=== PATIENT | male | born 1930 | race Caucasian/White ===

== ENCOUNTER 2018-08-29 16:37 | Inpatient (IN) | payer MEDICARE, OTHER ==
[2018-08-29] MEDS ORDERED: Bacitracin 500 Units/gm Oint Foilpak UD ONE (17:34)
[2018-08-29] MEDS ORDERED: Sodium Chloride 0.9% 1,000 ML IV ONE (17:36)
--- NOTE | 2018-08-29 17:41 | C.PDOC ---
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 Patient is bedbound and usually seen by visiting nurse who saw sore worsen and advised patient be brought to ED. Patient has no change in appetite. As per , denies fever, cough, CP, wheezing or any other active complaints. HPI obtained by secondary to patient's clinical condition. 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), Dementia, HTN, Hypercholesterolemia Surgical History: Coronary Stent Denies: Pacemaker - [facility] Procedures ANGIOPLASTY OF OTHER NON-CORONARY VESSEL(S) (08/31/12) ATHERECTOMY OF OTHER NON-CORONARY VESSEL(S) (08/31/12) CONTRAST AORTOGRAM (08/31/12) CONTRAST ARTERIOGRAM-LEG (08/31/12) INFLUENZA VACCINATION (10/18/14) INSEJ [id number] PERIPHERAL NON-CORONARY VES STENT(S) (08/31/12) INSERTION OF ONE VASCULAR STENT (08/31/12) PROCEDURE ON SINGLE VESSEL (08/31/12) SPINAL TAP (10/30/14) VACCINATION NEC (10/18/14) VENTRICL SHUNT-ABDOMEN (10/30/14) - Social History Hx Tobacco Use: No Hx Alcohol Use: No Hx Substance Use: No - Immunization History Hx Tetanus Toxoid Vaccination: No Hx Influenza Vaccination: Yes (10/2014) Hx Pneumococcal Vaccination: Yes (09/2014) <Holly Benavides - Last Filed: 08/29/18 18:56> Vital Signs: Last Vital Signs Temp 99.8 F H 08/29/18 18:14 Pulse 96 H 08/29/18 19:07 Resp 22 08/29/18 19:07 BP 138/72 08/29/18 19:07 Pulse Ox 100 08/29/18 18:59 - [facility] Procedures ANGIOPLASTY OF OTHER NON-CORONARY VESSEL(S) (08/31/12) ATHERECTOMY OF OTHER NON-CORONARY VESSEL(S) (08/31/12) CONTRAST AORTOGRAM (08/31/12) CONTRAST ARTERIOGRAM-LEG (08/31/12) INFLUENZA VACCINATION (10/18/14) INSEJ [id number] PERIPHERAL NON-CORONARY VES STENT(S) (08/31/12) INSERTION OF ONE VASCULAR STENT (08/31/12) PROCEDURE ON SINGLE VESSEL (08/31/12) SPINAL TAP (10/30/14) VACCINATION NEC (10/18/14) VENTRICL SHUNT-ABDOMEN (10/30/14) Family History: States: No Known Family Hx <Malini Molina - Last Filed: 09/02/18 05:21> Review Of Systems Review Of Systems: ROS cannot be obtained secondary to pt's inabilty to answer questions. (dementia) Constitutional: Negative for: Fever, Chills Skin: Positive for: Other (sores to sacral area) <Holly Benavides - Last Filed: 08/29/18 18:56> Physical Exam - Physical Exam Appears: Non-toxic, No Acute Distress Skin: Warm, Dry, No Rash, Other (grade 2-3 sacral decub, grade 1 to B/L hips.) Head: Normacephalic Eye(s): bilateral: PERRL Nose: No Flaring Oral Mucosa: Moist, No Drooling Throat: No Drooling Neck: Trachea Midline, Supple Cardiovascular: Rhythm Regular, Murmur (diastolic) Respiratory: No Decreased Breath Sounds, No Accessory Muscle Use, No Rales, No Rhonchi, No Wheezing Gastrointestinal/Abdominal: Soft, No Tenderness, No Guarding, No Rebound Extremity: No Pedal Edema, No Deformity, No Swelling Neurological/Psych: Other (exam limited, B/L LEs contacted sec to previous CVA) <Holly Benavides - Last Filed: 08/29/18 18:56> ED Course And Treatment - Laboratory Results Result Diagrams: 08/29/18 18:00 08/29/18 18:00 Lab Interpretation: Abnormal ECG: Interpreted By Me, Viewed By Me ECG Interpretation: Abnormal Interpretation Of ECG: SR@96/min, frequent PVCs, prolong QT, t wave inversionIII, AVF, V6 O2 Sat by Pulse Oximetry: 100 (RA) Pulse Ox Interpretation: Normal Progress Note: Code sepsis called at 18:06, notified. tx according to sepsis protocol. vanco/Zosyn empirically given. case discussed with and admission to ICU arranged. case discussed with substance abuse counselor. <Holly Benavides - Last Filed: 08/29/18 18:56> - Laboratory Results Result Diagrams: 09/01/18 11:29 09/01/18 11:29 <Malini Molina - Last Filed: 09/02/18 05:21> Disposition - Disposition Disposition Time: 18:18 <Holly Benavides - Last Filed: 08/29/18 18:56> <Malini Molina - Last Filed: 09/02/18 05:21> - Disposition Disposition: HOSPITALIZED Condition: STABLE - Clinical Impression Clinical Impression: Sacral decubitus ulcer, stage III, Sepsis - PA / LARDER COOK / Resident Statement DEMARCUS has reviewed & agrees with the documentation as recorded. - Scribe Statement The provider has reviewed the documentation as recorded by the Scribe Anna Culp All medical record entries made by the Scribe were at my direction and personally dictated by me. I have reviewed the chart and agree that the record accurately reflects my personal performance of the history, physical exam, medical decision making, and the department course for this patient. I have also personally directed, reviewed, and agree with the discharge instructions and disposition. <Holly Benavides - Last Filed: 08/29/18 18:56> - PA / LARDER COOK / Resident Statement DEMARCUS has examined the patient and agrees with the treatment plan. <Malini Molina - Last Filed: 09/02/18 05:21> Physician Patient Turnover Patient Signed Over To: Toy Mendoza DO Handoff Comments: icu eval <Malini Molina - Last Filed: 09/02/18 05:21> Critical Care Time - Critical Care Note Total Time (in mins): 45 Documented critical care: time excludes all time spent performing seperately billable procedures. <Holly Benavides - Last Filed: 08/29/18 18:56>
[2018-08-29 18:01] LABS: VENOUS BLOOD GAS BASE EXCESS 0.8 mmol/L (0.0-2.0); VENOUS BLOOD GAS PCO2 49 mmHg (40-60); VENOUS BLOOD GAS PO2 21 mm/Hg (30-55); VENOUS BLOOD PH 7.35 (7.32-7.43)
[2018-08-29] MEDS ORDERED: Piperacill/Tazo 3.375gm in Dex 3.375 GM/50 ML BAG IVPB STA (18:06)
[2018-08-29] MEDS ORDERED: Vancomycin 1 gm/NS 200 ml 1 GM/200 ML BAG IVPB STA (18:06)
[2018-08-29 18:07] LABS: BASO % 0.3 % (0.0-2.0); EOS % 0.1 % (0.0-4.0); HEMOGLOBIN 10.9 g/dL (12.0-18.0); LYMPH # 1.4 K/uL (1.0-4.3); MEAN CELL VOLUME 90.9 fL (80.0-94.0); MEAN CORPUSCULAR HEMOGLOBIN 30.8 pg (27.0-31.0); MEAN CORPUSCULAR HGB CONC 33.9 g/dL (33.0-37.0); MEAN PLATELET VOLUME 8.5 fL (7.2-11.7); MONO # 0.6 K/uL (0.0-0.8); MONO % 5.7 % (0.0-10.0); NEUT # 8.2 K/uL (1.8-7.0); NEUT % 79.9 % (50.0-75.0); NRBC % 0.1 % (0.0-2.0); RBC 3.52 Mil/uL (4.40-5.90); RED CELL DISTRIBUTION WIDTH 12.6 % (11.5-14.5); WHITE BLOOD COUNT 10.3 K/uL (4.8-10.8)
[2018-08-29] MEDS ORDERED: Sodium Chloride 0.9% 1,000 ML ONE (18:07)
[2018-08-29 18:15] LABS: INR 1.2; PROTHROMBIN TIME 12.7 SECONDS (9.7-12.2)
[2018-08-29 18:21] LABS: ALB/GLOB RATIO 0.9 (1.0-2.1); ALBUMIN 3.4 g/dL (3.5-5.0); ALT/SGPT 11 U/L (21-72); AST/SGOT 24 U/L (17-59); BLOOD UREA NITROGEN 18 mg/dL (9-20); CALCIUM 8.9 mg/dl (8.6-10.4); GFR NON-AFRICAN AMERICAN > 60
[2018-08-29] MEDS ORDERED: Lactated Ringer's 2,000 ML ONE (18:21)
[2018-08-29] MEDS ORDERED: Piperacillin/Tazobact 3.375 gm 100 ML IVPB ONE (18:21)
[2018-08-29] MEDS ORDERED: Vancomycin 1 GM 1 GM/250 ML BAG IVPB ONE (18:44)
--- NOTE | 2018-08-29 19:02 | RAD ---
HISTORY: Sepsis Patient COMPARISON: Chest x-ray performed 10/30/14 TECHNIQUE: Chest, one view. FINDINGS: Patient's chin obscures evaluation of the lung apices. LUNGS: Right paratracheal opacity may reflect ectatic vasculature however alternatives including adenopathy is not excluded. No focal consolidation. Please note that chest x-ray has limited sensitivity for the detection of pulmonary masses. PLEURA: No significant pleural effusion identified. No definite pneumothorax . CARDIOVASCULAR: Heart size appears top normal. Aortic ectasia. Atherosclerotic calcifications. OSSEOUS STRUCTURES: Osseous demineralization. Degenerative changes. VISUALIZED UPPER ABDOMEN: Unremarkable. OTHER FINDINGS: None. IMPRESSION: Stable appearance of the chest. Right paratracheal opacity may reflect ectatic vasculature however alternatives including adenopathy is not excluded. Aortic ectasia. Atherosclerotic calcifications.
--- NOTE | 2018-08-29 19:59 | CP.PCM.CON ---
History of Present Illness - History of Present Illness History of Present Illness: 87 y/o male with history of CVA x2 ,hydrocephalus,[employer] Shunt (2014 or 2015), residual B/L lower extremities and left upper extremity contracture,HTN, CO,dementia brought to ED by for evaluation of sores to sacral area and back worse on right hip for 1 month. Patient is bedbound and usually seen by visiting nurse who saw sore worsen and advised patient be brought to ED. Patient has no change in appetite. As per , denies fever, cough, CP, wheezing or any other active complaints. History obtained from and son(via visiting nurse) secondary to patient's clinical condition and ER notes. patient responds to and son Review of Systems - Review of Systems Review of Systems: unable to get due to patients baseline condition Past Patient History - Tetanus Immunizations Tetanus Immunization: Unknown - Past Medical History & Family History Past Medical History?: Yes - Past Social History Smoking Status: Former Smoker - CARDIAC Hx Hypercholesterolemia: Yes Hx Hypertension: Yes Hx Pacemaker: No - NEUROLOGICAL Hx Dementia: Yes - HEMATOLOGICAL/ONCOLOGICAL Hx Blood Transfusions: No Hx Blood Transfusion Reaction: No - INTEGUMENTARY Other/Comment: MULTIPLE DECUBITUS ULCERS TO BACK - MUSCULOSKELETAL/RHEUMATOLOGICAL Hx Arthritis: Yes - GENITOURINARY/GYNECOLOGICAL Other/Comment: Hx of BPH - PSYCHIATRIC Hx Substance Use: No - SURGICAL HISTORY Hx Coronary Stent: Yes - ANESTHESIA Hx Anesthesia Reactions: No Hx Malignant Hyperthermia: No Meds Allergies/Adverse Reactions: Allergies Allergy/AdvReac Type Severity Reaction Status Date / Time No Known Allergies Allergy Unverified 08/29/18 17:06 - Medications Medications: Current Medications Sodium Chloride (Sodium Chloride 0.9%) 1,000 mls @ 200 mls/hr IV .Q5H ONE Stop: 08/29/18 22:35 Last Admin: 08/29/18 18:07 Dose: 200 mls/hr Physical Exam - Constitutional Appears: Non-toxic, No Acute Distress, Chronically Ill - Head Exam Head Exam: ATRAUMATIC, NORMAL INSPECTION, NORMOCEPHALIC - Eye Exam Eye Exam: Normal appearance. absent: Conjunctival injection Additional comments: bilateral cataract surgery - ENT Exam ENT Exam: Mucous Membranes Dry - Neck Exam Neck exam: Positive for: Normal Inspection - Respiratory Exam Respiratory Exam: Clear to Auscultation Bilateral, NORMAL BREATHING PATTERN. absent: Rales, Rhonchi, Respiratory Distress - Cardiovascular Exam Cardiovascular Exam: REGULAR RHYTHM. absent: JVD - GI/Abdominal Exam GI & Abdominal Exam: Normal Bowel Sounds, Soft. absent: Tenderness - Extremities Exam Extremities exam: Negative for: pedal edema, tenderness Additional comments: bilateral contracted lower extremities and left upper extremity - Neurological Exam Neurological exam: Alert - Skin Skin Exam: Warm Additional comments: large right buttock ulcer with discharge and smaller decubiti+ right neck,anterior chest with palpable [employer] F[employer] shunt Results - Vital Signs Recent Vital Signs: Last Vital Signs Temp 99.8 F H 08/29/18 18:14 Pulse 96 H 08/29/18 19:07 Resp 22 08/29/18 19:07 BP 138/72 08/29/18 19:07 Pulse Ox 100 08/29/18 18:59 - Labs Result Diagrams: 08/29/18 18:00 08/29/18 18:00 Labs: Laboratory Results - last 24 hr 08/29/18 08/29/18 08/29/18 17:50 18:00 18:00 WBC 10.3 D RBC 3.52 L Hgb 10.9 L Hct 32.0 L MCV 90.9 D MCH 30.8 MCHC 33.9 RDW 12.6 Plt Count 329 D MPV 8.5 Neut % (Auto) 79.9 H Lymph % (Auto) 14.0 L [place] % (Auto) 5.7 Eos % (Auto) 0.1 Baso % (Auto) 0.3 Neut # (Auto) 8.2 H Lymph # (Auto) 1.4 [place] # (Auto) 0.6 Eos # (Auto) 0.0 Baso # (Auto) 0.0 PT INR APTT pO2 21 L VBG pH 7.35 VBG pCO2 49 VBG HCO3 23.8 VBG Total CO2 28.6 H VBG O2 Sat (Calc) 30.7 L VBG Base Excess 0.8 VBG Potassium 3.7 Sodium 144.0 144 Chloride 111.0 H 105 Glucose 132 H Lactate 4.0 H* FiO2 21.0 Potassium 3.9 Carbon Dioxide 25 Anion Gap 17 BUN 18 Creatinine 0.9 Est GFR ( Amer) > 60 Est GFR (Non-Af Amer) > 60 Random Glucose 136 H Calcium 8.9 Phosphorus 3.4 Magnesium 2.4 H Total Bilirubin 0.6 AST 24 ALT 11 L D Alkaline Phosphatase 105 Total Creatine Kinase 500 H Total Protein 7.1 Albumin 3.4 L Globulin 3.7 Albumin/Globulin Ratio 0.9 L Venous Blood Potassium 3.7 08/29/18 18:00 WBC RBC Hgb Hct MCV MCH MCHC RDW Plt Count MPV Neut % (Auto) Lymph % (Auto) [place] % (Auto) Eos % (Auto) Baso % (Auto) Neut # (Auto) Lymph # (Auto) [place] # (Auto) Eos # (Auto) Baso # (Auto) PT 12.7 H INR 1.2 APTT 31 pO2 VBG pH VBG pCO2 VBG HCO3 VBG Total CO2 VBG O2 Sat (Calc) VBG Base Excess VBG Potassium Sodium Chloride Glucose Lactate FiO2 Potassium Carbon Dioxide Anion Gap BUN Creatinine Est GFR ( Amer) Est GFR (Non-Af Amer) Random Glucose Calcium Phosphorus Magnesium Total Bilirubin AST ALT Alkaline Phosphatase Total Creatine Kinase Total Protein Albumin Globulin Albumin/Globulin Ratio Venous Blood Potassium - EKG Data EKG Interpreted by: Myself - Imaging and Cardiology Chest x-ray Status: Image reviewed by me, Report reviewed by me Assessment & Plan - Assessment and Plan (Free Text) Assessment: 87 y/o male with history of CVA x2 ,hydrocephalus,[employer] Shunt (2013 or 2015), residual B/L lower extremities and left upper extremity contracture,HTN, CO, dementia brought to ER with decubiti ulcers,anemia initially hypotensive in ER,responded to fluids Hemodynamically stable at present time. .Recommend cultures,IV fluids,antibiotics,local wound care
[2018-08-29] MEDS ORDERED: Piperacillin/Tazobact 3.375 GM in Sodium Chloride 100 ML IVPB SCH (20:15)
[2018-08-29] MEDS ORDERED: Piperacillin/Tazobact 3.375 gm 100 ML IVPB SCH (22:00)
[2018-08-29] MEDS: Sodium Chloride 0.9% 1,000 ML IV SCH (22:12)
--- NOTE | 2018-08-29 22:50 | CP.PCM.HP ---
Past Patient History - Tetanus Immunizations Tetanus Immunization: Unknown - Past Medical History & Family History Past Medical History?: Yes - Past Social History Smoking Status: Former Smoker - CARDIAC Hx Hypercholesterolemia: Yes Hx Hypertension: Yes Hx Pacemaker: No - NEUROLOGICAL Hx Dementia: Yes - HEMATOLOGICAL/ONCOLOGICAL Hx Blood Transfusions: No Hx Blood Transfusion Reaction: No - INTEGUMENTARY Other/Comment: MULTIPLE DECUBITUS ULCERS TO BACK - MUSCULOSKELETAL/RHEUMATOLOGICAL Hx Arthritis: Yes - GENITOURINARY/GYNECOLOGICAL Other/Comment: Hx of BPH - PSYCHIATRIC Hx Substance Use: No - SURGICAL HISTORY Hx Coronary Stent: Yes - ANESTHESIA Hx Anesthesia Reactions: No Hx Malignant Hyperthermia: No Meds Allergies/Adverse Reactions: Allergies Allergy/AdvReac Type Severity Reaction Status Date / Time No Known Allergies Allergy Unverified 08/29/18 17:06 Results - Vital Signs Recent Vital Signs: Last Vital Signs Temp 99.8 F H 08/29/18 18:14 Pulse 85 08/29/18 22:42 Resp 18 08/29/18 22:42 BP 151/53 H 08/29/18 22:42 Pulse Ox 100 08/29/18 22:42 - Labs Result Diagrams: 08/29/18 18:00 08/29/18 18:00 Labs: Laboratory Results - last 24 hr 08/29/18 08/29/18 08/29/18 17:50 18:00 18:00 WBC 10.3 D RBC 3.52 L Hgb 10.9 L Hct 32.0 L MCV 90.9 D MCH 30.8 MCHC 33.9 RDW 12.6 Plt Count 329 D MPV 8.5 Neut % (Auto) 79.9 H Lymph % (Auto) 14.0 L Payne % (Auto) 5.7 Eos % (Auto) 0.1 Baso % (Auto) 0.3 Neut # (Auto) 8.2 H Lymph # (Auto) 1.4 Payne # (Auto) 0.6 Eos # (Auto) 0.0 Baso # (Auto) 0.0 PT INR APTT pO2 21 L VBG pH 7.35 VBG pCO2 49 VBG HCO3 23.8 VBG Total CO2 28.6 H VBG O2 Sat (Calc) 30.7 L VBG Base Excess 0.8 VBG Potassium 3.7 Sodium 144.0 144 Chloride 111.0 H 105 Glucose 132 H Lactate 4.0 H* FiO2 21.0 Potassium 3.9 Carbon Dioxide 25 Anion Gap 17 BUN 18 Creatinine 0.9 Est GFR ( Amer) > 60 Est GFR (Non-Af Amer) > 60 Random Glucose 136 H Lactic Acid Calcium 8.9 Phosphorus 3.4 Magnesium 2.4 H Total Bilirubin 0.6 AST 24 ALT 11 L D Alkaline Phosphatase 105 Total Creatine Kinase 500 H Total Protein 7.1 Albumin 3.4 L Globulin 3.7 Albumin/Globulin Ratio 0.9 L Venous Blood Potassium 3.7 08/29/18 08/29/18 18:00 21:11 WBC RBC Hgb Hct MCV MCH MCHC RDW Plt Count MPV Neut % (Auto) Lymph % (Auto) [place] % (Auto) Eos % (Auto) Baso % (Auto) Neut # (Auto) Lymph # (Auto) Payne # (Auto) Eos # (Auto) Baso # (Auto) PT 12.7 H INR 1.2 APTT 31 pO2 VBG pH VBG pCO2 VBG HCO3 VBG Total CO2 VBG O2 Sat (Calc) VBG Base Excess VBG Potassium Sodium Chloride Glucose Lactate FiO2 Potassium Carbon Dioxide Anion Gap BUN Creatinine Est GFR ( Amer) Est GFR (Non-Af Amer) Random Glucose Lactic Acid 3.5 H Calcium Phosphorus Magnesium Total Bilirubin AST ALT Alkaline Phosphatase Total Creatine Kinase Total Protein Albumin Globulin Albumin/Globulin Ratio Venous Blood Potassium
[2018-08-30] MEDS: Piperacill/Tazo 3.375gm in Dex 3.375 GM/50 ML BAG IVPB SCH ×3 (02:30→18:20)
[2018-08-30] MEDS: Multiple Vitamins Tab PO SCH (11:33)
[2018-08-30] MEDS: Enoxaparin 40 mg Syringe SC SCH (11:34)
[2018-08-30] MEDS: Sodium Chloride 0.9% 1,000 ML IV SCH ×2 (12:00→17:30)
--- NOTE | 2018-08-30 13:14 | CARD ---
APPROVED REPORT Date of service: 08/29/2018 EKG Measurement Heart [id number] <Conclusion> Sinus rhythm with frequent premature ventricular complexes ST & T wave abnormality, consider lateral ischemia Prolonged QT Abnormal ECG
[2018-08-30 13:58] LABS: BASO % 0.2 % (0.0-2.0); LYMPH # 0.5 K/uL (1.0-4.3); LYMPH % 3.4 % (20.0-40.0); MEAN CELL VOLUME 91.2 fL (80.0-94.0); MEAN CORPUSCULAR HEMOGLOBIN 29.5 pg (27.0-31.0); MEAN CORPUSCULAR HGB CONC 32.3 g/dL (33.0-37.0); MEAN PLATELET VOLUME 8.7 fL (7.2-11.7); MONO # 0.3 K/uL (0.0-0.8); MONO % 2.2 % (0.0-10.0); NEUT # 15.1 K/uL (1.8-7.0); NEUT % 94.2 % (50.0-75.0); RBC 2.67 Mil/uL (4.40-5.90); RED CELL DISTRIBUTION WIDTH 12.9 % (11.5-14.5)
[2018-08-30 14:01] LABS: HEMOGLOBIN 7.9 g/dL (12.0-18.0)
[2018-08-30 14:02] LABS: PLATELET COUNT 218 K/uL (130-400)
[2018-08-30 14:08] LABS: ALB/GLOB RATIO 0.9 (1.0-2.1); ALBUMIN 2.5 g/dL (3.5-5.0); ALT/SGPT 17 U/L (21-72); AST/SGOT 34 U/L (17-59); BLOOD UREA NITROGEN 21 mg/dL (9-20); CALCIUM 7.9 mg/dl (8.6-10.4); GFR NON-AFRICAN AMERICAN > 60
[2018-08-30 14:37] LABS: BANDS 8 % (0-2); LYMPHOCYTE 4 % (20-40); NEUTROPHIL 88 % (50-75); PLATELET ESTIMATE NORMAL (NORMAL); TOTAL CELLS COUNTED 100
[2018-08-30 14:39] LABS: HYPOCHROMIC SLIGHT; POLYCHROMIC SLIGHT
--- NOTE | 2018-08-30 16:03 | CP.PCM.CON ---
<Fanta Boyle - Last Filed: 08/30/18 18:18> History of Present Illness - History of Present Illness History of Present Illness: General Surgery consult note for Dr. Paulson Consulted for sacral decubitus ulcer Patient is unable to provide HPI d/t AMS. HPI provided by family at bedside and chart Pt is a 87M who is bed bound with PMH of multiple CVA's. hydrocephalus, and dementia who has had a sacral wound at home that was getting worse so the family brought the patient to the hospital. Patient has extreme contractions and though comfortable at rest, has pain when being rolled for examination, with agitation and combativeness. PMH: CVA, hydrocephalus S/P [employer] shunt, dementia, HTN, HLD, [place], dementia PSH: vp software support shunt, coronary stent ALL: NKDA Review of Systems - Review of Systems Systems not reviewed;Unavailable: Dementia All systems: reviewed and no additional remarkable complaints except (as per HPI) Past Patient History - Tetanus Immunizations Tetanus Immunization: Unknown - Past Medical History & Family History Past Medical History?: Yes - Past Social History Smoking Status: Former Smoker - CARDIAC Hx Hypercholesterolemia: Yes Hx Hypertension: Yes Hx Pacemaker: No - NEUROLOGICAL Hx Dementia: Yes - HEMATOLOGICAL/ONCOLOGICAL Hx Blood Transfusions: No Hx Blood Transfusion Reaction: No - INTEGUMENTARY Other/Comment: MULTIPLE DECUBITUS ULCERS TO BACK - MUSCULOSKELETAL/RHEUMATOLOGICAL Hx Falls: No - GENITOURINARY/GYNECOLOGICAL Other/Comment: Hx of BPH - PSYCHIATRIC Hx Substance Use: No - SURGICAL HISTORY Hx Coronary Stent: Yes - ANESTHESIA Hx Anesthesia Reactions: No Hx Malignant Hyperthermia: No Meds Allergies/Adverse Reactions: Allergies Allergy/AdvReac Type Severity Reaction Status Date / Time No Known Allergies Allergy Unverified 08/29/18 17:06 - Medications Medications: Current Medications Clopidogrel Bisulfate (Plavix) 75 mg PO DAILY [facility] Enoxaparin Sodium (Lovenox) 40 mg SC DAILY [facility] Last Admin: 08/30/18 11:34 Dose: 40 mg Ferrous Sulfate (Feosol) 325 mg PO BID [facility] Last Admin: 08/30/18 11:33 Dose: 325 mg Vancomycin HCl 1 gm/ Sodium (Chloride) 250 mls @ 167 mls/hr IVPB Q24H [facility]; Protocol Last Admin: 08/29/18 21:44 Dose: Not Given Sodium Chloride (Sodium Chloride 0.9%) 1,000 mls @ 70 mls/hr IV .[id number] [facility] Last Admin: 08/29/18 22:12 Dose: 70 mls/hr Piperacillin Sod/Tazobactam Sod (Zosyn 3.375 Gm Iv Premix) 3.375 gm in 50 mls @ 100 mls/hr IVPB Q8H [facility] Last Admin: 08/30/18 11:34 Dose: 100 mls/hr Influenza Virus Vaccine (Fluzone Quad [id number]) 60 mcg IM .ONCE ONE Stop: 08/31/18 10:01 Lorazepam (Ativan) 0.5 mg PO Q12 PRN PRN Reason: Agitation Last Admin: 08/29/18 19:55 Dose: 0.5 mg Memantine (Namenda) 10 mg PO BID [facility] Last Admin: 08/30/18 11:33 Dose: 10 mg Metoprolol Tartrate (Lopressor) 25 mg PO BID [facility] Last Admin: 08/30/18 11:35 Dose: Not Given Multivitamins (Hexavitamin) 1 tab PO DAILY [facility] Last Admin: 08/30/18 11:33 Dose: 1 tab Pantoprazole Sodium (Protonix Susp) 40 mg PO 0600 [facility] Rosuvastatin Calcium (Crestor) 20 mg PO HS [facility] Last Admin: 08/29/18 23:18 Dose: 20 mg Physical Exam - Constitutional Appears: No Acute Distress, Cachectic - Head Exam Head Exam: ATRAUMATIC, NORMOCEPHALIC - Eye Exam Eye Exam: Normal appearance. absent: Conjunctival injection, Scleral icterus - ENT Exam ENT Exam: Mucous Membranes Moist - Respiratory Exam Respiratory Exam: NORMAL BREATHING PATTERN. absent: Accessory Muscle Use, Respiratory Distress - Cardiovascular Exam Cardiovascular Exam: Tachycardia - GI/Abdominal Exam GI & Abdominal Exam: Soft. absent: Distended - Extremities Exam Extremities exam: Negative for: calf tenderness, pedal edema - Back Exam Additional comments: stage 2 sacral decubitus ulcer with no erythema, no fluctuance, drainage, no foul odor or crepitus stage 1 ulcers of the right hip - Neurological Exam Neurological exam: Alert, Altered - Psychiatric Exam Psychiatric exam: Normal Affect, Normal Mood - Skin Skin Exam: Dry, Intact, Normal Color, Warm Additional comments: except as noted above Results - Vital Signs Recent Vital Signs: Last Vital Signs Temp 98.5 F 08/30/18 07:00 Pulse 106 H 08/30/18 07:00 Resp 20 08/30/18 07:00 BP 99/60 L 08/30/18 11:35 Pulse Ox 98 08/30/18 07:00 - Labs Result Diagrams: 08/30/18 16:40 08/30/18 13:48 Labs: Laboratory Results - last 24 hr 08/29/18 08/29/18 08/29/18 17:50 18:00 18:00 WBC 10.3 D RBC 3.52 L Hgb 10.9 L Hct 32.0 L MCV 90.9 D MCH 30.8 MCHC 33.9 RDW 12.6 Plt Count 329 D MPV 8.5 Neut % (Auto) 79.9 H Lymph % (Auto) 14.0 L [place] % (Auto) 5.7 Eos % (Auto) 0.1 Baso % (Auto) 0.3 Neut # (Auto) 8.2 H Lymph # (Auto) 1.4 [place] # (Auto) 0.6 Eos # (Auto) 0.0 Baso # (Auto) 0.0 Neutrophils % (Manual) Band Neutrophils % Lymphocytes % (Manual) Monocytes % (Manual) Platelet Estimate Polychromasia Hypochromasia (manual) PT INR APTT pO2 21 L VBG pH 7.35 VBG pCO2 49 VBG HCO3 23.8 VBG Total CO2 28.6 H VBG O2 Sat (Calc) 30.7 L VBG Base Excess 0.8 VBG Potassium 3.7 Sodium 144.0 144 Chloride 111.0 H 105 Glucose 132 H Lactate 4.0 H* FiO2 21.0 Potassium 3.9 Carbon Dioxide 25 Anion Gap 17 BUN 18 Creatinine 0.9 Est GFR ( Amer) > 60 Est GFR (Non-Af Amer) > 60 Random Glucose 136 H Lactic Acid Calcium 8.9 Phosphorus 3.4 Magnesium 2.4 H Total Bilirubin 0.6 AST 24 ALT 11 L D Alkaline Phosphatase 105 Total Creatine Kinase 500 H Total Protein 7.1 Albumin 3.4 L Globulin 3.7 Albumin/Globulin Ratio 0.9 L Venous Blood Potassium 3.7 08/29/18 08/29/18 08/30/18 18:00 21:11 13:48 WBC 16.0 H D RBC 2.67 L Hgb 7.9 L D Hct 24.3 L MCV 91.2 MCH 29.5 MCHC 32.3 L RDW 12.9 Plt Count 218 D MPV 8.7 Neut % (Auto) 94.2 H Lymph % (Auto) 3.4 L [place] % (Auto) 2.2 Eos % (Auto) 0.0 Baso % (Auto) 0.2 Neut # (Auto) 15.1 H Lymph # (Auto) 0.5 L [place] # (Auto) 0.3 Eos # (Auto) 0.0 Baso # (Auto) 0.0 Neutrophils % (Manual) 88 H Band Neutrophils % 8 H Lymphocytes % (Manual) 4 L Monocytes % (Manual) TEST NOT PERFORMED Platelet Estimate Normal Polychromasia Slight Hypochromasia (manual) Slight PT 12.7 H INR 1.2 APTT 31 pO2 VBG pH VBG pCO2 VBG HCO3 VBG Total CO2 VBG O2 Sat (Calc) VBG Base Excess VBG Potassium Sodium Chloride Glucose Lactate FiO2 Potassium Carbon Dioxide Anion Gap BUN Creatinine Est GFR ( Amer) Est GFR (Non-Af Amer) Random Glucose Lactic Acid 3.5 H Calcium Phosphorus Magnesium Total Bilirubin AST ALT Alkaline Phosphatase Total Creatine Kinase Total Protein Albumin Globulin Albumin/Globulin Ratio Venous Blood Potassium 08/30/18 13:48 WBC RBC Hgb Hct MCV MCH MCHC RDW Plt Count MPV Neut % (Auto) Lymph % (Auto) [place] % (Auto) Eos % (Auto) Baso % (Auto) Neut # (Auto) Lymph # (Auto) [place] # (Auto) Eos # (Auto) Baso # (Auto) Neutrophils % (Manual) Band Neutrophils % Lymphocytes % (Manual) Monocytes % (Manual) Platelet Estimate Polychromasia Hypochromasia (manual) PT INR APTT pO2 VBG pH VBG pCO2 VBG HCO3 VBG Total CO2 VBG O2 Sat (Calc) VBG Base Excess VBG Potassium Sodium 145 Chloride 110 H Glucose Lactate FiO2 Potassium 3.8 Carbon Dioxide 24 Anion Gap 15 BUN 21 H Creatinine 1.1 Est GFR ( Amer) > 60 Est GFR (Non-Af Amer) > 60 Random Glucose 153 H Lactic Acid Calcium 7.9 L Phosphorus Magnesium Total Bilirubin 0.7 AST 34 ALT 17 L D Alkaline Phosphatase 72 Total Creatine Kinase Total Protein 5.4 L Albumin 2.5 L D Globulin 2.9 Albumin/Globulin Ratio 0.9 L Venous Blood Potassium Assessment & Plan - Assessment and Plan (Free Text) Assessment: 87M with stage 3 sacral decubitus ulcer and stage 1 right hip ulcers Plan: trend CBC--leukocytosis unlikely to be due to sacral decubitus ulcer. Recommend work up for other possible sources of infection Recommend antibiotics per primary or ID Recommend air mattress, turn and reposition [id number], BID optifoam and medihoney by nursing Recommend wound care nursing consult Recommend good nutrition No surgical intervention warranted at this time Discussed and examined with Dr. Paulson, who agrees with above Fanta Boyle PGY2 <Brent Paulson - Last Filed: 09/02/18 18:57> Meds - Medications Medications: Current Medications Albuterol/Ipratropium (Duoneb 3 Mg/0.5 Mg (3 Ml) Ud) 3 ml INH RQ6 [facility] Last Admin: 09/02/18 14:03 Dose: 3 ml Clopidogrel Bisulfate (Plavix) 75 mg PO DAILY [facility] Last Admin: 09/01/18 10:43 Dose: 75 mg Collagenase (Santyl) 1 gm TOP BID [facility] Last Admin: 09/02/18 18:43 Dose: 1 appl Cyanocobalamin (Vitamin B12 1000 Mcg/Ml Inj) 1,000 mcg IM DAILY [facility] Last Admin: 09/02/18 10:41 Dose: 1,000 mcg Enoxaparin Sodium (Lovenox) 40 mg SC DAILY [facility] Last Admin: 09/02/18 10:34 Dose: 40 mg Ferrous Sulfate (Feosol Liq) 300 mg PO BID [facility] Last Admin: 09/02/18 18:36 Dose: 300 mg Vancomycin HCl 1 gm/ Sodium (Chloride) 250 mls @ 167 mls/hr IVPB Q24H [facility]; Protocol Last Admin: 09/01/18 20:28 Dose: 167 mls/hr Meropenem 500 mg/ Sodium (Chloride) 100 mls @ 100 mls/hr IVPB Q8H [facility]; Protocol Last Admin: 09/02/18 16:33 Dose: 100 mls/hr Ketorolac Tromethamine (Toradol) 10 mg PO Q8H PRN PRN Reason: Pain, moderate (4-7) Lorazepam (Ativan) 0.5 mg PO Q12 PRN PRN Reason: Agitation Last Admin: 08/30/18 17:04 Dose: 0.5 mg Memantine (Namenda) 10 mg PO BID [facility] Last Admin: 09/02/18 18:41 Dose: 10 mg Metoprolol Tartrate (Lopressor) 25 mg PO BID [facility] Last Admin: 09/02/18 18:36 Dose: 25 mg Multivitamins (Hexavitamin) 1 tab PO DAILY [facility] Last Admin: 09/02/18 10:32 Dose: 1 tab Pantoprazole Sodium (Protonix Susp) 40 mg PO 0600 [facility] Last Admin: 09/02/18 06:06 Dose: Not Given Rosuvastatin Calcium (Crestor) 20 mg PO HS [facility] Last Admin: 09/01/18 21:03 Dose: 20 mg Results - Vital Signs Recent Vital Signs: Last Vital Signs Temp 98.3 F 09/02/18 15:33 Pulse 111 H 09/02/18 15:33 Resp 20 09/02/18 15:33 BP 154/52 H 09/02/18 18:36 Pulse Ox 97 09/02/18 15:33 - Labs Result Diagrams: 09/01/18 11:29 09/01/18 11:29 Attending/Attestation - Attestation I have personally seen and examined this patient.: Yes I have fully participated in the care of the patient.: Yes I have reviewed all pertinent clinical information: Yes Notes (Text): Pt was seen and examined at bedside Agree with above note and assessment Pt with idementia and Stage 3 sacral decubitus ulcer Labs and radiology reviewed Ass: Stage 3 sacral decubitus ulcer Plan : conservative mx at present Pt would need further debridement if no improvement Wound care consult c.w current mx Plan d.w primary team in detail Risk and benefit explained in detail.
[2018-08-30 16:50] LABS: HEMOGLOBIN 8.2 g/dL (12.0-18.0); MEAN CORPUSCULAR HEMOGLOBIN 29.6 pg (27.0-31.0); MEAN CORPUSCULAR HGB CONC 32.5 g/dL (33.0-37.0); MEAN PLATELET VOLUME 8.6 fL (7.2-11.7); RBC 2.78 Mil/uL (4.40-5.90); WHITE BLOOD COUNT 18.4 K/uL (4.8-10.8)
--- NOTE | 2018-08-30 17:14 | CP.PCM.CON ---
History of Present Illness - History of Present Illness History of Present Illness: Reason for consultation: COPD History provided by and daughter who were present at bedside and patient's inability to provide history or answer questions. Patient is a 87 year old Male with a PMHx of HTN, CAD, Hydrocephalus with [employer] shunt, Dementia, DE x 1 with stent, Stroke x 2, emphysema, urinary incontinence, and BPH who presented with worsening sacral sores. Pt was found to have sepsis. Chest Xray showed right paratracheal opacity may reflect ectatic vasculature where adenopathy or masses could not be excluded. Family states they have not noted any recent SOB or cough. ROS: Unable to obtain as patient is unable to answer questions (Dementia) PMHx: HTN, CAD, Hydrocephalus with [employer] shunt, DE x 1, Stroke x 2, emphysema, urinary incontinence, BPH Surgical Hx: HA[employer] STY[employer] shunt, Cataract surgery with implants, Coronary stent Meds: Metoprolol, Memantine, Plavix, Lovenox, Feosol, Crestor, Multivitamins Allergies: NKDA Family Hx: unknown Social Hx: Denies alcohol use. states patient smoked since age 22, unsure quantity and quit approximately 10 years ago. Review of Systems - Review of Systems Systems not reviewed;Unavailable: Dementia Past Patient History - Tetanus Immunizations Tetanus Immunization: Unknown - Past Medical History & Family History Past Medical History?: Yes - Past Social History Smoking Status: Former Smoker - CARDIAC Hx Hypercholesterolemia: Yes Hx Hypertension: Yes Hx Pacemaker: No - NEUROLOGICAL Hx Dementia: Yes - HEMATOLOGICAL/ONCOLOGICAL Hx Blood Transfusions: No Hx Blood Transfusion Reaction: No - INTEGUMENTARY Other/Comment: MULTIPLE DECUBITUS ULCERS TO BACK - MUSCULOSKELETAL/RHEUMATOLOGICAL Hx Falls: No - GENITOURINARY/GYNECOLOGICAL Other/Comment: Hx of BPH - PSYCHIATRIC Hx Substance Use: No - SURGICAL HISTORY Hx Coronary Stent: Yes - ANESTHESIA Hx Anesthesia Reactions: No Hx Malignant Hyperthermia: No Meds Allergies/Adverse Reactions: Allergies Allergy/AdvReac Type Severity Reaction Status Date / Time No Known Allergies Allergy Unverified 08/29/18 17:06 - Medications Medications: Current Medications Clopidogrel Bisulfate (Plavix) 75 mg PO DAILY [facility] Enoxaparin Sodium (Lovenox) 40 mg SC DAILY [facility] Last Admin: 08/30/18 11:34 Dose: 40 mg Ferrous Sulfate (Feosol) 325 mg PO BID [facility] Last Admin: 08/30/18 17:05 Dose: 325 mg Vancomycin HCl 1 gm/ Sodium (Chloride) 250 mls @ 167 mls/hr IVPB Q24H [facility]; Protocol Last Admin: 08/29/18 21:44 Dose: Not Given Sodium Chloride (Sodium Chloride 0.9%) 1,000 mls @ 70 mls/hr IV .[id number] [facility] Last Admin: 08/30/18 12:00 Dose: Not Given Piperacillin Sod/Tazobactam Sod (Zosyn 3.375 Gm Iv Premix) 3.375 gm in 50 mls @ 100 mls/hr IVPB Q8H [facility] Last Admin: 08/30/18 11:34 Dose: 100 mls/hr Influenza Virus Vaccine (Fluzone Quad [id number]) 60 mcg IM .ONCE ONE Stop: 08/31/18 10:01 Lorazepam (Ativan) 0.5 mg PO Q12 PRN PRN Reason: Agitation Last Admin: 08/30/18 17:04 Dose: 0.5 mg Memantine (Namenda) 10 mg PO BID [facility] Last Admin: 08/30/18 17:05 Dose: 10 mg Metoprolol Tartrate (Lopressor) 25 mg PO BID [facility] Last Admin: 08/30/18 11:35 Dose: Not Given Multivitamins (Hexavitamin) 1 tab PO DAILY [facility] Last Admin: 08/30/18 11:33 Dose: 1 tab Pantoprazole Sodium (Protonix Susp) 40 mg PO 0600 [facility] Rosuvastatin Calcium (Crestor) 20 mg PO HS [facility] Last Admin: 08/29/18 23:18 Dose: 20 mg Physical Exam - Head Exam Head Exam: ATRAUMATIC, NORMOCEPHALIC - ENT Exam ENT Exam: Mucous Membranes Moist - Respiratory Exam Respiratory Exam: Decreased Breath Sounds - Cardiovascular Exam Cardiovascular Exam: REGULAR RHYTHM - GI/Abdominal Exam GI & Abdominal Exam: Normal Bowel Sounds Results - Vital Signs Recent Vital Signs: Last Vital Signs Temp 98.5 F 08/30/18 07:00 Pulse 108 H 08/30/18 07:05 Resp 20 08/30/18 07:00 BP 99/60 L 08/30/18 11:35 Pulse Ox 98 08/30/18 07:00 - Labs Result Diagrams: 08/30/18 16:40 08/30/18 13:48 Labs: Laboratory Results - last 24 hr 08/29/18 08/29/18 08/29/18 17:50 18:00 18:00 WBC 10.3 D RBC 3.52 L Hgb 10.9 L Hct 32.0 L MCV 90.9 D MCH 30.8 MCHC 33.9 RDW 12.6 Plt Count 329 D MPV 8.5 Neut % (Auto) 79.9 H Lymph % (Auto) 14.0 L [place] % (Auto) 5.7 Eos % (Auto) 0.1 Baso % (Auto) 0.3 Neut # (Auto) 8.2 H Lymph # (Auto) 1.4 [place] # (Auto) 0.6 Eos # (Auto) 0.0 Baso # (Auto) 0.0 Neutrophils % (Manual) Band Neutrophils % Lymphocytes % (Manual) Monocytes % (Manual) Platelet Estimate Polychromasia Hypochromasia (manual) PT INR APTT pO2 21 L VBG pH 7.35 VBG pCO2 49 VBG HCO3 23.8 VBG Total CO2 28.6 H VBG O2 Sat (Calc) 30.7 L VBG Base Excess 0.8 VBG Potassium 3.7 Sodium 144.0 144 Chloride 111.0 H 105 Glucose 132 H Lactate 4.0 H* FiO2 21.0 Potassium 3.9 Carbon Dioxide 25 Anion Gap 17 BUN 18 Creatinine 0.9 Est GFR ( Amer) > 60 Est GFR (Non-Af Amer) > 60 Random Glucose 136 H Lactic Acid Calcium 8.9 Phosphorus 3.4 Magnesium 2.4 H Total Bilirubin 0.6 AST 24 ALT 11 L D Alkaline Phosphatase 105 Total Creatine Kinase 500 H Total Protein 7.1 Albumin 3.4 L Globulin 3.7 Albumin/Globulin Ratio 0.9 L Venous Blood Potassium 3.7 08/29/18 08/29/18 08/30/18 18:00 21:11 13:48 WBC 16.0 H D RBC 2.67 L Hgb 7.9 L D Hct 24.3 L MCV 91.2 MCH 29.5 MCHC 32.3 L RDW 12.9 Plt Count 218 D MPV 8.7 Neut % (Auto) 94.2 H Lymph % (Auto) 3.4 L [place] % (Auto) 2.2 Eos % (Auto) 0.0 Baso % (Auto) 0.2 Neut # (Auto) 15.1 H Lymph # (Auto) 0.5 L [place] # (Auto) 0.3 Eos # (Auto) 0.0 Baso # (Auto) 0.0 Neutrophils % (Manual) 88 H Band Neutrophils % 8 H Lymphocytes % (Manual) 4 L Monocytes % (Manual) TEST NOT PERFORMED Platelet Estimate Normal Polychromasia Slight Hypochromasia (manual) Slight PT 12.7 H INR 1.2 APTT 31 pO2 VBG pH VBG pCO2 VBG HCO3 VBG Total CO2 VBG O2 Sat (Calc) VBG Base Excess VBG Potassium Sodium Chloride Glucose Lactate FiO2 Potassium Carbon Dioxide Anion Gap BUN Creatinine Est GFR ( Amer) Est GFR (Non-Af Amer) Random Glucose Lactic Acid 3.5 H Calcium Phosphorus Magnesium Total Bilirubin AST ALT Alkaline Phosphatase Total Creatine Kinase Total Protein Albumin Globulin Albumin/Globulin Ratio Venous Blood Potassium 08/30/18 08/30/18 13:48 16:40 WBC 18.4 H RBC 2.78 L Hgb 8.2 L Hct 25.3 L MCV 91.0 MCH 29.6 MCHC 32.5 L RDW 13.0 Plt Count 225 MPV 8.6 Neut % (Auto) Lymph % (Auto) [place] % (Auto) Eos % (Auto) Baso % (Auto) Neut # (Auto) Lymph # (Auto) [place] # (Auto) Eos # (Auto) Baso # (Auto) Neutrophils % (Manual) Band Neutrophils % Lymphocytes % (Manual) Monocytes % (Manual) Platelet Estimate Polychromasia Hypochromasia (manual) PT INR APTT pO2 VBG pH VBG pCO2 VBG HCO3 VBG Total CO2 VBG O2 Sat (Calc) VBG Base Excess VBG Potassium Sodium 145 Chloride 110 H Glucose Lactate FiO2 Potassium 3.8 Carbon Dioxide 24 Anion Gap 15 BUN 21 H Creatinine 1.1 Est GFR ( Amer) > 60 Est GFR (Non-Af Amer) > 60 Random Glucose 153 H Lactic Acid Calcium 7.9 L Phosphorus Magnesium Total Bilirubin 0.7 AST 34 ALT 17 L D Alkaline Phosphatase 72 Total Creatine Kinase Total Protein 5.4 L Albumin 2.5 L D Globulin 2.9 Albumin/Globulin Ratio 0.9 L Venous Blood Potassium Assessment & Plan (1) COPD (chronic obstructive pulmonary disease) Status: Acute Comment: Nebulizer treatment. IV antibiotics for decubiti. Surgical evaluation (2) Sacral decubitus ulcer, stage III Status: Acute (3) Sepsis Status: Acute
[2018-08-30] MEDS ORDERED: Collagenase 250 Units/gm Ointment(30 gm) TOP SCH (18:00)
[2018-08-30 18:25] LABS: URINE BACTERIA MANY (<OCC); URINE BILIRUBIN NEGATIVE (NEGATIVE); URINE BLOOD 3+ (NEGATIVE); URINE CLARITY Turbid (Clear); URINE COLOR Yellow (YELLOW); URINE GLUCOSE (UA) NORMAL (Normal); URINE LEUKOCYTE ESTERASE 2+ Leu/uL (Negative); URINE PROTEIN 2+ mg/dL (NEGATIVE)
--- NOTE | 2018-08-30 21:15 | CP.PCM.PN ---
Subjective - Date & Time of Evaluation Date of Evaluation: 08/30/18 Time of Evaluation: 11:00 - Subjective Subjective: clinically same Objective - Vital Signs/Intake and Output Vital Signs (last 24 hours): Temp Pulse Resp BP Pulse Ox 98.5 F 92 H 18 102/59 L 97 08/30/18 15:15 08/30/18 15:15 08/30/18 15:15 08/30/18 15:15 08/30/18 15:15 - Medications Medications: Current Medications Albuterol/Ipratropium (Duoneb 3 Mg/0.5 Mg (3 Ml) Ud) 3 ml INH RQ6 [facility] Clopidogrel Bisulfate (Plavix) 75 mg PO DAILY [facility] Enoxaparin Sodium (Lovenox) 40 mg SC DAILY [facility] Last Admin: 08/30/18 11:34 Dose: 40 mg Ferrous Sulfate (Feosol) 325 mg PO BID [facility] Last Admin: 08/30/18 17:05 Dose: 325 mg Vancomycin HCl 1 gm/ Sodium (Chloride) 250 mls @ 167 mls/hr IVPB Q24H [facility]; Protocol Last Admin: 08/29/18 21:44 Dose: Not Given Sodium Chloride (Sodium Chloride 0.9%) 1,000 mls @ 70 mls/hr IV .[id number] [facility] Last Admin: 08/30/18 17:30 Dose: 70 mls/hr Piperacillin Sod/Tazobactam Sod (Zosyn 3.375 Gm Iv Premix) 3.375 gm in 50 mls @ 100 mls/hr IVPB Q8H [facility] Last Admin: 08/30/18 18:20 Dose: 100 mls/hr Influenza Virus Vaccine (Fluzone Quad [id number]) 60 mcg IM .ONCE ONE Stop: 08/31/18 10:01 Lorazepam (Ativan) 0.5 mg PO Q12 PRN PRN Reason: Agitation Last Admin: 08/30/18 17:04 Dose: 0.5 mg Memantine (Namenda) 10 mg PO BID [facility] Last Admin: 08/30/18 17:05 Dose: 10 mg Metoprolol Tartrate (Lopressor) 25 mg PO BID [facility] Last Admin: 08/30/18 18:17 Dose: Not Given Multivitamins (Hexavitamin) 1 tab PO DAILY [facility] Last Admin: 08/30/18 11:33 Dose: 1 tab Pantoprazole Sodium (Protonix Susp) 40 mg PO 0600 [facility] Rosuvastatin Calcium (Crestor) 20 mg PO HS [facility] Last Admin: 08/29/18 23:18 Dose: 20 mg - Labs Labs: 08/30/18 16:40 08/30/18 13:48 PT 12.7 SECONDS (9.7-12.2) H 08/29/18 18:00 INR 1.2 08/29/18 18:00 APTT 31 SECONDS (21-34) 08/29/18 18:00
--- NOTE | 2018-08-30 22:40 | CP.PCM.CON ---
History of Present Illness - History of Present Illness History of Present Illness: dictated Past Patient History - Tetanus Immunizations Tetanus Immunization: Unknown - Past Medical History & Family History Past Medical History?: Yes - Past Social History Smoking Status: Former Smoker - CARDIAC Hx Hypercholesterolemia: Yes Hx Hypertension: Yes Hx Pacemaker: No - NEUROLOGICAL Hx Dementia: Yes - HEMATOLOGICAL/ONCOLOGICAL Hx Blood Transfusions: No Hx Blood Transfusion Reaction: No - INTEGUMENTARY Other/Comment: MULTIPLE DECUBITUS ULCERS TO BACK - MUSCULOSKELETAL/RHEUMATOLOGICAL Hx Falls: No - GENITOURINARY/GYNECOLOGICAL Other/Comment: Hx of BPH - PSYCHIATRIC Hx Substance Use: No - SURGICAL HISTORY Hx Coronary Stent: Yes - ANESTHESIA Hx Anesthesia Reactions: No Hx Malignant Hyperthermia: No Meds Allergies/Adverse Reactions: Allergies Allergy/AdvReac Type Severity Reaction Status Date / Time No Known Allergies Allergy Unverified 08/29/18 17:06 - Medications Medications: Current Medications Albuterol/Ipratropium (Duoneb 3 Mg/0.5 Mg (3 Ml) Ud) 3 ml INH RQ6 [facility] Clopidogrel Bisulfate (Plavix) 75 mg PO DAILY [facility] Enoxaparin Sodium (Lovenox) 40 mg SC DAILY [facility] Last Admin: 08/30/18 11:34 Dose: 40 mg Ferrous Sulfate (Feosol) 325 mg PO BID [facility] Last Admin: 08/30/18 17:05 Dose: 325 mg Vancomycin HCl 1 gm/ Sodium (Chloride) 250 mls @ 167 mls/hr IVPB Q24H [facility]; Protocol Last Admin: 08/30/18 21:28 Dose: 167 mls/hr Sodium Chloride (Sodium Chloride 0.9%) 1,000 mls @ 70 mls/hr IV .[id number] [facility] Last Admin: 08/30/18 17:30 Dose: 70 mls/hr Piperacillin Sod/Tazobactam Sod (Zosyn 3.375 Gm Iv Premix) 3.375 gm in 50 mls @ 100 mls/hr IVPB Q8H [facility] Last Admin: 08/30/18 18:20 Dose: 100 mls/hr Influenza Virus Vaccine (Fluzone Quad [id number]) 60 mcg IM .ONCE ONE Stop: 08/31/18 10:01 Lorazepam (Ativan) 0.5 mg PO Q12 PRN PRN Reason: Agitation Last Admin: 08/30/18 17:04 Dose: 0.5 mg Memantine (Namenda) 10 mg PO BID [facility] Last Admin: 08/30/18 17:05 Dose: 10 mg Metoprolol Tartrate (Lopressor) 25 mg PO BID [facility] Last Admin: 08/30/18 18:17 Dose: Not Given Multivitamins (Hexavitamin) 1 tab PO DAILY [facility] Last Admin: 08/30/18 11:33 Dose: 1 tab Pantoprazole Sodium (Protonix Susp) 40 mg PO 0600 [facility] Rosuvastatin Calcium (Crestor) 20 mg PO HS [facility] Last Admin: 08/29/18 23:18 Dose: 20 mg Results - Vital Signs Recent Vital Signs: Last Vital Signs Temp 98.5 F 08/30/18 15:15 Pulse 92 H 08/30/18 15:15 Resp 18 08/30/18 15:15 BP 102/59 L 08/30/18 15:15 Pulse Ox 97 08/30/18 15:15 - Labs Result Diagrams: 08/30/18 16:40 08/30/18 13:48 Labs: Laboratory Results - last 24 hr 08/30/18 08/30/18 08/30/18 13:48 13:48 16:40 WBC 16.0 H D 18.4 H RBC 2.67 L 2.78 L Hgb 7.9 L D 8.2 L Hct 24.3 L 25.3 L MCV 91.2 91.0 MCH 29.5 29.6 MCHC 32.3 L 32.5 L RDW 12.9 13.0 Plt Count 218 D 225 MPV 8.7 8.6 Neut % (Auto) 94.2 H Lymph % (Auto) 3.4 L [place] % (Auto) 2.2 Eos % (Auto) 0.0 Baso % (Auto) 0.2 Neut # (Auto) 15.1 H Lymph # (Auto) 0.5 L [place] # (Auto) 0.3 Eos # (Auto) 0.0 Baso # (Auto) 0.0 Neutrophils % (Manual) 88 H Band Neutrophils % 8 H Lymphocytes % (Manual) 4 L Monocytes % (Manual) TEST NOT PERFORMED Platelet Estimate Normal Polychromasia Slight Hypochromasia (manual) Slight Sodium 145 Potassium 3.8 Chloride 110 H Carbon Dioxide 24 Anion Gap 15 BUN 21 H Creatinine 1.1 Est GFR ( Amer) > 60 Est GFR (Non-Af Amer) > 60 Random Glucose 153 H Calcium 7.9 L Total Bilirubin 0.7 AST 34 ALT 17 L D Alkaline Phosphatase 72 Total Protein 5.4 L Albumin 2.5 L D Globulin 2.9 Albumin/Globulin Ratio 0.9 L Urine Color Urine Clarity Urine pH Ur Specific [place] Urine Protein Urine Glucose (UA) Urine Ketones Urine Blood Urine Nitrate Urine Bilirubin Urine Urobilinogen Ur Leukocyte Esterase Urine WBC (Auto) Urine RBC (Auto) Urine Bacteria 08/30/18 17:53 WBC RBC Hgb Hct MCV MCH MCHC RDW Plt Count MPV Neut % (Auto) Lymph % (Auto) [place] % (Auto) Eos % (Auto) Baso % (Auto) Neut # (Auto) Lymph # (Auto) [place] # (Auto) Eos # (Auto) Baso # (Auto) Neutrophils % (Manual) Band Neutrophils % Lymphocytes % (Manual) Monocytes % (Manual) Platelet Estimate Polychromasia Hypochromasia (manual) Sodium Potassium Chloride Carbon Dioxide Anion Gap BUN Creatinine Est GFR ( Amer) Est GFR (Non-Af Amer) Random Glucose Calcium Total Bilirubin AST ALT Alkaline Phosphatase Total Protein Albumin Globulin Albumin/Globulin Ratio Urine Color Yellow Urine Clarity Turbid Urine pH 5.0 Ur Specific [place] 1.023 Urine Protein 2+ H Urine Glucose (UA) Normal Urine Ketones Negative Urine Blood 3+ H Urine Nitrate Negative Urine Bilirubin Negative Urine Urobilinogen 2.0 Ur Leukocyte Esterase 2+ H Urine WBC (Auto) 1249 H Urine RBC (Auto) 205 H Urine Bacteria Many H
[2018-08-30] MEDS: Meropenem 500 MG in Sodium Chloride 0.9% 100 ML IVPB SCH (23:40)
--- NOTE | 2018-08-31 00:39 | CP.PCM.CON ---
History of Present Illness - History of Present Illness History of Present Illness: 87 year old male with a history of CVA x 2, hydrocephalus, BAKERY TEAM LEADER shunt, B/L UE + LE contractures, dementia, admitted with sacral decubitus ulcers, with anemia. The patient is confused and I am unable to obtain a history from the patient. Hgb has dropped from 10 to 8. There are no overt signs of blood loss. Past medical, surgical, family, social history cannot be obtained from the patient. Allergies: per documentation [facility] Review of systems cannot be obtained. Past Patient History - Tetanus Immunizations Tetanus Immunization: Unknown - Past Medical History & Family History Past Medical History?: Yes - Past Social History Smoking Status: Former Smoker - CARDIAC Hx Hypercholesterolemia: Yes Hx Hypertension: Yes Hx Pacemaker: No - NEUROLOGICAL Hx Dementia: Yes - HEMATOLOGICAL/ONCOLOGICAL Hx Blood Transfusions: No Hx Blood Transfusion Reaction: No - INTEGUMENTARY Other/Comment: MULTIPLE DECUBITUS ULCERS TO BACK - MUSCULOSKELETAL/RHEUMATOLOGICAL Hx Falls: No - GENITOURINARY/GYNECOLOGICAL Other/Comment: Hx of BPH - PSYCHIATRIC Hx Substance Use: No - SURGICAL HISTORY Hx Coronary Stent: Yes - ANESTHESIA Hx Anesthesia Reactions: No Hx Malignant Hyperthermia: No Meds Allergies/Adverse Reactions: Allergies Allergy/AdvReac Type Severity Reaction Status Date / Time No Known Allergies Allergy Unverified 08/29/18 17:06 - Medications Medications: Current Medications Albuterol/Ipratropium (Duoneb 3 Mg/0.5 Mg (3 Ml) Ud) 3 ml INH RQ6 [facility] Clopidogrel Bisulfate (Plavix) 75 mg PO DAILY [facility] Enoxaparin Sodium (Lovenox) 40 mg SC DAILY [facility] Last Admin: 08/30/18 11:34 Dose: 40 mg Ferrous Sulfate (Feosol) 325 mg PO BID [facility] Last Admin: 08/30/18 17:05 Dose: 325 mg Vancomycin HCl 1 gm/ Sodium (Chloride) 250 mls @ 167 mls/hr IVPB Q24H [facility]; Protocol Last Admin: 08/30/18 21:28 Dose: 167 mls/hr Sodium Chloride (Sodium Chloride 0.9%) 1,000 mls @ 70 mls/hr IV .[id number] [facility] Last Admin: 08/30/18 17:30 Dose: 70 mls/hr Meropenem 500 mg/ Sodium (Chloride) 100 mls @ 100 mls/hr IVPB Q8H [facility]; Protocol Last Admin: 08/30/18 23:40 Dose: 100 mls/hr Influenza Virus Vaccine (Fluzone Quad [id number]) 60 mcg IM .ONCE ONE Stop: 08/31/18 10:01 Lorazepam (Ativan) 0.5 mg PO Q12 PRN PRN Reason: Agitation Last Admin: 08/30/18 17:04 Dose: 0.5 mg Memantine (Namenda) 10 mg PO BID [facility] Last Admin: 08/30/18 17:05 Dose: 10 mg Metoprolol Tartrate (Lopressor) 25 mg PO BID [facility] Last Admin: 08/30/18 18:17 Dose: Not Given Multivitamins (Hexavitamin) 1 tab PO DAILY [facility] Last Admin: 08/30/18 11:33 Dose: 1 tab Pantoprazole Sodium (Protonix Susp) 40 mg PO 0600 [facility] Rosuvastatin Calcium (Crestor) 20 mg PO HS [facility] Last Admin: 08/30/18 23:08 Dose: Not Given Physical Exam - Constitutional Appears: Cachectic - Head Exam Head Exam: ATRAUMATIC - ENT Exam ENT Exam: Mucous Membranes Dry - Respiratory Exam Respiratory Exam: Decreased Breath Sounds - Cardiovascular Exam Cardiovascular Exam: +S1, +S2 - GI/Abdominal Exam GI & Abdominal Exam: Normal Bowel Sounds - Neurological Exam Neurological exam: Altered - Psychiatric Exam Psychiatric exam: Flat Affect - Skin Skin Exam: Warm Results - Vital Signs Recent Vital Signs: Last Vital Signs Temp 98.5 F 08/30/18 15:15 Pulse 92 H 08/30/18 15:15 Resp 18 08/30/18 15:15 BP 102/59 L 08/30/18 15:15 Pulse Ox 97 08/30/18 15:15 - Labs Result Diagrams: 08/30/18 16:40 08/30/18 13:48 Labs: Laboratory Results - last 24 hr 08/30/18 08/30/18 08/30/18 13:48 13:48 16:40 WBC 16.0 H D 18.4 H RBC 2.67 L 2.78 L Hgb 7.9 L D 8.2 L Hct 24.3 L 25.3 L MCV 91.2 91.0 MCH 29.5 29.6 MCHC 32.3 L 32.5 L RDW 12.9 13.0 Plt Count 218 D 225 MPV 8.7 8.6 Neut % (Auto) 94.2 H Lymph % (Auto) 3.4 L [place] % (Auto) 2.2 Eos % (Auto) 0.0 Baso % (Auto) 0.2 Neut # (Auto) 15.1 H Lymph # (Auto) 0.5 L [place] # (Auto) 0.3 Eos # (Auto) 0.0 Baso # (Auto) 0.0 Neutrophils % (Manual) 88 H Band Neutrophils % 8 H Lymphocytes % (Manual) 4 L Monocytes % (Manual) TEST NOT PERFORMED Platelet Estimate Normal Polychromasia Slight Hypochromasia (manual) Slight Sodium 145 Potassium 3.8 Chloride 110 H Carbon Dioxide 24 Anion Gap 15 BUN 21 H Creatinine 1.1 Est GFR ( Amer) > 60 Est GFR (Non-Af Amer) > 60 Random Glucose 153 H Calcium 7.9 L Total Bilirubin 0.7 AST 34 ALT 17 L D Alkaline Phosphatase 72 Total Protein 5.4 L Albumin 2.5 L D Globulin 2.9 Albumin/Globulin Ratio 0.9 L Urine Color Urine Clarity Urine pH Ur Specific [place] Urine Protein Urine Glucose (UA) Urine Ketones Urine Blood Urine Nitrate Urine Bilirubin Urine Urobilinogen Ur Leukocyte Esterase Urine WBC (Auto) Urine RBC (Auto) Urine Bacteria 08/30/18 17:53 WBC RBC Hgb Hct MCV MCH MCHC RDW Plt Count MPV Neut % (Auto) Lymph % (Auto) [place] % (Auto) Eos % (Auto) Baso % (Auto) Neut # (Auto) Lymph # (Auto) [place] # (Auto) Eos # (Auto) Baso # (Auto) Neutrophils % (Manual) Band Neutrophils % Lymphocytes % (Manual) Monocytes % (Manual) Platelet Estimate Polychromasia Hypochromasia (manual) Sodium Potassium Chloride Carbon Dioxide Anion Gap BUN Creatinine Est GFR ( Amer) Est GFR (Non-Af Amer) Random Glucose Calcium Total Bilirubin AST ALT Alkaline Phosphatase Total Protein Albumin Globulin Albumin/Globulin Ratio Urine Color Yellow Urine Clarity Turbid Urine pH 5.0 Ur Specific [place] 1.023 Urine Protein 2+ H Urine Glucose (UA) Normal Urine Ketones Negative Urine Blood 3+ H Urine Nitrate Negative Urine Bilirubin Negative Urine Urobilinogen 2.0 Ur Leukocyte Esterase 2+ H Urine WBC (Auto) 1249 H Urine RBC (Auto) 205 H Urine Bacteria Many H Assessment & Plan (1) Anemia Assessment and Plan: retic count, b12, folate, ferritin, FOBT transfusion support PRN Status: Acute (2) Leukocytosis Assessment and Plan: on antibiotics Thank you for this interesting consult. Status: Acute
[2018-08-31] MEDS: Albuterol-Ipratrop 3 mg / 0.5 (3 ml) UD INH SCH (02:10)
--- NOTE | 2018-08-31 05:09 | CON ---
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 He is fairly contracted, unable to give any history. Has history of hypertension, PR, and dementia. He was brought to the hospital because of infected bedsores and he is found to have a high lactic acid, and I am asked to evaluate for sepsis as he is with high lactic acid, he has infection in the sacral area and he is bed-bound. He has not been eating. The said she did give little milk and at the time when I examined the daughter was trying to give him some water and he was coughing, so I have put in a request for swallowing eval as I am not sure how well he can swallow. He was awake and bedbound. The patient was awake and responded to the family members, otherwise not able to communicate with me much, probably also language barrier but he is in a poor state with CVA, hydrocephalus, contractures, and bed-bound with sacral decubiti. 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 ALLERGIES: HE IS NOT ALLERGIC TO ANY MEDICINE. SOCIAL HISTORY: Significant for a former smoker. Most of the history is taken from the chart. Cardiac tian, he has history of hypercholesterolemia, history of hypertension, no pacemaker. History of dementia, neurologically. No blood transfusions. He has multiple decubiti on the back and has history of arthritis, history of BPH. No history of substance abuse. He has a coronary stent present. MEDICATIONS: We started giving him vancomycin and Zosyn, as he was with high lactate level and he was also receiving IV fluids. He is on albuterol, on Plavix, Lovenox, Feosol, lorazepam, Ativan 0.5 p.o. every 12 hours, on memantine, metoprolol , pantoprazole, Zosyn, Crestor, IV fluids, and he is on vancomycin 1 g daily. REVIEW OF SYSTEMS: He did come in with a high lactate level and is in sepsis. PHYSICAL EXAMINATION: VITAL SIGNS: I find his temperature is 98.5, heart rate of 106, 108. He came in with a temperature of 99.8 which was rectal and blood pressure was reported as 79/49 and he was hypotensive in the ER yesterday. Heart rate is 112 right now, blood pressure 141/63, it is coming up with the fluids, respirations are 20. HEENT: His head is atraumatic, normocephalic. Pupils are reacting to light. Tongue is dry. NECK: Supple. JVP is flat. Trachea is central. LUNGS: Decreased breath sounds bilaterally. No crackles or rales present. HEART: S1, S2. Regular. No murmurs appreciated. ABDOMEN: Soft, nontender. No guarding, no rigidity present. EXTREMITIES: Contracted, bilateral contracture of lower extremities as well as left upper extremity is contracted too on the left side. Sacral area, he has a large right buttock ulcer, sacral decubitus, and multiple small decubiti on the right buttock. He also has on the right neck, anterior chest, we can palpate the APARTMENT MAINTENANCE TECHNICIAN shunt as he is thin-built in chest wall. LABORATORY DATA: Labs are noted. Labs show white count is 10.3 yesterday and right now his white count is 16, hemoglobin 7.9, hematocrit 24.3, platelet count is 218. His lactate level was 4. His urine shows wbc 12 to 49. Since his white count is going up, we have to switch him to meropenem at this time. At the time of my writing this note, chest x-ray is noted. IMPRESSION: He has sepsis with urinary tract infection with sacral decubitus and will need Child[place] catheter for these to heal and has a surgical eval and wound care nurse on board. He needs intravenous fluids. Stacey Burns MD
[2018-08-31] MEDS: Pantoprazole 40 mg Susp UD PO SCH (06:03)
[2018-08-31] MEDS: Meropenem 500 MG in Sodium Chloride 0.9% 100 ML IVPB SCH ×2 (06:05→16:49)
[2018-08-31 07:33] LABS: BASO % 0.3 % (0.0-2.0); EOS % 0.2 % (0.0-4.0); HEMOGLOBIN 7.4 g/dL (12.0-18.0); LYMPH # 1.8 K/uL (1.0-4.3); LYMPH % 16.1 % (20.0-40.0); MEAN CORPUSCULAR HEMOGLOBIN 29.8 pg (27.0-31.0); MEAN CORPUSCULAR HGB CONC 32.4 g/dL (33.0-37.0); MONO # 0.5 K/uL (0.0-0.8); MONO % 4.8 % (0.0-10.0); NEUT % 78.6 % (50.0-75.0); RBC 2.48 Mil/uL (4.40-5.90); RED CELL DISTRIBUTION WIDTH 12.9 % (11.5-14.5); WHITE BLOOD COUNT 11.4 K/uL (4.8-10.8)
[2018-08-31 08:19] LABS: ALB/GLOB RATIO 0.8 (1.0-2.1); ALBUMIN 2.4 g/dL (3.5-5.0); ALT/SGPT 19 U/L (21-72); AST/SGOT 64 U/L (17-59); BLOOD UREA NITROGEN 24 mg/dL (9-20); CALCIUM 7.7 mg/dl (8.6-10.4); GFR NON-AFRICAN AMERICAN 58
[2018-08-31 08:50] LABS: FOLATE 9.1 ng/mL
[2018-08-31] MEDS ORDERED: Influenza Vaccine 60 MCG/0.5 ML SYR (3 yr & up) IM ONE (10:00)
[2018-08-31] MEDS: Multiple Vitamins Tab PO SCH (10:34)
[2018-08-31] MEDS: Enoxaparin 40 mg Syringe SC SCH (10:35)
--- NOTE | 2018-08-31 14:17 | CP.PCM.PN ---
Subjective - Date & Time of Evaluation Date of Evaluation: 08/31/18 Time of Evaluation: 12:55 - Subjective Subjective: patient seen and examined Condition same Mildly tachypneic Afebrile Objective - Vital Signs/Intake and Output Vital Signs (last 24 hours): Temp Pulse Resp BP Pulse Ox 98.6 F 110 H 20 116/59 L 96 08/31/18 07:00 08/31/18 07:20 08/31/18 07:00 08/31/18 10:34 08/31/18 07:00 Intake and Output: 08/31/18 08/31/18 06:59 18:59 Intake Total 490 Output Total 275 Balance 215 - Medications Medications: Current Medications Albuterol/Ipratropium (Duoneb 3 Mg/0.5 Mg (3 Ml) Ud) 3 ml INH RQ6 [facility] Last Admin: 08/31/18 02:10 Dose: 3 ml Clopidogrel Bisulfate (Plavix) 75 mg PO DAILY [facility] Enoxaparin Sodium (Lovenox) 40 mg SC DAILY [facility] Last Admin: 08/31/18 10:35 Dose: 40 mg Ferrous Sulfate (Feosol) 325 mg PO BID [facility] Last Admin: 08/31/18 10:47 Dose: 325 mg Vancomycin HCl 1 gm/ Sodium (Chloride) 250 mls @ 167 mls/hr IVPB Q24H [facility]; Protocol Last Admin: 08/30/18 21:28 Dose: 167 mls/hr Sodium Chloride (Sodium Chloride 0.9%) 1,000 mls @ 70 mls/hr IV .[id number] [facility] Last Admin: 08/30/18 17:30 Dose: 70 mls/hr Meropenem 500 mg/ Sodium (Chloride) 100 mls @ 100 mls/hr IVPB Q8H [facility]; Protocol Last Admin: 08/31/18 06:05 Dose: 100 mls/hr Potassium Chloride (Potassium Chloride 20 Meq/100 Ml) 20 meq in 100 mls @ 50 mls/hr IVPB Q2 [facility] Stop: 08/31/18 17:59 Last Admin: 08/31/18 12:07 Dose: 50 mls/hr Lorazepam (Ativan) 0.5 mg PO Q12 PRN PRN Reason: Agitation Last Admin: 08/30/18 17:04 Dose: 0.5 mg Memantine (Namenda) 10 mg PO BID [facility] Last Admin: 08/31/18 10:35 Dose: 10 mg Metoprolol Tartrate (Lopressor) 25 mg PO BID [facility] Last Admin: 08/31/18 10:34 Dose: 25 mg Multivitamins (Hexavitamin) 1 tab PO DAILY [facility] Last Admin: 08/31/18 10:34 Dose: 1 tab Pantoprazole Sodium (Protonix Susp) 40 mg PO 0600 [facility] Last Admin: 08/31/18 06:03 Dose: 40 mg Rosuvastatin Calcium (Crestor) 20 mg PO HS [facility] Last Admin: 08/30/18 23:08 Dose: Not Given - Labs Labs: 08/31/18 07:18 08/31/18 07:18 PT 12.7 SECONDS (9.7-12.2) H 08/29/18 18:00 INR 1.2 08/29/18 18:00 APTT 31 SECONDS (21-34) 08/29/18 18:00 - Head Exam Head Exam: ATRAUMATIC, NORMOCEPHALIC - ENT Exam ENT Exam: Mucous Membranes Moist - Respiratory Exam Respiratory Exam: Decreased Breath Sounds - Cardiovascular Exam Cardiovascular Exam: REGULAR RHYTHM - GI/Abdominal Exam GI & Abdominal Exam: Soft, Normal Bowel Sounds - Neurological Exam Neurological Exam: Altered Assessment and Plan (1) COPD (chronic obstructive pulmonary disease) Assessment & Plan: Continue with the nebulizer treatment Potassium supplement Transfuse as necessary Status: Acute (2) Sacral decubitus ulcer, stage III Assessment & Plan: on IV antibiotics Status: Acute (3) Sepsis Status: Acute
--- NOTE | 2018-08-31 14:52 | CP.PCM.PN ---
Subjective - Date & Time of Evaluation Date of Evaluation: 08/31/18 Time of Evaluation: 14:00 - Subjective Subjective: dictated Objective - Vital Signs/Intake and Output Vital Signs (last 24 hours): Temp Pulse Resp BP Pulse Ox 98.6 F 110 H 20 116/59 L 96 08/31/18 07:00 08/31/18 07:20 08/31/18 07:00 08/31/18 10:34 08/31/18 07:00 Intake and Output: 08/31/18 08/31/18 06:59 18:59 Intake Total 490 Output Total 275 Balance 215 - Medications Medications: Current Medications Albuterol/Ipratropium (Duoneb 3 Mg/0.5 Mg (3 Ml) Ud) 3 ml INH RQ6 [facility] Last Admin: 08/31/18 02:10 Dose: 3 ml Clopidogrel Bisulfate (Plavix) 75 mg PO DAILY [facility] Enoxaparin Sodium (Lovenox) 40 mg SC DAILY [facility] Last Admin: 08/31/18 10:35 Dose: 40 mg Ferrous Sulfate (Feosol) 325 mg PO BID [facility] Last Admin: 08/31/18 10:47 Dose: 325 mg Vancomycin HCl 1 gm/ Sodium (Chloride) 250 mls @ 167 mls/hr IVPB Q24H [facility]; Protocol Last Admin: 08/30/18 21:28 Dose: 167 mls/hr Sodium Chloride (Sodium Chloride 0.9%) 1,000 mls @ 70 mls/hr IV .[id number] [facility] Last Admin: 08/30/18 17:30 Dose: 70 mls/hr Meropenem 500 mg/ Sodium (Chloride) 100 mls @ 100 mls/hr IVPB Q8H [facility]; Protocol Last Admin: 08/31/18 06:05 Dose: 100 mls/hr Potassium Chloride (Potassium Chloride 20 Meq/100 Ml) 20 meq in 100 mls @ 50 mls/hr IVPB Q2 [facility] Stop: 08/31/18 17:59 Last Admin: 08/31/18 12:07 Dose: 50 mls/hr Lorazepam (Ativan) 0.5 mg PO Q12 PRN PRN Reason: Agitation Last Admin: 08/30/18 17:04 Dose: 0.5 mg Memantine (Namenda) 10 mg PO BID [facility] Last Admin: 08/31/18 10:35 Dose: 10 mg Metoprolol Tartrate (Lopressor) 25 mg PO BID [facility] Last Admin: 08/31/18 10:34 Dose: 25 mg Multivitamins (Hexavitamin) 1 tab PO DAILY [facility] Last Admin: 08/31/18 10:34 Dose: 1 tab Pantoprazole Sodium (Protonix Susp) 40 mg PO 0600 [facility] Last Admin: 08/31/18 06:03 Dose: 40 mg Rosuvastatin Calcium (Crestor) 20 mg PO HS [facility] Last Admin: 08/30/18 23:08 Dose: Not Given - Labs Labs: 08/31/18 07:18 08/31/18 07:18 PT 12.7 SECONDS (9.7-12.2) H 08/29/18 18:00 INR 1.2 08/29/18 18:00 APTT 31 SECONDS (21-34) 08/29/18 18:00
[2018-08-31] MEDS: Sodium Chloride 0.9% 1,000 ML IV SCH (16:46)
--- NOTE | 2018-08-31 18:09 | CP.PCM.PN ---
Subjective - Date & Time of Evaluation Date of Evaluation: 08/31/18 Time of Evaluation: 14:00 - Subjective Subjective: Appears comfortable, at bedside. Objective - Vital Signs/Intake and Output Vital Signs (last 24 hours): Temp Pulse Resp BP Pulse Ox 98.6 F 110 H 20 116/59 L 96 08/31/18 07:00 08/31/18 07:20 08/31/18 07:00 08/31/18 10:34 08/31/18 07:00 Intake and Output: 08/31/18 08/31/18 06:59 18:59 Intake Total 490 Output Total 275 Balance 215 - Medications Medications: Current Medications Albuterol/Ipratropium (Duoneb 3 Mg/0.5 Mg (3 Ml) Ud) 3 ml INH RQ6 [facility] Last Admin: 08/31/18 02:10 Dose: 3 ml Clopidogrel Bisulfate (Plavix) 75 mg PO DAILY [facility] Cyanocobalamin (Vitamin B12 1000 Mcg/Ml Inj) 1,000 mcg IM DAILY [facility] Enoxaparin Sodium (Lovenox) 40 mg SC DAILY [facility] Last Admin: 08/31/18 10:35 Dose: 40 mg Ferrous Sulfate (Feosol) 325 mg PO BID [facility] Last Admin: 08/31/18 10:47 Dose: 325 mg Vancomycin HCl 1 gm/ Sodium (Chloride) 250 mls @ 167 mls/hr IVPB Q24H [facility]; Protocol Last Admin: 08/30/18 21:28 Dose: 167 mls/hr Sodium Chloride (Sodium Chloride 0.9%) 1,000 mls @ 70 mls/hr IV .[id number] [facility] Last Admin: 08/31/18 16:46 Dose: Not Given Meropenem 500 mg/ Sodium (Chloride) 100 mls @ 100 mls/hr IVPB Q8H [facility]; Protocol Last Admin: 08/31/18 16:49 Dose: 100 mls/hr Lorazepam (Ativan) 0.5 mg PO Q12 PRN PRN Reason: Agitation Last Admin: 08/30/18 17:04 Dose: 0.5 mg Memantine (Namenda) 10 mg PO BID [facility] Last Admin: 08/31/18 10:35 Dose: 10 mg Metoprolol Tartrate (Lopressor) 25 mg PO BID [facility] Last Admin: 08/31/18 10:34 Dose: 25 mg Multivitamins (Hexavitamin) 1 tab PO DAILY [facility] Last Admin: 08/31/18 10:34 Dose: 1 tab Pantoprazole Sodium (Protonix Susp) 40 mg PO 0600 [facility] Last Admin: 08/31/18 06:03 Dose: 40 mg Rosuvastatin Calcium (Crestor) 20 mg PO HS [facility] Last Admin: 08/30/18 23:08 Dose: Not Given - Labs Labs: 08/31/18 07:18 08/31/18 07:18 PT 12.7 SECONDS (9.7-12.2) H 08/29/18 18:00 INR 1.2 08/29/18 18:00 APTT 31 SECONDS (21-34) 08/29/18 18:00 - Head Exam Head Exam: ATRAUMATIC - Eye Exam Eye Exam: Normal appearance - ENT Exam ENT Exam: Mucous Membranes Dry - Respiratory Exam Respiratory Exam: NORMAL BREATHING PATTERN - Cardiovascular Exam Cardiovascular Exam: +S1, +S2 - GI/Abdominal Exam GI & Abdominal Exam: Normal Bowel Sounds Assessment and Plan (1) Anemia Assessment & Plan: chronic disease from decubitus ulcer b12 deficiency; will start IM b12 transfusion support PRN Status: Acute (2) Leukocytosis Assessment & Plan: on antibiotics Status: Acute
--- NOTE | 2018-08-31 19:54 | CP.PCM.PN ---
Subjective - Date & Time of Evaluation Date of Evaluation: 08/31/18 Time of Evaluation: 10:00 - Subjective Subjective: clinically same Objective - Vital Signs/Intake and Output Vital Signs (last 24 hours): Temp Pulse Resp BP Pulse Ox 98.6 F 110 H 20 115/58 L 96 08/31/18 07:00 08/31/18 07:20 08/31/18 07:00 08/31/18 19:12 08/31/18 07:00 - Medications Medications: Current Medications Albuterol/Ipratropium (Duoneb 3 Mg/0.5 Mg (3 Ml) Ud) 3 ml INH RQ6 [facility] Last Admin: 08/31/18 02:10 Dose: 3 ml Clopidogrel Bisulfate (Plavix) 75 mg PO DAILY [facility] Cyanocobalamin (Vitamin B12 1000 Mcg/Ml Inj) 1,000 mcg IM DAILY [facility] Enoxaparin Sodium (Lovenox) 40 mg SC DAILY [facility] Last Admin: 08/31/18 10:35 Dose: 40 mg Ferrous Sulfate (Feosol) 325 mg PO BID [facility] Last Admin: 08/31/18 19:12 Dose: 325 mg Vancomycin HCl 1 gm/ Sodium (Chloride) 250 mls @ 167 mls/hr IVPB Q24H [facility]; Protocol Last Admin: 08/30/18 21:28 Dose: 167 mls/hr Sodium Chloride (Sodium Chloride 0.9%) 1,000 mls @ 70 mls/hr IV .[id number] [facility] Last Admin: 08/31/18 16:46 Dose: Not Given Meropenem 500 mg/ Sodium (Chloride) 100 mls @ 100 mls/hr IVPB Q8H [facility]; Protocol Last Admin: 08/31/18 16:49 Dose: 100 mls/hr Lorazepam (Ativan) 0.5 mg PO Q12 PRN PRN Reason: Agitation Last Admin: 08/30/18 17:04 Dose: 0.5 mg Memantine (Namenda) 10 mg PO BID [facility] Last Admin: 08/31/18 19:12 Dose: 10 mg Metoprolol Tartrate (Lopressor) 25 mg PO BID [facility] Last Admin: 08/31/18 19:12 Dose: 25 mg Multivitamins (Hexavitamin) 1 tab PO DAILY [facility] Last Admin: 08/31/18 10:34 Dose: 1 tab Pantoprazole Sodium (Protonix Susp) 40 mg PO 0600 [facility] Last Admin: 08/31/18 06:03 Dose: 40 mg Rosuvastatin Calcium (Crestor) 20 mg PO HS [facility] Last Admin: 08/30/18 23:08 Dose: Not Given - Labs Labs: 08/31/18 07:18 08/31/18 07:18 PT 12.7 SECONDS (9.7-12.2) H 08/29/18 18:00 INR 1.2 08/29/18 18:00 APTT 31 SECONDS (21-34) 08/29/18 18:00 - Constitutional Appears: Well - Head Exam Head Exam: ATRAUMATIC, NORMAL INSPECTION, NORMOCEPHALIC - Eye Exam Eye Exam: EOMI, Normal appearance, PERRL Pupil Exam: NORMAL ACCOMODATION, PERRL - ENT Exam ENT Exam: Mucous Membranes Moist, Normal Exam - Neck Exam Neck Exam: Full ROM, Normal Inspection. absent: Lymphadenopathy - Respiratory Exam Respiratory Exam: Decreased Breath Sounds - Cardiovascular Exam Cardiovascular Exam: REGULAR RHYTHM, +S1, +S2 - GI/Abdominal Exam GI & Abdominal Exam: Soft, Diminished Bowel Sounds - Rectal Exam Rectal Exam: Deferred
[2018-09-01] MEDS: Meropenem 500 MG in Sodium Chloride 0.9% 100 ML IVPB SCH ×5 (00:37→22:32)
[2018-09-01] MEDS: Albuterol-Ipratrop 3 mg / 0.5 (3 ml) UD INH SCH ×2 (01:16→19:46)
--- NOTE | 2018-09-01 02:36 | PN ---
DATE: 08/31/2018 SUBJECTIVE: Mr. Will Mckeon is an 87-year-old male who was awake and alert, but he was pretty badly contracted, was lying on his contracted feet. They wanted his position to be changed. The patient was, however, awake and alert. The was at the bedside. PHYSICAL EXAMINATION: VITAL SIGNS: T-max is 98.6 today, heart rate of 110, blood pressure 116/59, respirations are 20. HEENT: Head is atraumatic, normocephalic. NECK: Supple. LUNGS: Clear. HEART: S1, S2. Regular. He is a thin-built male. You could feel the [employer] shunt on the chest wall. ABDOMEN: Soft, nontender. No guarding, no rigidity present. EXTREMITIES: Severely contracted. The patient has sacral decubitus which is extensive. Surgical consult was called in. The patient is also being followed by Pulmonary. He has a history of CVA, hydrocephalus, and dementia. The wound is stage III-IV on the back and has multiple small ulcerations also present. Extremities remain contracted. LABORATORY DATA: Labs show white count is 11.4, hemoglobin 7.4, hematocrit 22.8, platelet count is 185. He is severely anemic. Potassium was also 2.9 today. Sodium 146, BUN is 24, creatinine is 1.24. His albumin is 2.4. His B12 was also low, 228. MEDICATIONS: He is also on Plavix. They have started cyanocobalamin. He is on Lovenox, ferrous sulfate, lorazepam. I have him on meropenem as well as vancomycin. He is on IV fluids, which they are not giving; Crestor, they are not giving. He did come with sepsis syndrome and lactic acid was elevated. Today, the lactic acid level was 1, yesterday was 3.5. IMPRESSION: This patient came in with sepsis syndrome, has sacral decubitus, altered mental status, hydrocephalus with a [employer] shunt, dementia, contractures of the lower extremities. PLAN: To continue the antibiotics. 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 Stacey Burns MD
--- NOTE | 2018-09-01 08:10 | CP.PCM.PN ---
Subjective - Date & Time of Evaluation Date of Evaluation: 09/01/18 - Subjective Subjective: Progress note for Dr. Paulson Patient seen and examined at bedside. Patient unable to communicate any symptoms d/t AMS. Objective - Vital Signs/Intake and Output Vital Signs (last 24 hours): Temp Pulse Resp BP Pulse Ox 98.0 F 80 20 172/69 H 98 09/01/18 05:56 09/01/18 05:56 09/01/18 05:56 09/01/18 05:56 09/01/18 02:15 Intake and Output: 09/01/18 09/01/18 06:59 18:59 Intake Total 1950 Output Total 500 Balance 1450 - Medications Medications: Current Medications Albuterol/Ipratropium (Duoneb 3 Mg/0.5 Mg (3 Ml) Ud) 3 ml INH RQ6 [facility] Last Admin: 09/01/18 01:16 Dose: 3 ml Clopidogrel Bisulfate (Plavix) 75 mg PO DAILY [facility] Collagenase (Santyl) 1 gm TOP BID [facility] Cyanocobalamin (Vitamin B12 1000 Mcg/Ml Inj) 1,000 mcg IM DAILY [facility] Last Admin: 08/31/18 22:13 Dose: 1,000 mcg Enoxaparin Sodium (Lovenox) 40 mg SC DAILY [facility] Last Admin: 08/31/18 10:35 Dose: 40 mg Ferrous Sulfate (Feosol) 325 mg PO BID [facility] Last Admin: 08/31/18 19:12 Dose: 325 mg Vancomycin HCl 1 gm/ Sodium (Chloride) 250 mls @ 167 mls/hr IVPB Q24H [facility]; Protocol Last Admin: 08/31/18 21:57 Dose: Not Given Sodium Chloride (Sodium Chloride 0.9%) 1,000 mls @ 70 mls/hr IV .[id number] [facility] Last Admin: 08/31/18 16:46 Dose: Not Given Meropenem 500 mg/ Sodium (Chloride) 100 mls @ 100 mls/hr IVPB Q8H [facility]; Protocol Last Admin: 09/01/18 06:04 Dose: 100 mls/hr Lorazepam (Ativan) 0.5 mg PO Q12 PRN PRN Reason: Agitation Last Admin: 08/30/18 17:04 Dose: 0.5 mg Memantine (Namenda) 10 mg PO BID [facility] Last Admin: 08/31/18 19:12 Dose: 10 mg Metoprolol Tartrate (Lopressor) 25 mg PO BID [facility] Last Admin: 08/31/18 19:12 Dose: 25 mg Multivitamins (Hexavitamin) 1 tab PO DAILY [facility] Last Admin: 08/31/18 10:34 Dose: 1 tab Pantoprazole Sodium (Protonix Susp) 40 mg PO 0600 [facility] Last Admin: 08/31/18 06:03 Dose: 40 mg Rosuvastatin Calcium (Crestor) 20 mg PO HS [facility] Last Admin: 08/31/18 21:59 Dose: 20 mg - Labs Labs: 08/31/18 07:18 08/31/18 07:18 PT 12.7 SECONDS (9.7-12.2) H 08/29/18 18:00 INR 1.2 08/29/18 18:00 APTT 31 SECONDS (21-34) 08/29/18 18:00
[2018-09-01] MEDS: Multiple Vitamins Tab PO SCH (10:43)
[2018-09-01] MEDS: Ferrous Sulfate 300 mg/5 mL Liq UD PO SCH ×2 (10:43→18:44)
[2018-09-01] MEDS: Enoxaparin 40 mg Syringe SC SCH (10:43)
[2018-09-01] MEDS: Collagenase 250 Units/gm Ointment(30 gm) TOP SCH ×2 (11:30→18:47)
[2018-09-01 12:01] LABS: MEAN CORPUSCULAR HEMOGLOBIN 30.5 pg (27.0-31.0); MEAN CORPUSCULAR HGB CONC 34.2 g/dL (33.0-37.0); RBC 3.57 Mil/uL (4.40-5.90); RED CELL DISTRIBUTION WIDTH 13.8 % (11.5-14.5); WHITE BLOOD COUNT 10.9 K/uL (4.8-10.8)
[2018-09-01 12:14] LABS: HEMOGLOBIN 10.9 g/dL (12.0-18.0); MEAN CELL VOLUME 89.1 fL (80.0-94.0)
[2018-09-01 12:32] LABS: BLOOD UREA NITROGEN 22 mg/dL (9-20); CALCIUM 8.2 mg/dl (8.6-10.4); GFR NON-AFRICAN AMERICAN > 60
--- NOTE | 2018-09-01 13:10 | CP.PCM.PN ---
Subjective - Date & Time of Evaluation Date of Evaluation: 09/01/18 Time of Evaluation: 13:00 - Subjective Subjective: Appears comfortable. Objective - Vital Signs/Intake and Output Vital Signs (last 24 hours): Temp Pulse Resp BP Pulse Ox 98.0 F 80 20 179/77 H 98 09/01/18 05:56 09/01/18 05:56 09/01/18 05:56 09/01/18 10:45 09/01/18 02:15 Intake and Output: 09/01/18 09/01/18 06:59 18:59 Intake Total 1950 Output Total 500 Balance 1450 - Medications Medications: Current Medications Albuterol/Ipratropium (Duoneb 3 Mg/0.5 Mg (3 Ml) Ud) 3 ml INH RQ6 [facility] Last Admin: 09/01/18 01:16 Dose: 3 ml Clopidogrel Bisulfate (Plavix) 75 mg PO DAILY [facility] Last Admin: 09/01/18 10:43 Dose: 75 mg Collagenase (Santyl) 1 gm TOP BID [facility] Last Admin: 09/01/18 11:30 Dose: 1 appl Cyanocobalamin (Vitamin B12 1000 Mcg/Ml Inj) 1,000 mcg IM DAILY [facility] Last Admin: 09/01/18 10:44 Dose: 1,000 mcg Enoxaparin Sodium (Lovenox) 40 mg SC DAILY [facility] Last Admin: 09/01/18 10:43 Dose: 40 mg Ferrous Sulfate (Feosol Liq) 300 mg PO BID [facility] Last Admin: 09/01/18 10:43 Dose: 300 mg Vancomycin HCl 1 gm/ Sodium (Chloride) 250 mls @ 167 mls/hr IVPB Q24H [facility]; Protocol Last Admin: 08/31/18 21:57 Dose: Not Given Sodium Chloride (Sodium Chloride 0.9%) 1,000 mls @ 70 mls/hr IV .[id number] [facility] Last Admin: 08/31/18 16:46 Dose: Not Given Meropenem 500 mg/ Sodium (Chloride) 100 mls @ 100 mls/hr IVPB Q8H [facility]; Protocol Last Admin: 09/01/18 06:04 Dose: 100 mls/hr Lorazepam (Ativan) 0.5 mg PO Q12 PRN PRN Reason: Agitation Last Admin: 08/30/18 17:04 Dose: 0.5 mg Memantine (Namenda) 10 mg PO BID [facility] Last Admin: 09/01/18 10:43 Dose: 10 mg Metoprolol Tartrate (Lopressor) 25 mg PO BID [facility] Last Admin: 09/01/18 10:45 Dose: 25 mg Multivitamins (Hexavitamin) 1 tab PO DAILY [facility] Last Admin: 09/01/18 10:43 Dose: 1 tab Pantoprazole Sodium (Protonix Susp) 40 mg PO 0600 [facility] Last Admin: 08/31/18 06:03 Dose: 40 mg Rosuvastatin Calcium (Crestor) 20 mg PO HS [facility] Last Admin: 08/31/18 21:59 Dose: 20 mg - Labs Labs: 09/01/18 11:29 09/01/18 11:29 PT 12.7 SECONDS (9.7-12.2) H 08/29/18 18:00 INR 1.2 08/29/18 18:00 APTT 31 SECONDS (21-34) 08/29/18 18:00 - Head Exam Head Exam: ATRAUMATIC - Eye Exam Eye Exam: Normal appearance - ENT Exam ENT Exam: Mucous Membranes Dry - Respiratory Exam Respiratory Exam: NORMAL BREATHING PATTERN - Cardiovascular Exam Cardiovascular Exam: +S1, +S2 - GI/Abdominal Exam GI & Abdominal Exam: Normal Bowel Sounds Assessment and Plan (1) Anemia Assessment & Plan: 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
[2018-09-01] MEDS ORDERED: Potassium Chloride 20 mEq/15 ml LIQ UD PO ONE (13:30)
--- NOTE | 2018-09-01 13:31 | CP.PCM.PN ---
Subjective - Date & Time of Evaluation Date of Evaluation: 09/01/18 Time of Evaluation: 13:31 - Subjective Subjective: Pulmonary Follow up, Covering Dr Moses The patient was Seen/interviewed and examined by me at the bedside, Medical records reviewed and Management issues were discussed and formulated with the house staff. Events reviewed Objective - Vital Signs/Intake and Output Vital Signs (last 24 hours): Temp Pulse Resp BP Pulse Ox 98.0 F 80 20 179/77 H 98 09/01/18 05:56 09/01/18 05:56 09/01/18 05:56 09/01/18 10:45 09/01/18 02:15 Intake and Output: 09/01/18 09/01/18 06:59 18:59 Intake Total 1950 Output Total 500 Balance 1450 - Medications Medications: Current Medications Albuterol/Ipratropium (Duoneb 3 Mg/0.5 Mg (3 Ml) Ud) 3 ml INH RQ6 [facility] Last Admin: 09/01/18 01:16 Dose: 3 ml Clopidogrel Bisulfate (Plavix) 75 mg PO DAILY [facility] Last Admin: 09/01/18 10:43 Dose: 75 mg Collagenase (Santyl) 1 gm TOP BID [facility] Last Admin: 09/01/18 11:30 Dose: 1 appl Cyanocobalamin (Vitamin B12 1000 Mcg/Ml Inj) 1,000 mcg IM DAILY [facility] Last Admin: 09/01/18 10:44 Dose: 1,000 mcg Enoxaparin Sodium (Lovenox) 40 mg SC DAILY [facility] Last Admin: 09/01/18 10:43 Dose: 40 mg Ferrous Sulfate (Feosol Liq) 300 mg PO BID [facility] Last Admin: 09/01/18 10:43 Dose: 300 mg Vancomycin HCl 1 gm/ Sodium (Chloride) 250 mls @ 167 mls/hr IVPB Q24H [facility]; Protocol Last Admin: 08/31/18 21:57 Dose: Not Given Sodium Chloride (Sodium Chloride 0.9%) 1,000 mls @ 70 mls/hr IV .[id number] [facility] Last Admin: 08/31/18 16:46 Dose: Not Given Meropenem 500 mg/ Sodium (Chloride) 100 mls @ 100 mls/hr IVPB Q8H [facility]; Protocol Last Admin: 09/01/18 06:04 Dose: 100 mls/hr Ketorolac Tromethamine (Toradol) 10 mg PO Q8H PRN PRN Reason: Pain, moderate (4-7) Lorazepam (Ativan) 0.5 mg PO Q12 PRN PRN Reason: Agitation Last Admin: 08/30/18 17:04 Dose: 0.5 mg Memantine (Namenda) 10 mg PO BID [facility] Last Admin: 09/01/18 10:43 Dose: 10 mg Metoprolol Tartrate (Lopressor) 25 mg PO BID [facility] Last Admin: 09/01/18 10:45 Dose: 25 mg Multivitamins (Hexavitamin) 1 tab PO DAILY [facility] Last Admin: 09/01/18 10:43 Dose: 1 tab Pantoprazole Sodium (Protonix Susp) 40 mg PO 0600 [facility] Last Admin: 08/31/18 06:03 Dose: 40 mg Rosuvastatin Calcium (Crestor) 20 mg PO HS [facility] Last Admin: 08/31/18 21:59 Dose: 20 mg - Labs Labs: 09/01/18 11:29 09/01/18 11:29 PT 12.7 SECONDS (9.7-12.2) H 08/29/18 18:00 INR 1.2 08/29/18 18:00 APTT 31 SECONDS (21-34) 08/29/18 18:00
--- NOTE | 2018-09-01 14:53 | CP.PCM.PN ---
Subjective - Date & Time of Evaluation Date of Evaluation: 09/01/18 Time of Evaluation: 11:15 - Subjective Subjective: clinically same Objective - Vital Signs/Intake and Output Vital Signs (last 24 hours): Temp Pulse Resp BP Pulse Ox 98.0 F 96 H 20 151/69 H 98 09/01/18 05:56 09/01/18 13:47 09/01/18 05:56 09/01/18 13:47 09/01/18 02:15 Intake and Output: 09/01/18 09/01/18 06:59 18:59 Intake Total 1950 Output Total 500 300 Balance 1450 -300 - Medications Medications: Current Medications Albuterol/Ipratropium (Duoneb 3 Mg/0.5 Mg (3 Ml) Ud) 3 ml INH RQ6 [facility] Last Admin: 09/01/18 01:16 Dose: 3 ml Clopidogrel Bisulfate (Plavix) 75 mg PO DAILY [facility] Last Admin: 09/01/18 10:43 Dose: 75 mg Collagenase (Santyl) 1 gm TOP BID [facility] Last Admin: 09/01/18 11:30 Dose: 1 appl Cyanocobalamin (Vitamin B12 1000 Mcg/Ml Inj) 1,000 mcg IM DAILY [facility] Last Admin: 09/01/18 10:44 Dose: 1,000 mcg Enoxaparin Sodium (Lovenox) 40 mg SC DAILY [facility] Last Admin: 09/01/18 10:43 Dose: 40 mg Ferrous Sulfate (Feosol Liq) 300 mg PO BID [facility] Last Admin: 09/01/18 10:43 Dose: 300 mg Vancomycin HCl 1 gm/ Sodium (Chloride) 250 mls @ 167 mls/hr IVPB Q24H [facility]; Protocol Last Admin: 08/31/18 21:57 Dose: Not Given Sodium Chloride (Sodium Chloride 0.9%) 1,000 mls @ 70 mls/hr IV .[id number] [facility] Last Admin: 08/31/18 16:46 Dose: Not Given Meropenem 500 mg/ Sodium (Chloride) 100 mls @ 100 mls/hr IVPB Q8H [facility]; Protocol Last Admin: 09/01/18 14:45 Dose: 100 mls/hr Ketorolac Tromethamine (Toradol) 10 mg PO Q8H PRN PRN Reason: Pain, moderate (4-7) Lorazepam (Ativan) 0.5 mg PO Q12 PRN PRN Reason: Agitation Last Admin: 08/30/18 17:04 Dose: 0.5 mg Memantine (Namenda) 10 mg PO BID [facility] Last Admin: 09/01/18 10:43 Dose: 10 mg Metoprolol Tartrate (Lopressor) 25 mg PO BID [facility] Last Admin: 09/01/18 10:45 Dose: 25 mg Multivitamins (Hexavitamin) 1 tab PO DAILY [facility] Last Admin: 09/01/18 10:43 Dose: 1 tab Pantoprazole Sodium (Protonix Susp) 40 mg PO 0600 [facility] Last Admin: 08/31/18 06:03 Dose: 40 mg Rosuvastatin Calcium (Crestor) 20 mg PO HS [facility] Last Admin: 08/31/18 21:59 Dose: 20 mg - Labs Labs: 09/01/18 11:29 09/01/18 11:29 PT 12.7 SECONDS (9.7-12.2) H 08/29/18 18:00 INR 1.2 08/29/18 18:00 APTT 31 SECONDS (21-34) 08/29/18 18:00 - Constitutional Appears: Well - Head Exam Head Exam: ATRAUMATIC, NORMAL INSPECTION, NORMOCEPHALIC - Eye Exam Eye Exam: EOMI, Normal appearance, PERRL Pupil Exam: NORMAL ACCOMODATION, PERRL - ENT Exam ENT Exam: Mucous Membranes Moist, Normal Exam - Neck Exam Neck Exam: Full ROM, Normal Inspection. absent: Lymphadenopathy - Respiratory Exam Respiratory Exam: Decreased Breath Sounds - Cardiovascular Exam Cardiovascular Exam: REGULAR RHYTHM, +S1, +S2 - GI/Abdominal Exam GI & Abdominal Exam: Soft, Diminished Bowel Sounds - Rectal Exam Rectal Exam: Deferred
--- NOTE | 2018-09-01 16:00 | PCM.ANES ---
Assessment/Plan - Assessment and Plan (Free Text) Assessment: pt is 87 ho cad, cva, htn, and hyperlidemia scheduled for debridement of sacral decubitus. If septic, will proceed. Otherwise, please document medical. optimization.
--- NOTE | 2018-09-01 16:23 | CP.PCM.PN ---
Addendum entered and electronically signed by Fanta Boyle DO 09/01/18 17:15: Recommend Cardio consult for cardiac evaluation and optimization prior to the OR on Tuesday Original Note: <Fanta Boyle - Last Filed: 09/01/18 16:47> Subjective - Date & Time of Evaluation Date of Evaluation: 09/01/18 Time of Evaluation: 14:10 - Subjective Subjective: General Surgery progress note for Dr. Paulson Patient seen and examined at bedside this AM. Pt denies any pain, or fevers. discussed patient's condition with family (grandson and ) and need for debridement. They requested time to discuss with other Objective - Vital Signs/Intake and Output Vital Signs (last 24 hours): Temp Pulse Resp BP Pulse Ox 98.0 F 82 20 151/69 H 98 09/01/18 05:56 09/01/18 15:59 09/01/18 05:56 09/01/18 13:47 09/01/18 02:15 Intake and Output: 09/01/18 09/01/18 06:59 18:59 Intake Total 1950 Output Total 500 300 Balance 1450 -300 - Medications Medications: Current Medications Albuterol/Ipratropium (Duoneb 3 Mg/0.5 Mg (3 Ml) Ud) 3 ml INH RQ6 [facility] Last Admin: 09/01/18 01:16 Dose: 3 ml Clopidogrel Bisulfate (Plavix) 75 mg PO DAILY [facility] Last Admin: 09/01/18 10:43 Dose: 75 mg Collagenase (Santyl) 1 gm TOP BID [facility] Last Admin: 09/01/18 11:30 Dose: 1 appl Cyanocobalamin (Vitamin B12 1000 Mcg/Ml Inj) 1,000 mcg IM DAILY [facility] Last Admin: 09/01/18 10:44 Dose: 1,000 mcg Enoxaparin Sodium (Lovenox) 40 mg SC DAILY [facility] Last Admin: 09/01/18 10:43 Dose: 40 mg Ferrous Sulfate (Feosol Liq) 300 mg PO BID [facility] Last Admin: 09/01/18 10:43 Dose: 300 mg Vancomycin HCl 1 gm/ Sodium (Chloride) 250 mls @ 167 mls/hr IVPB Q24H [facility]; Protocol Last Admin: 08/31/18 21:57 Dose: Not Given Sodium Chloride (Sodium Chloride 0.9%) 1,000 mls @ 70 mls/hr IV .[id number] [facility] Last Admin: 08/31/18 16:46 Dose: Not Given Meropenem 500 mg/ Sodium (Chloride) 100 mls @ 100 mls/hr IVPB Q8H [facility]; Protocol Last Admin: 09/01/18 14:45 Dose: 100 mls/hr Ketorolac Tromethamine (Toradol) 10 mg PO Q8H PRN PRN Reason: Pain, moderate (4-7) Lorazepam (Ativan) 0.5 mg PO Q12 PRN PRN Reason: Agitation Last Admin: 08/30/18 17:04 Dose: 0.5 mg Memantine (Namenda) 10 mg PO BID [facility] Last Admin: 09/01/18 10:43 Dose: 10 mg Metoprolol Tartrate (Lopressor) 25 mg PO BID [facility] Last Admin: 09/01/18 10:45 Dose: 25 mg Multivitamins (Hexavitamin) 1 tab PO DAILY [facility] Last Admin: 09/01/18 10:43 Dose: 1 tab Pantoprazole Sodium (Protonix Susp) 40 mg PO 0600 [facility] Last Admin: 08/31/18 06:03 Dose: 40 mg Rosuvastatin Calcium (Crestor) 20 mg PO HS [facility] Last Admin: 08/31/18 21:59 Dose: 20 mg - Labs Labs: 09/01/18 11:29 09/01/18 11:29 PT 12.7 SECONDS (9.7-12.2) H 08/29/18 18:00 INR 1.2 08/29/18 18:00 APTT 31 SECONDS (21-34) 08/29/18 18:00 - Constitutional Appears: Well, Non-toxic, No Acute Distress - Head Exam Head Exam: ATRAUMATIC, NORMOCEPHALIC - Eye Exam Eye Exam: Normal appearance. absent: Conjunctival injection, Scleral icterus - ENT Exam ENT Exam: Mucous Membranes Moist, Normal Oropharynx - Respiratory Exam Respiratory Exam: NORMAL BREATHING PATTERN. absent: Accessory Muscle Use, Respiratory Distress - GI/Abdominal Exam GI & Abdominal Exam: Soft. absent: Distended, Tenderness - Extremities Exam Extremities Exam: absent: Calf Tenderness, Pedal Edema - Back Exam Additional comments: sacrum with stage 3 decubitus ulcer with yellow eschar, no erythema, and no crepitus - Neurological Exam Neurological Exam: Alert, Awake, Oriented x3 - Psychiatric Exam Psychiatric exam: Normal Affect, Normal Mood - Skin Skin Exam: Dry, Normal Color, Warm Assessment and Plan - Assessment and Plan (Free Text) Assessment: 87M with stage 3 sacral decubitus wound Plan: OR Tuesday for debridement of sacral decubitus wound Hold plavix for OR Continue antibiotics per ID Will continue to discuss plan with family Continue airmatress, turn Q2, recommend BID santyl and optifoam dressing changes Discussed with Dr. Khurram Boyle, PGY2 <Brent Paulson - Last Filed: 09/02/18 18:55> Objective - Vital Signs/Intake and Output Vital Signs (last 24 hours): Temp Pulse Resp BP Pulse Ox 98.3 F 111 H 20 154/52 H 97 09/02/18 15:33 09/02/18 15:33 09/02/18 15:33 09/02/18 18:36 09/02/18 15:33 Intake and Output: 09/02/18 09/02/18 06:59 18:59 Intake Total 1070 Output Total 300 250 Balance 770 -250 - Medications Medications: Current Medications Albuterol/Ipratropium (Duoneb 3 Mg/0.5 Mg (3 Ml) Ud) 3 ml INH RQ6 [facility] Last Admin: 09/02/18 14:03 Dose: 3 ml Clopidogrel Bisulfate (Plavix) 75 mg PO DAILY [facility] Last Admin: 09/01/18 10:43 Dose: 75 mg Collagenase (Santyl) 1 gm TOP BID [facility] Last Admin: 09/02/18 18:43 Dose: 1 appl Cyanocobalamin (Vitamin B12 1000 Mcg/Ml Inj) 1,000 mcg IM DAILY [facility] Last Admin: 09/02/18 10:41 Dose: 1,000 mcg Enoxaparin Sodium (Lovenox) 40 mg SC DAILY [facility] Last Admin: 09/02/18 10:34 Dose: 40 mg Ferrous Sulfate (Feosol Liq) 300 mg PO BID [facility] Last Admin: 09/02/18 18:36 Dose: 300 mg Vancomycin HCl 1 gm/ Sodium (Chloride) 250 mls @ 167 mls/hr IVPB Q24H [facility]; Protocol Last Admin: 09/01/18 20:28 Dose: 167 mls/hr Meropenem 500 mg/ Sodium (Chloride) 100 mls @ 100 mls/hr IVPB Q8H [facility]; Protocol Last Admin: 09/02/18 16:33 Dose: 100 mls/hr Ketorolac Tromethamine (Toradol) 10 mg PO Q8H PRN PRN Reason: Pain, moderate (4-7) Lorazepam (Ativan) 0.5 mg PO Q12 PRN PRN Reason: Agitation Last Admin: 08/30/18 17:04 Dose: 0.5 mg Memantine (Namenda) 10 mg PO BID [facility] Last Admin: 09/02/18 18:41 Dose: 10 mg Metoprolol Tartrate (Lopressor) 25 mg PO BID [facility] Last Admin: 09/02/18 18:36 Dose: 25 mg Multivitamins (Hexavitamin) 1 tab PO DAILY [facility] Last Admin: 09/02/18 10:32 Dose: 1 tab Pantoprazole Sodium (Protonix Susp) 40 mg PO 0600 [facility] Last Admin: 09/02/18 06:06 Dose: Not Given Rosuvastatin Calcium (Crestor) 20 mg PO HS [facility] Last Admin: 09/01/18 21:03 Dose: 20 mg - Labs Labs: 09/01/18 11:29 09/01/18 11:29 PT 12.7 SECONDS (9.7-12.2) H 08/29/18 18:00 INR 1.2 08/29/18 18:00 APTT 31 SECONDS (21-34) 08/29/18 18:00 Attending/Attestation - Attestation I have personally seen and examined this patient.: Yes I have fully participated in the care of the patient.: Yes I have reviewed all pertinent clinical information, including history, physical exam and plan: Yes Notes (Text): Pt was seen and examined at bedside Agree with above note and assessment Pt with stage 4 sacral decubitus ulcer Need further debridement Consent Medical clearance c/w current mx Hold Plavix Plan d.w primary team detail Risk and benefit explained in detail.
[2018-09-01] MEDS: Sodium Chloride 0.9% 1,000 ML IV SCH (21:00)
[2018-09-02] MEDS: Albuterol-Ipratrop 3 mg / 0.5 (3 ml) UD INH SCH ×5 (01:16→19:23)
[2018-09-02] MEDS: Meropenem 500 MG in Sodium Chloride 0.9% 100 ML IVPB SCH ×3 (06:03→22:36)
[2018-09-02] MEDS: Pantoprazole 40 mg Susp UD PO SCH (06:06)
[2018-09-02] MEDS: Multiple Vitamins Tab PO SCH (10:32)
[2018-09-02] MEDS: Ferrous Sulfate 300 mg/5 mL Liq UD PO SCH ×2 (10:33→18:36)
[2018-09-02] MEDS: Collagenase 250 Units/gm Ointment(30 gm) TOP SCH ×2 (10:33→18:43)
[2018-09-02] MEDS: Enoxaparin 40 mg Syringe SC SCH (10:34)
[2018-09-02] MEDS: Sodium Chloride 0.9% 1,000 ML IV SCH (10:46)
--- NOTE | 2018-09-02 14:24 | CP.PCM.PN ---
Subjective - Date & Time of Evaluation Date of Evaluation: 09/02/18 Time of Evaluation: 13:00 - Subjective Subjective: dictated Objective - Vital Signs/Intake and Output Vital Signs (last 24 hours): Temp Pulse Resp BP Pulse Ox 98.1 F 70 20 148/79 95 09/02/18 00:44 09/02/18 07:00 09/02/18 00:44 09/02/18 10:32 09/02/18 00:44 Intake and Output: 09/02/18 09/02/18 06:59 18:59 Intake Total 1070 Output Total 300 250 Balance 770 -250 - Medications Medications: Current Medications Albuterol/Ipratropium (Duoneb 3 Mg/0.5 Mg (3 Ml) Ud) 3 ml INH RQ6 [facility] Last Admin: 09/02/18 14:03 Dose: 3 ml Clopidogrel Bisulfate (Plavix) 75 mg PO DAILY [facility] Last Admin: 09/01/18 10:43 Dose: 75 mg Collagenase (Santyl) 1 gm TOP BID [facility] Last Admin: 09/02/18 10:33 Dose: 1 appl Cyanocobalamin (Vitamin B12 1000 Mcg/Ml Inj) 1,000 mcg IM DAILY [facility] Last Admin: 09/02/18 10:41 Dose: 1,000 mcg Enoxaparin Sodium (Lovenox) 40 mg SC DAILY [facility] Last Admin: 09/02/18 10:34 Dose: 40 mg Ferrous Sulfate (Feosol Liq) 300 mg PO BID [facility] Last Admin: 09/02/18 10:33 Dose: 300 mg Vancomycin HCl 1 gm/ Sodium (Chloride) 250 mls @ 167 mls/hr IVPB Q24H [facility]; Protocol Last Admin: 09/01/18 20:28 Dose: 167 mls/hr Meropenem 500 mg/ Sodium (Chloride) 100 mls @ 100 mls/hr IVPB Q8H [facility]; Protocol Last Admin: 09/02/18 06:03 Dose: 100 mls/hr Potassium Chloride (Potassium Chloride 20 Meq/100 Ml) 20 meq in 100 mls @ 50 mls/hr IVPB ONCE ONE Stop: 09/02/18 16:14 Ketorolac Tromethamine (Toradol) 10 mg PO Q8H PRN PRN Reason: Pain, moderate (4-7) Lorazepam (Ativan) 0.5 mg PO Q12 PRN PRN Reason: Agitation Last Admin: 08/30/18 17:04 Dose: 0.5 mg Memantine (Namenda) 10 mg PO BID [facility] Last Admin: 09/02/18 10:32 Dose: 10 mg Metoprolol Tartrate (Lopressor) 25 mg PO BID [facility] Last Admin: 09/02/18 10:32 Dose: 25 mg Multivitamins (Hexavitamin) 1 tab PO DAILY [facility] Last Admin: 09/02/18 10:32 Dose: 1 tab Pantoprazole Sodium (Protonix Susp) 40 mg PO 0600 [facility] Last Admin: 09/02/18 06:06 Dose: Not Given Rosuvastatin Calcium (Crestor) 20 mg PO HS [facility] Last Admin: 09/01/18 21:03 Dose: 20 mg - Labs Labs: 09/01/18 11:29 09/01/18 11:29 PT 12.7 SECONDS (9.7-12.2) H 08/29/18 18:00 INR 1.2 08/29/18 18:00 APTT 31 SECONDS (21-34) 08/29/18 18:00
--- NOTE | 2018-09-02 15:28 | CP.PCM.PN ---
Subjective - Date & Time of Evaluation Date of Evaluation: 09/02/18 Time of Evaluation: 10:45 - Subjective Subjective: clinically same Objective - Vital Signs/Intake and Output Vital Signs (last 24 hours): Temp Pulse Resp BP Pulse Ox 98.1 F 70 20 148/79 95 09/02/18 00:44 09/02/18 07:00 09/02/18 00:44 09/02/18 10:32 09/02/18 00:44 Intake and Output: 09/02/18 09/02/18 06:59 18:59 Intake Total 1070 Output Total 300 250 Balance 770 -250 - Medications Medications: Current Medications Albuterol/Ipratropium (Duoneb 3 Mg/0.5 Mg (3 Ml) Ud) 3 ml INH RQ6 [facility] Last Admin: 09/02/18 14:03 Dose: 3 ml Clopidogrel Bisulfate (Plavix) 75 mg PO DAILY [facility] Last Admin: 09/01/18 10:43 Dose: 75 mg Collagenase (Santyl) 1 gm TOP BID [facility] Last Admin: 09/02/18 10:33 Dose: 1 appl Cyanocobalamin (Vitamin B12 1000 Mcg/Ml Inj) 1,000 mcg IM DAILY [facility] Last Admin: 09/02/18 10:41 Dose: 1,000 mcg Enoxaparin Sodium (Lovenox) 40 mg SC DAILY [facility] Last Admin: 09/02/18 10:34 Dose: 40 mg Ferrous Sulfate (Feosol Liq) 300 mg PO BID [facility] Last Admin: 09/02/18 10:33 Dose: 300 mg Vancomycin HCl 1 gm/ Sodium (Chloride) 250 mls @ 167 mls/hr IVPB Q24H [facility]; Protocol Last Admin: 09/01/18 20:28 Dose: 167 mls/hr Meropenem 500 mg/ Sodium (Chloride) 100 mls @ 100 mls/hr IVPB Q8H [facility]; Protocol Last Admin: 09/02/18 06:03 Dose: 100 mls/hr Potassium Chloride (Potassium Chloride 20 Meq/100 Ml) 20 meq in 100 mls @ 50 mls/hr IVPB ONCE ONE Stop: 09/02/18 16:14 Last Admin: 09/02/18 14:24 Dose: 50 mls/hr Ketorolac Tromethamine (Toradol) 10 mg PO Q8H PRN PRN Reason: Pain, moderate (4-7) Lorazepam (Ativan) 0.5 mg PO Q12 PRN PRN Reason: Agitation Last Admin: 08/30/18 17:04 Dose: 0.5 mg Memantine (Namenda) 10 mg PO BID [facility] Last Admin: 09/02/18 10:32 Dose: 10 mg Metoprolol Tartrate (Lopressor) 25 mg PO BID [facility] Last Admin: 09/02/18 10:32 Dose: 25 mg Multivitamins (Hexavitamin) 1 tab PO DAILY [facility] Last Admin: 09/02/18 10:32 Dose: 1 tab Pantoprazole Sodium (Protonix Susp) 40 mg PO 0600 [facility] Last Admin: 09/02/18 06:06 Dose: Not Given Rosuvastatin Calcium (Crestor) 20 mg PO HS [facility] Last Admin: 09/01/18 21:03 Dose: 20 mg - Labs Labs: 09/01/18 11:29 09/01/18 11:29 PT 12.7 SECONDS (9.7-12.2) H 08/29/18 18:00 INR 1.2 08/29/18 18:00 APTT 31 SECONDS (21-34) 08/29/18 18:00 - Constitutional Appears: Well - Head Exam Head Exam: ATRAUMATIC, NORMAL INSPECTION, NORMOCEPHALIC - Eye Exam Eye Exam: EOMI, Normal appearance, PERRL Pupil Exam: NORMAL ACCOMODATION, PERRL - ENT Exam ENT Exam: Mucous Membranes Moist, Normal Exam - Neck Exam Neck Exam: Full ROM, Normal Inspection. absent: Lymphadenopathy - Respiratory Exam Respiratory Exam: Decreased Breath Sounds - Cardiovascular Exam Cardiovascular Exam: REGULAR RHYTHM, +S1, +S2 - GI/Abdominal Exam GI & Abdominal Exam: Soft, Diminished Bowel Sounds - Rectal Exam Rectal Exam: Deferred
--- NOTE | 2018-09-02 20:13 | PN ---
DATE: 09/02/2018 SUBJECTIVE: The patient is afebrile. He is drowsy. PHYSICAL EXAMINATION: VITAL SIGNS: T max is 98.3, heart rate is right now 111, blood pressure 154/52, respirations are 20. HEENT: Head is atraumatic. NECK: Supple. LUNGS: Decreased breath sounds bilaterally. HEART: S1 and S2 are tachycardic. ABDOMEN: Soft, nontender. EXTREMITIES: Remain contracted. He has a sacral decubiti with multiple other decubiti, the depth of the ulcer is not sure, so I am going order a bone scan to rule out osteomyelitis. LABORATORY DATA: White count is 10.9, hemoglobin this is from yesterday. There is no new labs from today. I want to make sure he is on some heparin and Lovenox, he is on Lovenox which was started 08/30/2018, he is on Merrem and he has a Childress catheter and he is on vancomycin. ASSESSMENT AND PLAN: So, the patient did come in with sepsis and has infected sacral decubiti and is on IV antibiotics and remains bed bound. 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 Stacey Burns MD
--- NOTE | 2018-09-02 23:18 | CP.PCM.PN ---
Subjective - Date & Time of Evaluation Date of Evaluation: 09/02/18 Time of Evaluation: 23:18 - Subjective Subjective: Pulmonary Follow up, Covering Dr Moses The patient was Seen/interviewed and examined by me at the bedside, Medical records reviewed and Management issues were discussed and formulated with the house staff. Events reviewed Patient comfortable, NAD Afebrile Objective - Vital Signs/Intake and Output Vital Signs (last 24 hours): Temp Pulse Resp BP Pulse Ox 98.3 F 111 H 20 154/52 H 97 09/02/18 15:33 09/02/18 15:33 09/02/18 15:33 09/02/18 18:36 09/02/18 15:33 Intake and Output: 09/02/18 09/03/18 18:59 06:59 Intake Total 550 Output Total 250 500 Balance -250 50 - Medications Medications: Current Medications Albuterol/Ipratropium (Duoneb 3 Mg/0.5 Mg (3 Ml) Ud) 3 ml INH RQ6 [facility] Last Admin: 09/02/18 19:23 Dose: 3 ml Clopidogrel Bisulfate (Plavix) 75 mg PO DAILY [facility] Last Admin: 09/01/18 10:43 Dose: 75 mg Collagenase (Santyl) 1 gm TOP BID [facility] Last Admin: 09/02/18 18:43 Dose: 1 appl Cyanocobalamin (Vitamin B12 1000 Mcg/Ml Inj) 1,000 mcg IM DAILY [facility] Last Admin: 09/02/18 10:41 Dose: 1,000 mcg Enoxaparin Sodium (Lovenox) 40 mg SC DAILY [facility] Last Admin: 09/02/18 10:34 Dose: 40 mg Ferrous Sulfate (Feosol Liq) 300 mg PO BID [facility] Last Admin: 09/02/18 18:36 Dose: 300 mg Vancomycin HCl 1 gm/ Sodium (Chloride) 250 mls @ 167 mls/hr IVPB Q24H [facility]; Protocol Last Admin: 09/02/18 21:30 Dose: 167 mls/hr Meropenem 500 mg/ Sodium (Chloride) 100 mls @ 100 mls/hr IVPB Q8H [facility]; Protocol Last Admin: 09/02/18 22:36 Dose: 100 mls/hr Ketorolac Tromethamine (Toradol) 10 mg PO Q8H PRN PRN Reason: Pain, moderate (4-7) Lorazepam (Ativan) 0.5 mg PO Q12 PRN PRN Reason: Agitation Last Admin: 08/30/18 17:04 Dose: 0.5 mg Memantine (Namenda) 10 mg PO BID [facility] Last Admin: 09/02/18 18:41 Dose: 10 mg Metoprolol Tartrate (Lopressor) 25 mg PO BID [facility] Last Admin: 09/02/18 18:36 Dose: 25 mg Multivitamins (Hexavitamin) 1 tab PO DAILY [facility] Last Admin: 09/02/18 10:32 Dose: 1 tab Pantoprazole Sodium (Protonix Susp) 40 mg PO 0600 [facility] Last Admin: 09/02/18 06:06 Dose: Not Given Rosuvastatin Calcium (Crestor) 20 mg PO HS [facility] Last Admin: 09/02/18 22:38 Dose: 20 mg - Labs Labs: 09/01/18 11:29 09/01/18 11:29 PT 12.7 SECONDS (9.7-12.2) H 08/29/18 18:00 INR 1.2 08/29/18 18:00 APTT 31 SECONDS (21-34) 08/29/18 18:00
[2018-09-03] MEDS: Albuterol-Ipratrop 3 mg / 0.5 (3 ml) UD INH SCH ×3 (02:03→19:03)
[2018-09-03] MEDS: Sodium Chloride 0.9% 1,000 ML IV SCH (03:54)
[2018-09-03] MEDS: Pantoprazole 40 mg Susp UD PO SCH (05:46)
[2018-09-03] MEDS: Meropenem 500 MG in Sodium Chloride 0.9% 100 ML IVPB SCH ×3 (06:01→22:46)
[2018-09-03 10:55] LABS: HEMOGLOBIN 10.6 g/dL (12.0-18.0); MEAN CELL VOLUME 89.8 fL (80.0-94.0); MEAN CORPUSCULAR HEMOGLOBIN 29.9 pg (27.0-31.0); MEAN CORPUSCULAR HGB CONC 33.3 g/dL (33.0-37.0); MEAN PLATELET VOLUME 8.8 fL (7.2-11.7); RBC 3.53 Mil/uL (4.40-5.90); RED CELL DISTRIBUTION WIDTH 13.8 % (11.5-14.5); WHITE BLOOD COUNT 8.9 K/uL (4.8-10.8)
[2018-09-03] MEDS: Ferrous Sulfate 300 mg/5 mL Liq UD PO SCH ×2 (11:08→18:11)
[2018-09-03] MEDS: Enoxaparin 40 mg Syringe SC SCH (11:09)
[2018-09-03] MEDS: Multiple Vitamins Tab PO SCH (11:09)
[2018-09-03] MEDS: Collagenase 250 Units/gm Ointment(30 gm) TOP SCH ×2 (11:09→18:16)
--- NOTE | 2018-09-03 11:39 | CP.PCM.PN ---
<Sage Ronquillo - Last Filed: 09/03/18 11:28> Subjective - Date & Time of Evaluation Date of Evaluation: 09/03/18 Time of Evaluation: 11:28 - Subjective Subjective: Surgery PT seen and examined. No acute events. Pt is contracted. Dressing in place. Objective - Vital Signs/Intake and Output Vital Signs (last 24 hours): Temp Pulse Resp BP Pulse Ox 99.6 F 95 H 20 166/90 H 97 09/03/18 07:00 09/03/18 11:07 09/03/18 07:00 09/03/18 11:09 09/03/18 10:31 Intake and Output: 09/03/18 09/03/18 06:59 18:59 Intake Total 550 Output Total 1450 Balance -900 - Medications Medications: Current Medications Albuterol/Ipratropium (Duoneb 3 Mg/0.5 Mg (3 Ml) Ud) 3 ml INH RQ6 [facility] Last Admin: 09/03/18 02:03 Dose: 3 ml Clopidogrel Bisulfate (Plavix) 75 mg PO DAILY [facility] Last Admin: 09/01/18 10:43 Dose: 75 mg Collagenase (Santyl) 1 gm TOP BID [facility] Last Admin: 09/03/18 11:09 Dose: 1 appl Cyanocobalamin (Vitamin B12 1000 Mcg/Ml Inj) 1,000 mcg IM DAILY [facility] Last Admin: 09/03/18 11:09 Dose: 1,000 mcg Enoxaparin Sodium (Lovenox) 40 mg SC DAILY [facility] Last Admin: 09/03/18 11:09 Dose: 40 mg Ferrous Sulfate (Feosol Liq) 300 mg PO BID [facility] Last Admin: 09/03/18 11:08 Dose: 300 mg Vancomycin HCl 1 gm/ Sodium (Chloride) 250 mls @ 167 mls/hr IVPB Q24H [facility]; Protocol Last Admin: 09/02/18 21:30 Dose: 167 mls/hr Meropenem 500 mg/ Sodium (Chloride) 100 mls @ 100 mls/hr IVPB Q8H [facility]; Protocol Last Admin: 09/03/18 06:01 Dose: 100 mls/hr Ketorolac Tromethamine (Toradol) 10 mg PO Q8H PRN PRN Reason: Pain, moderate (4-7) Lorazepam (Ativan) 0.5 mg PO Q12 PRN PRN Reason: Agitation Last Admin: 09/03/18 08:49 Dose: 0.5 mg Memantine (Namenda) 10 mg PO BID [facility] Last Admin: 09/03/18 11:09 Dose: 10 mg Metoprolol Tartrate (Lopressor) 25 mg PO BID [facility] Last Admin: 09/03/18 11:09 Dose: 25 mg Multivitamins (Hexavitamin) 1 tab PO DAILY [facility] Last Admin: 09/03/18 11:09 Dose: 1 tab Pantoprazole Sodium (Protonix Susp) 40 mg PO 0600 [facility] Last Admin: 09/03/18 05:46 Dose: 40 mg Rosuvastatin Calcium (Crestor) 20 mg PO HS [facility] Last Admin: 09/02/18 22:38 Dose: 20 mg - Labs Labs: 09/03/18 10:51 09/01/18 11:29 PT 12.7 SECONDS (9.7-12.2) H 08/29/18 18:00 INR 1.2 08/29/18 18:00 APTT 31 SECONDS (21-34) 08/29/18 18:00 - Constitutional Appears: No Acute Distress, Confused, Chronically Ill - Head Exam Head Exam: ATRAUMATIC, NORMAL INSPECTION, NORMOCEPHALIC - Eye Exam Eye Exam: EOMI, Normal appearance, PERRL Pupil Exam: NORMAL ACCOMODATION, PERRL - ENT Exam ENT Exam: Mucous Membranes Moist - Neck Exam Neck Exam: Full ROM, Normal Inspection. absent: Lymphadenopathy - Respiratory Exam Respiratory Exam: NORMAL BREATHING PATTERN - Cardiovascular Exam Cardiovascular Exam: REGULAR RHYTHM, +S1, +S2. absent: Murmur - GI/Abdominal Exam GI & Abdominal Exam: Soft. absent: Distended, Tenderness - Exam Exam: NORMAL INSPECTION - Extremities Exam Extremities Exam: Tenderness. absent: Full ROM, Normal Inspection Additional comments: sacrum [id number] sacral wound covered with fibrinic tissues. Eryhtema around. - Neurological Exam Neurological Exam: Altered, Awake. absent: Alert, Normal Gait, Oriented x3 - Skin Skin Exam: Erythema. absent: Dry, Intact, Normal Color Assessment and Plan - Assessment and Plan (Free Text) Assessment: Pt with stage 4 sacral decubitus ulcer Need further debridement. Booked for OR on Tuesday WIll obtain Consent Medical clearance c/w current mx Hold Plavix Plan d.w primary team detail Risk and benefit explained in detail. Will DW Dr. Paulson <Brent Paulson - Last Filed: 09/08/18 17:38> Objective - Vital Signs/Intake and Output Vital Signs (last 24 hours): Temp Pulse Resp BP Pulse Ox 99.3 F 84 20 173/83 H 95 09/08/18 15:31 09/08/18 15:31 09/08/18 15:31 09/08/18 15:31 09/08/18 15:31 Intake and Output: 09/08/18 09/08/18 06:59 18:59 Intake Total 650 Output Total 350 200 Balance 300 -200 - Medications Medications: Current Medications Clopidogrel Bisulfate (Plavix) 75 mg PO DAILY [facility] Last Admin: 09/01/18 10:43 Dose: 75 mg Cyanocobalamin (Vitamin B12 1000 Mcg/Ml Inj) 1,000 mcg IM DAILY [facility] Last Admin: 09/08/18 12:26 Dose: 1,000 mcg Enoxaparin Sodium (Lovenox) 40 mg SC DAILY [facility] Last Admin: 09/08/18 12:23 Dose: 40 mg Ferrous Sulfate (Feosol Liq) 300 mg PO BID [facility] Last Admin: 09/08/18 12:23 Dose: 300 mg Vancomycin HCl 1 gm/ Sodium (Chloride) 250 mls @ 167 mls/hr IVPB Q24H [facility]; Protocol Last Admin: 09/07/18 21:41 Dose: 167 mls/hr Meropenem 500 mg/ Sodium (Chloride) 100 mls @ 100 mls/hr IVPB Q8H [facility]; Protocol Last Admin: 09/08/18 14:59 Dose: 100 mls/hr Memantine (Namenda) 10 mg PO BID [facility] Last Admin: 09/08/18 12:22 Dose: 10 mg Metoprolol Tartrate (Lopressor) 25 mg PO BID [facility] Last Admin: 09/08/18 12:23 Dose: 25 mg Multivitamins (Hexavitamin) 1 tab PO DAILY [facility] Last Admin: 09/08/18 12:22 Dose: 1 tab Pantoprazole Sodium (Protonix Susp) 40 mg PO 0600 [facility] Last Admin: 09/08/18 06:15 Dose: 40 mg Rosuvastatin Calcium (Crestor) 20 mg PO HS [facility] Last Admin: 09/07/18 21:37 Dose: 20 mg - Labs Labs: 09/06/18 06:30 09/06/18 06:30 PT 12.1 SECONDS (9.7-12.2) 09/04/18 07:34 INR 1.1 09/04/18 07:34 APTT 27 SECONDS (21-34) 09/04/18 07:34 Attending/Attestation - Attestation I have fully participated in the care of the patient.: Yes I have reviewed all pertinent clinical information, including history, physical exam and plan: Yes Notes (Text): Pt is same clinically OR tomorrow for Debridement and wound vac Consent NPO, IVF C/w current mx Plan d.w primary team in detail
[2018-09-03 11:41] LABS: BLOOD UREA NITROGEN 16 mg/dL (9-20); CALCIUM 8.1 mg/dl (8.6-10.4); GFR NON-AFRICAN AMERICAN > 60
--- NOTE | 2018-09-03 12:29 | CP.PCM.PN ---
Subjective - Date & Time of Evaluation Date of Evaluation: 09/03/18 Time of Evaluation: 12:28 - Subjective Subjective: Pulmonary Follow up, Covering Dr Moses The patient was Seen/interviewed and examined by me at the bedside, Medical records reviewed and Management issues were discussed and formulated with the house staff. Events reviewed Patient afebrile Comfortable, and in no acute distress. Denies SOB, cough, chest pain. Objective - Vital Signs/Intake and Output Vital Signs (last 24 hours): Temp Pulse Resp BP Pulse Ox 99.6 F 95 H 20 166/90 H 97 09/03/18 07:00 09/03/18 11:07 09/03/18 07:00 09/03/18 11:09 09/03/18 10:31 Intake and Output: 09/03/18 09/03/18 06:59 18:59 Intake Total 550 Output Total 1450 Balance -900 - Medications Medications: Current Medications Albuterol/Ipratropium (Duoneb 3 Mg/0.5 Mg (3 Ml) Ud) 3 ml INH RQ6 [facility] Last Admin: 09/03/18 02:03 Dose: 3 ml Clopidogrel Bisulfate (Plavix) 75 mg PO DAILY [facility] Last Admin: 09/01/18 10:43 Dose: 75 mg Collagenase (Santyl) 1 gm TOP BID [facility] Last Admin: 09/03/18 11:09 Dose: 1 appl Cyanocobalamin (Vitamin B12 1000 Mcg/Ml Inj) 1,000 mcg IM DAILY [facility] Last Admin: 09/03/18 11:09 Dose: 1,000 mcg Enoxaparin Sodium (Lovenox) 40 mg SC DAILY [facility] Last Admin: 09/03/18 11:09 Dose: 40 mg Ferrous Sulfate (Feosol Liq) 300 mg PO BID [facility] Last Admin: 09/03/18 11:08 Dose: 300 mg Vancomycin HCl 1 gm/ Sodium (Chloride) 250 mls @ 167 mls/hr IVPB Q24H [facility]; Protocol Last Admin: 09/02/18 21:30 Dose: 167 mls/hr Meropenem 500 mg/ Sodium (Chloride) 100 mls @ 100 mls/hr IVPB Q8H [facility]; Protocol Last Admin: 09/03/18 06:01 Dose: 100 mls/hr Ketorolac Tromethamine (Toradol) 10 mg PO Q8H PRN PRN Reason: Pain, moderate (4-7) Lorazepam (Ativan) 0.5 mg PO Q12 PRN PRN Reason: Agitation Last Admin: 09/03/18 08:49 Dose: 0.5 mg Memantine (Namenda) 10 mg PO BID [facility] Last Admin: 09/03/18 11:09 Dose: 10 mg Metoprolol Tartrate (Lopressor) 25 mg PO BID [facility] Last Admin: 09/03/18 11:09 Dose: 25 mg Multivitamins (Hexavitamin) 1 tab PO DAILY [facility] Last Admin: 09/03/18 11:09 Dose: 1 tab Pantoprazole Sodium (Protonix Susp) 40 mg PO 0600 [facility] Last Admin: 09/03/18 05:46 Dose: 40 mg Rosuvastatin Calcium (Crestor) 20 mg PO HS [facility] Last Admin: 09/02/18 22:38 Dose: 20 mg - Labs Labs: 09/03/18 10:51 09/03/18 10:51 PT 12.7 SECONDS (9.7-12.2) H 08/29/18 18:00 INR 1.2 08/29/18 18:00 APTT 31 SECONDS (21-34) 08/29/18 18:00
--- NOTE | 2018-09-03 13:32 | CP.PCM.CON ---
History of Present Illness - History of Present Illness History of Present Illness: CC: Preop Clearence HPI: 87 year old man with following chronic medical problems 1. Dementia mild communicated today 2. Sacral decubitus which is chronic and poorly controlled, scheduled for debridement tomorrow 3. HTN is chronic and stable on metoprolol Past Patient History - Tetanus Immunizations Tetanus Immunization: Unknown - Past Medical History & Family History Past Medical History?: Yes - Past Social History Smoking Status: Former Smoker - CARDIAC Hx Cardiac Disorders: Yes (CAD) Hx Hypercholesterolemia: Yes Hx Hypertension: Yes - NEUROLOGICAL HX Cerebrovascular Accident: Yes - HEMATOLOGICAL/ONCOLOGICAL Hx Blood Transfusions: No Hx Blood Transfusion Reaction: No - INTEGUMENTARY Other/Comment: MULTIPLE DECUBITUS ULCERS TO BACK - MUSCULOSKELETAL/RHEUMATOLOGICAL Hx Arthritis: Yes - GENITOURINARY/GYNECOLOGICAL Other/Comment: Hx of BPH - PSYCHIATRIC Hx Substance Use: No - SURGICAL HISTORY Hx Coronary Stent: Yes - ANESTHESIA Hx Anesthesia Reactions: No Hx Malignant Hyperthermia: No Meds Allergies/Adverse Reactions: Allergies Allergy/AdvReac Type Severity Reaction Status Date / Time No Known Allergies Allergy Unverified 08/29/18 17:06 - Medications Medications: Current Medications Albuterol/Ipratropium (Duoneb 3 Mg/0.5 Mg (3 Ml) Ud) 3 ml INH RQ6 [facility] Last Admin: 09/03/18 02:03 Dose: 3 ml Clopidogrel Bisulfate (Plavix) 75 mg PO DAILY [facility] Last Admin: 09/01/18 10:43 Dose: 75 mg Collagenase (Santyl) 1 gm TOP BID [facility] Last Admin: 09/03/18 11:09 Dose: 1 appl Cyanocobalamin (Vitamin B12 1000 Mcg/Ml Inj) 1,000 mcg IM DAILY [facility] Last Admin: 09/03/18 11:09 Dose: 1,000 mcg Enoxaparin Sodium (Lovenox) 40 mg SC DAILY [facility] Last Admin: 09/03/18 11:09 Dose: 40 mg Ferrous Sulfate (Feosol Liq) 300 mg PO BID [facility] Last Admin: 09/03/18 11:08 Dose: 300 mg Vancomycin HCl 1 gm/ Sodium (Chloride) 250 mls @ 167 mls/hr IVPB Q24H [facility]; Protocol Last Admin: 09/02/18 21:30 Dose: 167 mls/hr Meropenem 500 mg/ Sodium (Chloride) 100 mls @ 100 mls/hr IVPB Q8H [facility]; Protocol Last Admin: 09/03/18 06:01 Dose: 100 mls/hr Ketorolac Tromethamine (Toradol) 10 mg PO Q8H PRN PRN Reason: Pain, moderate (4-7) Lorazepam (Ativan) 0.5 mg PO Q12 PRN PRN Reason: Agitation Last Admin: 09/03/18 08:49 Dose: 0.5 mg Memantine (Namenda) 10 mg PO BID [facility] Last Admin: 09/03/18 11:09 Dose: 10 mg Metoprolol Tartrate (Lopressor) 25 mg PO BID [facility] Last Admin: 09/03/18 11:09 Dose: 25 mg Multivitamins (Hexavitamin) 1 tab PO DAILY [facility] Last Admin: 09/03/18 11:09 Dose: 1 tab Pantoprazole Sodium (Protonix Susp) 40 mg PO 0600 [facility] Last Admin: 09/03/18 05:46 Dose: 40 mg Rosuvastatin Calcium (Crestor) 20 mg PO HS [facility] Last Admin: 09/02/18 22:38 Dose: 20 mg Physical Exam - Constitutional Appears: Older Than Stated Age, Chronically Ill - Eye Exam Eye Exam: PERRL. absent: Scleral icterus - ENT Exam ENT Exam: Mucous Membranes Dry Additional comments: Poor dentition - Neck Exam Neck exam: Negative for: Lymphadenopathy, Thyromegaly - Respiratory Exam Respiratory Exam: Clear to Auscultation Bilateral, NORMAL BREATHING PATTERN - Cardiovascular Exam Cardiovascular Exam: REGULAR RHYTHM, RRR, +S1, +S2. absent: JVD, Systolic Murmur - GI/Abdominal Exam GI & Abdominal Exam: Normal Bowel Sounds. absent: Organomegaly - Extremities Exam Extremities exam: Positive for: normal capillary refill. Negative for: pedal edema - Neurological Exam Neurological exam: Alert, Altered Additional comments: Contracted lower extremities, spastic tone Results - Vital Signs Recent Vital Signs: Last Vital Signs Temp 99.6 F 09/03/18 07:00 Pulse 95 H 09/03/18 11:07 Resp 20 09/03/18 07:00 BP 166/90 H 09/03/18 11:09 Pulse Ox 97 09/03/18 10:31 - Labs Result Diagrams: 09/03/18 10:51 09/03/18 10:51 Labs: Laboratory Results - last 24 hr 09/03/18 09/03/18 10:51 10:51 WBC 8.9 RBC 3.53 L Hgb 10.6 L Hct 31.7 L MCV 89.8 MCH 29.9 MCHC 33.3 RDW 13.8 Plt Count 185 MPV 8.8 Sodium 143 Potassium 4.0 Chloride 111 H Carbon Dioxide 25 Anion Gap 11 BUN 16 Creatinine 0.8 Est GFR ( Amer) > 60 Est GFR (Non-Af Amer) > 60 Random Glucose 99 Calcium 8.1 L Phosphorus 1.6 L Magnesium 2.2 Assessment & Plan - Assessment and Plan (Free Text) Assessment: 87 year old man for Preop clearence for sacral decubitus debridement. PATIENT IS ACCEPTABLE RISK FOR URGENT PROCEDURE. HE DOES NOT REQUIRE ANY FURTHER CARDAIC WORK UP. 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 Should be resumed post op.
--- NOTE | 2018-09-03 14:37 | CP.PCM.PN ---
Subjective - Date & Time of Evaluation Date of Evaluation: 09/03/18 Time of Evaluation: 10:30 - Subjective Subjective: clinically same Objective - Vital Signs/Intake and Output Vital Signs (last 24 hours): Temp Pulse Resp BP Pulse Ox 99.6 F 95 H 20 166/90 H 97 09/03/18 07:00 09/03/18 11:07 09/03/18 07:00 09/03/18 11:09 09/03/18 10:31 Intake and Output: 09/03/18 09/03/18 06:59 18:59 Intake Total 550 Output Total 1450 Balance -900 - Medications Medications: Current Medications Albuterol/Ipratropium (Duoneb 3 Mg/0.5 Mg (3 Ml) Ud) 3 ml INH RQ6 [facility] Last Admin: 09/03/18 13:34 Dose: 3 ml Clopidogrel Bisulfate (Plavix) 75 mg PO DAILY [facility] Last Admin: 09/01/18 10:43 Dose: 75 mg Collagenase (Santyl) 1 gm TOP BID [facility] Last Admin: 09/03/18 11:09 Dose: 1 appl Cyanocobalamin (Vitamin B12 1000 Mcg/Ml Inj) 1,000 mcg IM DAILY [facility] Last Admin: 09/03/18 11:09 Dose: 1,000 mcg Enoxaparin Sodium (Lovenox) 40 mg SC DAILY [facility] Last Admin: 09/03/18 11:09 Dose: 40 mg Ferrous Sulfate (Feosol Liq) 300 mg PO BID [facility] Last Admin: 09/03/18 11:08 Dose: 300 mg Vancomycin HCl 1 gm/ Sodium (Chloride) 250 mls @ 167 mls/hr IVPB Q24H [facility]; Protocol Last Admin: 09/02/18 21:30 Dose: 167 mls/hr Meropenem 500 mg/ Sodium (Chloride) 100 mls @ 100 mls/hr IVPB Q8H [facility]; Protocol Last Admin: 09/03/18 14:19 Dose: 100 mls/hr Ketorolac Tromethamine (Toradol) 10 mg PO Q8H PRN PRN Reason: Pain, moderate (4-7) Lorazepam (Ativan) 0.5 mg PO Q12 PRN PRN Reason: Agitation Last Admin: 09/03/18 08:49 Dose: 0.5 mg Memantine (Namenda) 10 mg PO BID [facility] Last Admin: 09/03/18 11:09 Dose: 10 mg Metoprolol Tartrate (Lopressor) 25 mg PO BID [facility] Last Admin: 09/03/18 11:09 Dose: 25 mg Multivitamins (Hexavitamin) 1 tab PO DAILY [facility] Last Admin: 09/03/18 11:09 Dose: 1 tab Pantoprazole Sodium (Protonix Susp) 40 mg PO 0600 [facility] Last Admin: 09/03/18 05:46 Dose: 40 mg Rosuvastatin Calcium (Crestor) 20 mg PO HS [facility] Last Admin: 09/02/18 22:38 Dose: 20 mg - Labs Labs: 09/03/18 10:51 09/03/18 10:51 PT 12.7 SECONDS (9.7-12.2) H 08/29/18 18:00 INR 1.2 08/29/18 18:00 APTT 31 SECONDS (21-34) 08/29/18 18:00 - Constitutional Appears: Well - Head Exam Head Exam: ATRAUMATIC, NORMAL INSPECTION, NORMOCEPHALIC - Eye Exam Eye Exam: EOMI, Normal appearance, PERRL Pupil Exam: NORMAL ACCOMODATION, PERRL - ENT Exam ENT Exam: Mucous Membranes Moist, Normal Exam - Neck Exam Neck Exam: Full ROM, Normal Inspection. absent: Lymphadenopathy - Respiratory Exam Respiratory Exam: Decreased Breath Sounds - Cardiovascular Exam Cardiovascular Exam: REGULAR RHYTHM, +S1, +S2 - GI/Abdominal Exam GI & Abdominal Exam: Soft, Diminished Bowel Sounds - Rectal Exam Rectal Exam: Deferred
--- NOTE | 2018-09-03 19:20 | CP.PCM.PN ---
Subjective - Date & Time of Evaluation Date of Evaluation: 09/03/18 Time of Evaluation: 14:00 - Subjective Subjective: dictated Objective - Vital Signs/Intake and Output Vital Signs (last 24 hours): Temp Pulse Resp BP Pulse Ox 97.9 F 108 H 20 142/85 97 09/03/18 15:10 09/03/18 15:10 09/03/18 15:10 09/03/18 18:12 09/03/18 15:10 Intake and Output: 09/03/18 09/04/18 18:59 06:59 Intake Total 860 Output Total 600 Balance 260 - Medications Medications: Current Medications Albuterol/Ipratropium (Duoneb 3 Mg/0.5 Mg (3 Ml) Ud) 3 ml INH RQ6 [facility] Last Admin: 09/03/18 19:03 Dose: 3 ml Clopidogrel Bisulfate (Plavix) 75 mg PO DAILY [facility] Last Admin: 09/01/18 10:43 Dose: 75 mg Collagenase (Santyl) 1 gm TOP BID [facility] Last Admin: 09/03/18 18:16 Dose: 1 appl Cyanocobalamin (Vitamin B12 1000 Mcg/Ml Inj) 1,000 mcg IM DAILY [facility] Last Admin: 09/03/18 11:09 Dose: 1,000 mcg Enoxaparin Sodium (Lovenox) 40 mg SC DAILY [facility] Last Admin: 09/03/18 11:09 Dose: 40 mg Ferrous Sulfate (Feosol Liq) 300 mg PO BID [facility] Last Admin: 09/03/18 18:11 Dose: 300 mg Vancomycin HCl 1 gm/ Sodium (Chloride) 250 mls @ 167 mls/hr IVPB Q24H [facility]; Protocol Last Admin: 09/02/18 21:30 Dose: 167 mls/hr Meropenem 500 mg/ Sodium (Chloride) 100 mls @ 100 mls/hr IVPB Q8H [facility]; Protocol Last Admin: 09/03/18 14:19 Dose: 100 mls/hr Ketorolac Tromethamine (Toradol) 10 mg PO Q8H PRN PRN Reason: Pain, moderate (4-7) Lorazepam (Ativan) 0.5 mg PO Q12 PRN PRN Reason: Agitation Last Admin: 09/03/18 08:49 Dose: 0.5 mg Memantine (Namenda) 10 mg PO BID [facility] Last Admin: 09/03/18 18:12 Dose: 10 mg Metoprolol Tartrate (Lopressor) 25 mg PO BID [facility] Last Admin: 09/03/18 18:12 Dose: 25 mg Multivitamins (Hexavitamin) 1 tab PO DAILY [facility] Last Admin: 09/03/18 11:09 Dose: 1 tab Pantoprazole Sodium (Protonix Susp) 40 mg PO 0600 [facility] Last Admin: 09/03/18 05:46 Dose: 40 mg Rosuvastatin Calcium (Crestor) 20 mg PO HS [facility] Last Admin: 09/02/18 22:38 Dose: 20 mg - Labs Labs: 09/03/18 10:51 09/03/18 10:51 PT 12.7 SECONDS (9.7-12.2) H 08/29/18 18:00 INR 1.2 08/29/18 18:00 APTT 31 SECONDS (21-34) 08/29/18 18:00
--- NOTE | 2018-09-03 21:52 | CP.PCM.PN ---
Subjective - Date & Time of Evaluation Date of Evaluation: 09/02/18 Time of Evaluation: 14:00 - Subjective Subjective: Appears comfortable Objective - Vital Signs/Intake and Output Vital Signs (last 24 hours): Temp Pulse Resp BP Pulse Ox 97.9 F 108 H 20 142/85 97 09/03/18 15:10 09/03/18 15:10 09/03/18 15:10 09/03/18 18:12 09/03/18 15:10 Intake and Output: 09/03/18 09/04/18 18:59 06:59 Intake Total 860 Output Total 600 Balance 260 - Medications Medications: Current Medications Albuterol/Ipratropium (Duoneb 3 Mg/0.5 Mg (3 Ml) Ud) 3 ml INH RQ6 [facility] Last Admin: 09/03/18 19:03 Dose: 3 ml Clopidogrel Bisulfate (Plavix) 75 mg PO DAILY [facility] Last Admin: 09/01/18 10:43 Dose: 75 mg Collagenase (Santyl) 1 gm TOP BID [facility] Last Admin: 09/03/18 18:16 Dose: 1 appl Cyanocobalamin (Vitamin B12 1000 Mcg/Ml Inj) 1,000 mcg IM DAILY [facility] Last Admin: 09/03/18 11:09 Dose: 1,000 mcg Enoxaparin Sodium (Lovenox) 40 mg SC DAILY [facility] Last Admin: 09/03/18 11:09 Dose: 40 mg Ferrous Sulfate (Feosol Liq) 300 mg PO BID [facility] Last Admin: 09/03/18 18:11 Dose: 300 mg Vancomycin HCl 1 gm/ Sodium (Chloride) 250 mls @ 167 mls/hr IVPB Q24H [facility]; Protocol Last Admin: 09/03/18 21:19 Dose: 167 mls/hr Meropenem 500 mg/ Sodium (Chloride) 100 mls @ 100 mls/hr IVPB Q8H [facility]; Protocol Last Admin: 09/03/18 14:19 Dose: 100 mls/hr Ketorolac Tromethamine (Toradol) 10 mg PO Q8H PRN PRN Reason: Pain, moderate (4-7) Lorazepam (Ativan) 0.5 mg PO Q12 PRN PRN Reason: Agitation Last Admin: 09/03/18 08:49 Dose: 0.5 mg Memantine (Namenda) 10 mg PO BID [facility] Last Admin: 09/03/18 18:12 Dose: 10 mg Metoprolol Tartrate (Lopressor) 25 mg PO BID [facility] Last Admin: 09/03/18 18:12 Dose: 25 mg Multivitamins (Hexavitamin) 1 tab PO DAILY [facility] Last Admin: 09/03/18 11:09 Dose: 1 tab Pantoprazole Sodium (Protonix Susp) 40 mg PO 0600 [facility] Last Admin: 09/03/18 05:46 Dose: 40 mg Rosuvastatin Calcium (Crestor) 20 mg PO HS [facility] Last Admin: 09/02/18 22:38 Dose: 20 mg - Labs Labs: 09/03/18 10:51 09/03/18 10:51 PT 12.7 SECONDS (9.7-12.2) H 08/29/18 18:00 INR 1.2 08/29/18 18:00 APTT 31 SECONDS (21-34) 08/29/18 18:00 - Head Exam Head Exam: ATRAUMATIC - Eye Exam Eye Exam: Normal appearance - ENT Exam ENT Exam: Mucous Membranes Dry - Respiratory Exam Respiratory Exam: NORMAL BREATHING PATTERN - Cardiovascular Exam Cardiovascular Exam: +S1, +S2 - GI/Abdominal Exam GI & Abdominal Exam: Normal Bowel Sounds Assessment and Plan (1) Anemia Assessment & Plan: 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
--- NOTE | 2018-09-03 21:53 | CP.PCM.PN ---
Subjective - Date & Time of Evaluation Date of Evaluation: 09/03/18 Time of Evaluation: 16:00 - Subjective Subjective: For sacral ulcer debridement Objective - Vital Signs/Intake and Output Vital Signs (last 24 hours): Temp Pulse Resp BP Pulse Ox 97.9 F 108 H 20 142/85 97 09/03/18 15:10 09/03/18 15:10 09/03/18 15:10 09/03/18 18:12 09/03/18 15:10 Intake and Output: 09/03/18 09/04/18 18:59 06:59 Intake Total 860 Output Total 600 Balance 260 - Medications Medications: Current Medications Albuterol/Ipratropium (Duoneb 3 Mg/0.5 Mg (3 Ml) Ud) 3 ml INH RQ6 [facility] Last Admin: 09/03/18 19:03 Dose: 3 ml Clopidogrel Bisulfate (Plavix) 75 mg PO DAILY [facility] Last Admin: 09/01/18 10:43 Dose: 75 mg Collagenase (Santyl) 1 gm TOP BID [facility] Last Admin: 09/03/18 18:16 Dose: 1 appl Cyanocobalamin (Vitamin B12 1000 Mcg/Ml Inj) 1,000 mcg IM DAILY [facility] Last Admin: 09/03/18 11:09 Dose: 1,000 mcg Enoxaparin Sodium (Lovenox) 40 mg SC DAILY [facility] Last Admin: 09/03/18 11:09 Dose: 40 mg Ferrous Sulfate (Feosol Liq) 300 mg PO BID [facility] Last Admin: 09/03/18 18:11 Dose: 300 mg Vancomycin HCl 1 gm/ Sodium (Chloride) 250 mls @ 167 mls/hr IVPB Q24H [facility]; Protocol Last Admin: 09/03/18 21:19 Dose: 167 mls/hr Meropenem 500 mg/ Sodium (Chloride) 100 mls @ 100 mls/hr IVPB Q8H [facility]; Protocol Last Admin: 09/03/18 14:19 Dose: 100 mls/hr Ketorolac Tromethamine (Toradol) 10 mg PO Q8H PRN PRN Reason: Pain, moderate (4-7) Lorazepam (Ativan) 0.5 mg PO Q12 PRN PRN Reason: Agitation Last Admin: 09/03/18 08:49 Dose: 0.5 mg Memantine (Namenda) 10 mg PO BID [facility] Last Admin: 09/03/18 18:12 Dose: 10 mg Metoprolol Tartrate (Lopressor) 25 mg PO BID [facility] Last Admin: 09/03/18 18:12 Dose: 25 mg Multivitamins (Hexavitamin) 1 tab PO DAILY [facility] Last Admin: 09/03/18 11:09 Dose: 1 tab Pantoprazole Sodium (Protonix Susp) 40 mg PO 0600 [facility] Last Admin: 09/03/18 05:46 Dose: 40 mg Rosuvastatin Calcium (Crestor) 20 mg PO HS [facility] Last Admin: 09/02/18 22:38 Dose: 20 mg - Labs Labs: 09/03/18 10:51 09/03/18 10:51 PT 12.7 SECONDS (9.7-12.2) H 08/29/18 18:00 INR 1.2 08/29/18 18:00 APTT 31 SECONDS (21-34) 08/29/18 18:00 - Head Exam Head Exam: ATRAUMATIC - Eye Exam Eye Exam: Normal appearance - ENT Exam ENT Exam: Mucous Membranes Dry - Respiratory Exam Respiratory Exam: NORMAL BREATHING PATTERN - Cardiovascular Exam Cardiovascular Exam: +S1, +S2 - GI/Abdominal Exam GI & Abdominal Exam: Normal Bowel Sounds Assessment and Plan (1) Anemia Assessment & Plan: chronic 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
--- NOTE | 2018-09-04 00:41 | PN ---
DATE: 09/03/2018 SUBJECTIVE: The patient was seen today. He was awake. He had a mass on his mouth. He says he wants to go back to [facility], and he denied any pains. 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 PHYSICAL EXAMINATION: VITAL SIGNS: T-max is 97.9, heart rate of 108, blood pressure 156/96, and respirations are 20. HEENT: Head is atraumatic, normocephalic. NECK: Supple. LUNGS: Clear. Decreased breath sounds bilaterally. HEART: S1, S2 tachycardic. ABDOMEN: Soft. He has contracted sacral decubitus, unable to evaluate at this time. LABORATORY DATA: White count is 8.9, hemoglobin 10.6, hematocrit 31.7, platelet count is 197. He is on vancomycin and meropenem for this, and he is getting Santyl to the wound, and labs are noted. Labs, the wound culture is there, what about the bone scan? I think he is still waiting for the bone scan to be done. So, we will follow. ASSESSMENT AND PLAN: The patient came in with sepsis with lactic acid high and sacral decubitus, and he is also being followed by the sec accountant, who gave a preoperative clearance, and he is for debridement tomorrow it seems. We will follow and continue the antibiotics for now. Stacey Burns MD
[2018-09-04] MEDS: Albuterol-Ipratrop 3 mg / 0.5 (3 ml) UD INH SCH ×4 (01:29→19:05)
[2018-09-04] MEDS: Meropenem 500 MG in Sodium Chloride 0.9% 100 ML IVPB SCH ×3 (06:49→22:54)
[2018-09-04] MEDS: Pantoprazole 40 mg Susp UD PO SCH (06:51)
[2018-09-04 07:45] LABS: MEAN CELL VOLUME 90.5 fL (80.0-94.0); MEAN CORPUSCULAR HEMOGLOBIN 30.3 pg (27.0-31.0); MEAN CORPUSCULAR HGB CONC 33.4 g/dL (33.0-37.0); MEAN PLATELET VOLUME 10.1 fL (7.2-11.7); RBC 3.62 Mil/uL (4.40-5.90); RED CELL DISTRIBUTION WIDTH 13.9 % (11.5-14.5)
[2018-09-04 07:54] LABS: INR 1.1; PROTHROMBIN TIME 12.1 SECONDS (9.7-12.2)
[2018-09-04 08:01] LABS: BLOOD UREA NITROGEN 16 mg/dL (9-20); GFR NON-AFRICAN AMERICAN > 60
--- NOTE | 2018-09-04 10:08 | CP.PCM.PN ---
Subjective - Date & Time of Evaluation Date of Evaluation: 09/04/18 Time of Evaluation: 10:08 - Subjective Subjective: Pulmonary Follow up, Covering Dr Moses The patient was Seen/interviewed and examined by me at the bedside, Medical records reviewed and Management issues were discussed and formulated with the house staff. Events reviewed Patient afebrile and in no acute distress. Resting comfortably in bed, with daughter at bedside. Denies SOB, cough or chest pain. PLAN - Continue current nebulizer therapy of Albuterol/Ipratropium Objective - Vital Signs/Intake and Output Vital Signs (last 24 hours): Temp Pulse Resp BP Pulse Ox 98.0 F 98 H 20 136/79 96 09/04/18 07:00 09/04/18 07:00 09/04/18 07:00 09/04/18 07:00 09/04/18 07:00 Intake and Output: 09/04/18 09/04/18 06:59 18:59 Intake Total 750 Output Total 1050 Balance -300 - Medications Medications: Current Medications Albuterol/Ipratropium (Duoneb 3 Mg/0.5 Mg (3 Ml) Ud) 3 ml INH RQ6 [facility] Last Admin: 09/04/18 07:55 Dose: 3 ml Clopidogrel Bisulfate (Plavix) 75 mg PO DAILY [facility] Last Admin: 09/01/18 10:43 Dose: 75 mg Collagenase (Santyl) 1 gm TOP BID [facility] Last Admin: 09/03/18 18:16 Dose: 1 appl Cyanocobalamin (Vitamin B12 1000 Mcg/Ml Inj) 1,000 mcg IM DAILY [facility] Last Admin: 09/03/18 11:09 Dose: 1,000 mcg Enoxaparin Sodium (Lovenox) 40 mg SC DAILY [facility] Last Admin: 09/03/18 11:09 Dose: 40 mg Ferrous Sulfate (Feosol Liq) 300 mg PO BID [facility] Last Admin: 09/03/18 18:11 Dose: 300 mg Vancomycin HCl 1 gm/ Sodium (Chloride) 250 mls @ 167 mls/hr IVPB Q24H [facility]; Protocol Last Admin: 09/03/18 21:19 Dose: 167 mls/hr Meropenem 500 mg/ Sodium (Chloride) 100 mls @ 100 mls/hr IVPB Q8H [facility]; Protocol Last Admin: 09/04/18 06:49 Dose: 100 mls/hr Ketorolac Tromethamine (Toradol) 10 mg PO Q8H PRN PRN Reason: Pain, moderate (4-7) Lorazepam (Ativan) 0.5 mg PO Q12 PRN PRN Reason: Agitation Last Admin: 09/03/18 08:49 Dose: 0.5 mg Memantine (Namenda) 10 mg PO BID [facility] Last Admin: 09/03/18 18:12 Dose: 10 mg Metoprolol Tartrate (Lopressor) 25 mg PO BID [facility] Last Admin: 09/03/18 18:12 Dose: 25 mg Multivitamins (Hexavitamin) 1 tab PO DAILY [facility] Last Admin: 09/03/18 11:09 Dose: 1 tab Pantoprazole Sodium (Protonix Susp) 40 mg PO 0600 [facility] Last Admin: 09/04/18 06:51 Dose: 40 mg Rosuvastatin Calcium (Crestor) 20 mg PO HS [facility] Last Admin: 09/03/18 22:00 Dose: Not Given - Labs Labs: 09/04/18 07:34 09/04/18 07:34 PT 12.1 SECONDS (9.7-12.2) 09/04/18 07:34 INR 1.1 09/04/18 07:34 APTT 27 SECONDS (21-34) 09/04/18 07:34 - Constitutional Appears: Well, No Acute Distress - Head Exam Head Exam: ATRAUMATIC - ENT Exam ENT Exam: Mucous Membranes Moist - Respiratory Exam Respiratory Exam: NORMAL BREATHING PATTERN - Cardiovascular Exam Cardiovascular Exam: REGULAR RHYTHM, +S1, +S2
[2018-09-04] MEDS: Multiple Vitamins Tab PO SCH (10:55)
[2018-09-04] MEDS: Ferrous Sulfate 300 mg/5 mL Liq UD PO SCH ×3 (10:56→21:00)
[2018-09-04] MEDS: Collagenase 250 Units/gm Ointment(30 gm) TOP SCH ×2 (10:56→18:00)
--- NOTE | 2018-09-04 11:06 | CP.PCM.PN ---
Subjective - Date & Time of Evaluation Date of Evaluation: 09/04/18 Time of Evaluation: 10:25 - Subjective Subjective: dictated Objective - Vital Signs/Intake and Output Vital Signs (last 24 hours): Temp Pulse Resp BP Pulse Ox 98.0 F 98 H 20 141/78 96 09/04/18 07:00 09/04/18 07:00 09/04/18 07:00 09/04/18 10:55 09/04/18 07:00 Intake and Output: 09/04/18 09/04/18 06:59 18:59 Intake Total 750 Output Total 1050 Balance -300 - Medications Medications: Current Medications Albuterol/Ipratropium (Duoneb 3 Mg/0.5 Mg (3 Ml) Ud) 3 ml INH RQ6 [facility] Last Admin: 09/04/18 07:55 Dose: 3 ml Clopidogrel Bisulfate (Plavix) 75 mg PO DAILY [facility] Last Admin: 09/01/18 10:43 Dose: 75 mg Collagenase (Santyl) 1 gm TOP BID [facility] Last Admin: 09/04/18 10:56 Dose: 1 appl Cyanocobalamin (Vitamin B12 1000 Mcg/Ml Inj) 1,000 mcg IM DAILY [facility] Last Admin: 09/04/18 10:55 Dose: 1,000 mcg Enoxaparin Sodium (Lovenox) 40 mg SC DAILY [facility] Last Admin: 09/03/18 11:09 Dose: 40 mg Ferrous Sulfate (Feosol Liq) 300 mg PO BID [facility] Last Admin: 09/04/18 10:56 Dose: 300 mg Vancomycin HCl 1 gm/ Sodium (Chloride) 250 mls @ 167 mls/hr IVPB Q24H [facility]; Protocol Last Admin: 09/03/18 21:19 Dose: 167 mls/hr Meropenem 500 mg/ Sodium (Chloride) 100 mls @ 100 mls/hr IVPB Q8H [facility]; Protocol Last Admin: 09/04/18 06:49 Dose: 100 mls/hr Ketorolac Tromethamine (Toradol) 10 mg PO Q8H PRN PRN Reason: Pain, moderate (4-7) Lorazepam (Ativan) 0.5 mg PO Q12 PRN PRN Reason: Agitation Last Admin: 09/03/18 08:49 Dose: 0.5 mg Memantine (Namenda) 10 mg PO BID [facility] Last Admin: 09/04/18 10:56 Dose: 10 mg Metoprolol Tartrate (Lopressor) 25 mg PO BID [facility] Last Admin: 09/04/18 10:55 Dose: 25 mg Multivitamins (Hexavitamin) 1 tab PO DAILY [facility] Last Admin: 09/04/18 10:55 Dose: 1 tab Pantoprazole Sodium (Protonix Susp) 40 mg PO 0600 [facility] Last Admin: 09/04/18 06:51 Dose: 40 mg Rosuvastatin Calcium (Crestor) 20 mg PO HS [facility] Last Admin: 09/03/18 22:00 Dose: Not Given - Labs Labs: 09/04/18 07:34 09/04/18 07:34 PT 12.1 SECONDS (9.7-12.2) 09/04/18 07:34 INR 1.1 09/04/18 07:34 APTT 27 SECONDS (21-34) 09/04/18 07:34
--- NOTE | 2018-09-04 17:56 | PN ---
DATE: 09/04/2018 INFECTIOUS DISEASE FOLLOWUP SUBJECTIVE: The patient is afebrile, in the office. No new complaints. His family is at the bedside. is going to go for debridement, I have canceled the bone scan for today and I informed the Nuclear Medicine about it. PHYSICAL EXAMINATION: VITAL SIGNS: T-max is 98, pulse 98, blood pressure 136/79, and respirations are 20. GENERAL: The patient is awake and alert, able to communicate a little bit. He has dementia and he is bed bound. NECK: Supple. LUNGS: Clear. HEART: S2 and S2 regular. ABDOMEN: Soft. He is contracted, has decubiti in the sacral area. He is going for debridement today. LABORATORY DATA: He received blood transfusions when he came in and his hemoglobin is now 11, WBC is 10, platelets are 160, BUN is 20, creatinine 0.8. He continues to be on vancomycin and Merrem based on his cultures. Also he has a Childress catheter and we are going to get a UA and urine C and S as I told the nurse to get one and the patient has E .coli, MRSA and Enterococcus and he remains in isolation, contact precaution and his MRSA and Enterococcus is ertapenem and meropenem sensitive. ASSESSMENT AND PLAN: So we will continue present treatment. He does have unstageable sacral decubiti, probably it does extend to the bone and may need termite control servicer antibiotics until he improves. We will follow. We will see surgical note once it is debrided. Stacey Burns MD
--- NOTE | 2018-09-04 18:26 | CP.PCM.PN ---
Subjective - Date & Time of Evaluation Date of Evaluation: 09/04/18 Time of Evaluation: 09:30 - Subjective Subjective: clinically same Objective - Vital Signs/Intake and Output Vital Signs (last 24 hours): Temp Pulse Resp BP Pulse Ox 99.0 F 103 H 20 136/73 95 09/04/18 15:00 09/04/18 15:00 09/04/18 15:00 09/04/18 15:00 09/04/18 15:00 Intake and Output: 09/04/18 09/04/18 06:59 18:59 Intake Total 750 Output Total 1050 Balance -300 - Medications Medications: Current Medications Albuterol/Ipratropium (Duoneb 3 Mg/0.5 Mg (3 Ml) Ud) 3 ml INH RQ6 [facility] Last Admin: 09/04/18 13:44 Dose: 3 ml Clopidogrel Bisulfate (Plavix) 75 mg PO DAILY [facility] Last Admin: 09/01/18 10:43 Dose: 75 mg Collagenase (Santyl) 1 gm TOP BID [facility] Last Admin: 09/04/18 10:56 Dose: 1 appl Cyanocobalamin (Vitamin B12 1000 Mcg/Ml Inj) 1,000 mcg IM DAILY [facility] Last Admin: 09/04/18 10:55 Dose: 1,000 mcg Enoxaparin Sodium (Lovenox) 40 mg SC DAILY [facility] Last Admin: 09/03/18 11:09 Dose: 40 mg Ferrous Sulfate (Feosol Liq) 300 mg PO BID [facility] Last Admin: 09/04/18 10:56 Dose: 300 mg Vancomycin HCl 1 gm/ Sodium (Chloride) 250 mls @ 167 mls/hr IVPB Q24H [facility]; Protocol Last Admin: 09/03/18 21:19 Dose: 167 mls/hr Meropenem 500 mg/ Sodium (Chloride) 100 mls @ 100 mls/hr IVPB Q8H [facility]; Protocol Last Admin: 09/04/18 14:46 Dose: 100 mls/hr Ketorolac Tromethamine (Toradol) 10 mg PO Q8H PRN PRN Reason: Pain, moderate (4-7) Lorazepam (Ativan) 0.5 mg PO Q12 PRN PRN Reason: Agitation Last Admin: 09/03/18 08:49 Dose: 0.5 mg Memantine (Namenda) 10 mg PO BID [facility] Last Admin: 09/04/18 10:56 Dose: 10 mg Metoprolol Tartrate (Lopressor) 25 mg PO BID [facility] Last Admin: 09/04/18 10:55 Dose: 25 mg Multivitamins (Hexavitamin) 1 tab PO DAILY [facility] Last Admin: 09/04/18 10:55 Dose: 1 tab Pantoprazole Sodium (Protonix Susp) 40 mg PO 0600 [facility] Last Admin: 09/04/18 06:51 Dose: 40 mg Rosuvastatin Calcium (Crestor) 20 mg PO HS [facility] Last Admin: 09/03/18 22:00 Dose: Not Given - Labs Labs: 09/04/18 07:34 09/04/18 07:34 PT 12.1 SECONDS (9.7-12.2) 09/04/18 07:34 INR 1.1 09/04/18 07:34 APTT 27 SECONDS (21-34) 09/04/18 07:34
[2018-09-04] MEDS ORDERED: Potassium Phosphate 15 MMOLE in Sodium Chloride 0.9% 250 ML IV ONE (20:20)
[2018-09-04] MEDS ORDERED: Potassium & Sodium Phosphate PO ONE (20:30)
[2018-09-05] MEDS: Pantoprazole 40 mg Susp UD PO SCH (06:32)
[2018-09-05] MEDS: Meropenem 500 MG in Sodium Chloride 0.9% 100 ML IVPB SCH ×3 (06:32→22:17)
--- NOTE | 2018-09-05 08:06 | CP.PCM.PN ---
<YgSage - Last Filed: 09/05/18 08:04> Subjective - Date & Time of Evaluation Date of Evaluation: 09/05/18 Time of Evaluation: 08:04 - Subjective Subjective: Surgery OR wound debridement rescheduled for tomorrow. Objective - Vital Signs/Intake and Output Vital Signs (last 24 hours): Temp Pulse Resp BP Pulse Ox 98.0 F 98 H 20 150/79 97 09/05/18 07:00 09/05/18 07:00 09/05/18 07:00 09/05/18 07:00 09/05/18 07:00 Intake and Output: 09/05/18 09/05/18 06:59 18:59 Intake Total 490 Output Total 350 Balance 140 - Medications Medications: Current Medications Clopidogrel Bisulfate (Plavix) 75 mg PO DAILY [facility] Last Admin: 09/01/18 10:43 Dose: 75 mg Collagenase (Santyl) 1 gm TOP BID [facility] Last Admin: 09/04/18 18:00 Dose: Not Given Cyanocobalamin (Vitamin B12 1000 Mcg/Ml Inj) 1,000 mcg IM DAILY [facility] Last Admin: 09/04/18 10:55 Dose: 1,000 mcg Enoxaparin Sodium (Lovenox) 40 mg SC DAILY [facility] Last Admin: 09/03/18 11:09 Dose: 40 mg Ferrous Sulfate (Feosol Liq) 300 mg PO BID [facility] Last Admin: 09/04/18 21:00 Dose: 300 mg Vancomycin HCl 1 gm/ Sodium (Chloride) 250 mls @ 167 mls/hr IVPB Q24H [facility]; Protocol Last Admin: 09/04/18 21:03 Dose: 167 mls/hr Meropenem 500 mg/ Sodium (Chloride) 100 mls @ 100 mls/hr IVPB Q8H [facility]; Protocol Last Admin: 09/05/18 06:32 Dose: 100 mls/hr Lorazepam (Ativan) 0.5 mg PO Q12 PRN PRN Reason: Agitation Last Admin: 09/03/18 08:49 Dose: 0.5 mg Memantine (Namenda) 10 mg PO BID [facility] Last Admin: 09/04/18 21:01 Dose: 10 mg Metoprolol Tartrate (Lopressor) 25 mg PO BID [facility] Last Admin: 09/04/18 21:01 Dose: 25 mg Multivitamins (Hexavitamin) 1 tab PO DAILY [facility] Last Admin: 09/04/18 10:55 Dose: 1 tab Pantoprazole Sodium (Protonix Susp) 40 mg PO 0600 [facility] Last Admin: 09/05/18 06:32 Dose: 40 mg Rosuvastatin Calcium (Crestor) 20 mg PO HS [facility] Last Admin: 09/04/18 21:00 Dose: 20 mg - Labs Labs: 09/04/18 07:34 09/04/18 07:34 PT 12.1 SECONDS (9.7-12.2) 09/04/18 07:34 INR 1.1 09/04/18 07:34 APTT 27 SECONDS (21-34) 09/04/18 07:34 - Constitutional Appears: No Acute Distress - Head Exam Head Exam: ATRAUMATIC, NORMAL INSPECTION, NORMOCEPHALIC - Eye Exam Eye Exam: EOMI, Normal appearance, PERRL Pupil Exam: NORMAL ACCOMODATION, PERRL - ENT Exam ENT Exam: Mucous Membranes Moist, Normal Exam - Neck Exam Neck Exam: Normal Inspection - Respiratory Exam Respiratory Exam: NORMAL BREATHING PATTERN - Cardiovascular Exam Cardiovascular Exam: REGULAR RHYTHM - GI/Abdominal Exam GI & Abdominal Exam: Soft, Normal Bowel Sounds. absent: Distended, Tenderness - Extremities Exam Extremities Exam: absent: Normal Inspection Additional comments: contracted. Sacral wound stage 4 - Neurological Exam Neurological Exam: Awake. absent: Oriented x3 - Skin Skin Exam: Erythema. absent: Intact Assessment and Plan - Assessment and Plan (Free Text) Assessment: SAcral wound stage 4 -WOUnd debridement tomorrow -NPO -ABX Dr. Paulson <Brent Paulson - Last Filed: 09/08/18 17:39> Objective - Vital Signs/Intake and Output Vital Signs (last 24 hours): Temp Pulse Resp BP Pulse Ox 99.3 F 84 20 173/83 H 95 09/08/18 15:31 09/08/18 15:31 09/08/18 15:31 09/08/18 15:31 09/08/18 15:31 Intake and Output: 09/08/18 09/08/18 06:59 18:59 Intake Total 650 Output Total 350 200 Balance 300 -200 - Medications Medications: Current Medications Clopidogrel Bisulfate (Plavix) 75 mg PO DAILY [facility] Last Admin: 09/01/18 10:43 Dose: 75 mg Cyanocobalamin (Vitamin B12 1000 Mcg/Ml Inj) 1,000 mcg IM DAILY [facility] Last Admin: 09/08/18 12:26 Dose: 1,000 mcg Enoxaparin Sodium (Lovenox) 40 mg SC DAILY [facility] Last Admin: 09/08/18 12:23 Dose: 40 mg Ferrous Sulfate (Feosol Liq) 300 mg PO BID [facility] Last Admin: 09/08/18 12:23 Dose: 300 mg Vancomycin HCl 1 gm/ Sodium (Chloride) 250 mls @ 167 mls/hr IVPB Q24H [facility]; Protocol Last Admin: 09/07/18 21:41 Dose: 167 mls/hr Meropenem 500 mg/ Sodium (Chloride) 100 mls @ 100 mls/hr IVPB Q8H [facility]; Protocol Last Admin: 09/08/18 14:59 Dose: 100 mls/hr Memantine (Namenda) 10 mg PO BID [facility] Last Admin: 09/08/18 12:22 Dose: 10 mg Metoprolol Tartrate (Lopressor) 25 mg PO BID [facility] Last Admin: 09/08/18 12:23 Dose: 25 mg Multivitamins (Hexavitamin) 1 tab PO DAILY [facility] Last Admin: 09/08/18 12:22 Dose: 1 tab Pantoprazole Sodium (Protonix Susp) 40 mg PO 0600 [facility] Last Admin: 09/08/18 06:15 Dose: 40 mg Rosuvastatin Calcium (Crestor) 20 mg PO HS [facility] Last Admin: 09/07/18 21:37 Dose: 20 mg - Labs Labs: 09/06/18 06:30 09/06/18 06:30 PT 12.1 SECONDS (9.7-12.2) 09/04/18 07:34 INR 1.1 09/04/18 07:34 APTT 27 SECONDS (21-34) 09/04/18 07:34 Attending/Attestation - Attestation I have personally seen and examined this patient.: Yes I have fully participated in the care of the patient.: Yes I have reviewed all pertinent clinical information, including history, physical exam and plan: Yes Notes (Text): Pt was seen and examined at bedside Agree with above note and assessment Pt with stage 4 sacral decubitus ulcer OR tomorrow for Debridement Consent NPO, IVF C/w current mx Plan d.w primary team in detail
--- NOTE | 2018-09-05 09:52 | CP.PCM.PN ---
Subjective - Date & Time of Evaluation Date of Evaluation: 09/05/18 Time of Evaluation: 09:52 - Subjective Subjective: clinically same Objective - Vital Signs/Intake and Output Vital Signs (last 24 hours): Temp Pulse Resp BP Pulse Ox 98.0 F 98 H 20 150/79 97 09/05/18 07:00 09/05/18 07:00 09/05/18 07:00 09/05/18 07:00 09/05/18 07:00 Intake and Output: 09/05/18 09/05/18 06:59 18:59 Intake Total 490 Output Total 350 Balance 140 - Medications Medications: Current Medications Clopidogrel Bisulfate (Plavix) 75 mg PO DAILY [facility] Last Admin: 09/01/18 10:43 Dose: 75 mg Collagenase (Santyl) 1 gm TOP BID [facility] Last Admin: 09/04/18 18:00 Dose: Not Given Cyanocobalamin (Vitamin B12 1000 Mcg/Ml Inj) 1,000 mcg IM DAILY [facility] Last Admin: 09/04/18 10:55 Dose: 1,000 mcg Enoxaparin Sodium (Lovenox) 40 mg SC DAILY [facility] Last Admin: 09/03/18 11:09 Dose: 40 mg Ferrous Sulfate (Feosol Liq) 300 mg PO BID [facility] Last Admin: 09/04/18 21:00 Dose: 300 mg Vancomycin HCl 1 gm/ Sodium (Chloride) 250 mls @ 167 mls/hr IVPB Q24H [facility]; Protocol Last Admin: 09/04/18 21:03 Dose: 167 mls/hr Meropenem 500 mg/ Sodium (Chloride) 100 mls @ 100 mls/hr IVPB Q8H [facility]; Protocol Last Admin: 09/05/18 06:32 Dose: 100 mls/hr Lorazepam (Ativan) 0.5 mg PO Q12 PRN PRN Reason: Agitation Last Admin: 09/03/18 08:49 Dose: 0.5 mg Memantine (Namenda) 10 mg PO BID [facility] Last Admin: 09/04/18 21:01 Dose: 10 mg Metoprolol Tartrate (Lopressor) 25 mg PO BID [facility] Last Admin: 09/04/18 21:01 Dose: 25 mg Multivitamins (Hexavitamin) 1 tab PO DAILY [facility] Last Admin: 09/04/18 10:55 Dose: 1 tab Pantoprazole Sodium (Protonix Susp) 40 mg PO 0600 [facility] Last Admin: 09/05/18 06:32 Dose: 40 mg Rosuvastatin Calcium (Crestor) 20 mg PO HS [facility] Last Admin: 09/04/18 21:00 Dose: 20 mg - Labs Labs: 09/04/18 07:34 09/04/18 07:34 PT 12.1 SECONDS (9.7-12.2) 09/04/18 07:34 INR 1.1 09/04/18 07:34 APTT 27 SECONDS (21-34) 09/04/18 07:34 - Constitutional Appears: Chronically Ill - Head Exam Head Exam: ATRAUMATIC, NORMAL INSPECTION - Eye Exam Eye Exam: EOMI, Normal appearance - ENT Exam ENT Exam: Mucous Membranes Moist - Neck Exam Neck Exam: Full ROM, Normal Inspection. absent: Tenderness - Respiratory Exam Respiratory Exam: Clear to Ausculation Bilateral. absent: Rhonchi, Wheezes - Cardiovascular Exam Cardiovascular Exam: Tachycardia, REGULAR RHYTHM, +S1, +S2. absent: Murmur - GI/Abdominal Exam GI & Abdominal Exam: Soft. absent: Tenderness - Extremities Exam Extremities Exam: absent: Full ROM Additional comments: contracted LE's - Back Exam Additional comments: sacral decub - Neurological Exam Neurological Exam: Alert, Awake. absent: Oriented x3 - Skin Skin Exam: Normal Color, Warm Assessment and Plan - Assessment and Plan (Free Text) Assessment: 87 year old man for Preop clearence for sacral decubitus debridement. PATIENT IS ACCEPTABLE RISK FOR URGENT PROCEDURE. HE DOES NOT REQUIRE ANY FURTHER CARDAIC WORK UP. 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 Should be resumed post op.
[2018-09-05] MEDS: Ferrous Sulfate 300 mg/5 mL Liq UD PO SCH ×2 (11:03→19:11)
[2018-09-05] MEDS: Multiple Vitamins Tab PO SCH (11:03)
[2018-09-05] MEDS: Collagenase 250 Units/gm Ointment(30 gm) TOP SCH ×2 (11:04→19:15)
--- NOTE | 2018-09-05 12:58 | CP.PCM.PN ---
Subjective - Date & Time of Evaluation Date of Evaluation: 09/05/18 Time of Evaluation: 12:58 - Subjective Subjective: Pulmonary Follow up, Covering Dr Moses The patient was Seen/interviewed and examined by me at the bedside, Medical records reviewed and Management issues were discussed and formulated with the house staff. Events reviewed Objective - Vital Signs/Intake and Output Vital Signs (last 24 hours): Temp Pulse Resp BP Pulse Ox 98.0 F 128 H 20 130/70 97 09/05/18 07:00 09/05/18 11:02 09/05/18 07:00 09/05/18 11:03 09/05/18 07:00 Intake and Output: 09/05/18 09/05/18 06:59 18:59 Intake Total 490 Output Total 350 Balance 140 - Medications Medications: Current Medications Clopidogrel Bisulfate (Plavix) 75 mg PO DAILY [facility] Last Admin: 09/01/18 10:43 Dose: 75 mg Collagenase (Santyl) 1 gm TOP BID [facility] Last Admin: 09/05/18 11:04 Dose: 1 appl Cyanocobalamin (Vitamin B12 1000 Mcg/Ml Inj) 1,000 mcg IM DAILY [facility] Last Admin: 09/05/18 11:02 Dose: 1,000 mcg Enoxaparin Sodium (Lovenox) 40 mg SC DAILY [facility] Last Admin: 09/03/18 11:09 Dose: 40 mg Ferrous Sulfate (Feosol Liq) 300 mg PO BID [facility] Last Admin: 09/05/18 11:03 Dose: 300 mg Vancomycin HCl 1 gm/ Sodium (Chloride) 250 mls @ 167 mls/hr IVPB Q24H [facility]; Protocol Last Admin: 09/04/18 21:03 Dose: 167 mls/hr Meropenem 500 mg/ Sodium (Chloride) 100 mls @ 100 mls/hr IVPB Q8H [facility]; Protocol Last Admin: 09/05/18 06:32 Dose: 100 mls/hr Lorazepam (Ativan) 0.5 mg PO Q12 PRN PRN Reason: Agitation Last Admin: 09/03/18 08:49 Dose: 0.5 mg Memantine (Namenda) 10 mg PO BID [facility] Last Admin: 09/05/18 11:03 Dose: 10 mg Metoprolol Tartrate (Lopressor) 25 mg PO BID [facility] Last Admin: 09/05/18 11:03 Dose: 25 mg Multivitamins (Hexavitamin) 1 tab PO DAILY [facility] Last Admin: 09/05/18 11:03 Dose: 1 tab Pantoprazole Sodium (Protonix Susp) 40 mg PO 0600 [facility] Last Admin: 09/05/18 06:32 Dose: 40 mg Rosuvastatin Calcium (Crestor) 20 mg PO HS [facility] Last Admin: 09/04/18 21:00 Dose: 20 mg - Labs Labs: 09/04/18 07:34 09/04/18 07:34 PT 12.1 SECONDS (9.7-12.2) 09/04/18 07:34 INR 1.1 09/04/18 07:34 APTT 27 SECONDS (21-34) 09/04/18 07:34
--- NOTE | 2018-09-05 15:17 | CP.PCM.PN ---
Subjective - Date & Time of Evaluation Date of Evaluation: 09/05/18 Time of Evaluation: 10:15 - Subjective Subjective: clinically same Objective - Vital Signs/Intake and Output Vital Signs (last 24 hours): Temp Pulse Resp BP Pulse Ox 98.0 F 128 H 20 130/70 97 09/05/18 07:00 09/05/18 11:02 09/05/18 07:00 09/05/18 11:03 09/05/18 07:00 Intake and Output: 09/05/18 09/05/18 06:59 18:59 Intake Total 490 300 Output Total 350 75 Balance 140 225 - Medications Medications: Current Medications Clopidogrel Bisulfate (Plavix) 75 mg PO DAILY [facility] Last Admin: 09/01/18 10:43 Dose: 75 mg Collagenase (Santyl) 1 gm TOP BID [facility] Last Admin: 09/05/18 11:04 Dose: 1 appl Cyanocobalamin (Vitamin B12 1000 Mcg/Ml Inj) 1,000 mcg IM DAILY [facility] Last Admin: 09/05/18 11:02 Dose: 1,000 mcg Enoxaparin Sodium (Lovenox) 40 mg SC DAILY [facility] Last Admin: 09/03/18 11:09 Dose: 40 mg Ferrous Sulfate (Feosol Liq) 300 mg PO BID [facility] Last Admin: 09/05/18 11:03 Dose: 300 mg Vancomycin HCl 1 gm/ Sodium (Chloride) 250 mls @ 167 mls/hr IVPB Q24H [facility]; Protocol Last Admin: 09/04/18 21:03 Dose: 167 mls/hr Meropenem 500 mg/ Sodium (Chloride) 100 mls @ 100 mls/hr IVPB Q8H [facility]; Protocol Last Admin: 09/05/18 14:49 Dose: 100 mls/hr Lorazepam (Ativan) 0.5 mg PO Q12 PRN PRN Reason: Agitation Last Admin: 09/03/18 08:49 Dose: 0.5 mg Memantine (Namenda) 10 mg PO BID [facility] Last Admin: 09/05/18 11:03 Dose: 10 mg Metoprolol Tartrate (Lopressor) 25 mg PO BID [facility] Last Admin: 09/05/18 11:03 Dose: 25 mg Multivitamins (Hexavitamin) 1 tab PO DAILY [facility] Last Admin: 09/05/18 11:03 Dose: 1 tab Pantoprazole Sodium (Protonix Susp) 40 mg PO 0600 [facility] Last Admin: 09/05/18 06:32 Dose: 40 mg Rosuvastatin Calcium (Crestor) 20 mg PO HS [facility] Last Admin: 09/04/18 21:00 Dose: 20 mg - Labs Labs: 09/04/18 07:34 09/04/18 07:34 PT 12.1 SECONDS (9.7-12.2) 09/04/18 07:34 INR 1.1 09/04/18 07:34 APTT 27 SECONDS (21-34) 09/04/18 07:34 - Constitutional Appears: Well - Head Exam Head Exam: ATRAUMATIC, NORMAL INSPECTION, NORMOCEPHALIC - Eye Exam Eye Exam: EOMI, Normal appearance, PERRL Pupil Exam: NORMAL ACCOMODATION, PERRL - ENT Exam ENT Exam: Mucous Membranes Moist, Normal Exam - Neck Exam Neck Exam: Full ROM, Normal Inspection. absent: Lymphadenopathy - Respiratory Exam Respiratory Exam: Decreased Breath Sounds - Cardiovascular Exam Cardiovascular Exam: REGULAR RHYTHM, +S1, +S2 - GI/Abdominal Exam GI & Abdominal Exam: Soft, Diminished Bowel Sounds - Rectal Exam Rectal Exam: Deferred
--- NOTE | 2018-09-05 19:54 | CP.PCM.PN ---
Subjective - Date & Time of Evaluation Date of Evaluation: 09/04/18 Time of Evaluation: 12:00 - Subjective Subjective: Appears comfortable Objective - Vital Signs/Intake and Output Vital Signs (last 24 hours): Temp Pulse Resp BP Pulse Ox 97.3 F L 97 H 18 146/55 L 94 L 09/05/18 15:00 09/05/18 15:00 09/05/18 15:00 09/05/18 19:11 09/05/18 15:00 Intake and Output: 09/05/18 09/06/18 18:59 06:59 Intake Total 300 Output Total 75 Balance 225 - Medications Medications: Current Medications Clopidogrel Bisulfate (Plavix) 75 mg PO DAILY [facility] Last Admin: 09/01/18 10:43 Dose: 75 mg Collagenase (Santyl) 1 gm TOP BID [facility] Last Admin: 09/05/18 19:15 Dose: 1 appl Cyanocobalamin (Vitamin B12 1000 Mcg/Ml Inj) 1,000 mcg IM DAILY [facility] Last Admin: 09/05/18 11:02 Dose: 1,000 mcg Enoxaparin Sodium (Lovenox) 40 mg SC DAILY [facility] Last Admin: 09/03/18 11:09 Dose: 40 mg Ferrous Sulfate (Feosol Liq) 300 mg PO BID [facility] Last Admin: 09/05/18 19:11 Dose: 300 mg Vancomycin HCl 1 gm/ Sodium (Chloride) 250 mls @ 167 mls/hr IVPB Q24H [facility]; Protocol Last Admin: 09/04/18 21:03 Dose: 167 mls/hr Meropenem 500 mg/ Sodium (Chloride) 100 mls @ 100 mls/hr IVPB Q8H [facility]; Protocol Last Admin: 09/05/18 14:49 Dose: 100 mls/hr Lorazepam (Ativan) 0.5 mg PO Q12 PRN PRN Reason: Agitation Last Admin: 09/03/18 08:49 Dose: 0.5 mg Memantine (Namenda) 10 mg PO BID [facility] Last Admin: 09/05/18 19:11 Dose: 10 mg Metoprolol Tartrate (Lopressor) 25 mg PO BID [facility] Last Admin: 09/05/18 19:11 Dose: 25 mg Multivitamins (Hexavitamin) 1 tab PO DAILY [facility] Last Admin: 09/05/18 11:03 Dose: 1 tab Pantoprazole Sodium (Protonix Susp) 40 mg PO 0600 [facility] Last Admin: 09/05/18 06:32 Dose: 40 mg Rosuvastatin Calcium (Crestor) 20 mg PO HS [facility] Last Admin: 09/04/18 21:00 Dose: 20 mg - Labs Labs: 09/04/18 07:34 09/04/18 07:34 PT 12.1 SECONDS (9.7-12.2) 09/04/18 07:34 INR 1.1 09/04/18 07:34 APTT 27 SECONDS (21-34) 09/04/18 07:34 - Head Exam Head Exam: ATRAUMATIC - Eye Exam Eye Exam: Normal appearance - ENT Exam ENT Exam: Mucous Membranes Dry - Respiratory Exam Respiratory Exam: NORMAL BREATHING PATTERN - Cardiovascular Exam Cardiovascular Exam: +S1, +S2 - GI/Abdominal Exam GI & Abdominal Exam: Normal Bowel Sounds Assessment and Plan (1) Anemia Assessment & Plan: chronic 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
--- NOTE | 2018-09-05 19:54 | CP.PCM.PN ---
Subjective - Date & Time of Evaluation Date of Evaluation: 09/05/18 Time of Evaluation: 19:00 - Subjective Subjective: No complaints. Objective - Vital Signs/Intake and Output Vital Signs (last 24 hours): Temp Pulse Resp BP Pulse Ox 97.3 F L 97 H 18 146/55 L 94 L 09/05/18 15:00 09/05/18 15:00 09/05/18 15:00 09/05/18 19:11 09/05/18 15:00 Intake and Output: 09/05/18 09/06/18 18:59 06:59 Intake Total 300 Output Total 75 Balance 225 - Medications Medications: Current Medications Clopidogrel Bisulfate (Plavix) 75 mg PO DAILY [facility] Last Admin: 09/01/18 10:43 Dose: 75 mg Collagenase (Santyl) 1 gm TOP BID [facility] Last Admin: 09/05/18 19:15 Dose: 1 appl Cyanocobalamin (Vitamin B12 1000 Mcg/Ml Inj) 1,000 mcg IM DAILY [facility] Last Admin: 09/05/18 11:02 Dose: 1,000 mcg Enoxaparin Sodium (Lovenox) 40 mg SC DAILY [facility] Last Admin: 09/03/18 11:09 Dose: 40 mg Ferrous Sulfate (Feosol Liq) 300 mg PO BID [facility] Last Admin: 09/05/18 19:11 Dose: 300 mg Vancomycin HCl 1 gm/ Sodium (Chloride) 250 mls @ 167 mls/hr IVPB Q24H [facility]; Protocol Last Admin: 09/04/18 21:03 Dose: 167 mls/hr Meropenem 500 mg/ Sodium (Chloride) 100 mls @ 100 mls/hr IVPB Q8H [facility]; Protocol Last Admin: 09/05/18 14:49 Dose: 100 mls/hr Lorazepam (Ativan) 0.5 mg PO Q12 PRN PRN Reason: Agitation Last Admin: 09/03/18 08:49 Dose: 0.5 mg Memantine (Namenda) 10 mg PO BID [facility] Last Admin: 09/05/18 19:11 Dose: 10 mg Metoprolol Tartrate (Lopressor) 25 mg PO BID [facility] Last Admin: 09/05/18 19:11 Dose: 25 mg Multivitamins (Hexavitamin) 1 tab PO DAILY [facility] Last Admin: 09/05/18 11:03 Dose: 1 tab Pantoprazole Sodium (Protonix Susp) 40 mg PO 0600 [facility] Last Admin: 09/05/18 06:32 Dose: 40 mg Rosuvastatin Calcium (Crestor) 20 mg PO HS [facility] Last Admin: 09/04/18 21:00 Dose: 20 mg - Labs Labs: 09/04/18 07:34 09/04/18 07:34 PT 12.1 SECONDS (9.7-12.2) 09/04/18 07:34 INR 1.1 09/04/18 07:34 APTT 27 SECONDS (21-34) 09/04/18 07:34 - Head Exam Head Exam: ATRAUMATIC - Eye Exam Eye Exam: Normal appearance - ENT Exam ENT Exam: Mucous Membranes Dry - Respiratory Exam Respiratory Exam: NORMAL BREATHING PATTERN - Cardiovascular Exam Cardiovascular Exam: +S1, +S2 - GI/Abdominal Exam GI & Abdominal Exam: Normal Bowel Sounds Assessment and Plan (1) Anemia Assessment & Plan: chronic 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
[2018-09-06] MEDS: Meropenem 500 MG in Sodium Chloride 0.9% 100 ML IVPB SCH ×3 (06:24→22:33)
[2018-09-06] MEDS: Pantoprazole 40 mg Susp UD PO SCH (06:29)
[2018-09-06 07:10] LABS: BASO % 0.3 % (0.0-2.0); EOS % 0.3 % (0.0-4.0); HEMOGLOBIN 10.3 g/dL (12.0-18.0); LYMPH # 1.2 K/uL (1.0-4.3); LYMPH % 14.2 % (20.0-40.0); MEAN CELL VOLUME 90.9 fL (80.0-94.0); MEAN CORPUSCULAR HEMOGLOBIN 30.2 pg (27.0-31.0); MEAN CORPUSCULAR HGB CONC 33.2 g/dL (33.0-37.0); MEAN PLATELET VOLUME 9.4 fL (7.2-11.7); MONO # 0.6 K/uL (0.0-0.8); MONO % 7.6 % (0.0-10.0); NEUT # 6.6 K/uL (1.8-7.0); NEUT % 77.6 % (50.0-75.0); RBC 3.4 Mil/uL (4.40-5.90); RED CELL DISTRIBUTION WIDTH 13.5 % (11.5-14.5); WHITE BLOOD COUNT 8.5 K/uL (4.8-10.8)
[2018-09-06 07:30] LABS: ALB/GLOB RATIO 0.8 (1.0-2.1); ALBUMIN 2.5 g/dL (3.5-5.0); ALT/SGPT 26 U/L (21-72); AST/SGOT 39 U/L (17-59); BLOOD UREA NITROGEN 20 mg/dL (9-20); CALCIUM 8.1 mg/dl (8.6-10.4); GFR NON-AFRICAN AMERICAN > 60
[2018-09-06] MEDS ORDERED: Lidocaine/Epinephrine 1% 1:100000 10 ML IJ ONE (07:46)
[2018-09-06] MEDS ORDERED: Bupivacaine 0.25% 20 ML INJ IJ ONE (07:46)
[2018-09-06] MEDS ORDERED: Propofol 10 mg/ml Inj (20 ML) ONE (09:27)
[2018-09-06] MEDS ORDERED: Bacitracin Ointment 30 GM TUBE ONE (09:50)
--- NOTE | 2018-09-06 09:59 | PCM.SURG1 ---
Surgeon's Initial Post Op Note - Surgeon's Notes Surgeon: Julissa Paulson MD Food Services Director: MARGARITA Chaudhry Type of Anesthesia: General Endo Pre-Operative Diagnosis: Sacral Decubitus Ulcer, Stage 4. Right Hip ulcers Operative Findings: Sacral Decubitus Ulcer, Stage 4, Approx 8x6 cm. Right Hip ulcers, 4x2 cm Post-Operative Diagnosis: Sacral Decubitus Ulcer, Stage 4. Right Hip ulcers Operation Performed: Excisional Debridement of Sacral Decubitus Ulcer, Stage 4. Debridement of Right Hip ulcers. Negative Pressure wound vac therapy >50 cm square area Specimen/Specimens Removed: Debrided tissue Estimated Blood Loss: EBL {In ML}: 10 Blood Products Given: N/A Drains Used: No Drains Post-Op Condition: Good Date of Surgery/Procedure: 09/06/18 Time of Surgery/Procedure: 09:59
[2018-09-06] MEDS: Ferrous Sulfate 300 mg/5 mL Liq UD PO SCH ×2 (12:03→18:56)
[2018-09-06] MEDS: Multiple Vitamins Tab PO SCH (12:03)
[2018-09-06] MEDS: Collagenase 250 Units/gm Ointment(30 gm) TOP SCH ×2 (12:04→18:58)
--- NOTE | 2018-09-06 13:52 | OP ---
PROCEDURE DATE: 09/06/2018 PREOPERATIVE DIAGNOSES: 1. Stage 4 sacral decubitus ulcer. 2. Stage 2 right hip ulcers. POSTOPERATIVE DIAGNOSES: 1. Stage 4 sacral decubitus ulcer. 2. Stage 2 right hip ulcers. PROCEDURES DONE: 1. Excisional debridement of the sacral decubitus ulcer. 2. Debridement of the right hip ulcers. 3. Negative pressure wound VAC therapy, more than 50 sq cm area. SURGEON: Brent Paulson MD COLD FOOD PACKER: ROSLYN Chaudhry ANESTHESIA: Local anesthesia plus sedation. ESTIMATED BLOOD LOSS: Around 10 mL. DRAINS: The wound VAC was placed to the drain. PATHOLOGY: Debrided tissue was sent for the pathology. COMPLICATIONS: None. INTRAOPERATIVE FINDINGS: The patient had approximately 8 x 6 x 2 cm sacral decubitus ulcer. The patient also had a right hip ulcer and the right hip ulcer was approximately 4 x 2 cm, irregular shaped. DESCRIPTION OF PROCEDURE: On intraoperative steps, this 87-year-old male was diagnosed with stage 4 sacral decubitus ulcer and after initial treatment the patient's family was consented for the debridement. The patient was brought to the OR and placed supine on the operating table after induction of the anesthesia. After induction of the anesthesia, the patient was placed in left lateral position. The perineal area was prepped and draped and excisional debridement of the sacral decubitus ulcer was done with knife and scissors with blunt and sharp dissection. The wound was approximately 8 x 6 x 2 cm size and proper hemostasis was achieved. The wound was debrided up to the bone. The patient also had a right hip ulcer that was also debrided and dry sterile dressing was applied. Now, the wound VAC was applied on the sacral decubitus ulcer and it was connected to the suction. Wound VAC was functioning without any leakage. The patient tolerated the procedure well. The count of instrument and gauze was correct. There was no apparent complications. The patient was sent to the postanesthesia care unit in stable condition. Brent Paulson MD
--- NOTE | 2018-09-06 14:29 | CP.PCM.PN ---
Subjective - Date & Time of Evaluation Date of Evaluation: 09/06/18 Time of Evaluation: 14:15 - Subjective Subjective: dictated Objective - Vital Signs/Intake and Output Vital Signs (last 24 hours): Temp Pulse Resp BP Pulse Ox 97.4 F L 85 22 115/47 L 100 09/06/18 11:00 09/06/18 11:00 09/06/18 11:00 09/06/18 11:00 09/06/18 11:00 Intake and Output: 09/06/18 09/06/18 06:59 18:59 Intake Total 670 500 Output Total 350 100 Balance 320 400 - Medications Medications: Current Medications Clopidogrel Bisulfate (Plavix) 75 mg PO DAILY [facility] Last Admin: 09/01/18 10:43 Dose: 75 mg Collagenase (Santyl) 1 gm TOP BID [facility] Last Admin: 09/06/18 12:04 Dose: Not Given Cyanocobalamin (Vitamin B12 1000 Mcg/Ml Inj) 1,000 mcg IM DAILY [facility] Last Admin: 09/06/18 12:04 Dose: Not Given Enoxaparin Sodium (Lovenox) 40 mg SC DAILY [facility] Last Admin: 09/03/18 11:09 Dose: 40 mg Ferrous Sulfate (Feosol Liq) 300 mg PO BID [facility] Last Admin: 09/06/18 12:03 Dose: Not Given Vancomycin HCl 1 gm/ Sodium (Chloride) 250 mls @ 167 mls/hr IVPB Q24H [facility]; Protocol Last Admin: 09/05/18 20:29 Dose: 167 mls/hr Meropenem 500 mg/ Sodium (Chloride) 100 mls @ 100 mls/hr IVPB Q8H [facility]; Protocol Last Admin: 09/06/18 06:24 Dose: 100 mls/hr Memantine (Namenda) 10 mg PO BID [facility] Last Admin: 09/06/18 12:04 Dose: Not Given Metoprolol Tartrate (Lopressor) 25 mg PO BID [facility] Last Admin: 09/06/18 12:03 Dose: Not Given Multivitamins (Hexavitamin) 1 tab PO DAILY [facility] Last Admin: 09/06/18 12:03 Dose: Not Given Pantoprazole Sodium (Protonix Susp) 40 mg PO 0600 [facility] Last Admin: 09/06/18 06:29 Dose: Not Given Rosuvastatin Calcium (Crestor) 20 mg PO HS [facility] Last Admin: 09/05/18 21:52 Dose: 20 mg - Labs Labs: 09/06/18 06:30 09/06/18 06:30 PT 12.1 SECONDS (9.7-12.2) 09/04/18 07:34 INR 1.1 09/04/18 07:34 APTT 27 SECONDS (21-34) 09/04/18 07:34
--- NOTE | 2018-09-06 16:29 | CP.PCM.PN ---
Subjective - Date & Time of Evaluation Date of Evaluation: 09/06/18 Time of Evaluation: 14:15 - Subjective Subjective: patient seen and examined no shortness of breath noted s/p Excisional Debridement of Sacral Decubitus Ulcer, Stage 4. Debridement of Right Hip ulcers. Negative Pressure wound vac therapy Objective - Vital Signs/Intake and Output Vital Signs (last 24 hours): Temp Pulse Resp BP Pulse Ox 97.4 F L 85 22 115/47 L 100 09/06/18 11:00 09/06/18 11:00 09/06/18 11:00 09/06/18 11:00 09/06/18 11:00 Intake and Output: 09/06/18 09/06/18 06:59 18:59 Intake Total 670 500 Output Total 350 100 Balance 320 400 - Medications Medications: Current Medications Clopidogrel Bisulfate (Plavix) 75 mg PO DAILY [facility] Last Admin: 09/01/18 10:43 Dose: 75 mg Collagenase (Santyl) 1 gm TOP BID [facility] Last Admin: 09/06/18 12:04 Dose: Not Given Cyanocobalamin (Vitamin B12 1000 Mcg/Ml Inj) 1,000 mcg IM DAILY [facility] Last Admin: 09/06/18 12:04 Dose: Not Given Enoxaparin Sodium (Lovenox) 40 mg SC DAILY [facility] Last Admin: 09/03/18 11:09 Dose: 40 mg Ferrous Sulfate (Feosol Liq) 300 mg PO BID [facility] Last Admin: 09/06/18 12:03 Dose: Not Given Vancomycin HCl 1 gm/ Sodium (Chloride) 250 mls @ 167 mls/hr IVPB Q24H [facility]; Protocol Last Admin: 09/05/18 20:29 Dose: 167 mls/hr Meropenem 500 mg/ Sodium (Chloride) 100 mls @ 100 mls/hr IVPB Q8H [facility]; Protocol Last Admin: 09/06/18 14:34 Dose: 100 mls/hr Memantine (Namenda) 10 mg PO BID [facility] Last Admin: 09/06/18 12:04 Dose: Not Given Metoprolol Tartrate (Lopressor) 25 mg PO BID [facility] Last Admin: 09/06/18 12:03 Dose: Not Given Multivitamins (Hexavitamin) 1 tab PO DAILY [facility] Last Admin: 09/06/18 12:03 Dose: Not Given Pantoprazole Sodium (Protonix Susp) 40 mg PO 0600 [facility] Last Admin: 09/06/18 06:29 Dose: Not Given Rosuvastatin Calcium (Crestor) 20 mg PO HS [facility] Last Admin: 09/05/18 21:52 Dose: 20 mg - Labs Labs: 09/06/18 06:30 09/06/18 06:30 PT 12.1 SECONDS (9.7-12.2) 09/04/18 07:34 INR 1.1 09/04/18 07:34 APTT 27 SECONDS (21-34) 09/04/18 07:34 - Head Exam Head Exam: ATRAUMATIC, NORMOCEPHALIC - ENT Exam ENT Exam: Mucous Membranes Moist - Neck Exam Neck Exam: Normal Inspection - Respiratory Exam Respiratory Exam: Decreased Breath Sounds - Cardiovascular Exam Cardiovascular Exam: REGULAR RHYTHM - GI/Abdominal Exam GI & Abdominal Exam: Soft, Normal Bowel Sounds Assessment and Plan (1) COPD (chronic obstructive pulmonary disease) Assessment & Plan: continue nebulizer treatment IV antibiotics As per infectious disease Status: Acute (2) Sacral decubitus ulcer, stage III Status: Acute (3) Sepsis Status: Acute
--- NOTE | 2018-09-06 18:18 | CP.PCM.PN ---
Subjective - Date & Time of Evaluation Date of Evaluation: 09/06/18 Time of Evaluation: 10:00 - Subjective Subjective: clinically same Objective - Vital Signs/Intake and Output Vital Signs (last 24 hours): Temp Pulse Resp BP Pulse Ox 98.3 F 100 H 20 156/84 H 97 09/06/18 15:00 09/06/18 15:00 09/06/18 15:00 09/06/18 15:00 09/06/18 15:00 Intake and Output: 09/06/18 09/06/18 06:59 18:59 Intake Total 670 500 Output Total 350 100 Balance 320 400 - Medications Medications: Current Medications Clopidogrel Bisulfate (Plavix) 75 mg PO DAILY [facility] Last Admin: 09/01/18 10:43 Dose: 75 mg Collagenase (Santyl) 1 gm TOP BID [facility] Last Admin: 09/06/18 12:04 Dose: Not Given Cyanocobalamin (Vitamin B12 1000 Mcg/Ml Inj) 1,000 mcg IM DAILY [facility] Last Admin: 09/06/18 12:04 Dose: Not Given Enoxaparin Sodium (Lovenox) 40 mg SC DAILY [facility] Last Admin: 09/03/18 11:09 Dose: 40 mg Ferrous Sulfate (Feosol Liq) 300 mg PO BID [facility] Last Admin: 09/06/18 12:03 Dose: Not Given Vancomycin HCl 1 gm/ Sodium (Chloride) 250 mls @ 167 mls/hr IVPB Q24H [facility]; Protocol Last Admin: 09/05/18 20:29 Dose: 167 mls/hr Meropenem 500 mg/ Sodium (Chloride) 100 mls @ 100 mls/hr IVPB Q8H [facility]; Protocol Last Admin: 09/06/18 14:34 Dose: 100 mls/hr Memantine (Namenda) 10 mg PO BID [facility] Last Admin: 09/06/18 12:04 Dose: Not Given Metoprolol Tartrate (Lopressor) 25 mg PO BID [facility] Last Admin: 09/06/18 12:03 Dose: Not Given Multivitamins (Hexavitamin) 1 tab PO DAILY [facility] Last Admin: 09/06/18 12:03 Dose: Not Given Pantoprazole Sodium (Protonix Susp) 40 mg PO 0600 [facility] Last Admin: 09/06/18 06:29 Dose: Not Given Rosuvastatin Calcium (Crestor) 20 mg PO HS [facility] Last Admin: 09/05/18 21:52 Dose: 20 mg - Labs Labs: 09/06/18 06:30 09/06/18 06:30 PT 12.1 SECONDS (9.7-12.2) 09/04/18 07:34 INR 1.1 09/04/18 07:34 APTT 27 SECONDS (21-34) 09/04/18 07:34 - Constitutional Appears: Well - Head Exam Head Exam: ATRAUMATIC, NORMAL INSPECTION, NORMOCEPHALIC - Eye Exam Eye Exam: EOMI, Normal appearance, PERRL Pupil Exam: NORMAL ACCOMODATION, PERRL - ENT Exam ENT Exam: Mucous Membranes Moist, Normal Exam - Neck Exam Neck Exam: Full ROM, Normal Inspection. absent: Lymphadenopathy - Respiratory Exam Respiratory Exam: Decreased Breath Sounds - Cardiovascular Exam Cardiovascular Exam: REGULAR RHYTHM, +S1, +S2 - GI/Abdominal Exam GI & Abdominal Exam: Soft, Diminished Bowel Sounds - Rectal Exam Rectal Exam: Deferred
[2018-09-07] MEDS: Pantoprazole 40 mg Susp UD PO SCH ×2 (07:04→11:16)
[2018-09-07] MEDS: Meropenem 500 MG in Sodium Chloride 0.9% 100 ML IVPB SCH ×3 (07:04→23:01)
[2018-09-07] MEDS: Enoxaparin 40 mg Syringe SC SCH (11:15)
[2018-09-07] MEDS: Ferrous Sulfate 300 mg/5 mL Liq UD PO SCH ×2 (11:16→17:25)
[2018-09-07] MEDS: Multiple Vitamins Tab PO SCH (11:17)
--- NOTE | 2018-09-07 15:06 | CP.PCM.PN ---
<Tobi Elliott - Last Filed: 09/07/18 15:04> Subjective - Date & Time of Evaluation Date of Evaluation: 09/07/18 Time of Evaluation: 06:40 - Subjective Subjective: General Surgery Pt seen and examined. No new complaints at this time. Wound vac functioning well Objective - Vital Signs/Intake and Output Vital Signs (last 24 hours): Temp Pulse Resp BP Pulse Ox 97.7 F 97 H 20 153/87 H 95 09/07/18 08:00 09/07/18 08:00 09/07/18 08:00 09/07/18 11:17 09/07/18 08:00 Intake and Output: 09/07/18 09/07/18 06:59 18:59 Intake Total 600 Output Total 150 Balance 450 - Medications Medications: Current Medications Clopidogrel Bisulfate (Plavix) 75 mg PO DAILY [facility] Last Admin: 09/01/18 10:43 Dose: 75 mg Cyanocobalamin (Vitamin B12 1000 Mcg/Ml Inj) 1,000 mcg IM DAILY [facility] Last Admin: 09/07/18 11:29 Dose: 1,000 mcg Enoxaparin Sodium (Lovenox) 40 mg SC DAILY [facility] Last Admin: 09/07/18 11:15 Dose: 40 mg Ferrous Sulfate (Feosol Liq) 300 mg PO BID [facility] Last Admin: 09/07/18 11:16 Dose: 300 mg Vancomycin HCl 1 gm/ Sodium (Chloride) 250 mls @ 167 mls/hr IVPB Q24H [facility]; Protocol Last Admin: 09/06/18 20:31 Dose: 167 mls/hr Meropenem 500 mg/ Sodium (Chloride) 100 mls @ 100 mls/hr IVPB Q8H [facility]; Protocol Last Admin: 09/07/18 07:04 Dose: 100 mls/hr Memantine (Namenda) 10 mg PO BID [facility] Last Admin: 09/07/18 11:16 Dose: 10 mg Metoprolol Tartrate (Lopressor) 25 mg PO BID [facility] Last Admin: 09/07/18 11:17 Dose: 25 mg Multivitamins (Hexavitamin) 1 tab PO DAILY [facility] Last Admin: 09/07/18 11:17 Dose: 1 tab Pantoprazole Sodium (Protonix Susp) 40 mg PO 0600 [facility] Last Admin: 09/07/18 11:16 Dose: 40 mg Rosuvastatin Calcium (Crestor) 20 mg PO HS [facility] Last Admin: 09/06/18 22:29 Dose: Not Given - Labs Labs: 09/06/18 06:30 09/06/18 06:30 PT 12.1 SECONDS (9.7-12.2) 09/04/18 07:34 INR 1.1 09/04/18 07:34 APTT 27 SECONDS (21-34) 09/04/18 07:34 - Constitutional Appears: Non-toxic, No Acute Distress, Chronically Ill - Head Exam Head Exam: ATRAUMATIC, NORMOCEPHALIC - Eye Exam Eye Exam: absent: Conjunctival injection, Scleral icterus - Respiratory Exam Respiratory Exam: NORMAL BREATHING PATTERN. absent: Respiratory Distress - GI/Abdominal Exam GI & Abdominal Exam: Soft. absent: Distended, Tenderness - Back Exam Additional comments: wound vac in place - Neurological Exam Neurological Exam: Alert, Awake - Skin Skin Exam: Dry, Warm Assessment and Plan - Assessment and Plan (Free Text) Assessment: 87M S/P Excisional Debridement of Sacral Decubitus Ulcer, Stage 4. Debridement of Right Hip ulcers. POD#1 Plan: Ok to restart plavix. Wound vac change 09/08 Monitor, wound care on board D/W Dr. Khurram Elliott PGY4 <Brent Paulson - Last Filed: 09/08/18 17:40> Objective - Vital Signs/Intake and Output Vital Signs (last 24 hours): Temp Pulse Resp BP Pulse Ox 99.3 F 84 20 173/83 H 95 09/08/18 15:31 09/08/18 15:31 09/08/18 15:31 09/08/18 15:31 09/08/18 15:31 Intake and Output: 09/08/18 09/08/18 06:59 18:59 Intake Total 650 Output Total 350 200 Balance 300 -200 - Medications Medications: Current Medications Clopidogrel Bisulfate (Plavix) 75 mg PO DAILY [facility] Last Admin: 09/01/18 10:43 Dose: 75 mg Cyanocobalamin (Vitamin B12 1000 Mcg/Ml Inj) 1,000 mcg IM DAILY [facility] Last Admin: 09/08/18 12:26 Dose: 1,000 mcg Enoxaparin Sodium (Lovenox) 40 mg SC DAILY [facility] Last Admin: 09/08/18 12:23 Dose: 40 mg Ferrous Sulfate (Feosol Liq) 300 mg PO BID [facility] Last Admin: 09/08/18 12:23 Dose: 300 mg Vancomycin HCl 1 gm/ Sodium (Chloride) 250 mls @ 167 mls/hr IVPB Q24H [facility]; Protocol Last Admin: 09/07/18 21:41 Dose: 167 mls/hr Meropenem 500 mg/ Sodium (Chloride) 100 mls @ 100 mls/hr IVPB Q8H [facility]; Protocol Last Admin: 09/08/18 14:59 Dose: 100 mls/hr Memantine (Namenda) 10 mg PO BID [facility] Last Admin: 09/08/18 12:22 Dose: 10 mg Metoprolol Tartrate (Lopressor) 25 mg PO BID [facility] Last Admin: 09/08/18 12:23 Dose: 25 mg Multivitamins (Hexavitamin) 1 tab PO DAILY [facility] Last Admin: 09/08/18 12:22 Dose: 1 tab Pantoprazole Sodium (Protonix Susp) 40 mg PO 0600 [facility] Last Admin: 09/08/18 06:15 Dose: 40 mg Rosuvastatin Calcium (Crestor) 20 mg PO HS [facility] Last Admin: 09/07/18 21:37 Dose: 20 mg - Labs Labs: 09/06/18 06:30 09/06/18 06:30 PT 12.1 SECONDS (9.7-12.2) 09/04/18 07:34 INR 1.1 09/04/18 07:34 APTT 27 SECONDS (21-34) 09/04/18 07:34 Attending/Attestation - Attestation I have fully participated in the care of the patient.: Yes I have reviewed all pertinent clinical information, including history, physical exam and plan: Yes Notes (Text): Pt is s/p debridement Wound care consult C/w current mx Plan d.w primary team in detail
--- NOTE | 2018-09-07 15:58 | CP.PCM.PN ---
Subjective - Date & Time of Evaluation Date of Evaluation: 09/07/18 Time of Evaluation: 14:15 - Subjective Subjective: dictated Objective - Vital Signs/Intake and Output Vital Signs (last 24 hours): Temp Pulse Resp BP Pulse Ox 97.7 F 97 H 20 153/87 H 95 09/07/18 08:00 09/07/18 08:00 09/07/18 08:00 09/07/18 11:17 09/07/18 08:00 Intake and Output: 09/07/18 09/07/18 06:59 18:59 Intake Total 600 Output Total 150 Balance 450 - Medications Medications: Current Medications Clopidogrel Bisulfate (Plavix) 75 mg PO DAILY [facility] Last Admin: 09/01/18 10:43 Dose: 75 mg Cyanocobalamin (Vitamin B12 1000 Mcg/Ml Inj) 1,000 mcg IM DAILY [facility] Last Admin: 09/07/18 11:29 Dose: 1,000 mcg Enoxaparin Sodium (Lovenox) 40 mg SC DAILY [facility] Last Admin: 09/07/18 11:15 Dose: 40 mg Ferrous Sulfate (Feosol Liq) 300 mg PO BID [facility] Last Admin: 09/07/18 11:16 Dose: 300 mg Vancomycin HCl 1 gm/ Sodium (Chloride) 250 mls @ 167 mls/hr IVPB Q24H [facility]; Protocol Last Admin: 09/06/18 20:31 Dose: 167 mls/hr Meropenem 500 mg/ Sodium (Chloride) 100 mls @ 100 mls/hr IVPB Q8H [facility]; Protocol Last Admin: 09/07/18 07:04 Dose: 100 mls/hr Memantine (Namenda) 10 mg PO BID [facility] Last Admin: 09/07/18 11:16 Dose: 10 mg Metoprolol Tartrate (Lopressor) 25 mg PO BID [facility] Last Admin: 09/07/18 11:17 Dose: 25 mg Multivitamins (Hexavitamin) 1 tab PO DAILY [facility] Last Admin: 09/07/18 11:17 Dose: 1 tab Pantoprazole Sodium (Protonix Susp) 40 mg PO 0600 [facility] Last Admin: 09/07/18 11:16 Dose: 40 mg Rosuvastatin Calcium (Crestor) 20 mg PO [facility] Last Admin: 09/06/18 22:29 Dose: Not Given - Labs Labs: 09/06/18 06:30 09/06/18 06:30 PT 12.1 SECONDS (9.7-12.2) 09/04/18 07:34 INR 1.1 09/04/18 07:34 APTT 27 SECONDS (21-34) 09/04/18 07:34
--- NOTE | 2018-09-07 18:29 | CP.PCM.PN ---
Subjective - Date & Time of Evaluation Date of Evaluation: 09/07/18 Time of Evaluation: 11:30 - Subjective Subjective: Patient was seen and examined at bedside. Resting comfortably in bed and no acute distress. Patient reports he is feeling well overall. S/p sacral debridement day 1, wound vac in place. Objective - Vital Signs/Intake and Output Vital Signs (last 24 hours): Temp Pulse Resp BP Pulse Ox 99.5 F 110 H 18 171/82 H 95 09/07/18 15:05 09/07/18 15:05 09/07/18 15:05 09/07/18 17:26 09/07/18 15:05 Intake and Output: 09/07/18 09/07/18 06:59 18:59 Intake Total 600 Output Total 150 Balance 450 - Medications Medications: Current Medications Clopidogrel Bisulfate (Plavix) 75 mg PO DAILY [facility] Last Admin: 09/01/18 10:43 Dose: 75 mg Cyanocobalamin (Vitamin B12 1000 Mcg/Ml Inj) 1,000 mcg IM DAILY [facility] Last Admin: 09/07/18 11:29 Dose: 1,000 mcg Enoxaparin Sodium (Lovenox) 40 mg SC DAILY [facility] Last Admin: 09/07/18 11:15 Dose: 40 mg Ferrous Sulfate (Feosol Liq) 300 mg PO BID [facility] Last Admin: 09/07/18 17:25 Dose: 300 mg Vancomycin HCl 1 gm/ Sodium (Chloride) 250 mls @ 167 mls/hr IVPB Q24H [facility]; Protocol Last Admin: 09/06/18 20:31 Dose: 167 mls/hr Meropenem 500 mg/ Sodium (Chloride) 100 mls @ 100 mls/hr IVPB Q8H [facility]; Protocol Last Admin: 09/07/18 16:00 Dose: 100 mls/hr Memantine (Namenda) 10 mg PO BID [facility] Last Admin: 09/07/18 17:24 Dose: 10 mg Metoprolol Tartrate (Lopressor) 25 mg PO BID [facility] Last Admin: 09/07/18 17:26 Dose: 25 mg Multivitamins (Hexavitamin) 1 tab PO DAILY [facility] Last Admin: 09/07/18 11:17 Dose: 1 tab Pantoprazole Sodium (Protonix Susp) 40 mg PO 0600 [facility] Last Admin: 09/07/18 11:16 Dose: 40 mg Rosuvastatin Calcium (Crestor) 20 mg PO HS [facility] Last Admin: 09/06/18 22:29 Dose: Not Given - Labs Labs: 09/06/18 06:30 09/06/18 06:30 PT 12.1 SECONDS (9.7-12.2) 09/04/18 07:34 INR 1.1 09/04/18 07:34 APTT 27 SECONDS (21-34) 09/04/18 07:34 Assessment and Plan (1) COPD (chronic obstructive pulmonary disease) Status: Acute (2) Sacral decubitus ulcer, stage III Status: Acute (3) Sepsis Status: Acute
--- NOTE | 2018-09-07 21:58 | PN ---
DATE: 09/07/2018 INFECTIOUS DISEASE FOLLOWUP SUBJECTIVE: The patient is awake, alert, appears to be in no acute respiratory distress. He denies pain, but he has a sacral decubitus with a wound VAC. He has contraction of his lower extremities, but he seems to be in no respiratory distress. PHYSICAL EXAMINATION: VITAL SIGNS: Heart rate is, however, 110, blood pressure 171/82, respirations are 18. HEENT: Head is atraumatic and normocephalic. NECK: Supple. CARDIOPULMONARY: S1, S2, regular. LUNGS: Clear. ABDOMEN: Soft. Sacral wound is there. EXTREMITIES: Contracted, no edema. LABORATORY DATA: White count is 8.5, hemoglobin 10.3, hematocrit 30.9, platelet count is 190. He is on vancomycin and Merrem. His BUN is 20, creatinine is 0.9. MEDICATIONS: He is on Plavix, B12, Lovenox, ferrous sulfate, meropenem, atropine, metoprolol, multivitamin, pantoprazole, on Crestor and vancomycin 1 g daily. The patient is getting antibiotics through peripheral IV, would have preferred a PICC line, but patient has no place to go back. He does have a deep-seated sacral decubitus. He may need long-term antibiotics, and we will follow. The patient did come in with sepsis and a high lactate level. Stacey Burns MD
--- NOTE | 2018-09-07 22:10 | CP.PCM.PN ---
Subjective - Date & Time of Evaluation Date of Evaluation: 09/07/18 Time of Evaluation: 10:15 - Subjective Subjective: clinically same Objective - Vital Signs/Intake and Output Vital Signs (last 24 hours): Temp Pulse Resp BP Pulse Ox 99.5 F 110 H 18 171/82 H 95 09/07/18 15:05 09/07/18 15:05 09/07/18 15:05 09/07/18 17:26 09/07/18 15:05 - Medications Medications: Current Medications Clopidogrel Bisulfate (Plavix) 75 mg PO DAILY [facility] Last Admin: 09/01/18 10:43 Dose: 75 mg Cyanocobalamin (Vitamin B12 1000 Mcg/Ml Inj) 1,000 mcg IM DAILY [facility] Last Admin: 09/07/18 11:29 Dose: 1,000 mcg Enoxaparin Sodium (Lovenox) 40 mg SC DAILY [facility] Last Admin: 09/07/18 11:15 Dose: 40 mg Ferrous Sulfate (Feosol Liq) 300 mg PO BID [facility] Last Admin: 09/07/18 17:25 Dose: 300 mg Vancomycin HCl 1 gm/ Sodium (Chloride) 250 mls @ 167 mls/hr IVPB Q24H [facility]; Protocol Last Admin: 09/07/18 21:41 Dose: 167 mls/hr Meropenem 500 mg/ Sodium (Chloride) 100 mls @ 100 mls/hr IVPB Q8H [facility]; Protocol Last Admin: 09/07/18 16:00 Dose: 100 mls/hr Memantine (Namenda) 10 mg PO BID [facility] Last Admin: 09/07/18 17:24 Dose: 10 mg Metoprolol Tartrate (Lopressor) 25 mg PO BID [facility] Last Admin: 09/07/18 17:26 Dose: 25 mg Multivitamins (Hexavitamin) 1 tab PO DAILY [facility] Last Admin: 09/07/18 11:17 Dose: 1 tab Pantoprazole Sodium (Protonix Susp) 40 mg PO 0600 [facility] Last Admin: 09/07/18 11:16 Dose: 40 mg Rosuvastatin Calcium (Crestor) 20 mg PO HS [facility] Last Admin: 09/07/18 21:37 Dose: 20 mg - Labs Labs: 09/06/18 06:30 09/06/18 06:30 PT 12.1 SECONDS (9.7-12.2) 09/04/18 07:34 INR 1.1 09/04/18 07:34 APTT 27 SECONDS (21-34) 09/04/18 07:34
[2018-09-08] MEDS: Meropenem 500 MG in Sodium Chloride 0.9% 100 ML IVPB SCH ×3 (06:14→22:27)
[2018-09-08] MEDS: Pantoprazole 40 mg Susp UD PO SCH (06:15)
--- NOTE | 2018-09-08 11:08 | CP.PCM.PN ---
<YgSage - Last Filed: 09/08/18 11:23> Subjective - Date & Time of Evaluation Date of Evaluation: 09/08/18 Time of Evaluation: 11:08 - Subjective Subjective: Surgery Pt seen and examined. No acute events. WOUnd vac in place. Objective - Vital Signs/Intake and Output Vital Signs (last 24 hours): Temp Pulse Resp BP Pulse Ox 98.2 F 80 20 155/77 H 95 09/08/18 08:10 09/08/18 08:10 09/08/18 08:10 09/08/18 08:10 09/08/18 08:10 Intake and Output: 09/08/18 09/08/18 06:59 18:59 Intake Total 650 Output Total 350 Balance 300 - Medications Medications: Current Medications Clopidogrel Bisulfate (Plavix) 75 mg PO DAILY [facility] Last Admin: 09/01/18 10:43 Dose: 75 mg Cyanocobalamin (Vitamin B12 1000 Mcg/Ml Inj) 1,000 mcg IM DAILY [facility] Last Admin: 09/07/18 11:29 Dose: 1,000 mcg Enoxaparin Sodium (Lovenox) 40 mg SC DAILY [facility] Last Admin: 09/07/18 11:15 Dose: 40 mg Ferrous Sulfate (Feosol Liq) 300 mg PO BID [facility] Last Admin: 09/07/18 17:25 Dose: 300 mg Vancomycin HCl 1 gm/ Sodium (Chloride) 250 mls @ 167 mls/hr IVPB Q24H [facility]; Protocol Last Admin: 09/07/18 21:41 Dose: 167 mls/hr Meropenem 500 mg/ Sodium (Chloride) 100 mls @ 100 mls/hr IVPB Q8H [facility]; Protocol Last Admin: 09/08/18 06:14 Dose: 100 mls/hr Memantine (Namenda) 10 mg PO BID [facility] Last Admin: 09/07/18 17:24 Dose: 10 mg Metoprolol Tartrate (Lopressor) 25 mg PO BID [facility] Last Admin: 09/07/18 17:26 Dose: 25 mg Multivitamins (Hexavitamin) 1 tab PO DAILY [facility] Last Admin: 09/07/18 11:17 Dose: 1 tab Pantoprazole Sodium (Protonix Susp) 40 mg PO 0600 [facility] Last Admin: 09/08/18 06:15 Dose: 40 mg Rosuvastatin Calcium (Crestor) 20 mg PO HS [facility] Last Admin: 09/07/18 21:37 Dose: 20 mg - Labs Labs: 09/06/18 06:30 09/06/18 06:30 PT 12.1 SECONDS (9.7-12.2) 09/04/18 07:34 INR 1.1 09/04/18 07:34 APTT 27 SECONDS (21-34) 09/04/18 07:34 - Constitutional Appears: No Acute Distress, Cachectic, Chronically Ill - Head Exam Head Exam: ATRAUMATIC, NORMAL INSPECTION, NORMOCEPHALIC - Eye Exam Eye Exam: EOMI - Respiratory Exam Respiratory Exam: NORMAL BREATHING PATTERN - Extremities Exam Extremities Exam: absent: Full ROM - Back Exam Additional comments: wound vac in place - Neurological Exam Neurological Exam: absent: Oriented x3 - Skin Skin Exam: absent: Dry, Intact Assessment and Plan - Assessment and Plan (Free Text) Assessment: POD 2 s/p wound debridement and wound vac for sacral ulcer -OK to DC for surgical standpoint with home wound vac w VNS . Will DW Dr. Paulson <Brent Paulson - Last Filed: 09/08/18 17:38> Objective - Vital Signs/Intake and Output Vital Signs (last 24 hours): Temp Pulse Resp BP Pulse Ox 99.3 F 84 20 173/83 H 95 09/08/18 15:31 09/08/18 15:31 09/08/18 15:31 09/08/18 15:31 09/08/18 15:31 Intake and Output: 09/08/18 09/08/18 06:59 18:59 Intake Total 650 Output Total 350 200 Balance 300 -200 - Medications Medications: Current Medications Clopidogrel Bisulfate (Plavix) 75 mg PO DAILY [facility] Last Admin: 09/01/18 10:43 Dose: 75 mg Cyanocobalamin (Vitamin B12 1000 Mcg/Ml Inj) 1,000 mcg IM DAILY [facility] Last Admin: 09/08/18 12:26 Dose: 1,000 mcg Enoxaparin Sodium (Lovenox) 40 mg SC DAILY [facility] Last Admin: 09/08/18 12:23 Dose: 40 mg Ferrous Sulfate (Feosol Liq) 300 mg PO BID [facility] Last Admin: 09/08/18 12:23 Dose: 300 mg Vancomycin HCl 1 gm/ Sodium (Chloride) 250 mls @ 167 mls/hr IVPB Q24H [facility]; Protocol Last Admin: 09/07/18 21:41 Dose: 167 mls/hr Meropenem 500 mg/ Sodium (Chloride) 100 mls @ 100 mls/hr IVPB Q8H [facility]; Protocol Last Admin: 09/08/18 14:59 Dose: 100 mls/hr Memantine (Namenda) 10 mg PO BID [facility] Last Admin: 09/08/18 12:22 Dose: 10 mg Metoprolol Tartrate (Lopressor) 25 mg PO BID [facility] Last Admin: 09/08/18 12:23 Dose: 25 mg Multivitamins (Hexavitamin) 1 tab PO DAILY [facility] Last Admin: 09/08/18 12:22 Dose: 1 tab Pantoprazole Sodium (Protonix Susp) 40 mg PO 0600 [facility] Last Admin: 09/08/18 06:15 Dose: 40 mg Rosuvastatin Calcium (Crestor) 20 mg PO HS [facility] Last Admin: 09/07/18 21:37 Dose: 20 mg - Labs Labs: 09/06/18 06:30 09/06/18 06:30 PT 12.1 SECONDS (9.7-12.2) 09/04/18 07:34 INR 1.1 09/04/18 07:34 APTT 27 SECONDS (21-34) 09/04/18 07:34 Attending/Attestation - Attestation I have personally seen and examined this patient.: Yes I have fully participated in the care of the patient.: Yes I have reviewed all pertinent clinical information, including history, physical exam and plan: Yes Notes (Text): Pt was seen and examined at bedside Agree with above note and assessment Pt is same clinically Wound vac is functioning DC plan Change wound vac every Tuesday and for 8-10 weeks Wound care consult C/w current mx Plan d.w primary team in detail
[2018-09-08] MEDS: Multiple Vitamins Tab PO SCH (12:22)
[2018-09-08] MEDS: Ferrous Sulfate 300 mg/5 mL Liq UD PO SCH ×2 (12:23→17:36)
[2018-09-08] MEDS: Enoxaparin 40 mg Syringe SC SCH (12:23)
--- NOTE | 2018-09-08 12:41 | CP.PCM.PN ---
Subjective - Date & Time of Evaluation Date of Evaluation: 09/06/18 Time of Evaluation: 20:00 - Subjective Subjective: Appears comfortable Objective - Vital Signs/Intake and Output Vital Signs (last 24 hours): Temp Pulse Resp BP Pulse Ox 98.2 F 80 20 142/81 95 09/08/18 08:10 09/08/18 08:10 09/08/18 08:10 09/08/18 12:23 09/08/18 08:10 Intake and Output: 09/08/18 09/08/18 06:59 18:59 Intake Total 650 Output Total 350 Balance 300 - Medications Medications: Current Medications Clopidogrel Bisulfate (Plavix) 75 mg PO DAILY [facility] Last Admin: 09/01/18 10:43 Dose: 75 mg Cyanocobalamin (Vitamin B12 1000 Mcg/Ml Inj) 1,000 mcg IM DAILY [facility] Last Admin: 09/08/18 12:26 Dose: 1,000 mcg Enoxaparin Sodium (Lovenox) 40 mg SC DAILY [facility] Last Admin: 09/08/18 12:23 Dose: 40 mg Ferrous Sulfate (Feosol Liq) 300 mg PO BID [facility] Last Admin: 09/08/18 12:23 Dose: 300 mg Vancomycin HCl 1 gm/ Sodium (Chloride) 250 mls @ 167 mls/hr IVPB Q24H [facility]; Protocol Last Admin: 09/07/18 21:41 Dose: 167 mls/hr Meropenem 500 mg/ Sodium (Chloride) 100 mls @ 100 mls/hr IVPB Q8H [facility]; Protocol Last Admin: 09/08/18 06:14 Dose: 100 mls/hr Memantine (Namenda) 10 mg PO BID [facility] Last Admin: 09/08/18 12:22 Dose: 10 mg Metoprolol Tartrate (Lopressor) 25 mg PO BID [facility] Last Admin: 09/08/18 12:23 Dose: 25 mg Multivitamins (Hexavitamin) 1 tab PO DAILY [facility] Last Admin: 09/08/18 12:22 Dose: 1 tab Pantoprazole Sodium (Protonix Susp) 40 mg PO 0600 [facility] Last Admin: 09/08/18 06:15 Dose: 40 mg Rosuvastatin Calcium (Crestor) 20 mg PO HS [facility] Last Admin: 09/07/18 21:37 Dose: 20 mg - Labs Labs: 09/06/18 06:30 09/06/18 06:30 PT 12.1 SECONDS (9.7-12.2) 09/04/18 07:34 INR 1.1 09/04/18 07:34 APTT 27 SECONDS (21-34) 09/04/18 07:34 - Head Exam Head Exam: ATRAUMATIC - Eye Exam Eye Exam: Normal appearance - ENT Exam ENT Exam: Mucous Membranes Dry - Respiratory Exam Respiratory Exam: NORMAL BREATHING PATTERN - Cardiovascular Exam Cardiovascular Exam: +S1, +S2 - GI/Abdominal Exam GI & Abdominal Exam: Normal Bowel Sounds Assessment and Plan (1) Anemia Assessment & Plan: chronic 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
--- NOTE | 2018-09-08 12:42 | CP.PCM.PN ---
Subjective - Date & Time of Evaluation Date of Evaluation: 09/08/18 Time of Evaluation: 12:00 - Subjective Subjective: Appears comfortable Objective - Vital Signs/Intake and Output Vital Signs (last 24 hours): Temp Pulse Resp BP Pulse Ox 98.2 F 80 20 142/81 95 09/08/18 08:10 09/08/18 08:10 09/08/18 08:10 09/08/18 12:23 09/08/18 08:10 Intake and Output: 09/08/18 09/08/18 06:59 18:59 Intake Total 650 Output Total 350 Balance 300 - Medications Medications: Current Medications Clopidogrel Bisulfate (Plavix) 75 mg PO DAILY [facility] Last Admin: 09/01/18 10:43 Dose: 75 mg Cyanocobalamin (Vitamin B12 1000 Mcg/Ml Inj) 1,000 mcg IM DAILY [facility] Last Admin: 09/08/18 12:26 Dose: 1,000 mcg Enoxaparin Sodium (Lovenox) 40 mg SC DAILY [facility] Last Admin: 09/08/18 12:23 Dose: 40 mg Ferrous Sulfate (Feosol Liq) 300 mg PO BID [facility] Last Admin: 09/08/18 12:23 Dose: 300 mg Vancomycin HCl 1 gm/ Sodium (Chloride) 250 mls @ 167 mls/hr IVPB Q24H [facility]; Protocol Last Admin: 09/07/18 21:41 Dose: 167 mls/hr Meropenem 500 mg/ Sodium (Chloride) 100 mls @ 100 mls/hr IVPB Q8H [facility]; Protocol Last Admin: 09/08/18 06:14 Dose: 100 mls/hr Memantine (Namenda) 10 mg PO BID [facility] Last Admin: 09/08/18 12:22 Dose: 10 mg Metoprolol Tartrate (Lopressor) 25 mg PO BID [facility] Last Admin: 09/08/18 12:23 Dose: 25 mg Multivitamins (Hexavitamin) 1 tab PO DAILY [facility] Last Admin: 09/08/18 12:22 Dose: 1 tab Pantoprazole Sodium (Protonix Susp) 40 mg PO 0600 [facility] Last Admin: 09/08/18 06:15 Dose: 40 mg Rosuvastatin Calcium (Crestor) 20 mg PO HS [facility] Last Admin: 09/07/18 21:37 Dose: 20 mg - Labs Labs: 09/06/18 06:30 09/06/18 06:30 PT 12.1 SECONDS (9.7-12.2) 09/04/18 07:34 INR 1.1 09/04/18 07:34 APTT 27 SECONDS (21-34) 09/04/18 07:34 - Head Exam Head Exam: ATRAUMATIC - Eye Exam Eye Exam: Normal appearance - ENT Exam ENT Exam: Mucous Membranes Dry - Respiratory Exam Respiratory Exam: NORMAL BREATHING PATTERN - Cardiovascular Exam Cardiovascular Exam: +S1, +S2 - GI/Abdominal Exam GI & Abdominal Exam: Normal Bowel Sounds Assessment and Plan (1) Anemia Assessment & Plan: chronic 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
--- NOTE | 2018-09-08 12:42 | CP.PCM.PN ---
Subjective - Date & Time of Evaluation Date of Evaluation: 09/07/18 Time of Evaluation: 20:00 - Subjective Subjective: Appears comfortable Objective - Vital Signs/Intake and Output Vital Signs (last 24 hours): Temp Pulse Resp BP Pulse Ox 98.2 F 80 20 142/81 95 09/08/18 08:10 09/08/18 08:10 09/08/18 08:10 09/08/18 12:23 09/08/18 08:10 Intake and Output: 09/08/18 09/08/18 06:59 18:59 Intake Total 650 Output Total 350 Balance 300 - Medications Medications: Current Medications Clopidogrel Bisulfate (Plavix) 75 mg PO DAILY [facility] Last Admin: 09/01/18 10:43 Dose: 75 mg Cyanocobalamin (Vitamin B12 1000 Mcg/Ml Inj) 1,000 mcg IM DAILY [facility] Last Admin: 09/08/18 12:26 Dose: 1,000 mcg Enoxaparin Sodium (Lovenox) 40 mg SC DAILY [facility] Last Admin: 09/08/18 12:23 Dose: 40 mg Ferrous Sulfate (Feosol Liq) 300 mg PO BID [facility] Last Admin: 09/08/18 12:23 Dose: 300 mg Vancomycin HCl 1 gm/ Sodium (Chloride) 250 mls @ 167 mls/hr IVPB Q24H [facility]; Protocol Last Admin: 09/07/18 21:41 Dose: 167 mls/hr Meropenem 500 mg/ Sodium (Chloride) 100 mls @ 100 mls/hr IVPB Q8H [facility]; Protocol Last Admin: 09/08/18 06:14 Dose: 100 mls/hr Memantine (Namenda) 10 mg PO BID [facility] Last Admin: 09/08/18 12:22 Dose: 10 mg Metoprolol Tartrate (Lopressor) 25 mg PO BID [facility] Last Admin: 09/08/18 12:23 Dose: 25 mg Multivitamins (Hexavitamin) 1 tab PO DAILY [facility] Last Admin: 09/08/18 12:22 Dose: 1 tab Pantoprazole Sodium (Protonix Susp) 40 mg PO 0600 [facility] Last Admin: 09/08/18 06:15 Dose: 40 mg Rosuvastatin Calcium (Crestor) 20 mg PO [facility] Last Admin: 09/07/18 21:37 Dose: 20 mg - Labs Labs: 09/06/18 06:30 09/06/18 06:30 PT 12.1 SECONDS (9.7-12.2) 09/04/18 07:34 INR 1.1 09/04/18 07:34 APTT 27 SECONDS (21-34) 09/04/18 07:34 - Head Exam Head Exam: ATRAUMATIC - Eye Exam Eye Exam: Normal appearance - ENT Exam ENT Exam: Mucous Membranes Dry - Respiratory Exam Respiratory Exam: NORMAL BREATHING PATTERN - Cardiovascular Exam Cardiovascular Exam: +S1, +S2 - GI/Abdominal Exam GI & Abdominal Exam: Normal Bowel Sounds Assessment and Plan (1) Anemia Assessment & Plan: chronic 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
--- NOTE | 2018-09-08 14:43 | CP.PCM.PN ---
Subjective - Date & Time of Evaluation Date of Evaluation: 09/08/18 Time of Evaluation: 09:30 - Subjective Subjective: clinically same Objective - Vital Signs/Intake and Output Vital Signs (last 24 hours): Temp Pulse Resp BP Pulse Ox 98.2 F 80 20 142/81 95 09/08/18 08:10 09/08/18 08:10 09/08/18 08:10 09/08/18 12:23 09/08/18 08:10 Intake and Output: 09/08/18 09/08/18 06:59 18:59 Intake Total 650 Output Total 350 Balance 300 - Medications Medications: Current Medications Clopidogrel Bisulfate (Plavix) 75 mg PO DAILY [facility] Last Admin: 09/01/18 10:43 Dose: 75 mg Cyanocobalamin (Vitamin B12 1000 Mcg/Ml Inj) 1,000 mcg IM DAILY [facility] Last Admin: 09/08/18 12:26 Dose: 1,000 mcg Enoxaparin Sodium (Lovenox) 40 mg SC DAILY [facility] Last Admin: 09/08/18 12:23 Dose: 40 mg Ferrous Sulfate (Feosol Liq) 300 mg PO BID [facility] Last Admin: 09/08/18 12:23 Dose: 300 mg Vancomycin HCl 1 gm/ Sodium (Chloride) 250 mls @ 167 mls/hr IVPB Q24H [facility]; Protocol Last Admin: 09/07/18 21:41 Dose: 167 mls/hr Meropenem 500 mg/ Sodium (Chloride) 100 mls @ 100 mls/hr IVPB Q8H [facility]; Protocol Last Admin: 09/08/18 06:14 Dose: 100 mls/hr Memantine (Namenda) 10 mg PO BID [facility] Last Admin: 09/08/18 12:22 Dose: 10 mg Metoprolol Tartrate (Lopressor) 25 mg PO BID [facility] Last Admin: 09/08/18 12:23 Dose: 25 mg Multivitamins (Hexavitamin) 1 tab PO DAILY [facility] Last Admin: 09/08/18 12:22 Dose: 1 tab Pantoprazole Sodium (Protonix Susp) 40 mg PO 0600 [facility] Last Admin: 09/08/18 06:15 Dose: 40 mg Rosuvastatin Calcium (Crestor) 20 mg PO HS [facility] Last Admin: 09/07/18 21:37 Dose: 20 mg - Labs Labs: 09/06/18 06:30 09/06/18 06:30 PT 12.1 SECONDS (9.7-12.2) 09/04/18 07:34 INR 1.1 09/04/18 07:34 APTT 27 SECONDS (21-34) 09/04/18 07:34
--- NOTE | 2018-09-08 19:14 | CP.PCM.PN ---
Subjective - Date & Time of Evaluation Date of Evaluation: 09/08/18 Time of Evaluation: 15:25 - Subjective Subjective: dictated Objective - Vital Signs/Intake and Output Vital Signs (last 24 hours): Temp Pulse Resp BP Pulse Ox 99.3 F 84 20 173/57 H 95 09/08/18 15:31 09/08/18 15:31 09/08/18 15:31 09/08/18 17:36 09/08/18 15:31 Intake and Output: 09/08/18 09/09/18 18:59 06:59 Output Total 200 Balance -200 - Medications Medications: Current Medications Clopidogrel Bisulfate (Plavix) 75 mg PO DAILY [facility] Last Admin: 09/01/18 10:43 Dose: 75 mg Cyanocobalamin (Vitamin B12 1000 Mcg/Ml Inj) 1,000 mcg IM DAILY [facility] Last Admin: 09/08/18 12:26 Dose: 1,000 mcg Enoxaparin Sodium (Lovenox) 40 mg SC DAILY [facility] Last Admin: 09/08/18 12:23 Dose: 40 mg Ferrous Sulfate (Feosol Liq) 300 mg PO BID [facility] Last Admin: 09/08/18 17:36 Dose: 300 mg Vancomycin HCl 1 gm/ Sodium (Chloride) 250 mls @ 167 mls/hr IVPB Q24H [facility]; Protocol Last Admin: 09/07/18 21:41 Dose: 167 mls/hr Meropenem 500 mg/ Sodium (Chloride) 100 mls @ 100 mls/hr IVPB Q8H [facility]; Protocol Last Admin: 09/08/18 14:59 Dose: 100 mls/hr Memantine (Namenda) 10 mg PO BID [facility] Last Admin: 09/08/18 17:36 Dose: 10 mg Metoprolol Tartrate (Lopressor) 25 mg PO BID [facility] Last Admin: 09/08/18 17:36 Dose: 25 mg Multivitamins (Hexavitamin) 1 tab PO DAILY [facility] Last Admin: 09/08/18 12:22 Dose: 1 tab Pantoprazole Sodium (Protonix Susp) 40 mg PO 0600 [facility] Last Admin: 09/08/18 06:15 Dose: 40 mg Rosuvastatin Calcium (Crestor) 20 mg PO HS [facility] Last Admin: 09/07/18 21:37 Dose: 20 mg - Labs Labs: 09/06/18 06:30 09/06/18 06:30 PT 12.1 SECONDS (9.7-12.2) 09/04/18 07:34 INR 1.1 09/04/18 07:34 APTT 27 SECONDS (21-34) 09/04/18 07:34
--- NOTE | 2018-09-08 22:19 | PN ---
DATE: 09/08/2018 SUBJECTIVE: The patient is awake, but confused. He avoids exam. His is at the bedside. PHYSICAL EXAMINATION: GENERAL: However, he is in no acute respiratory distress. HEAD: Atraumatic, normocephalic. NECK: Supple. LUNGS: Clear. HEART: S1, S2 are regular. ABDOMEN: Soft, nontender. He has a sacral decubitus. EXTREMITIES: Remain contracted. LABORATORY DATA: There are no new labs after 09/06/2018, and he is on vancomycin and Merrem. His creatinine is 0.9. ASSESSMENT AND PLAN: We will continue present treatment and planning to put a peripherally inserted central catheter line on Tuesday, so that it becomes easier for him to get his medications, but at that time, I am not sure if we will pull that off, so has been keeping away from it. He does have sacral decubitus which is deep, and he has a wound vacuum-assisted closure at this time. Cultures from 08/29/2018 were noted, and hence, he has been on vancomycin and meropenem at this time, and probably, will need treatment for long time. Stacey Burns MD
[2018-09-09] MEDS: Meropenem 500 MG in Sodium Chloride 0.9% 100 ML IVPB SCH ×3 (06:20→22:11)
[2018-09-09] MEDS: Pantoprazole 40 mg Susp UD PO SCH (06:20)
[2018-09-09] MEDS: Multiple Vitamins Tab PO SCH (09:44)
[2018-09-09] MEDS: Ferrous Sulfate 300 mg/5 mL Liq UD PO SCH ×2 (09:45→17:41)
[2018-09-09] MEDS: Enoxaparin 40 mg Syringe SC SCH (09:45)
--- NOTE | 2018-09-09 12:46 | CP.PCM.PN ---
Subjective - Date & Time of Evaluation Date of Evaluation: 09/09/18 Time of Evaluation: 10:30 - Subjective Subjective: clinically same Objective - Vital Signs/Intake and Output Vital Signs (last 24 hours): Temp Pulse Resp BP Pulse Ox 97.8 F 52 L 20 130/62 96 09/09/18 07:35 09/09/18 07:35 09/09/18 07:35 09/09/18 09:44 09/09/18 07:35 Intake and Output: 09/09/18 09/09/18 06:59 18:59 Intake Total 670 Output Total 250 Balance 420 - Medications Medications: Current Medications Clopidogrel Bisulfate (Plavix) 75 mg PO DAILY [facility] Last Admin: 09/09/18 09:44 Dose: 75 mg Cyanocobalamin (Vitamin B12 1000 Mcg/Ml Inj) 1,000 mcg IM DAILY [facility] Last Admin: 09/09/18 09:45 Dose: 1,000 mcg Enoxaparin Sodium (Lovenox) 40 mg SC DAILY [facility] Last Admin: 09/09/18 09:45 Dose: 40 mg Ferrous Sulfate (Feosol Liq) 300 mg PO BID [facility] Last Admin: 09/09/18 09:45 Dose: 300 mg Vancomycin HCl 1 gm/ Sodium (Chloride) 250 mls @ 167 mls/hr IVPB Q24H [facility]; Protocol Last Admin: 09/08/18 20:54 Dose: 167 mls/hr Meropenem 500 mg/ Sodium (Chloride) 100 mls @ 100 mls/hr IVPB Q8H [facility]; Protocol Last Admin: 09/09/18 06:20 Dose: 100 mls/hr Memantine (Namenda) 10 mg PO BID [facility] Last Admin: 09/09/18 09:45 Dose: 10 mg Metoprolol Tartrate (Lopressor) 25 mg PO BID [facility] Last Admin: 09/09/18 09:44 Dose: 25 mg Multivitamins (Hexavitamin) 1 tab PO DAILY [facility] Last Admin: 09/09/18 09:44 Dose: 1 tab Pantoprazole Sodium (Protonix Susp) 40 mg PO 0600 [facility] Last Admin: 09/09/18 06:20 Dose: 40 mg Rosuvastatin Calcium (Crestor) 20 mg PO HS [facility] Last Admin: 09/08/18 20:59 Dose: 20 mg - Labs Labs: 09/06/18 06:30 09/06/18 06:30 PT 12.1 SECONDS (9.7-12.2) 09/04/18 07:34 INR 1.1 09/04/18 07:34 APTT 27 SECONDS (21-34) 09/04/18 07:34
--- NOTE | 2018-09-09 14:35 | CP.PCM.PN ---
Subjective - Date & Time of Evaluation Date of Evaluation: 09/09/18 Time of Evaluation: 12:45 - Subjective Subjective: patient seen and examined No shortness of breath noted Afebrile On IV antibiotics Objective - Vital Signs/Intake and Output Vital Signs (last 24 hours): Temp Pulse Resp BP Pulse Ox 97.8 F 52 L 20 130/62 96 09/09/18 07:35 09/09/18 07:35 09/09/18 07:35 09/09/18 09:44 09/09/18 07:35 Intake and Output: 09/09/18 09/09/18 06:59 18:59 Intake Total 670 Output Total 250 Balance 420 - Medications Medications: Current Medications Clopidogrel Bisulfate (Plavix) 75 mg PO DAILY [facility] Last Admin: 09/09/18 09:44 Dose: 75 mg Cyanocobalamin (Vitamin B12 1000 Mcg/Ml Inj) 1,000 mcg IM DAILY [facility] Last Admin: 09/09/18 09:45 Dose: 1,000 mcg Enoxaparin Sodium (Lovenox) 40 mg SC DAILY [facility] Last Admin: 09/09/18 09:45 Dose: 40 mg Ferrous Sulfate (Feosol Liq) 300 mg PO BID [facility] Last Admin: 09/09/18 09:45 Dose: 300 mg Vancomycin HCl 1 gm/ Sodium (Chloride) 250 mls @ 167 mls/hr IVPB Q24H [facility]; Protocol Last Admin: 09/08/18 20:54 Dose: 167 mls/hr Meropenem 500 mg/ Sodium (Chloride) 100 mls @ 100 mls/hr IVPB Q8H [facility]; Protocol Last Admin: 09/09/18 06:20 Dose: 100 mls/hr Memantine (Namenda) 10 mg PO BID [facility] Last Admin: 09/09/18 09:45 Dose: 10 mg Metoprolol Tartrate (Lopressor) 25 mg PO BID [facility] Last Admin: 09/09/18 09:44 Dose: 25 mg Multivitamins (Hexavitamin) 1 tab PO DAILY [facility] Last Admin: 09/09/18 09:44 Dose: 1 tab Pantoprazole Sodium (Protonix Susp) 40 mg PO 0600 [facility] Last Admin: 09/09/18 06:20 Dose: 40 mg Rosuvastatin Calcium (Crestor) 20 mg PO HS [facility] Last Admin: 09/08/18 20:59 Dose: 20 mg - Labs Labs: 09/06/18 06:30 09/06/18 06:30 PT 12.1 SECONDS (9.7-12.2) 09/04/18 07:34 INR 1.1 09/04/18 07:34 APTT 27 SECONDS (21-34) 09/04/18 07:34 Assessment and Plan (1) COPD (chronic obstructive pulmonary disease) Status: Acute (2) Sacral decubitus ulcer, stage III Status: Acute (3) Sepsis Status: Acute
--- NOTE | 2018-09-09 19:08 | CP.PCM.PN ---
Subjective - Date & Time of Evaluation Date of Evaluation: 09/09/18 Time of Evaluation: 15:25 - Subjective Subjective: dictated Objective - Vital Signs/Intake and Output Vital Signs (last 24 hours): Temp Pulse Resp BP Pulse Ox 98.2 F 88 20 150/70 97 09/09/18 15:15 09/09/18 15:15 09/09/18 15:15 09/09/18 17:41 09/09/18 15:15 - Medications Medications: Current Medications Clopidogrel Bisulfate (Plavix) 75 mg PO DAILY [facility] Last Admin: 09/09/18 09:44 Dose: 75 mg Cyanocobalamin (Vitamin B12 1000 Mcg/Ml Inj) 1,000 mcg IM DAILY [facility] Last Admin: 09/09/18 09:45 Dose: 1,000 mcg Enoxaparin Sodium (Lovenox) 40 mg SC DAILY [facility] Last Admin: 09/09/18 09:45 Dose: 40 mg Ferrous Sulfate (Feosol Liq) 300 mg PO BID [facility] Last Admin: 09/09/18 17:41 Dose: 300 mg Vancomycin HCl 1 gm/ Sodium (Chloride) 250 mls @ 167 mls/hr IVPB Q24H [facility]; Protocol Last Admin: 09/08/18 20:54 Dose: 167 mls/hr Meropenem 500 mg/ Sodium (Chloride) 100 mls @ 100 mls/hr IVPB Q8H [facility]; Protocol Last Admin: 09/09/18 14:51 Dose: 100 mls/hr Memantine (Namenda) 10 mg PO BID [facility] Last Admin: 09/09/18 17:41 Dose: 10 mg Metoprolol Tartrate (Lopressor) 25 mg PO BID [facility] Last Admin: 09/09/18 17:41 Dose: 25 mg Multivitamins (Hexavitamin) 1 tab PO DAILY [facility] Last Admin: 09/09/18 09:44 Dose: 1 tab Pantoprazole Sodium (Protonix Susp) 40 mg PO 0600 [facility] Last Admin: 09/09/18 06:20 Dose: 40 mg Rosuvastatin Calcium (Crestor) 20 mg PO HS [facility] Last Admin: 09/08/18 20:59 Dose: 20 mg - Labs Labs: 09/06/18 06:30 09/06/18 06:30 PT 12.1 SECONDS (9.7-12.2) 10/08/18 07:34 INR 1.1 09/04/18 07:34 APTT 27 SECONDS (21-34) 09/04/18 07:34
--- NOTE | 2018-09-09 22:54 | CP.PCM.PN ---
Subjective - Date & Time of Evaluation Date of Evaluation: 09/09/18 Time of Evaluation: 16:00 - Subjective Subjective: Appears comfortable Objective - Vital Signs/Intake and Output Vital Signs (last 24 hours): Temp Pulse Resp BP Pulse Ox 98.2 F 88 20 150/70 97 09/09/18 15:15 09/09/18 15:15 09/09/18 15:15 09/09/18 17:41 09/09/18 15:15 - Medications Medications: Current Medications Clopidogrel Bisulfate (Plavix) 75 mg PO DAILY [facility] Last Admin: 09/09/18 09:44 Dose: 75 mg Cyanocobalamin (Vitamin B12 1000 Mcg/Ml Inj) 1,000 mcg IM DAILY [facility] Last Admin: 09/09/18 09:45 Dose: 1,000 mcg Enoxaparin Sodium (Lovenox) 40 mg SC DAILY [facility] Last Admin: 09/09/18 09:45 Dose: 40 mg Ferrous Sulfate (Feosol Liq) 300 mg PO BID [facility] Last Admin: 09/09/18 17:41 Dose: 300 mg Vancomycin HCl 1 gm/ Sodium (Chloride) 250 mls @ 167 mls/hr IVPB Q24H [facility]; Protocol Last Admin: 09/09/18 21:00 Dose: 167 mls/hr Meropenem 500 mg/ Sodium (Chloride) 100 mls @ 100 mls/hr IVPB Q8H [facility]; Protocol Last Admin: 09/09/18 22:11 Dose: 100 mls/hr Memantine (Namenda) 10 mg PO BID [facility] Last Admin: 09/09/18 17:41 Dose: 10 mg Metoprolol Tartrate (Lopressor) 25 mg PO BID [facility] Last Admin: 09/09/18 17:41 Dose: 25 mg Multivitamins (Hexavitamin) 1 tab PO DAILY [facility] Last Admin: 09/09/18 09:44 Dose: 1 tab Pantoprazole Sodium (Protonix Susp) 40 mg PO 0600 [facility] Last Admin: 09/09/18 06:20 Dose: 40 mg Rosuvastatin Calcium (Crestor) 20 mg PO HS [facility] Last Admin: 09/09/18 21:19 Dose: 20 mg - Labs Labs: 09/06/18 06:30 09/06/18 06:30 PT 12.1 SECONDS (9.7-12.2) 09/04/18 07:34 INR 1.1 10/08/18 07:34 APTT 27 SECONDS (21-34) 09/04/18 07:34 - Head Exam Head Exam: ATRAUMATIC - Eye Exam Eye Exam: Normal appearance - ENT Exam ENT Exam: Mucous Membranes Dry - Respiratory Exam Respiratory Exam: NORMAL BREATHING PATTERN - Cardiovascular Exam Cardiovascular Exam: +S1, +S2 - GI/Abdominal Exam GI & Abdominal Exam: Normal Bowel Sounds Assessment and Plan (1) Anemia Assessment & Plan: chronic 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
--- NOTE | 2018-09-09 23:31 | PN ---
DATE: 09/09/2018 INFECTIOUS DISEASE FOLLOWUP SUBJECTIVE: The patient remains awake and alert. He was in bed. He is mostly bedbound, contracted. Has a sacral decubitus with a wound VAC and has been getting antibiotics. His meropenem has , which I will renew. Vitals were stable. PHYSICAL EXAMINATION: VITAL SIGNS: T-max is 98.2, blood pressure 152/73, respirations are 20, saturation 97%. HEENT: Head is atraumatic. NECK: Supple. LUNGS: Clear. HEART: S1 and S2 are regular. ABDOMEN: Soft, nontender. EXTREMITIES: Remain contracted. ASSESSMENT AND PLAN: Sacral decubitus, has a wound vacuum-assisted closure. We will renew the meropenem at this time. 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 The does not want to send him to the alf, but he will need intravenous antibiotics for some time and will need wound care and maybe wound vacuum-assisted closure. We will follow and renew vancomycin as well as Merrem at this time. We can order for a peripherally inserted central catheter line as may run out of intravenous sites. Stacey Burns MD
[2018-09-10] MEDS: Pantoprazole 40 mg Susp UD PO SCH (06:17)
[2018-09-10] MEDS: Meropenem 500 MG in Sodium Chloride 0.9% 100 ML IVPB SCH ×3 (06:48→22:55)
[2018-09-10] MEDS: Multiple Vitamins Tab PO SCH (11:13)
[2018-09-10] MEDS: Ferrous Sulfate 300 mg/5 mL Liq UD PO SCH ×2 (11:13→18:53)
[2018-09-10] MEDS: Enoxaparin 40 mg Syringe SC SCH (11:14)
--- NOTE | 2018-09-10 16:19 | CP.PCM.PN ---
Subjective - Date & Time of Evaluation Date of Evaluation: 09/10/18 Time of Evaluation: 10:45 - Subjective Subjective: clinically same Objective - Vital Signs/Intake and Output Vital Signs (last 24 hours): Temp Pulse Resp BP Pulse Ox 98.0 F 97 H 20 144/76 96 09/10/18 07:00 09/10/18 07:00 09/10/18 07:00 09/10/18 11:13 09/10/18 07:00 Intake and Output: 09/10/18 09/10/18 06:59 18:59 Intake Total 590 Output Total 400 Balance 190 - Medications Medications: Current Medications Clopidogrel Bisulfate (Plavix) 75 mg PO DAILY [facility] Last Admin: 09/10/18 11:13 Dose: 75 mg Cyanocobalamin (Vitamin B12 1000 Mcg/Ml Inj) 1,000 mcg IM DAILY [facility] Last Admin: 09/10/18 11:14 Dose: 1,000 mcg Enoxaparin Sodium (Lovenox) 40 mg SC DAILY [facility] Last Admin: 09/10/18 11:14 Dose: 40 mg Ferrous Sulfate (Feosol Liq) 300 mg PO BID [facility] Last Admin: 09/10/18 11:13 Dose: 300 mg Vancomycin HCl 1 gm/ Sodium (Chloride) 250 mls @ 167 mls/hr IVPB Q24H [facility]; Protocol Last Admin: 09/09/18 21:00 Dose: 167 mls/hr Meropenem 500 mg/ Sodium (Chloride) 100 mls @ 100 mls/hr IVPB Q8H [facility]; Protocol Last Admin: 09/10/18 15:21 Dose: 100 mls/hr Memantine (Namenda) 10 mg PO BID [facility] Last Admin: 09/10/18 11:13 Dose: 10 mg Metoprolol Tartrate (Lopressor) 25 mg PO BID [facility] Last Admin: 09/10/18 11:13 Dose: 25 mg Multivitamins (Hexavitamin) 1 tab PO DAILY [facility] Last Admin: 09/10/18 11:13 Dose: 1 tab Pantoprazole Sodium (Protonix Susp) 40 mg PO 0600 [facility] Last Admin: 09/10/18 06:17 Dose: 40 mg Rosuvastatin Calcium (Crestor) 20 mg PO HS [facility] Last Admin: 09/09/18 21:19 Dose: 20 mg - Labs Labs: 09/06/18 06:30 09/06/18 06:30 PT 12.1 SECONDS (9.7-12.2) 09/04/18 07:34 INR 1.1 09/04/18 07:34 APTT 27 SECONDS (21-34) 09/04/18 07:34
[2018-09-11] MEDS: Pantoprazole 40 mg Susp UD PO SCH (05:57)
[2018-09-11] MEDS: Meropenem 500 MG in Sodium Chloride 0.9% 100 ML IVPB SCH ×3 (06:00→22:21)
[2018-09-11] MEDS: Ferrous Sulfate 300 mg/5 mL Liq UD PO SCH ×2 (10:52→18:39)
[2018-09-11] MEDS: Multiple Vitamins Tab PO SCH (10:52)
[2018-09-11] MEDS: Enoxaparin 40 mg Syringe SC SCH (10:53)
--- NOTE | 2018-09-11 15:19 | CP.PCM.PN ---
Subjective - Date & Time of Evaluation Date of Evaluation: 09/11/18 Time of Evaluation: 15:00 - Subjective Subjective: Surgery progress note for Dr. Paulson Pt seen and examined at bedside. Wound vac was changed. Patient had some pain during the wound vac change but there were no signs of infection Objective - Vital Signs/Intake and Output Vital Signs (last 24 hours): Temp Pulse Resp BP Pulse Ox 98.2 F 100 H 20 147/73 98 09/11/18 08:09 09/11/18 08:09 09/11/18 08:09 09/11/18 10:52 09/11/18 08:09 Intake and Output: 09/11/18 09/11/18 06:59 18:59 Intake Total 240 Output Total 600 300 Balance -360 -300 - Medications Medications: Current Medications Clopidogrel Bisulfate (Plavix) 75 mg PO DAILY [facility] Last Admin: 09/11/18 10:52 Dose: 75 mg Cyanocobalamin (Vitamin B12 1000 Mcg/Ml Inj) 1,000 mcg IM DAILY [facility] Last Admin: 09/11/18 10:52 Dose: 1,000 mcg Enoxaparin Sodium (Lovenox) 40 mg SC DAILY [facility] Last Admin: 09/11/18 10:53 Dose: 40 mg Ferrous Sulfate (Feosol Liq) 300 mg PO BID [facility] Last Admin: 09/11/18 10:52 Dose: 300 mg Vancomycin HCl 1 gm/ Sodium (Chloride) 250 mls @ 167 mls/hr IVPB Q24H [facility]; Protocol Last Admin: 09/10/18 21:19 Dose: 167 mls/hr Meropenem 500 mg/ Sodium (Chloride) 100 mls @ 100 mls/hr IVPB Q8H [facility]; Protocol Last Admin: 09/11/18 06:00 Dose: 100 mls/hr Memantine (Namenda) 10 mg PO BID [facility] Last Admin: 09/11/18 10:52 Dose: 10 mg Metoprolol Tartrate (Lopressor) 25 mg PO BID [facility] Last Admin: 09/11/18 10:52 Dose: 25 mg Multivitamins (Hexavitamin) 1 tab PO DAILY [facility] Last Admin: 09/11/18 10:52 Dose: 1 tab Pantoprazole Sodium (Protonix Susp) 40 mg PO 0600 [facility] Last Admin: 09/11/18 05:57 Dose: 40 mg Rosuvastatin Calcium (Crestor) 20 mg PO HS [facility] Last Admin: 09/10/18 21:23 Dose: 20 mg - Labs Labs: 09/06/18 06:30 09/06/18 06:30 PT 12.1 SECONDS (9.7-12.2) 09/04/18 07:34 INR 1.1 09/04/18 07:34 APTT 27 SECONDS (21-34) 09/04/18 07:34 - Constitutional Appears: Non-toxic, No Acute Distress, Chronically Ill - Head Exam Head Exam: ATRAUMATIC, NORMOCEPHALIC - Eye Exam Eye Exam: Normal appearance. absent: Conjunctival injection, Scleral icterus - ENT Exam ENT Exam: Mucous Membranes Moist, Normal Oropharynx - Respiratory Exam Respiratory Exam: NORMAL BREATHING PATTERN. absent: Accessory Muscle Use, Respiratory Distress - Cardiovascular Exam Cardiovascular Exam: RRR - GI/Abdominal Exam GI & Abdominal Exam: Soft. absent: Distended, Tenderness - Back Exam Additional comments: Stage 4 decubitus ulcer - Neurological Exam Neurological Exam: Alert, Altered, Awake. absent: Oriented x3 - Psychiatric Exam Psychiatric exam: Normal Affect, Normal Mood - Skin Skin Exam: Dry, Normal Color, Warm Assessment and Plan - Assessment and Plan (Free Text) Assessment: 87M with stage 4 sacral decubitus ulcer s/p debridement and wound vac placement Plan: Wound vac changed today--wound needs no further surgical treatment at this time. Wound vac changes/wound care per wound care nurse Turn Q2, air mattress Patient may follow up with Dr. Paulson in his office after discharge Patient is clear for discharge from a surgical standpoint with continued wound vac therapy with changes 2x/week Discussed with Dr. Khurarm Boyle, PGY2
[2018-09-11 17:47] VITALS: O2SAT 95
--- NOTE | 2018-09-11 17:47 | CP.PCM.PN ---
Subjective - Date & Time of Evaluation Date of Evaluation: 09/11/18 Time of Evaluation: 12:40 - Subjective Subjective: Patient was seen and examined at bedside resting comfortably. Afebrile and in no acute distress. Patient is more alert today, makes appropriate statement regarding weather. Reports feeling well overall. Denies SOB, chest pain or cough. PLAN - Continue current antibiotic therapy Objective - Vital Signs/Intake and Output Vital Signs (last 24 hours): Temp Pulse Resp BP Pulse Ox 98.2 F 100 H 20 147/73 98 09/11/18 08:09 09/11/18 08:09 09/11/18 08:09 09/11/18 10:52 09/11/18 08:09 Intake and Output: 09/11/18 09/11/18 06:59 18:59 Intake Total 240 Output Total 600 300 Balance -360 -300 - Medications Medications: Current Medications Clopidogrel Bisulfate (Plavix) 75 mg PO DAILY [facility] Last Admin: 09/11/18 10:52 Dose: 75 mg Cyanocobalamin (Vitamin B12 1000 Mcg/Ml Inj) 1,000 mcg IM DAILY [facility] Last Admin: 09/11/18 10:52 Dose: 1,000 mcg Enoxaparin Sodium (Lovenox) 40 mg SC DAILY [facility] Last Admin: 09/11/18 10:53 Dose: 40 mg Ferrous Sulfate (Feosol Liq) 300 mg PO BID [facility] Last Admin: 09/11/18 10:52 Dose: 300 mg Vancomycin HCl 1 gm/ Sodium (Chloride) 250 mls @ 167 mls/hr IVPB Q24H [facility]; Protocol Last Admin: 09/10/18 21:19 Dose: 167 mls/hr Meropenem 500 mg/ Sodium (Chloride) 100 mls @ 100 mls/hr IVPB Q8H [facility]; Protocol Last Admin: 09/11/18 14:58 Dose: 100 mls/hr Memantine (Namenda) 10 mg PO BID [facility] Last Admin: 09/11/18 10:52 Dose: 10 mg Metoprolol Tartrate (Lopressor) 25 mg PO BID [facility] Last Admin: 09/11/18 10:52 Dose: 25 mg Multivitamins (Hexavitamin) 1 tab PO DAILY [facility] Last Admin: 09/11/18 10:52 Dose: 1 tab Pantoprazole Sodium (Protonix Susp) 40 mg PO 0600 [facility] Last Admin: 09/11/18 05:57 Dose: 40 mg Rosuvastatin Calcium (Crestor) 20 mg PO HS [facility] Last Admin: 09/10/18 21:23 Dose: 20 mg - Labs Labs: 09/06/18 06:30 09/06/18 06:30 PT 12.1 SECONDS (9.7-12.2) 09/04/18 07:34 INR 1.1 09/04/18 07:34 APTT 27 SECONDS (21-34) 09/04/18 07:34 Assessment and Plan (1) COPD (chronic obstructive pulmonary disease) Status: Acute (2) Sacral decubitus ulcer, stage III Status: Acute (3) Sepsis Status: Acute
--- NOTE | 2018-09-11 18:42 | CP.PCM.PN ---
Subjective - Date & Time of Evaluation Date of Evaluation: 09/11/18 Time of Evaluation: 12:30 - Subjective Subjective: clinically same Objective - Vital Signs/Intake and Output Vital Signs (last 24 hours): Temp Pulse Resp BP Pulse Ox 98.2 F 95 H 18 197/82 H 95 09/11/18 15:45 09/11/18 15:45 09/11/18 15:45 09/11/18 18:40 09/11/18 15:45 Intake and Output: 09/11/18 09/11/18 06:59 18:59 Intake Total 240 Output Total 600 300 Balance -360 -300 - Medications Medications: Current Medications Clopidogrel Bisulfate (Plavix) 75 mg PO DAILY [facility] Last Admin: 09/11/18 10:52 Dose: 75 mg Cyanocobalamin (Vitamin B12 1000 Mcg/Ml Inj) 1,000 mcg IM DAILY [facility] Last Admin: 09/11/18 10:52 Dose: 1,000 mcg Enoxaparin Sodium (Lovenox) 40 mg SC DAILY [facility] Last Admin: 09/11/18 10:53 Dose: 40 mg Ferrous Sulfate (Feosol Liq) 300 mg PO BID [facility] Last Admin: 09/11/18 18:39 Dose: 300 mg Vancomycin HCl 1 gm/ Sodium (Chloride) 250 mls @ 167 mls/hr IVPB Q24H [facility]; Protocol Last Admin: 09/10/18 21:19 Dose: 167 mls/hr Meropenem 500 mg/ Sodium (Chloride) 100 mls @ 100 mls/hr IVPB Q8H [facility]; Protocol Last Admin: 09/11/18 14:58 Dose: 100 mls/hr Memantine (Namenda) 10 mg PO BID [facility] Last Admin: 09/11/18 18:39 Dose: 10 mg Metoprolol Tartrate (Lopressor) 25 mg PO BID [facility] Last Admin: 09/11/18 18:40 Dose: 25 mg Multivitamins (Hexavitamin) 1 tab PO DAILY [facility] Last Admin: 09/11/18 10:52 Dose: 1 tab Pantoprazole Sodium (Protonix Susp) 40 mg PO 0600 [facility] Last Admin: 09/11/18 05:57 Dose: 40 mg Rosuvastatin Calcium (Crestor) 20 mg PO HS [facility] Last Admin: 09/10/18 21:23 Dose: 20 mg - Labs Labs: 09/06/18 06:30 10/10/18 06:30 PT 12.1 SECONDS (9.7-12.2) 09/04/18 07:34 INR 1.1 09/04/18 07:34 APTT 27 SECONDS (21-34) 09/04/18 07:34
--- NOTE | 2018-09-11 19:54 | CP.PCM.PN ---
Subjective - Date & Time of Evaluation Date of Evaluation: 09/11/18 Time of Evaluation: 15:30 - Subjective Subjective: dictated Objective - Vital Signs/Intake and Output Vital Signs (last 24 hours): Temp Pulse Resp BP Pulse Ox 98.2 F 95 H 18 197/82 H 95 09/11/18 15:45 09/11/18 15:45 09/11/18 15:45 09/11/18 18:40 09/11/18 15:45 Intake and Output: 09/11/18 09/12/18 18:59 06:59 Output Total 300 Balance -300 - Medications Medications: Current Medications Clopidogrel Bisulfate (Plavix) 75 mg PO DAILY [facility] Last Admin: 09/11/18 10:52 Dose: 75 mg Cyanocobalamin (Vitamin B12 1000 Mcg/Ml Inj) 1,000 mcg IM DAILY [facility] Last Admin: 09/11/18 10:52 Dose: 1,000 mcg Enoxaparin Sodium (Lovenox) 40 mg SC DAILY [facility] Last Admin: 09/11/18 10:53 Dose: 40 mg Ferrous Sulfate (Feosol Liq) 300 mg PO BID [facility] Last Admin: 09/11/18 18:39 Dose: 300 mg Vancomycin HCl 1 gm/ Sodium (Chloride) 250 mls @ 167 mls/hr IVPB Q24H [facility]; Protocol Last Admin: 09/10/18 21:19 Dose: 167 mls/hr Meropenem 500 mg/ Sodium (Chloride) 100 mls @ 100 mls/hr IVPB Q8H [facility]; Protocol Last Admin: 09/11/18 14:58 Dose: 100 mls/hr Memantine (Namenda) 10 mg PO BID [facility] Last Admin: 09/11/18 18:39 Dose: 10 mg Metoprolol Tartrate (Lopressor) 25 mg PO BID [facility] Last Admin: 09/11/18 18:40 Dose: 25 mg Multivitamins (Hexavitamin) 1 tab PO DAILY [facility] Last Admin: 09/11/18 10:52 Dose: 1 tab Pantoprazole Sodium (Protonix Susp) 40 mg PO 0600 [facility] Last Admin: 09/11/18 05:57 Dose: 40 mg Rosuvastatin Calcium (Crestor) 20 mg PO HS [facility] Last Admin: 09/10/18 21:23 Dose: 20 mg - Labs Labs: 09/06/18 06:30 09/06/18 06:30 PT 12.1 SECONDS (9.7-12.2) 09/04/18 07:34 INR 1.1 09/04/18 07:34 APTT 27 SECONDS (21-34) 09/04/18 07:34
--- NOTE | 2018-09-11 22:10 | CP.PCM.PN ---
Subjective - Date & Time of Evaluation Date of Evaluation: 09/11/18 Time of Evaluation: 18:00 - Subjective Subjective: More alert today. Objective - Vital Signs/Intake and Output Vital Signs (last 24 hours): Temp Pulse Resp BP Pulse Ox 98.2 F 95 H 18 197/82 H 95 09/11/18 15:45 09/11/18 15:45 09/11/18 15:45 09/11/18 18:40 09/11/18 15:45 Intake and Output: 09/11/18 09/12/18 18:59 06:59 Output Total 300 Balance -300 - Medications Medications: Current Medications Clopidogrel Bisulfate (Plavix) 75 mg PO DAILY [facility] Last Admin: 09/11/18 10:52 Dose: 75 mg Cyanocobalamin (Vitamin B12 1000 Mcg/Ml Inj) 1,000 mcg IM DAILY [facility] Last Admin: 09/11/18 10:52 Dose: 1,000 mcg Enoxaparin Sodium (Lovenox) 40 mg SC DAILY [facility] Last Admin: 09/11/18 10:53 Dose: 40 mg Ferrous Sulfate (Feosol Liq) 300 mg PO BID [facility] Last Admin: 09/11/18 18:39 Dose: 300 mg Vancomycin HCl 1 gm/ Sodium (Chloride) 250 mls @ 167 mls/hr IVPB Q24H [facility]; Protocol Last Admin: 09/10/18 21:19 Dose: 167 mls/hr Meropenem 500 mg/ Sodium (Chloride) 100 mls @ 100 mls/hr IVPB Q8H [facility]; Protocol Last Admin: 09/11/18 14:58 Dose: 100 mls/hr Memantine (Namenda) 10 mg PO BID [facility] Last Admin: 09/11/18 18:39 Dose: 10 mg Metoprolol Tartrate (Lopressor) 25 mg PO BID [facility] Last Admin: 09/11/18 18:40 Dose: 25 mg Multivitamins (Hexavitamin) 1 tab PO DAILY [facility] Last Admin: 09/11/18 10:52 Dose: 1 tab Pantoprazole Sodium (Protonix Susp) 40 mg PO 0600 [facility] Last Admin: 09/11/18 05:57 Dose: 40 mg Rosuvastatin Calcium (Crestor) 20 mg PO HS [facility] Last Admin: 09/10/18 21:23 Dose: 20 mg - Labs Labs: 09/06/18 06:30 09/06/18 06:30 PT 12.1 SECONDS (9.7-12.2) 09/04/18 07:34 INR 1.1 09/04/18 07:34 APTT 27 SECONDS (21-34) 09/04/18 07:34 - Head Exam Head Exam: ATRAUMATIC - Eye Exam Eye Exam: Normal appearance - ENT Exam ENT Exam: Mucous Membranes Dry - Respiratory Exam Respiratory Exam: NORMAL BREATHING PATTERN - Cardiovascular Exam Cardiovascular Exam: +S1, +S2 - GI/Abdominal Exam GI & Abdominal Exam: Normal Bowel Sounds Assessment and Plan (1) Anemia Assessment & Plan: chronic 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
--- NOTE | 2018-09-12 01:09 | PN ---
DATE: 09/11/2018 SUBJECTIVE: The patient was awake and alert. His was at the bedside, and I asked her that he may be better off having a PICC line as they do not have to him that much. He needs long-term antibiotics as he has a deep-seated sacral decubitus and is undergoing wound VAC treatment, so she signed the consent and it is in the chart. We will ask Dr. Mason Ko to order for a PICC line and probably that may be better for him. PHYSICAL EXAMINATION: VITAL SIGNS: He remains afebrile. T-max is 98.2, pulse 95, blood pressure 197/82, respirations 18. HEENT: Head is atraumatic. NECK: Supple. LUNGS: Clear. HEART: S1, S2 are regular. EXTREMITIES: He is contracted. He has a sacral wound with wound VAC. We have not done repeat labs for a few days, so we will repeat his labs tomorrow and also get PT and PTT, so they can consider to put a PICC line. ASSESSMENT AND PLAN: The patient is with dementia and with ventriculoperitoneal shunt, bed-bound and functional quadriplegia. We will follow. Stacey Burns MD
[2018-09-12 01:12] VITALS: RESP 20
[2018-09-12] MEDS: Meropenem 500 MG in Sodium Chloride 0.9% 100 ML IVPB SCH ×2 (06:02→14:25)
[2018-09-12] MEDS: Pantoprazole 40 mg Susp UD PO SCH (06:03)
[2018-09-12 06:32] LABS: BASO % 0.4 % (0.0-2.0); EOS # 0.1 K/uL (0.0-0.7); HEMOGLOBIN 9.4 g/dL (12.0-18.0); LYMPH # 1.5 K/uL (1.0-4.3); LYMPH % 21.6 % (20.0-40.0); MEAN CELL VOLUME 89.9 fL (80.0-94.0); MEAN CORPUSCULAR HEMOGLOBIN 30.1 pg (27.0-31.0); MEAN CORPUSCULAR HGB CONC 33.4 g/dL (33.0-37.0); MEAN PLATELET VOLUME 9.1 fL (7.2-11.7); MONO # 0.5 K/uL (0.0-0.8); MONO % 7.7 % (0.0-10.0); NEUT # 4.8 K/uL (1.8-7.0); NEUT % 69.3 % (50.0-75.0); RBC 3.13 Mil/uL (4.40-5.90); RED CELL DISTRIBUTION WIDTH 14.2 % (11.5-14.5); WHITE BLOOD COUNT 6.9 K/uL (4.8-10.8)
[2018-09-12 07:23] LABS: ALB/GLOB RATIO 0.7 (1.0-2.1); ALBUMIN 2.1 g/dL (3.5-5.0); ALT/SGPT 24 U/L (21-72); AST/SGOT 37 U/L (17-59); BLOOD UREA NITROGEN 20 mg/dL (9-20); CALCIUM 7.8 mg/dl (8.6-10.4); GFR NON-AFRICAN AMERICAN > 60
[2018-09-12 08:09] VITALS: PULSE 91; TEMP 98.1
--- NOTE | 2018-09-12 10:00 | RAD ---
Date of service: 09/12/2018 HISTORY: PICC Insertion COMPARISON: 08/29/2018 FINDINGS: LUNGS: Extensive right basilar opacity. Likely due in part to pleural effusion but cannot exclude superimposed pneumonia. Diffuse interstitial prominence. Possible interstitial pulmonary edema. PLEURA: Small to moderate right pleural effusion. Probable small left pleural effusion. CARDIOVASCULAR: Normal heart size. Right PICC catheter noted terminating in the region of the superior vena cava. Mild congestive change noted. OSSEOUS STRUCTURES: No significant abnormalities. VISUALIZED UPPER ABDOMEN: Normal. OTHER FINDINGS: None. IMPRESSION: Bilateral pleural effusion, right greater than left. Possible right basilar infiltrate. Diffuse interstitial infiltrate, possibly due to interstitial pulmonary edema.
[2018-09-12] MEDS: Multiple Vitamins Tab PO SCH (11:20)
[2018-09-12] MEDS: Ferrous Sulfate 300 mg/5 mL Liq UD PO SCH (11:20)
[2018-09-12] MEDS: Enoxaparin 40 mg Syringe SC SCH (11:22)
[2018-09-12 11:23] VITALS: BP 158/70
--- NOTE | 2018-09-12 12:31 | CP.PCM.PCO ---
Physician Communication Note - Physician Communication Note Physician Communication Note: Wound care discharge instructions Addendum Addendum: 09/12/18 12:31 Sacral decubitus ulcer approximately 8cm in length and 5cm in width, 1cm in depth with healthy beefy red muscle at base with middle white fascia tissue Wound vac continuous 125mmHg suction to be changed 2x/week right hip superficial wounds approximately 1-2cm in diameter to be covered in medihoney and optifoam BID
--- NOTE | 2018-09-12 12:34 | CP.PCM.PN ---
Subjective - Date & Time of Evaluation Date of Evaluation: 09/12/18 Time of Evaluation: 12:34 - Subjective Subjective: -PLACE UNDER THE SERVICE OF DR. Bartolo ACOSTA WHILE AT [facility]---CALL UPON ARRIVAL TO FACILITY FOR ADMITTING ORDERS AND BED ASSIGNMENT. -CONTINUE WOUND VAC CONTINUOUSLY FOLLOWS: CHANGE DRESSING TO WOUND VAC EVERY TUESDAY AND TUESDAY X10 WEEKS (STARTED ON 09/05/18 AND LAST DAY FOR DRESSING CHANGE TO WOUND VAC IS 11/16/18). -PLEASE ARRANGE FOR MR. VELÁSQUEZ TO FOLLOW UP WITH SURGEON, DR. RUBALCAVA, IN HIS OFFICE WITHIN 1 WEEK---CALL TO MAKE AN APPOINTMENT AND PLEASE PROVIDE TRANSPORTATION. -PICC LINE CARE PER FACILITY PROTOCOL. -PER DR. BACA (ID), PLEASE CONTINUE THE FOLLOWING: MERREM 500 MG IV Q8 HOURS X 15 MORE DAY (START 09/12/18 AND LAST DOSE TO BE GIVEN ON 09/27/18) AND VANCOMYCIN 1 GM IV ONCE A DAY X 14 MORE DAYS (START 09/12/18 AND LAST DOSE TO BE GIVEN ON 09/26/18). -PLEASE DO WEEKLY LABS PER DR. BACA'S REQUEST; NOTIFY DR. Mason ACOSTA OF RESULTS: CBC, CMP, CRP, ESR. PLEASE DO EVERY TUESDAY (START 09/19/18). -CONTINUE OTHER MEDS PER MED REC FORM---CHANGES CAN BE MADE BY DR. Mason ACOSTA. -FOR FURTHER ORDERS, CALL DR. Mason ACOSTA'S OFFICE. Objective - Vital Signs/Intake and Output Vital Signs (last 24 hours): Temp Pulse Resp BP Pulse Ox 98.1 F 91 H 20 158/70 H 95 09/12/18 07:00 09/12/18 07:00 09/12/18 07:00 09/12/18 11:21 09/12/18 07:00 Intake and Output: 09/12/18 09/12/18 06:59 18:59 Intake Total 350 Output Total 350 Balance 0 - Medications Medications: Current Medications Clopidogrel Bisulfate (Plavix) 75 mg PO DAILY [facility] Last Admin: 09/11/18 10:52 Dose: 75 mg Cyanocobalamin (Vitamin B12 1000 Mcg/Ml Inj) 1,000 mcg IM DAILY [facility] Last Admin: 09/11/18 10:52 Dose: 1,000 mcg Enoxaparin Sodium (Lovenox) 40 mg SC DAILY [facility] Last Admin: 09/12/18 11:22 Dose: 40 mg Ferrous Sulfate (Feosol Liq) 300 mg PO BID [facility] Last Admin: 09/12/18 11:20 Dose: 300 mg Vancomycin HCl 1 gm/ Sodium (Chloride) 250 mls @ 167 mls/hr IVPB Q24H [facility]; Protocol Last Admin: 09/11/18 21:25 Dose: 167 mls/hr Meropenem 500 mg/ Sodium (Chloride) 100 mls @ 100 mls/hr IVPB Q8H [facility]; Protocol Last Admin: 09/12/18 06:02 Dose: 100 mls/hr Memantine (Namenda) 10 mg PO BID [facility] Last Admin: 09/11/18 18:39 Dose: 10 mg Metoprolol Tartrate (Lopressor) 25 mg PO BID [facility] Last Admin: 09/12/18 11:21 Dose: 25 mg Multivitamins (Hexavitamin) 1 tab PO DAILY [facility] Last Admin: 09/12/18 11:20 Dose: 1 tab Pantoprazole Sodium (Protonix Susp) 40 mg PO 0600 [facility] Last Admin: 09/12/18 06:03 Dose: 40 mg Rosuvastatin Calcium (Crestor) 20 mg PO HS [facility] Last Admin: 09/11/18 22:24 Dose: 20 mg - Labs Labs: 09/12/18 06:23 09/12/18 06:23 PT 12.1 SECONDS (9.7-12.2) 09/04/18 07:34 INR 1.1 09/04/18 07:34 APTT 27 SECONDS (21-34) 09/04/18 07:34
--- NOTE | 2018-09-12 14:55 | CP.PCM.PN ---
Subjective - Date & Time of Evaluation Date of Evaluation: 09/12/18 Time of Evaluation: 14:25 - Subjective Subjective: dictated Objective - Vital Signs/Intake and Output Vital Signs (last 24 hours): Temp Pulse Resp BP Pulse Ox 98.1 F 91 H 20 158/70 H 95 09/12/18 07:00 09/12/18 07:00 09/12/18 07:00 09/12/18 11:21 09/12/18 07:00 Intake and Output: 09/12/18 09/12/18 06:59 18:59 Intake Total 350 Output Total 350 Balance 0 - Medications Medications: Current Medications Clopidogrel Bisulfate (Plavix) 75 mg PO DAILY [facility] Last Admin: 09/12/18 14:16 Dose: 75 mg Cyanocobalamin (Vitamin B12 1000 Mcg/Ml Inj) 1,000 mcg IM DAILY [facility] Last Admin: 09/12/18 14:18 Dose: 1,000 mcg Enoxaparin Sodium (Lovenox) 40 mg SC DAILY [facility] Last Admin: 09/12/18 11:22 Dose: 40 mg Ferrous Sulfate (Feosol Liq) 300 mg PO BID [facility] Last Admin: 09/12/18 11:20 Dose: 300 mg Vancomycin HCl 1 gm/ Sodium (Chloride) 250 mls @ 167 mls/hr IVPB Q24H [facility]; Protocol Last Admin: 09/11/18 21:25 Dose: 167 mls/hr Meropenem 500 mg/ Sodium (Chloride) 100 mls @ 100 mls/hr IVPB Q8H [facility]; Protocol Last Admin: 09/12/18 14:25 Dose: 100 mls/hr Memantine (Namenda) 10 mg PO BID [facility] Last Admin: 09/12/18 14:15 Dose: 10 mg Metoprolol Tartrate (Lopressor) 25 mg PO BID [facility] Last Admin: 09/12/18 11:21 Dose: 25 mg Multivitamins (Hexavitamin) 1 tab PO DAILY [facility] Last Admin: 09/12/18 11:20 Dose: 1 tab Pantoprazole Sodium (Protonix Susp) 40 mg PO 0600 [facility] Last Admin: 09/12/18 06:03 Dose: 40 mg Rosuvastatin Calcium (Crestor) 20 mg PO HS [facility] Last Admin: 09/11/18 22:24 Dose: 20 mg - Labs Labs: 09/12/18 06:23 09/12/18 06:23 PT 12.1 SECONDS (9.7-12.2) 09/04/18 07:34 INR 1.1 09/04/18 07:34 APTT 27 SECONDS (21-34) 09/04/18 07:34
--- NOTE | 2018-09-13 05:48 | PN ---
DATE: 09/12/2018 SUBJECTIVE: Yesterday, his gave a consent for the PICC line and he did get a PICC line done. He is drowsy at this time as they sedated him, so he does not bite them, but he has a PICC line. PHYSICAL EXAMINATION: VITAL SIGNS: Stable. Temperature is 98.1, pulse 91, blood pressure 157/70, respirations are 20. HEENT: Head is atraumatic, normocephalic. NECK: Supple. LUNGS: Clear. HEART: S1, S2 regular. ABDOMEN: Soft, nontender, no guarding, no rigidity present. EXTREMITIES: Remained contracted. Lower extremities, he does have multiple small superficial decubitus, but he has a big one for which they were applying wound VAC and cultures are there. He is getting vancomycin for MRSA and meropenem and I have planned to give it for 4 more weeks and he needs good nutrition and good albumin and position change and local wound care along with treatment and hopefully will improve. If it does not, he may need a diverting colostomy, but I am hopeful. LABORATORY DATA: Last labs are noted today. White count is 6.9, hemoglobin 9.4, hematocrit 28.2, platelet count is 184. Potassium is 3.9, chloride is 114, sodium is 145, BUN is 20, creatinine 0.9 and albumin is 2.1 which needs to improve. I am told that he will be going to a rehab, so they could follow CBC, CMP, ESR, and CRP weekly; given wound care with multivitamin, zinc, and vitamin C . He is already on a multivitamin at this time and on B12. Stacey Burns MD
--- NOTE | 2018-09-14 19:18 | CP.PCM.PN ---
Subjective - Date & Time of Evaluation Date of Evaluation: 09/12/18 Time of Evaluation: 12:00 - Subjective Subjective: No complaints. Objective - Vital Signs/Intake and Output Vital Signs (last 24 hours): Temp Pulse Resp BP Pulse Ox 98.1 F 91 H 20 158/70 H 95 09/12/18 07:00 09/12/18 07:00 09/12/18 07:00 09/12/18 11:21 09/12/18 07:00 - Labs Labs: 09/12/18 06:23 09/12/18 06:23 PT 12.1 SECONDS (9.7-12.2) 09/04/18 07:34 INR 1.1 09/04/18 07:34 APTT 27 SECONDS (21-34) 09/04/18 07:34 - Head Exam Head Exam: ATRAUMATIC - Eye Exam Eye Exam: Normal appearance - ENT Exam ENT Exam: Mucous Membranes Dry - Respiratory Exam Respiratory Exam: NORMAL BREATHING PATTERN - Cardiovascular Exam Cardiovascular Exam: +S1, +S2 - GI/Abdominal Exam GI & Abdominal Exam: Normal Bowel Sounds Assessment and Plan (1) Anemia Assessment & Plan: chronic 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
== END 2018-09-12 15:20 | DRG 853 ==
LOC: C.ER 16:37 → C.9E 18:26 → UNDOADMIN 18:26 → C.9E 19:51 → C.6T 22:57
PROVIDERS: ADMIT Internal Medicine Nephrology; ATTEND Internal Medicine Nephrology
PROC: 0JB70ZZ Excision of Back Subcutaneous Tissue and Fascia, Open Approach (ICD-10-PCS; principal; 2018-09-06 10:45)
PROC: 02HV33Z Insertion of Infusion Device into Superior Vena Cava, Percutaneous Approach (ICD-10-PCS; 2018-09-12)
DX: A41.9 Sepsis, unspecified organism (principal); L89.154 Pressure ulcer of sacral region, stage 4; R53.2 Functional quadriplegia; N39.0 Urinary tract infection, site not specified; I69.254 Hemiplegia and hemiparesis following other nontraumatic intracranial hemorrhage affecting left non-dominant side; G91.9 Hydrocephalus, unspecified; I50.32 Chronic diastolic (congestive) heart failure; M46.28 Osteomyelitis of vertebra, sacral and sacrococcygeal region; E53.8 Deficiency of other specified B group vitamins; E78.5 Hyperlipidemia, unspecified; F03.90 Unspecified dementia, unspecified severity, without behavioral disturbance, psychotic disturbance, mood disturbance, and anxiety; I11.0 Hypertensive heart disease with heart failure; I49.3 Ventricular premature depolarization; N40.1 Benign prostatic hyperplasia with lower urinary tract symptoms; Z74.01 Bed confinement status; Z95.5 Presence of coronary angioplasty implant and graft; Z87.891 Personal history of nicotine dependence; J44.9 Chronic obstructive pulmonary disease, unspecified; I25.2 Old myocardial infarction; I25.10 Atherosclerotic heart disease of native coronary artery without angina pectoris; J43.9 Emphysema, unspecified; M24.50 Contracture, unspecified joint; D64.9 Anemia, unspecified

== ENCOUNTER 2018-10-03 16:19 | Inpatient (IN) | payer MEDICARE, OTHER ==
[2018-10-03] MEDS ORDERED: Sodium Chloride 0.9% 1,000 ML IV ONE (17:12)
--- NOTE | 2018-10-03 17:45 | RAD ---
Date of service: 10/03/2018 PROCEDURE: CHEST RADIOGRAPH, 1 VIEW HISTORY: Pneumonia COMPARISON: 09/12/2018 FINDINGS: LUNGS: The lungs are well inflated. There is diffuse haziness in the lower lobes. There is moderate pulmonary venous congestion. PLEURA: No pneumothorax. Moderate effusions. CARDIOVASCULAR: There is moderate cardiomegaly. Atherosclerotic aortic arch calcifications are present. OSSEOUS STRUCTURES: Within normal limits for the patient's age. VISUALIZED UPPER ABDOMEN: Normal. OTHER FINDINGS: None. IMPRESSION: Findings are most compatible with congestive heart failure with moderate layering effusions and presumable pulmonary edema.
--- NOTE | 2018-10-03 17:59 | C.PDOC ---
History Of Present Illness 87 y/o male with a PMHx of dementia and HTN sent from [facility] for refusing food and medication for the last 2 days. Also sent for evaluation of abnormal labs. Patients baseline is Oriented x1 (to himself) as per paperwork. Patient is not cooperative with providing any history at this time. Of note patient has PICC line noted to right upper extremity, and is reportedly receiving antibiotics for right hip decubitus. 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), Dementia, HTN, Hypercholesterolemia Surgical History: Coronary Stent Denies: Pacemaker - [facility] Procedures ANGIOPLASTY OF OTHER NON-CORONARY VESSEL(S) (08/31/12) ATHERECTOMY OF OTHER NON-CORONARY VESSEL(S) (08/31/12) CONTRAST AORTOGRAM (08/31/12) CONTRAST ARTERIOGRAM-LEG (08/31/12) EXCISION OF BACK SUBCU/FASCIA, OPEN APPROACH (08/29/18) INFLUENZA VACCINATION (10/18/14) INSEJ [id number] PERIPHERAL NON-CORONARY VES STENT(S) (08/31/12) INSERTION OF INFUSION DEV INTO SUP VENA CAVA, PERC APPROACH (08/29/18) INSERTION OF ONE VASCULAR STENT (08/31/12) PROCEDURE ON SINGLE VESSEL (08/31/12) SPINAL TAP (10/30/14) VACCINATION NEC (10/18/14) VENTRICL SHUNT-ABDOMEN (10/30/14) Family History: States: No Known Family Hx - Social History Hx Tobacco Use: No Hx Alcohol Use: No Hx Substance Use: No - Immunization History Hx Tetanus Toxoid Vaccination: No Hx Influenza Vaccination: Yes (10/2014) Hx Pneumococcal Vaccination: Yes (09/2014) Review Of Systems Review Of Systems: ROS cannot be obtained secondary to pt's inabilty to answer questions. Physical Exam - Physical Exam Appears: No Acute Distress Skin: Warm, Dry, Other (Left lateral foot unstageable decubitus, Right hip stage III decubitus, sacral unstageable decubitus, Left hip unstageable decubitus) Head: Atraumatic, Normacephalic Eye(s): bilateral: Normal Inspection (No pallor or icterus), PERRL, EOMI Oral Mucosa: Dry Neck: Normal ROM Chest: Symmetrical Cardiovascular: Rhythm Regular, No Murmur Respiratory: Normal Breath Sounds, No Rales, No Rhonchi, No Wheezing Gastrointestinal/Abdominal: Bowel Sounds (normal), Soft, No Tenderness, No Distention Extremity: No Swelling, Other (Right upper extremity, PICC line) Extremity: Bilateral: Atraumatic, Normal Color And Temperature, Other ( Contracted in the bilateral upper and lower extremities) Pulses: Left Dorsalis Pedis: Normal, Right Dorsalis Pedis: Normal Neurological/Psych: Other (Awake, Alert, Oriented x1, Following commands -- at baseline as per [facility]) Disoriented To: Place, Time, Situation ED Course And Treatment - Laboratory Results Result Diagrams: 10/03/18 18:19 10/03/18 18:19 ECG: Interpreted By Me, Viewed By Me ECG Rhythm: Sinus Rhythm Interpretation Of ECG: normal intervals, normal axis, with T wave inversions in the inferior leads Rate From EC (bpm) O2 Sat by Pulse Oximetry: 98 (RA) Pulse Ox Interpretation: Normal Medical Decision Making Medical Decision Making: Initial Plan: --Blood work with enzymes --Blood cultures --UA --Urine cultures --EKG --CXR --IVF hydration --Aspirin PO Labs reviewed: (+) troponin 0.422 [place] [address] H&H: 8.7 and 27.3 20:[address] Bartolo Ko, who accepts patient to his service and requests IV rocephin and zithro. Disposition - Disposition Disposition: HOSPITALIZED Disposition Time: 20:13 Condition: FAIR - Clinical Impression Clinical Impression: Failure to thrive, Hypernatremia, Anemia, Sacral decubitus ulcer, stage III - Scribe Statement The provider has reviewed the documentation as recorded by the Cindy Bradshaw Provider Attestation: All medical record entries made by the Cindy were at my direction and personally dictated by me. I have reviewed the chart and agree that the record accurately reflects my personal performance of the history, physical exam, medical decision making, and the department course for this patient. I have also personally directed, reviewed, and agree with the discharge instructions and disposition.
[2018-10-03] MEDS ORDERED: Sodium Chloride 0.9% 1,000 ML ONE ×2 (18:24→20:56)
[2018-10-03 18:26] LABS: BASO % 0.5 % (0.0-2.0); EOS % 0.3 % (0.0-4.0); HEMOGLOBIN 8.7 g/dL (12.0-18.0); LYMPH # 1.3 K/uL (1.0-4.3); MEAN CORPUSCULAR HEMOGLOBIN 30.2 pg (27.0-31.0); MEAN CORPUSCULAR HGB CONC 31.7 g/dL (33.0-37.0); MONO # 0.5 K/uL (0.0-0.8); NEUT # 5.6 K/uL (1.8-7.0); NEUT % 75.2 % (50.0-75.0); NRBC % 0.2 % (0.0-2.0); RBC 2.87 Mil/uL (4.40-5.90); RED CELL DISTRIBUTION WIDTH 19.5 % (11.5-14.5); WHITE BLOOD COUNT 7.4 K/uL (4.8-10.8)
[2018-10-03 18:35] LABS: MEAN CELL VOLUME 95.2 fL (80.0-94.0)
[2018-10-03 18:42] LABS: ALB/GLOB RATIO 0.7 (1.0-2.1); ALBUMIN 2.5 g/dL (3.5-5.0); ALT/SGPT 43 U/L (21-72); AST/SGOT 79 U/L (17-59); BLOOD UREA NITROGEN 31 mg/dL (9-20); GFR NON-AFRICAN AMERICAN > 60
[2018-10-03 19:15] LABS: B-TYPE NATRIURETIC PEPTIDE 51500 pg/mL (0-900)
[2018-10-03] MEDS ORDERED: cefTRIAXone IV 1 gm in Dextros 50 ML IVPB STA (20:32)
[2018-10-03] MEDS ORDERED: Azithromycin 500 MG in Sodium Chloride 0.9% 250 ML IVPB STA (20:33)
[2018-10-03] MEDS: Sodium Chloride 0.9% 1,000 ML IV SCH (20:57)
--- NOTE | 2018-10-03 21:22 | CP.PCM.HP ---
Past Patient History - Tetanus Immunizations Tetanus Immunization: Unknown - Past Medical History & Family History Past Medical History?: Yes - Past Social History Smoking Status: Former Smoker - CARDIAC Hx Hypercholesterolemia: Yes Hx Hypertension: Yes Hx Pacemaker: No - NEUROLOGICAL Hx Dementia: Yes - ENDOCRINE/METABOLIC Other/Comment: Pt incontinent - HEMATOLOGICAL/ONCOLOGICAL Hx Blood Transfusions: No Hx Blood Transfusion Reaction: No Other/Comment: MRSA - INTEGUMENTARY Other/Comment: MULTIPLE DECUBITUS ULCERS TO BACK. Unstageable sacral decubitus. Left lateral foot unstageable pressure ulcer - MUSCULOSKELETAL/RHEUMATOLOGICAL Hx Arthritis: Yes - GENITOURINARY/GYNECOLOGICAL Other/Comment: Hx of BPH - PSYCHIATRIC Hx Substance Use: No - SURGICAL HISTORY Hx Coronary Stent: Yes - ANESTHESIA Hx Anesthesia Reactions: No Hx Malignant Hyperthermia: No Meds Allergies/Adverse Reactions: Allergies Allergy/AdvReac Type Severity Reaction Status Date / Time No Known Allergies Allergy Unverified 08/29/18 17:06 Physical Exam - Constitutional Appears: Well - Head Exam Head Exam: ATRAUMATIC, NORMAL INSPECTION, NORMOCEPHALIC - Eye Exam Eye Exam: EOMI, Normal appearance, PERRL Pupil Exam: NORMAL ACCOMODATION, PERRL - ENT Exam ENT Exam: Mucous Membranes Moist, Normal Exam - Neck Exam Neck exam: Positive for: Normal Inspection - Respiratory Exam Respiratory Exam: Decreased Breath Sounds - Cardiovascular Exam Cardiovascular Exam: REGULAR RHYTHM, +S1, +S2 - GI/Abdominal Exam GI & Abdominal Exam: Diminished Bowel Sounds, Soft - Rectal Exam Rectal Exam: Deferred Results - Vital Signs Recent Vital Signs: Last Vital Signs Temp 99.6 F 10/03/18 16:34 Pulse 96 H 10/03/18 19:25 Resp 21 10/03/18 19:25 BP 154/78 H 10/03/18 19:25 Pulse Ox 98 10/03/18 20:19 - Labs Result Diagrams: 10/03/18 18:19 10/03/18 18:19 Labs: Laboratory Results - last 24 hr 10/03/18 10/03/18 10/03/18 18:19 18:19 18:19 WBC 7.4 RBC 2.87 L Hgb 8.7 L Hct 27.3 L MCV 95.2 H D MCH 30.2 MCHC 31.7 L RDW 19.5 H Plt Count 194 MPV 10.0 Neut % (Auto) 75.2 H Lymph % (Auto) 17.0 L Carver % (Auto) 7.0 Eos % (Auto) 0.3 Baso % (Auto) 0.5 Neut # (Auto) 5.6 Lymph # (Auto) 1.3 Carver # (Auto) 0.5 Eos # (Auto) 0.0 Baso # (Auto) 0.0 Sodium 150 H Potassium 4.3 Chloride 120 H Carbon Dioxide 24 Anion Gap 10 BUN 31 H Creatinine 1.1 Est GFR ( Amer) > 60 Est GFR (Non-Af Amer) > 60 Random Glucose 108 Lactic Acid 1.8 Calcium 8.0 L Total Bilirubin 0.5 AST 79 H D ALT 43 Alkaline Phosphatase 169 H D Troponin I 0.4220 H* NT-Pro-B Natriuret Pep 98892 H Total Protein 5.8 L Albumin 2.5 L Globulin 3.3 Albumin/Globulin Ratio 0.7 L
[2018-10-03] MEDS ORDERED: Azithromycin 500mg/250ML NS 500 MG/250 ML BAG IVPB ONE (21:52)
[2018-10-04] MEDS ORDERED: Magnesium Hydroxide Susp 30 ml UD PO PRN (00:01)
[2018-10-04] MEDS ORDERED: Home Med 1 UNIT (Acetaminophen [Tylenol] 650 MG) PO PRN (00:01)
[2018-10-04 05:26] LABS: SQUAMOUS EPITHIAL 1 /hpf (0-5); URINE BACTERIA OCC (<OCC); URINE BILIRUBIN NEGATIVE (NEGATIVE); URINE BLOOD NEGATIVE (NEGATIVE); URINE CLARITY Hazy (Clear); URINE COLOR Yellow (YELLOW); URINE GLUCOSE (UA) NORMAL (Normal); URINE LEUKOCYTE ESTERASE TRACE Leu/uL (Negative); URINE PROTEIN 1+ mg/dL (NEGATIVE); URINE UROBILINOGEN NORMAL mg/dL (0.2-1.0)
[2018-10-04] MEDS: Multiple Vitamins Tab PO SCH (09:39)
[2018-10-04] MEDS: Potassium Chloride 20 mEq ER Tab PO SCH (09:39)
[2018-10-04] MEDS: Enoxaparin 40 mg Syringe SC SCH (09:40)
[2018-10-04] MEDS: Pantoprazole 40 mg EC Tab PO SCH (09:40)
[2018-10-04] MEDS ORDERED: cefTRIAXone IV 1 gm in Dextros 50 ML IVPB SCH (10:00)
[2018-10-04] MEDS ORDERED: Alum-Mag Hydrox-Simethicone Susp (30 mL) PO PRN (10:00)
[2018-10-04] MEDS ORDERED: LACTOSE REDUCED FOOD PO SCH (10:00)
[2018-10-04] MEDS: Cefepime IV 1 gm in Dextrose 1 GM/50 ML BAG IVPB SCH (12:08)
[2018-10-04] MEDS: Vancomycin 1 gm/NS 200 ml 1 GM/200 ML BAG IVPB SCH (12:46)
[2018-10-04] MEDS: Albuterol 0.042% Inhal Sol (1.25 mg/3 mL) UD INH SCH ×3 (13:33→19:34)
[2018-10-04] MEDS ORDERED: Fluconazole IV 100mg/50 ml NS 50 ML IVPB SCH (14:00)
[2018-10-04 15:11] LABS: SQUAMOUS EPITHIAL 1 /hpf (0-5); URINE BACTERIA RARE (<OCC); URINE BILIRUBIN NEGATIVE (NEGATIVE); URINE BLOOD NEGATIVE (NEGATIVE); URINE CLARITY Hazy (Clear); URINE COLOR Yellow (YELLOW); URINE GLUCOSE (UA) NORMAL (Normal); URINE LEUKOCYTE ESTERASE 2+ Leu/uL (Negative); URINE PROTEIN 1+ mg/dL (NEGATIVE); URINE UROBILINOGEN NORMAL mg/dL (0.2-1.0)
--- NOTE | 2018-10-04 16:40 | CP.PCM.PN ---
Subjective - Date & Time of Evaluation Date of Evaluation: 10/04/18 Time of Evaluation: 09:15 - Subjective Subjective: clinically same Objective - Vital Signs/Intake and Output Vital Signs (last 24 hours): Temp Pulse Resp BP Pulse Ox 98.1 F 104 H 18 153/87 H 95 10/04/18 08:11 10/04/18 08:11 10/04/18 08:11 10/04/18 09:39 10/04/18 08:11 Intake and Output: 10/04/18 10/04/18 06:59 18:59 Output Total 150 Balance -150 - Medications Medications: Current Medications Acetaminophen (Tylenol 325mg Tab) 650 mg PO Q8 PRN PRN Reason: Pain, Mild (1-3) Al Hydrox/Mg Hydrox/Simethicone (Maalox Plus 30 Ml) 30 ml PO Q4 PRN PRN Reason: Heartburn Albuterol Sulfate (Albuterol 0.042% Inhal [place] (1.25mg/3ml) Ud) 1.25 mg INH RQ6 [facility] Last Admin: 10/04/18 13:42 Dose: 1.25 mg Ascorbic Acid (Vitamin C 500 Mg Tab) 500 mg PO BID [facility] Last Admin: 10/04/18 09:41 Dose: 500 mg Clopidogrel Bisulfate (Plavix) 75 mg PO DAILY [facility] Last Admin: 10/04/18 09:40 Dose: 75 mg Enoxaparin Sodium (Lovenox) 40 mg SC DAILY [facility] Last Admin: 10/04/18 09:40 Dose: 40 mg Sodium Chloride (Sodium Chloride 0.9%) 1,000 mls @ 75 mls/hr IV .[id number] [facility] Last Admin: 10/03/18 20:57 Dose: 75 mls/hr Cefepime HCl (Maxipime Iv 1 Gm Premix) 1 gm in 50 mls @ 100 mls/hr IVPB Q12H [facility]; Protocol Last Admin: 10/04/18 12:08 Dose: 100 mls/hr Vancomycin/Sodium Chloride (Vancomycin 1 Gm/Ns 200 Ml) 1 gm in 200 mls @ 13 3.333 mls/hr IVPB Q24H [facility]; Protocol Last Admin: 10/04/18 12:46 Dose: 133.333 mls/hr Lorazepam (Ativan) 0.5 mg PO Q12 PRN PRN Reason: Agitation Magnesium Hydroxide (Milk Of Magnesia) 30 ml PO DAILY PRN PRN Reason: Constipation Memantine (Namenda) 10 mg PO BID [facility] Last Admin: 10/04/18 09:40 Dose: 10 mg Metoprolol Tartrate (Lopressor) 25 mg PO BID [facility] Last Admin: 10/04/18 09:39 Dose: 25 mg Multivitamins (Hexavitamin) 1 tab PO DAILY [facility] Last Admin: 10/04/18 09:39 Dose: 1 tab Pantoprazole Sodium (Protonix Ec Tab) 40 mg PO DAILY [facility] Last Admin: 10/04/18 09:40 Dose: 40 mg Potassium Chloride (K-Dur 20 Meq Er Tab) 40 meq PO DAILY [facility] Last Admin: 10/04/18 09:39 Dose: 40 meq Rosuvastatin Calcium (Crestor) 20 mg PO HS [facility] Zinc Sulfate (Zinc Sulfate 220 Mg Cap) 220 mg PO BID [facility] Last Admin: 10/04/18 09:41 Dose: 220 mg - Labs Labs: 10/03/18 18:19 10/03/18 18:19 - Constitutional Appears: Well - Head Exam Head Exam: ATRAUMATIC, NORMAL INSPECTION, NORMOCEPHALIC - Eye Exam Eye Exam: EOMI, Normal appearance, PERRL Pupil Exam: NORMAL ACCOMODATION, PERRL - ENT Exam ENT Exam: Mucous Membranes Moist, Normal Exam - Neck Exam Neck Exam: Full ROM, Normal Inspection. absent: Lymphadenopathy - Respiratory Exam Respiratory Exam: Decreased Breath Sounds - Cardiovascular Exam Cardiovascular Exam: REGULAR RHYTHM, +S1, +S2 - GI/Abdominal Exam GI & Abdominal Exam: Soft, Diminished Bowel Sounds - Rectal Exam Rectal Exam: Deferred
--- NOTE | 2018-10-04 19:49 | CARD ---
APPROVED REPORT Date of service: 10/03/2018 EKG Measurement Heart [id number] <Conclusion> Sinus rhythm with premature atrial complexes with aberrant conduction ST & T wave abnormality, consider inferior ischemia Prolonged QT Abnormal ECG
--- NOTE | 2018-10-04 22:54 | CP.PCM.CON ---
History of Present Illness - History of Present Illness History of Present Illness: dictated Past Patient History - Tetanus Immunizations Tetanus Immunization: Unknown - Past Medical History & Family History Past Medical History?: Yes - Past Social History Smoking Status: Unknown If Ever Smoked - CARDIAC Hx Cardiac Disorders: Yes Hx Hypercholesterolemia: Yes Hx Hypertension: Yes Hx Pacemaker: No - PULMONARY Hx Respiratory Disorders: No Other/Comment: Coronary Stent - NEUROLOGICAL Hx Neurological Disorder: Yes Hx Dementia: Yes - HEENT Hx HEENT Problems: No - RENAL Hx Chronic Kidney Disease: No - ENDOCRINE/METABOLIC Hx Endocrine Disorders: No Other/Comment: Pt incontinent - HEMATOLOGICAL/ONCOLOGICAL Hx Blood Disorders: No Hx Blood Transfusions: No Hx Blood Transfusion Reaction: No Other/Comment: MRSA - INTEGUMENTARY Hx Dermatological Problems: Yes Other/Comment: Bilaterl HIP Decubiti. Unstageable sacral decubitus. Left lateral foot unstageable pressure ulcer - MUSCULOSKELETAL/RHEUMATOLOGICAL Hx Falls: No - GASTROINTESTINAL Hx Gastrointestinal Disorders: Yes Other/Comment: Incotinence - GENITOURINARY/GYNECOLOGICAL Hx Genitourinary Disorders: Yes Other/Comment: Hx of BPH - PSYCHIATRIC Hx Psychophysiologic Disorder: No Hx Substance Use: No - SURGICAL HISTORY Hx Surgeries: Yes Other/Comment: Coronary Stent - ANESTHESIA Hx Anesthesia: Yes Hx Anesthesia Reactions: No Hx Malignant Hyperthermia: No Has any member of the family had a problem w/ anesthesia?: No Meds Allergies/Adverse Reactions: Allergies Allergy/AdvReac Type Severity Reaction Status Date / Time No Known Allergies Allergy Unverified 08/29/18 17:06 - Medications Medications: Current Medications Acetaminophen (Tylenol 325mg Tab) 650 mg PO Q8 PRN PRN Reason: Pain, Mild (1-3) Al Hydrox/Mg Hydrox/Simethicone (Maalox Plus 30 Ml) 30 ml PO Q4 PRN PRN Reason: Heartburn Albuterol Sulfate (Albuterol 0.042% Inhal [place] (1.25mg/3ml) Ud) 1.25 mg INH RQ6 [facility] Last Admin: 10/04/18 19:34 Dose: 1.25 mg Ascorbic Acid (Vitamin C 500 Mg Tab) 500 mg PO BID [facility] Last Admin: 10/04/18 18:03 Dose: 500 mg Clopidogrel Bisulfate (Plavix) 75 mg PO DAILY [facility] Last Admin: 10/04/18 09:40 Dose: 75 mg Enoxaparin Sodium (Lovenox) 40 mg SC DAILY [facility] Last Admin: 10/04/18 09:40 Dose: 40 mg Sodium Chloride (Sodium Chloride 0.9%) 1,000 mls @ 75 mls/hr IV .[id number] [facility] Last Admin: 10/03/18 20:57 Dose: 75 mls/hr Cefepime HCl (Maxipime Iv 1 Gm Premix) 1 gm in 50 mls @ 100 mls/hr IVPB Q12H [facility]; Protocol Last Admin: 10/04/18 12:08 Dose: 100 mls/hr Vancomycin/Sodium Chloride (Vancomycin 1 Gm/Ns 200 Ml) 1 gm in 200 mls @ 133.333 mls/hr IVPB Q24H [facility]; Protocol Last Admin: 10/04/18 12:46 Dose: 133.333 mls/hr Lorazepam (Ativan) 0.5 mg PO Q12 PRN PRN Reason: Agitation Magnesium Hydroxide (Milk Of Magnesia) 30 ml PO DAILY PRN PRN Reason: Constipation Memantine (Namenda) 10 mg PO BID [facility] Last Admin: 10/04/18 18:03 Dose: 10 mg Metoprolol Tartrate (Lopressor) 25 mg PO BID [facility] Last Admin: 10/04/18 18:03 Dose: 25 mg Multivitamins (Hexavitamin) 1 tab PO DAILY [facility] Last Admin: 10/04/18 09:39 Dose: 1 tab Pantoprazole Sodium (Protonix Ec Tab) 40 mg PO DAILY [facility] Last Admin: 10/04/18 09:40 Dose: 40 mg Potassium Chloride (K-Dur 20 Meq Er Tab) 40 meq PO DAILY [facility] Last Admin: 10/04/18 09:39 Dose: 40 meq Rosuvastatin Calcium (Crestor) 20 mg PO HS [facility] Last Admin: 10/04/18 21:50 Dose: 20 mg Zinc Sulfate (Zinc Sulfate 220 Mg Cap) 220 mg PO BID [facility] Last Admin: 10/04/18 18:03 Dose: 220 mg Results - Vital Signs Recent Vital Signs: Last Vital Signs Temp 97.4 F L 10/04/18 16:00 Pulse 93 H 10/04/18 18:00 Resp 18 10/04/18 16:00 BP 110/68 10/04/18 18:03 Pulse Ox 95 10/04/18 08:11 - Labs Result Diagrams: 10/03/18 18:19 10/03/18 18:19 Labs: Laboratory Results - last 24 hr 10/04/18 10/04/18 05:26 15:02 Urine Color Yellow Yellow Urine Clarity Hazy Hazy Urine pH 5.0 5.0 Ur Specific [place] 1.021 1.020 Urine Protein 1+ H 1+ H Urine Glucose (UA) Normal Normal Urine Ketones Negative Negative Urine Blood Negative Negative Urine Nitrate Negative Negative Urine Bilirubin Negative Negative Urine Urobilinogen Normal Normal Ur Leukocyte Esterase Trace 2+ H Urine WBC (Auto) 8 H 17 H Urine RBC (Auto) 3 8 H Ur Squamous Epith Cells 1 1 Urine Bacteria Occ H Rare
[2018-10-05] MEDS: Cefepime IV 1 gm in Dextrose 1 GM/50 ML BAG IVPB SCH ×2 (00:32→11:16)
[2018-10-05] MEDS: Albuterol 0.042% Inhal Sol (1.25 mg/3 mL) UD INH SCH ×4 (02:00→19:31)
[2018-10-05] MEDS: Sodium Chloride 0.9% 1,000 ML IV SCH ×3 (05:29→21:34)
--- NOTE | 2018-10-05 07:03 | CON ---
DATE: 10/04/2018 INFECTIOUS DISEASE CONSULT REQUESTED BY: Fabiana Ko MD HISTORY OF PRESENT ILLNESS: The patient is an 87-year-old male. He has history of hypertension and dementia. He has 4 decubitus on his back, was sent to [facility] to get IV antibiotics, but for 2 days he has not been taking any medicines, refusing his food; and he is dry, dehydrated, and he is brought here. He is non-communicative, cannot provide any history. He has PICC line in the right upper arm to which he was getting antibiotics; and he was seen today by me; and the wound care nurse, Aram, and we find that this was partially healing, but there are various necrosis and we do not know how deep it is in the sacral area, it is down to the bone and he needs the treatment for osteomyelitis, but he needs to go home also and the family was at the bedside. ALLERGIES: HE IS NOT ALLERGIC TO ANY MEDICINES. PAST MEDICAL HISTORY: Significant for BPH, coronary artery disease, CVA with left-sided weakness. He is all contracted with dementia, hypertension, hypercholesteremia, and he has coronary stents. PAST SURGICAL HISTORY: He does have multiple procedures done here before. FAMILY HISTORY: Noncontributory. SOCIAL HISTORY: Negative. No drug. No alcohol. No substance abuse. REVIEW OF SYSTEMS: Unable to obtain. PHYSICAL EXAMINATION: GENERAL: The patient is afebrile. HEAD: Atraumatic, normocephalic. NECK: Supple. LUNGS: Clear. HEART: S1 and S2, regular. ABDOMEN: Soft and nontender. No guarding, no rigidity present. EXTREMITIES: Have contractures, and he is not much. He has sacral decubitus, occupying most of the back area with some areas of clearing, somehow necrosis on sacrum, one is present in the coccygeal area and right buttock, stage 3 ____, also has decubitus on his foot which are unstageable on the left lateral foot, so he is mostly bed bound and has all these ulcerations. White count is 7.4, hemoglobin 8.7, hematocrit 27.3, and platelet count is 194. BUN is 31, creatinine is 1.1. His troponin is also elevated, so he may be having an NM, so at that this time, based on the cultures before, I put him on vancomycin and cefepime and to continue those and follow for dehydration and needs wound care and also needs IV antibiotics and since he is bed bound, this may not be enough to heal the wound and that is what we were trying to do when he came back for dehydration. Stacey Burns MD
[2018-10-05] MEDS: Potassium Chloride 20 mEq ER Tab PO SCH (10:45)
[2018-10-05] MEDS: Pantoprazole 40 mg EC Tab PO SCH (10:45)
[2018-10-05] MEDS: Multiple Vitamins Tab PO SCH (10:45)
[2018-10-05] MEDS: Enoxaparin 40 mg Syringe SC SCH (10:50)
[2018-10-05] MEDS: Vancomycin 1 gm/NS 200 ml 1 GM/200 ML BAG IVPB SCH (13:37)
[2018-10-05] MEDS ORDERED: Fluconazole IV 200mg/100 ml NS 100 ML IVPB SCH (14:30)
--- NOTE | 2018-10-05 16:07 | CP.PCM.PN ---
Subjective - Date & Time of Evaluation Date of Evaluation: 10/05/18 Time of Evaluation: 10:45 - Subjective Subjective: clinically same Objective - Vital Signs/Intake and Output Vital Signs (last 24 hours): Temp Pulse Resp BP Pulse Ox 97.7 F 81 20 146/67 98 10/05/18 07:00 10/05/18 12:08 10/05/18 07:00 10/05/18 10:51 10/05/18 07:00 Intake and Output: 10/05/18 10/05/18 06:59 18:59 Intake Total 575 705 Output Total 325 Balance 250 705 - Medications Medications: Current Medications Acetaminophen (Tylenol 325mg Tab) 650 mg PO Q8 PRN PRN Reason: Pain, Mild (1-3) Al Hydrox/Mg Hydrox/Simethicone (Maalox Plus 30 Ml) 30 ml PO Q4 PRN PRN Reason: Heartburn Albuterol Sulfate (Albuterol 0.042% Inhal [place] (1.25mg/3ml) Ud) 1.25 mg INH RQ6 [facility] Last Admin: 10/05/18 13:22 Dose: 1.25 mg Ascorbic Acid (Vitamin C 500 Mg Tab) 500 mg PO BID [facility] Last Admin: 10/05/18 10:45 Dose: 500 mg Aspirin (Aspirin) 81 mg PO DAILY [facility] Clopidogrel Bisulfate (Plavix) 75 mg PO DAILY [facility] Last Admin: 10/05/18 10:50 Dose: 75 mg Enoxaparin Sodium (Lovenox) 40 mg SC DAILY [facility] Last Admin: 10/05/18 10:50 Dose: 40 mg Sodium Chloride (Sodium Chloride 0.9%) 1,000 mls @ 75 mls/hr IV .[id number] [facility] Last Admin: 10/05/18 14:35 Dose: Not Given Cefepime HCl (Maxipime Iv 1 Gm Premix) 1 gm in 50 mls @ 100 mls/hr IVPB Q12H [facility]; Protocol Last Admin: 10/05/18 11:16 Dose: 100 mls/hr Vancomycin/Sodium Chloride (Vancomycin 1 Gm/Ns 200 Ml) 1 gm in 200 mls @ 133.333 mls/hr IVPB Q24H [facility]; Protocol Last Admin: 10/05/18 13:37 Dose: 133.333 mls/hr Fluconazole (Diflucan Iv 200 Mg/100 Ml Ns) 100 mls @ 100 mls/hr IVPB DAILY [facility]; Protocol Lorazepam (Ativan) 0.5 mg PO Q12 PRN PRN Reason: Agitation Magnesium Hydroxide (Milk Of Magnesia) 30 ml PO DAILY PRN PRN Reason: Constipation Memantine (Namenda) 10 mg PO BID [facility] Last Admin: 10/05/18 10:50 Dose: 10 mg Metoprolol Tartrate (Lopressor) 25 mg PO BID [facility] Last Admin: 10/05/18 10:51 Dose: 25 mg Multivitamins (Hexavitamin) 1 tab PO DAILY [facility] Last Admin: 10/05/18 10:45 Dose: 1 tab Pantoprazole Sodium (Protonix Ec Tab) 40 mg PO DAILY [facility] Last Admin: 10/05/18 10:45 Dose: 40 mg Potassium Chloride (K-Dur 20 Meq Er Tab) 40 meq PO DAILY [facility] Last Admin: 10/05/18 10:45 Dose: 40 meq Rosuvastatin Calcium (Crestor) 20 mg PO HS [facility] Last Admin: 10/04/18 21:50 Dose: 20 mg Zinc Sulfate (Zinc Sulfate 220 Mg Cap) 220 mg PO BID [facility] Last Admin: 10/05/18 10:45 Dose: 220 mg - Labs Labs: 10/03/18 18:19 10/03/18 18:19 - Constitutional Appears: Well - Head Exam Head Exam: ATRAUMATIC, NORMAL INSPECTION, NORMOCEPHALIC - Eye Exam Eye Exam: EOMI, Normal appearance, PERRL Pupil Exam: NORMAL ACCOMODATION, PERRL - ENT Exam ENT Exam: Mucous Membranes Moist, Normal Exam - Neck Exam Neck Exam: Full ROM, Normal Inspection. absent: Lymphadenopathy - Respiratory Exam Respiratory Exam: Decreased Breath Sounds - Cardiovascular Exam Cardiovascular Exam: REGULAR RHYTHM, +S1, +S2 - GI/Abdominal Exam GI & Abdominal Exam: Soft, Diminished Bowel Sounds - Rectal Exam Rectal Exam: Deferred
[2018-10-05] MEDS ORDERED: Albuterol-Ipratrop 3 mg / 0.5 (3 ml) UD INH STA (16:42)
--- NOTE | 2018-10-05 16:44 | CP.PCM.PN ---
Subjective - Date & Time of Evaluation Date of Evaluation: 10/05/18 Time of Evaluation: 16:00 - Subjective Subjective: dictated Objective - Vital Signs/Intake and Output Vital Signs (last 24 hours): Temp Pulse Resp BP Pulse Ox 97.2 F L 108 H 20 166/97 H 92 L 10/05/18 16:34 10/05/18 16:34 10/05/18 16:34 10/05/18 16:34 10/05/18 16:34 Intake and Output: 10/05/18 10/05/18 06:59 18:59 Intake Total 575 705 Output Total 325 Balance 250 705 - Medications Medications: Current Medications Acetaminophen (Tylenol 325mg Tab) 650 mg PO Q8 PRN PRN Reason: Pain, Mild (1-3) Al Hydrox/Mg Hydrox/Simethicone (Maalox Plus 30 Ml) 30 ml PO Q4 PRN PRN Reason: Heartburn Albuterol Sulfate (Albuterol 0.042% Inhal [place] (1.25mg/3ml) Ud) 1.25 mg INH RQ6 [facility] Last Admin: 10/05/18 13:22 Dose: 1.25 mg Albuterol/Ipratropium (Duoneb 3 Mg/0.5 Mg (3 Ml) Ud) 3 ml INH RSTAT STA Stop: 10/05/18 16:43 Ascorbic Acid (Vitamin C 500 Mg Tab) 500 mg PO BID [facility] Last Admin: 10/05/18 10:45 Dose: 500 mg Aspirin (Aspirin) 81 mg PO DAILY [facility] Clopidogrel Bisulfate (Plavix) 75 mg PO DAILY [facility] Last Admin: 10/05/18 10:50 Dose: 75 mg Enoxaparin Sodium (Lovenox) 40 mg SC DAILY [facility] Last Admin: 10/05/18 10:50 Dose: 40 mg Furosemide (Lasix) 20 mg IVP STAT STA Stop: 10/05/18 16:42 Sodium Chloride (Sodium Chloride 0.9%) 1,000 mls @ 75 mls/hr IV .[id number] [facility] Last Admin: 10/05/18 14:35 Dose: Not Given Cefepime HCl (Maxipime Iv 1 Gm Premix) 1 gm in 50 mls @ 100 mls/hr IVPB Q12H [facility]; Protocol Last Admin: 10/05/18 11:16 Dose: 100 mls/hr Vancomycin/Sodium Chloride (Vancomycin 1 Gm/Ns 200 Ml) 1 gm in 200 mls @ 133.333 mls/hr IVPB Q24H [facility]; Protocol Last Admin: 10/05/18 13:37 Dose: 133.333 mls/hr Fluconazole (Diflucan Iv 200 Mg/100 Ml Ns) 100 mls @ 100 mls/hr IVPB DAILY [facility]; Protocol Lorazepam (Ativan) 0.5 mg PO Q12 PRN PRN Reason: Agitation Magnesium Hydroxide (Milk Of Magnesia) 30 ml PO DAILY PRN PRN Reason: Constipation Memantine (Namenda) 10 mg PO BID [facility] Last Admin: 10/05/18 10:50 Dose: 10 mg Methylprednisolone (Solu-Medrol) 125 mg IV ONCE ONE Stop: 10/05/18 16:43 Metoprolol Tartrate (Lopressor) 25 mg PO BID [facility] Last Admin: 10/05/18 10:51 Dose: 25 mg Multivitamins (Hexavitamin) 1 tab PO DAILY [facility] Last Admin: 10/05/18 10:45 Dose: 1 tab Pantoprazole Sodium (Protonix Ec Tab) 40 mg PO DAILY [facility] Last Admin: 10/05/18 10:45 Dose: 40 mg Potassium Chloride (K-Dur 20 Meq Er Tab) 40 meq PO DAILY [facility] Last Admin: 10/05/18 10:45 Dose: 40 meq Rosuvastatin Calcium (Crestor) 20 mg PO HS [facility] Last Admin: 10/04/18 21:50 Dose: 20 mg Zinc Sulfate (Zinc Sulfate 220 Mg Cap) 220 mg PO BID [facility] Last Admin: 10/05/18 10:45 Dose: 220 mg - Labs Labs: 10/03/18 18:19 10/03/18 18:19
--- NOTE | 2018-10-05 16:46 | CP.PCM.PN ---
Subjective - Date & Time of Evaluation Date of Evaluation: 10/05/18 Time of Evaluation: 16:15 - Subjective Subjective: dictated Objective - Vital Signs/Intake and Output Vital Signs (last 24 hours): Temp Pulse Resp BP Pulse Ox 97.2 F L 108 H 20 166/97 H 92 L 10/05/18 16:34 10/05/18 16:34 10/05/18 16:34 10/05/18 16:34 10/05/18 16:34 Intake and Output: 10/05/18 10/05/18 06:59 18:59 Intake Total 575 705 Output Total 325 Balance 250 705 - Medications Medications: Current Medications Acetaminophen (Tylenol 325mg Tab) 650 mg PO Q8 PRN PRN Reason: Pain, Mild (1-3) Al Hydrox/Mg Hydrox/Simethicone (Maalox Plus 30 Ml) 30 ml PO Q4 PRN PRN Reason: Heartburn Albuterol Sulfate (Albuterol 0.042% Inhal [place] (1.25mg/3ml) Ud) 1.25 mg INH RQ6 [facility] Last Admin: 10/05/18 13:22 Dose: 1.25 mg Ascorbic Acid (Vitamin C 500 Mg Tab) 500 mg PO BID [facility] Last Admin: 10/05/18 10:45 Dose: 500 mg Aspirin (Aspirin) 81 mg PO DAILY [facility] Clopidogrel Bisulfate (Plavix) 75 mg PO DAILY [facility] Last Admin: 10/05/18 10:50 Dose: 75 mg Enoxaparin Sodium (Lovenox) 40 mg SC DAILY [facility] Last Admin: 10/05/18 10:50 Dose: 40 mg Sodium Chloride (Sodium Chloride 0.9%) 1,000 mls @ 75 mls/hr IV .[id number] [facility] Last Admin: 10/05/18 14:35 Dose: Not Given Cefepime HCl (Maxipime Iv 1 Gm Premix) 1 gm in 50 mls @ 100 mls/hr IVPB Q12H [facility]; Protocol Last Admin: 10/05/18 11:16 Dose: 100 mls/hr Vancomycin/Sodium Chloride (Vancomycin 1 Gm/Ns 200 Ml) 1 gm in 200 mls @ 133.333 mls/hr IVPB Q24H [facility]; Protocol Last Admin: 10/05/18 13:37 Dose: 133.333 mls/hr Fluconazole (Diflucan Iv 200 Mg/100 Ml Ns) 100 mls @ 100 mls/hr IVPB DAILY [facility]; Protocol Lorazepam (Ativan) 0.5 mg PO Q12 PRN PRN Reason: Agitation Magnesium Hydroxide (Milk Of Magnesia) 30 ml PO DAILY PRN PRN Reason: Constipation Memantine (Namenda) 10 mg PO BID [facility] Last Admin: 10/05/18 10:50 Dose: 10 mg Metoprolol Tartrate (Lopressor) 25 mg PO BID [facility] Last Admin: 10/05/18 10:51 Dose: 25 mg Multivitamins (Hexavitamin) 1 tab PO DAILY [facility] Last Admin: 10/05/18 10:45 Dose: 1 tab Pantoprazole Sodium (Protonix Ec Tab) 40 mg PO DAILY [facility] Last Admin: 10/05/18 10:45 Dose: 40 mg Potassium Chloride (K-Dur 20 Meq Er Tab) 40 meq PO DAILY [facility] Last Admin: 10/05/18 10:45 Dose: 40 meq Rosuvastatin Calcium (Crestor) 20 mg PO HS [facility] Last Admin: 10/04/18 21:50 Dose: 20 mg Zinc Sulfate (Zinc Sulfate 220 Mg Cap) 220 mg PO BID [facility] Last Admin: 10/05/18 10:45 Dose: 220 mg - Labs Labs: 10/03/18 18:19 10/03/18 18:19
[2018-10-05 17:03] LABS: BASO % 0.2 % (0.0-2.0); HEMOGLOBIN 8.4 g/dL (12.0-18.0); LYMPH # 0.9 K/uL (1.0-4.3); LYMPH % 10.2 % (20.0-40.0); MEAN CELL VOLUME 96.6 fL (80.0-94.0); MEAN CORPUSCULAR HGB CONC 32.1 g/dL (33.0-37.0); MONO # 0.4 K/uL (0.0-0.8); MONO % 4.8 % (0.0-10.0); NEUT # 7.4 K/uL (1.8-7.0); NEUT % 84.8 % (50.0-75.0); NRBC % 0.3 % (0.0-2.0); RBC 2.73 Mil/uL (4.40-5.90); RED CELL DISTRIBUTION WIDTH 19.7 % (11.5-14.5); WHITE BLOOD COUNT 8.7 K/uL (4.8-10.8)
--- NOTE | 2018-10-05 17:16 | CT ---
Date of service: 10/05/2018 PROCEDURE: CT Chest without contrast HISTORY: pneumonia COMPARISON: None available. TECHNIQUE: Contiguous axial images were obtained through the chest without intravenous contrast enhancement. Sagittal and coronal reconstructions were performed. Radiation dose: Total exam DLP = 332.35 mGy-cm. This CT exam was performed using one or more of the following dose reduction techniques: Automated exposure control, adjustment of the mA and/or kV according to patient size, and/or use of iterative reconstruction technique. FINDINGS: LUNGS: Scattered left upper lobe infiltrates are identified with right upper lobe infiltrate present intermixed with chronic interstitial pulmonary disease, apical predominant, including emphysematous changes and fibrosis. Compressive atelectasis is identified exerted on the bilateral lower lobes, right greater than left as well as right middle lobe somewhat. No definitive mass appreciable. Central airways appear grossly clear. Respiratory motion degrades the quality of this examination. MEDIASTINUM: Calcific atherosclerotic changes are seen related to the thoracic aorta. Mild cardiomegaly is identified. The main pulmonary artery is dilated to 3.5 cm which may reflect pulmonary artery hypertension. Clinically correlate further. Lack of intravenous contrast as well as the presence of prominent atelectasis in the lower lobes and pleural effusions obscures pulmonary vascular pattern. No pulmonary vascular congestion suspected at this time. No gross lymphadenopathy in the chest. PLEURA: Moderate large pleural effusions are identified bilaterally exerting compressive atelectasis at the bilateral lower lobes and mildly at the right middle lobe as well. Minimal compressive atelectasis affecting bilateral upper lobes. No pericardial effusion. BONES: Multiple compression fractures are identified including moderate severe at T5, mild at T6, T7, T8, T9 and T10. These are of indeterminate age. No definite destructive bony lesion appreciable. Evaluation of the ribs is bilaterally compromised by respiratory motion. UPPER ABDOMEN: Grossly unremarkable. OTHER FINDINGS: None. IMPRESSION: 1. Chronic interstitial pulmonary disease appreciated with likely superimposed infiltrates affecting the right greater than left upper lobes. 2. Moderately large bilateral pleural effusions exerts compression atelectasis at the bilateral lower lobes predominantly and minimally affecting the right middle lobe, marginal at the bilateral upper lobes. 3. Cardiomegaly. Mild main pulmonary artery segmental dilatation may reflect pulmonary artery hypertension. Clinically correlate further.
[2018-10-05 17:18] LABS: ALB/GLOB RATIO 0.7 (1.0-2.1); ALBUMIN 2.4 g/dL (3.5-5.0); CALCIUM 7.7 mg/dl (8.6-10.4)
[2018-10-05 17:28] LABS: ARTERIAL BLOOD GAS HCO3 21.8 mmol/L (21-28); ARTERIAL BLOOD GAS O2 SAT 93.7 % (95-98); ARTERIAL BLOOD GAS PCO2 28 mm/Hg (35-45); ARTERIAL BLOOD GAS PH 7.44 (7.35-7.45); ARTERIAL BLOOD GAS PO2 58 mm/Hg (80-100); ARTERIAL BLOOD GAS TCO2 19.9 mmol/L (22-28)
[2018-10-05 17:46] LABS: CK-MB 4.85 ng/mL (0.0-3.38); TROPONIN I 0.298 ng/mL (0.00-0.120)
--- NOTE | 2018-10-05 19:50 | CP.PCM.CON ---
<Gris Basilio - Last Filed: 10/05/18 20:57> History of Present Illness - History of Present Illness History of Present Illness: Patient is an 87 yo male with history dementia who was brought in from [facility] for refusing to eat and take meds for 2 days. Patient went for CT today, and afterwards, he started having shortness of breath. CT reveals b/l pleural effusions and R-sided aspiration PNA. Patient is minimally verbal. PMH: Dementia Pressure ulcers CAD- stent 2012 HTN HLD Multiple CVA- L-sided weakness NPH- shunt BPH Meds: ASA 81 mg PO daily Plavix 75 mg PO daily Crestor 20 mg PO QHS Duoneb Q6H Cefepime 1 g Q12H Vancomycin 1 q IV Q24H Fluconazole 200 mg IV daily Ativan 0.5 mg PO Q12H PRN Memantine 10 mg PO BID Methyprednisolone 40 mg IV Q6H Metoprolol 25 mg PO BID PTX 40 mg PO daily All: NKA FH: mother-HTN SH: lives at [facility] Review of Systems - Review of Systems Systems not reviewed;Unavailable: Dementia, Altered Mental Status Past Patient History - Tetanus Immunizations Tetanus Immunization: Unknown - Past Medical History & Family History Past Medical History?: Yes Past Family History: Reviewed and not pertinent - Past Social History Smoking Status: Unknown If Ever Smoked Chewing Tobacco Use: No Cigar Use: No Alcohol: None Drugs: Denies Home Situation {Lives}: [facility] - CARDIAC Hx Hypercholesterolemia: Yes Hx Hypertension: Yes Hx Pacemaker: No - PULMONARY Hx Respiratory Disorders: No Other/Comment: Coronary Stent - NEUROLOGICAL Hx Dementia: Yes - HEENT Hx HEENT Problems: No - RENAL Hx Chronic Kidney Disease: No - ENDOCRINE/METABOLIC Hx Endocrine Disorders: No Other/Comment: Pt incontinent - HEMATOLOGICAL/ONCOLOGICAL Hx Blood Disorders: No Hx Blood Transfusions: No Hx Blood Transfusion Reaction: No Other/Comment: MRSA - INTEGUMENTARY Hx Dermatological Problems: Yes Other/Comment: Bilaterl HIP Decubiti. Unstageable sacral decubitus. Left lateral foot unstageable pressure ulcer - MUSCULOSKELETAL/RHEUMATOLOGICAL Hx Arthritis: Yes - GASTROINTESTINAL Hx Gastrointestinal Disorders: Yes Other/Comment: Incotinence - GENITOURINARY/GYNECOLOGICAL Hx Genitourinary Disorders: Yes Other/Comment: Hx of BPH - PSYCHIATRIC Hx Substance Use: No - SURGICAL HISTORY Hx Coronary Stent: Yes - ANESTHESIA Hx Anesthesia: Yes Hx Anesthesia Reactions: No Hx Malignant Hyperthermia: No Has any member of the family had a problem w/ anesthesia?: No Meds Allergies/Adverse Reactions: Allergies Allergy/AdvReac Type Severity Reaction Status Date / Time No Known Allergies Allergy Unverified 08/29/18 17:06 - Medications Medications: Current Medications Acetaminophen (Tylenol 325mg Tab) 650 mg PO Q8 PRN PRN Reason: Pain, Mild (1-3) Al Hydrox/Mg Hydrox/Simethicone (Maalox Plus 30 Ml) 30 ml PO Q4 PRN PRN Reason: Heartburn Albuterol Sulfate (Albuterol 0.042% Inhal [place] (1.25mg/3ml) Ud) 1.25 mg INH RQ6 [facility] Last Admin: 10/05/18 19:31 Dose: 1.25 mg Ascorbic Acid (Vitamin C 500 Mg Tab) 500 mg PO BID [facility] Last Admin: 10/05/18 19:30 Dose: Not Given Aspirin (Aspirin) 81 mg PO DAILY [facility] Clopidogrel Bisulfate (Plavix) 75 mg PO DAILY [facility] Last Admin: 10/05/18 10:50 Dose: 75 mg Enoxaparin Sodium (Lovenox) 40 mg SC DAILY [facility] Last Admin: 10/05/18 10:50 Dose: 40 mg Sodium Chloride (Sodium Chloride 0.9%) 1,000 mls @ 75 mls/hr IV .[id number] [facility] Last Admin: 10/05/18 14:35 Dose: Not Given Cefepime HCl (Maxipime Iv 1 Gm Premix) 1 gm in 50 mls @ 100 mls/hr IVPB Q12H [facility]; Protocol Last Admin: 10/05/18 11:16 Dose: 100 mls/hr Vancomycin/Sodium Chloride (Vancomycin 1 Gm/Ns 200 Ml) 1 gm in 200 mls @ 133.333 mls/hr IVPB Q24H ENRI[facility]; Protocol Last Admin: 10/05/18 13:37 Dose: 133.333 mls/hr Fluconazole (Diflucan Iv 200 Mg/100 Ml Ns) 100 mls @ 100 mls/hr IVPB DAILY [facility]; Protocol Lorazepam (Ativan) 0.5 mg PO Q12 PRN PRN Reason: Agitation Magnesium Hydroxide (Milk Of Magnesia) 30 ml PO DAILY PRN PRN Reason: Constipation Memantine (Namenda) 10 mg PO BID [facility] Last Admin: 10/05/18 19:29 Dose: Not Given Methylprednisolone (Solu-Medrol) 40 mg IVP Q6H [facility] Metoprolol Tartrate (Lopressor) 25 mg PO BID [facility] Last Admin: 10/05/18 19:29 Dose: Not Given Multivitamins (Hexavitamin) 1 tab PO DAILY [facility] Last Admin: 10/05/18 10:45 Dose: 1 tab Pantoprazole Sodium (Protonix Ec Tab) 40 mg PO DAILY [facility] Last Admin: 10/05/18 10:45 Dose: 40 mg Potassium Chloride (K-Dur 20 Meq Er Tab) 40 meq PO DAILY [facility] Last Admin: 10/05/18 10:45 Dose: 40 meq Rosuvastatin Calcium (Crestor) 20 mg PO HS [facility] Last Admin: 10/04/18 21:50 Dose: 20 mg Zinc Sulfate (Zinc Sulfate 220 Mg Cap) 220 mg PO BID [facility] Last Admin: 10/05/18 10:45 Dose: 220 mg Physical Exam - Constitutional Appears: Confused, Cachectic, Chronically Ill - Head Exam Head Exam: ATRAUMATIC - Eye Exam Eye Exam: PERRL - ENT Exam ENT Exam: Mucous Membranes Dry - Respiratory Exam Respiratory Exam: Accessory Muscle Use, Decreased Breath Sounds, Rales - Cardiovascular Exam Cardiovascular Exam: REGULAR RHYTHM - GI/Abdominal Exam GI & Abdominal Exam: Soft - Rectal Exam Rectal Exam: Deferred - Extremities Exam Additional comments: contracted - Neurological Exam Neurological exam: Alert, Altered - Psychiatric Exam Psychiatric exam: Flat Affect - Skin Skin Exam: Normal Color, Warm Results - Vital Signs Recent Vital Signs: Last Vital Signs Temp 97.2 F L 10/05/18 16:34 Pulse 108 H 10/05/18 16:34 Resp 20 10/05/18 16:34 BP 133/75 10/05/18 19:29 Pulse Ox 92 L 10/05/18 16:34 - Labs Result Diagrams: 10/05/18 17:00 10/05/18 17:00 Labs: Laboratory Results - last 24 hr 10/05/18 10/05/18 10/05/18 16:27 17:00 17:00 WBC 8.7 RBC 2.73 L Hgb 8.4 L Hct 26.3 L MCV 96.6 H MCH 31.0 MCHC 32.1 L RDW 19.7 H Plt Count 194 MPV 10.0 Neut % (Auto) 84.8 H Lymph % (Auto) 10.2 L Coal % (Auto) 4.8 Eos % (Auto) 0.0 Baso % (Auto) 0.2 Neut # (Auto) 7.4 H Lymph # (Auto) 0.9 L Coal # (Auto) 0.4 Eos # (Auto) 0.0 Baso # (Auto) 0.0 Puncture Site pCO2 pO2 HCO3 ABG pH ABG Total CO2 ABG O2 Saturation ABG Base Excess Tima Test ABG Potassium A-a O2 Difference Respiratory Index Glucose Lactate Liter Flow FiO2 Sodium 152 H Potassium 4.4 Chloride 124 H Carbon Dioxide 21 L Anion Gap 12 BUN 32 H Creatinine 1.4 Est GFR ( Amer) 58 Est GFR (Non-Af Amer) 48 POC Glucose (mg/dL) 174 H Random Glucose 163 H Calcium 7.7 L Total Bilirubin 0.6 AST 122 H D ALT 65 Alkaline Phosphatase 327 H D Total Creatine Kinase 135 CK-MB (Mass) 4.85 H Troponin I 0.2980 H* Total Protein 5.9 L Albumin 2.4 L Globulin 3.4 Albumin/Globulin Ratio 0.7 L Arterial Blood Potassium 10/05/18 17:25 WBC RBC Hgb Hct MCV MCH MCHC RDW Plt Count MPV Neut % (Auto) Lymph % (Auto) Coal % (Auto) Eos % (Auto) Baso % (Auto) Neut # (Auto) Lymph # (Auto) Coal # (Auto) Eos # (Auto) Baso # (Auto) Puncture Site Rba pCO2 28 L pO2 58 L HCO3 21.8 ABG pH 7.44 ABG Total CO2 19.9 L ABG O2 Saturation 93.7 L ABG Base Excess -3.8 L Tima Test Na ABG Potassium 4.1 A-a O2 Difference 121.0 Respiratory Index 2.1 Glucose 154 H Lactate 1.8 Liter Flow 3.0 FiO2 30.0 Sodium 154.0 H Potassium Chloride 127.0 H Carbon Dioxide Anion Gap BUN Creatinine Est GFR ( Amer) Est GFR (Non-Af Amer) POC Glucose (mg/dL) Random Glucose Calcium Total Bilirubin AST ALT Alkaline Phosphatase Total Creatine Kinase CK-MB (Mass) Troponin I Total Protein Albumin Globulin Albumin/Globulin Ratio Arterial Blood Potassium 4.1 Assessment & Plan - Assessment and Plan (Free Text) Assessment: Patient is an 87 yo male who cam ein from assisted for not eating or taking medications. Today he developed respiratory distress after going for CT scan- likely aspirated. Will treat in ICU, may need BiPAP/intubation. Plan: Neuro: - Dementia at baseline, oriented to person - Ativan 0.5 mg PO Q12H PRN - Memantine 10 mg PO BID CV: - Elevated troponins (0.422->0.298) - BNP 51,500 - CT chest: cardiomegaly, pulm artery HTN - Monitor vitals - Echo pending - ASA 81 mg PO daily - Plavix 75 mg PO daily - Crestor 20 mg PO QHS - Metoprolol 25 mg PO BID - Cardiology consulted (Rito) Pulm: - CT chest: chronic interstitial pulm disease with superimposed infiltrates R>L, mod-lag b/l pleural effusions with compression atelectasis - Maintain spO2>92%- supplemental O2 PRN - Duoneb Q6H - Methyprednisolone 40 mg IV Q6H - Pulmonology consulted (Josué) GI: - NPO - Dimension Quarry Supervisor consult : - I's & O's - Replete electrolytes PRN Endo: - Maintain euglycemia - Hypoglycemia protocol - Accuchecks Q6H with ISS Heme: - Monitor H&H - LE venous Dopplers pending ID: - Afebrile, no leukocytosis - NS @ 75 mL/hr - Cefepime 1 g Q12H - Vancomycin 1 q IV Q24H - Fluconazole 200 mg IV daily - RUE PICC- IV abx at NM for decubitus ulcer (MRSA, E coli, Enterococcus) - Sacral ulcer Cx: GPC - Blood Cx: no growth >24 hrs - ID consulted (Katy) PPx: VTE: SCDs GI: PTX 40 mg PO daily Code status: full code- will contact family Case discussed with attending, Dr. Efren Ko. PGY-1 Gris Basilio D.O. <Preeti Ko - Last Filed: 10/06/18 18:28> Meds - Medications Medications: Current Medications Acetaminophen (Tylenol 325mg Tab) 650 mg PO Q8 PRN PRN Reason: Pain, Mild (1-3) Al Hydrox/Mg Hydrox/Simethicone (Maalox Plus 30 Ml) 30 ml PO Q4 PRN PRN Reason: Heartburn Albuterol Sulfate (Albuterol 0.042% Inhal [place] (1.25mg/3ml) Ud) 1.25 mg INH RQ6 [facility] Last Admin: 10/06/18 13:07 Dose: 1.25 mg Ascorbic Acid (Vitamin C 500 Mg Tab) 500 mg PO BID [facility] Last Admin: 10/06/18 17:11 Dose: 500 mg Aspirin (Aspirin Chewable) 81 mg PO DAILY [facility] Last Admin: 10/06/18 12:13 Dose: 81 mg Clopidogrel Bisulfate (Plavix) 75 mg PO DAILY [facility] Last Admin: 10/06/18 10:25 Dose: 75 mg Dextrose (Dextrose 50% Inj) 0 ml IV STAT PRN; Protocol PRN Reason: Hypoglycemia Protocol Dextrose (Glutose 15) 0 gm PO ONCE PRN; Protocol PRN Reason: Hypoglycemia Protocol Enoxaparin Sodium (Lovenox) 40 mg SC DAILY [facility] Last Admin: 10/06/18 10:25 Dose: 40 mg Glucagon (Glucagen Diagnostic Kit) 0 mg IM STAT PRN; Protocol PRN Reason: Hypoglycemia Protocol Cefepime HCl (Maxipime Iv 1 Gm Premix) 1 gm in 50 mls @ 100 mls/hr IVPB Q12H ENRIQUE; Protocol Last Admin: 10/06/18 12:14 Dose: 100 mls/hr Dextrose (Dextrose 5% In Water 1000 Ml) 1,000 mls @ 0 mls/hr IV .Q0M PRN; Protocol PRN Reason: Hypoglycemia Protocol Dexmedetomidine HCl 200 mcg/ (Sodium Chloride) 50 mls @ 2.36 mls/hr IV TITR PRN; Protocol PRN Reason: Titrate per Protocol Last Titration: 10/06/18 13:00 Dose: 0.1 mcg/kg/hr, 1.18 mls/hr Micafungin Sodium 100 mg/ (Sodium Chloride) 100 mls @ 100 mls/hr IV Q24H ENRIQUE; Protocol Last Admin: 10/06/18 13:54 Dose: 100 mls/hr Tigecycline 50 mg/ Sodium (Chloride) 100 mls @ 100 mls/hr IVPB Q12H [facility]; Protocol Insulin Human Regular (Novolin R) 0 unit SC Q6 [facility]; Protocol Last Admin: 10/06/18 12:35 Dose: Not Given Lorazepam (Ativan) 0.5 mg PO Q12 PRN PRN Reason: Agitation Magnesium Hydroxide (Milk Of Magnesia) 30 ml PO DAILY PRN PRN Reason: Constipation Memantine (Namenda) 10 mg PO BID [facility] Last Admin: 10/06/18 17:11 Dose: 10 mg Methylprednisolone (Solu-Medrol) 40 mg IVP Q6H [facility] Last Admin: 10/06/18 17:10 Dose: 40 mg Metoprolol Tartrate (Lopressor) 25 mg PO BID [facility] Last Admin: 10/06/18 17:11 Dose: 25 mg Multivitamins (Hexavitamin) 1 tab PO DAILY [facility] Last Admin: 10/06/18 10:25 Dose: 1 tab Pantoprazole Sodium (Protonix Susp) 40 mg NG DAILY [facility] Last Admin: 10/06/18 12:13 Dose: 40 mg Rosuvastatin Calcium (Crestor) 20 mg PO HS [facility] Last Admin: 10/05/18 22:33 Dose: Not Given Zinc Sulfate (Zinc Sulfate 220 Mg Cap) 220 mg PO BID [facility] Last Admin: 10/06/18 17:10 Dose: 220 mg Results - Vital Signs Recent Vital Signs: Last Vital Signs Temp 98.2 F 10/06/18 16:00 Pulse 67 10/06/18 16:10 Resp 100 H 10/06/18 16:00 BP 124/63 10/06/18 17:11 Pulse Ox 100 10/06/18 16:10 - Labs Result Diagrams: 10/06/18 06:35 10/06/18 06:35 Labs: Laboratory Results - last 24 hr 10/05/18 10/05/18 10/06/18 20:38 23:48 00:22 WBC RBC Hgb Hct MCV MCH MCHC RDW Plt Count MPV Neut % (Auto) Lymph % (Auto) Coal % (Auto) Eos % (Auto) Baso % (Auto) Neut # (Auto) Lymph # (Auto) Coal # (Auto) Eos # (Auto) Baso # (Auto) Neutrophils % (Manual) Lymphocytes % (Manual) Monocytes % (Manual) Platelet Estimate Polychromasia Hypochromasia (manual) PT INR APTT Puncture Site pCO2 pO2 HCO3 ABG pH ABG Total CO2 ABG O2 Saturation ABG Base Excess ABG Hemoglobin ABG Carboxyhemoglobin POC ABG HHb (Measured) ABG Methemoglobin Tima Test ABG Potassium A-a O2 Difference Respiratory Index Hgb O2 Saturation Sodium Chloride Glucose Lactate Liter Flow Vent Mode Mechanical Rate FiO2 Tidal Volume PEEP Potassium Carbon Dioxide Anion Gap BUN Creatinine Est GFR ( Amer) Est GFR (Non-Af Amer) POC Glucose (mg/dL) 166 H Random Glucose Lactic Acid 1.8 1.6 Calcium Phosphorus Magnesium Total Bilirubin AST ALT Alkaline Phosphatase Total Creatine Kinase CK-MB (Mass) Troponin I Total Protein Albumin Globulin Albumin/Globulin Ratio Arterial Blood Potassium Random Vancomycin 10/06/18 10/06/18 10/06/18 05:33 06:30 06:35 WBC 8.6 RBC 2.67 L Hgb 8.1 L Hct 25.9 L MCV 97.0 H MCH 30.3 MCHC 31.2 L RDW 19.6 H Plt Count 163 MPV 10.7 Neut % (Auto) 92.5 H Lymph % (Auto) 5.7 L Coal % (Auto) 1.7 Eos % (Auto) 0.0 Baso % (Auto) 0.1 Neut # (Auto) 8.0 H Lymph # (Auto) 0.5 L Coal # (Auto) 0.1 Eos # (Auto) 0.0 Baso # (Auto) 0.0 Neutrophils % (Manual) 93 H Lymphocytes % (Manual) 5 L Monocytes % (Manual) 2 Platelet Estimate Normal Polychromasia Slight Hypochromasia (manual) Slight PT INR APTT Puncture Site R brac pCO2 25 L pO2 55 L HCO3 21.4 ABG pH 7.46 H ABG Total CO2 18.6 L ABG O2 Saturation 93.2 L ABG Base Excess -4.3 L ABG Hemoglobin ABG Carboxyhemoglobin POC ABG HHb (Measured) ABG Methemoglobin Tima Test Na ABG Potassium 3.6 A-a O2 Difference Respiratory Index Hgb O2 Saturation Sodium 156.0 H Chloride 131.0 H Glucose 171 H Lactate 1.8 Liter Flow 4.0 Vent Mode Mechanical Rate FiO2 Tidal Volume PEEP Potassium Carbon Dioxide Anion Gap BUN Creatinine Est GFR ( Amer) Est GFR (Non-Af Amer) POC Glucose (mg/dL) 178 H Random Glucose Lactic Acid Calcium Phosphorus Magnesium Total Bilirubin AST ALT Alkaline Phosphatase Total Creatine Kinase CK-MB (Mass) Troponin I Total Protein Albumin Globulin Albumin/Globulin Ratio Arterial Blood Potassium 3.6 Random Vancomycin 10/06/18 10/06/18 10/06/18 06:35 06:35 11:05 WBC RBC Hgb Hct MCV MCH MCHC RDW Plt Count MPV Neut % (Auto) Lymph % (Auto) Coal % (Auto) Eos % (Auto) Baso % (Auto) Neut # (Auto) Lymph # (Auto) Coal # (Auto) Eos # (Auto) Baso # (Auto) Neutrophils % (Manual) Lymphocytes % (Manual) Monocytes % (Manual) Platelet Estimate Polychromasia Hypochromasia (manual) PT INR APTT Puncture Site Rba pCO2 27 L pO2 134 H HCO3 21.5 ABG pH 7.45 ABG Total CO2 19.6 L ABG O2 Saturation 99.8 H ABG Base Excess -4.4 L ABG Hemoglobin 8.4 L ABG Carboxyhemoglobin 2.1 H POC ABG HHb (Measured) 0.2 ABG Methemoglobin 0.9 Tima Test Na ABG Potassium A-a O2 Difference 189.0 Respiratory Index 1.4 Hgb O2 Saturation 96.9 Sodium 152 H Chloride 126 H Glucose Lactate Liter Flow Vent Mode Prvc Mechanical Rate 14 FiO2 50.0 Tidal Volume 450 PEEP 5 Potassium 3.9 Carbon Dioxide 21 L Anion Gap 9 L BUN 35 H Creatinine 1.4 Est GFR ( Amer) 58 Est GFR (Non-Af Amer) 48 POC Glucose (mg/dL) Random Glucose 137 H Lactic Acid Calcium 7.8 L Phosphorus 3.6 Magnesium 2.2 Total Bilirubin 0.6 AST 99 H ALT 70 Alkaline Phosphatase 361 H Total Creatine Kinase 133 CK-MB (Mass) 6.66 H Troponin I 0.2740 H* Total Protein 5.8 L Albumin 2.5 L Globulin 3.3 Albumin/Globulin Ratio 0.7 L Arterial Blood Potassium Random Vancomycin 23.8 10/06/18 10/06/18 10/06/18 11:44 12:58 17:56 WBC RBC Hgb Hct MCV MCH MCHC RDW Plt Count MPV Neut % (Auto) Lymph % (Auto) Coal % (Auto) Eos % (Auto) Baso % (Auto) Neut # (Auto) Lymph # (Auto) Coal # (Auto) Eos # (Auto) Baso # (Auto) Neutrophils % (Manual) Lymphocytes % (Manual) Monocytes % (Manual) Platelet Estimate Polychromasia Hypochromasia (manual) PT 14.4 H INR 1.3 APTT 35 H Puncture Site pCO2 pO2 HCO3 ABG pH ABG Total CO2 ABG O2 Saturation ABG Base Excess ABG Hemoglobin ABG Carboxyhemoglobin POC ABG HHb (Measured) ABG Methemoglobin Tima Test ABG Potassium A-a O2 Difference Respiratory Index Hgb O2 Saturation Sodium Chloride Glucose Lactate Liter Flow Vent Mode Mechanical Rate FiO2 Tidal Volume PEEP Potassium Carbon Dioxide Anion Gap BUN Creatinine Est GFR ( Amer) Est GFR (Non-Af Amer) POC Glucose (mg/dL) 149 H 169 H Random Glucose Lactic Acid Calcium Phosphorus Magnesium Total Bilirubin AST ALT Alkaline Phosphatase Total Creatine Kinase CK-MB (Mass) Troponin I Total Protein Albumin Globulin Albumin/Globulin Ratio Arterial Blood Potassium Random Vancomycin Assessment & Plan - Assessment and Plan (Free Text) Plan: PAtient seen and examined at bedside with above resident. Patient has baseline dementia, bedbound with chornic diastolic heartfailure and pulmonary HTN -Chronic diastolic heart failure: Na 152 2nd lasix, hold lasix, offer thoracentesis -Hypoxic respiratory/chornic COPD: continue ventilation to keep spo2 >92 and ph b/w 7.35-7.45, continue bronchodialtors -Pulmonary HTN: obtain pulmonary consult -Aspiration PNA/sepsis: bobby culture, start empriical abx, vanco + zosyn, obtain ID consult, serial lactic -NSTEMI: suspect chornic, serial trop, obain EKG and echo, start dual antipletelet therapy, lovenox and statin, obtain cardiology input, hold ACEI 2nd renal failure -CHHAYA: increase in creatinine, contineu IVF, avoid neprhotoxic drugs, avoid ACEI -Hypernatremia/malnutrition: start NG tube feeds, start free water -Contraction alkalosis: 2nd dehdyration ,avoid lasix -skin care: MVI/vitamin C and zinc sulfate -contineu dvt/pud ppx prognosis guarded cc time 35 minutes - Date & Time Date: 10/05/18 Time: 22:00
[2018-10-05] MEDS ORDERED: Glucagon Recombinant 1 mg Inj IM PRN (19:51)
[2018-10-05] MEDS ORDERED: Dextrose 50% SYRINGE Inj (50 ml) IV PRN (19:51)
[2018-10-05] MEDS ORDERED: (Novolin R) Insulin Human Regular 100 units/ml vial SC SCH (20:00)
--- NOTE | 2018-10-06 00:14 | CON ---
DATE: 10/05/2018 CARDIOLOGY CONSULTATION REASON FOR CONSULTATION: Elevated troponin. HISTORY OF PRESENT ILLNESS: The patient is an 87-year-old male who has a history of dementia, bedridden with contracted extremities who was brought in from [facility] because of refusing food and medications for two days. The patient is known to have right hip decubitus for which he is receiving intravenous antibiotics through PICC line. The history was obtained from the patient's daughter at the bedside via a lens inspector who is the charge entry clerk, registered nurse on the floor. There is no known prior cardiac history and no known news cameraman according to the patient's daughter. There was no reported chest pain. SOCIAL HISTORY: The patient had been bedridden at home. He is in a correction only for the past two months. REVIEW OF SYSTEMS: No reported chills. There was low-grade fever on admission. No reported chest pain. MEDICATIONS: Albuterol inhaler every 6 hours, aspirin 325 mg once a day, Crestor 20 mg once a day, fluconazole 100 mg intravenously daily, K-Dur 40 mEq daily, Lopressor 25 mg twice a day, Lovenox 40 mg subcutaneously once a day, normal saline 75 mL an hour, vancomycin 1 g intravenously daily, zinc sulfate 220 mg p.o. twice a day. PHYSICAL EXAMINATION: GENERAL: The patient is an elderly male who is contracted, mildly tachypneic but does not appear to be in any acute distress. VITAL SIGNS: Blood pressure 146/58, heart rate 88, temperature 99.6 on admission. Today's blood pressure is 153/90 with a heart rate of 63. HEENT: Temporal wasting with pale conjunctivae. NECK: No JVD. CHEST: Bilateral coarse crepitations. HEART: S1 and S2 are regular. ABDOMEN: Soft. EXTREMITIES: Contracted lower extremities. LABORATORY DATA: On admission, hemoglobin and hematocrit are 8.7 and 27.3, white count and platelet count are within normal limits. SMA-7 on admission: Sodium 150, potassium 4.3, chloride 126, CO2 of 24, glucose 108, BUN 31, creatinine 1.1. Troponin on admission was 0.422 and proBNP is 51,500. EKG on admission revealed sinus rhythm with frequent APCs with aberrant conduction, ST-T wave abnormality, consider inferior ischemia, and prolonged QT interval. Chest x-ray revealed borderline cardiomegaly, right middle and lower lobe infiltrates with left lower lobe infiltrate, bilateral pleural effusion cannot be ruled out. Hip wound cultures positive for yeast and sacral decubitus positive for gram-positive cocci. Blood cultures negative after 24 hours. ASSESSMENT: 1. Bilateral pneumonia. 2. Borderline troponin elevation, rule out [id number] myocardial infarction. 3. Dehydration with hypernatremia and prerenal azotemia. 4. Hip and sacral decubitus. RECOMMENDATIONS: Continue Plavix 75 mg once a day, normal saline 75 mL per hour, Lovenox 40 mg subcutaneous once a day, Lopressor 25 mg twice a day, K-Dur 40 mEq daily, Crestor 20 mg once a day. Change aspirin mg once a day. Continue IV Maxipime and IV vancomycin. I will follow up blood cultures, obtain an echocardiogram, and obtain chest CT scan without contrast. Overall prognosis is grave. The patient is not a suitable candidate for any invasive cardiac workup. Tomas Veras MD
--- NOTE | 2018-10-06 00:15 | PN ---
DATE: 10/05/2018 SUBJECTIVE: When I went to see Will today, family was at the bedside. He was having some respiratory issues. The nurse told me she has already given Solu-Medrol and Lasix. He also got respiratory treatment. He looked anxious. PHYSICAL EXAMINATION VITAL SIGNS: T-max was 96, heart rate of 100, blood pressure 133/75, respirations 22 and saturation 94. GENERAL: He was awake. HEENT: Head was atraumatic. NECK: Supple. LUNGS: Decreased breath sounds bilaterally, otherwise mostly clear. HEART: S1 and S2, tachy. ABDOMEN: Soft, nontender. No guarding, no rigidity present. MUSCULOSKELETAL: He is contracted and he has multiple decubiti on his back. He came here with dehydration and sacral decubitus. CAT scan report was not ready at that time but seemed to show infiltrates. Now the report comes back, which says scattered upper lobe infiltrates identified with right upper lobe infiltrate present and mixed with chronic interstitial pulmonary disease, apical prominent emphysematous changes and fibrosis. Congestive atelectasis is identified, exerted on the bilateral lower lobes, right greater than left as well as right middle lobe somewhat. No definite mass appreciable. Central areas appeared grossly normal. Has multiple compression fractures on the back. LABORATORY DATA: Showed white count 8.7, hemoglobin 8.4, hematocrit 26.3, platelet count 194. Sodium is 152, potassium 4.4, chloride 124, CO2 is 21, anion gap is 12, BUN is 32, creatinine is 1.4, so creatinine has increased. Here, he was on vancomycin. We will get a random level tomorrow. He also had lactic acid done and ABG done. Lactic acid is 1.8 today. His troponin is 0.2980 . So at this time, we will continue with vancomycin and Maxipime. He is in ICU. He was transferred to ICU after I had seen him today. We will order a vancomycin random level for tomorrow morning and we will follow. The patient does have effusions, pneumonia, probably aspiration, and he was recently in hospital and in rehab, so he probably needs gram-negative and gram-positive coverage. We will follow. Stacey Burns MD [facility] # [id number]
[2018-10-06] MEDS: Cefepime IV 1 gm in Dextrose 1 GM/50 ML BAG IVPB SCH ×3 (00:31→23:22)
[2018-10-06] MEDS: (Novolin R) Insulin Human Regular 100 units/ml vial SC SCH ×4 (00:49→18:17)
[2018-10-06] MEDS: MethylPREDNISolone 40 mg Vial IVP SCH ×5 (00:54→23:22)
[2018-10-06] MEDS: Albuterol 0.042% Inhal Sol (1.25 mg/3 mL) UD INH SCH ×5 (03:17→20:04)
[2018-10-06] MEDS: Sodium Chloride 0.9% 1,000 ML IV SCH (05:28)
[2018-10-06 06:41] LABS: BASO % 0.1 % (0.0-2.0); HEMOGLOBIN 8.1 g/dL (12.0-18.0); LYMPH # 0.5 K/uL (1.0-4.3); LYMPH % 5.7 % (20.0-40.0); MEAN CORPUSCULAR HEMOGLOBIN 30.3 pg (27.0-31.0); MEAN CORPUSCULAR HGB CONC 31.2 g/dL (33.0-37.0); MEAN PLATELET VOLUME 10.7 fL (7.2-11.7); MONO # 0.1 K/uL (0.0-0.8); MONO % 1.7 % (0.0-10.0); NEUT % 92.5 % (50.0-75.0); NRBC % 0.3 % (0.0-2.0); PLATELET COUNT 163 K/uL (130-400); RBC 2.67 Mil/uL (4.40-5.90); RED CELL DISTRIBUTION WIDTH 19.6 % (11.5-14.5); WHITE BLOOD COUNT 8.6 K/uL (4.8-10.8)
[2018-10-06 06:50] LABS: ARTERIAL BLOOD GAS HCO3 21.4 mmol/L (21-28); ARTERIAL BLOOD GAS O2 SAT 93.2 % (95-98); ARTERIAL BLOOD GAS PCO2 25 mm/Hg (35-45); ARTERIAL BLOOD GAS PH 7.46 (7.35-7.45); ARTERIAL BLOOD GAS PO2 55 mm/Hg (80-100); ARTERIAL BLOOD GAS TCO2 18.6 mmol/L (22-28)
[2018-10-06 07:09] LABS: ALB/GLOB RATIO 0.7 (1.0-2.1); ALBUMIN 2.5 g/dL (3.5-5.0); CALCIUM 7.8 mg/dl (8.6-10.4)
[2018-10-06 07:20] LABS: CK-MB 6.66 ng/mL (0.0-3.38); TROPONIN I 0.274 ng/mL (0.00-0.120)
--- NOTE | 2018-10-06 07:42 | PCM.PROC ---
<Gris Basilio - Last Filed: 10/06/18 07:41> Procedures Attestation:: I certify that I have explained the specified Operation(s) or Procedure(s), risks, benefits and reasonable alternatives to the Patient and/or other person responsible. The opportunity was given to ask questions and all questions answered - Intubation Time Out Performed: Yes (7:32) Sedative: Etomidate Mg Given: 20 Laryngoscope: Derick (3) Assist Device Used: Other (stylet) ET Tube Size: 7.5 ET Tube Uncuffed: No ET Tube Secured at Depth: 22 ET Tube Secured Locarion: Lips ET Tube Placement Confirmation: Visualized Passing Through Cords, Breath Sounds Equal Bilaterally, No Breath Sounds Over Epigastrum, Confirmation w/Capnometry Patient Tolerated Procedure: Well Procedure Immediate Complications: None <Joseph Schumacher - Last Filed: 10/10/18 08:44> Additional Comments - Additional Comments Additional Comments: Patient was intubated due to sob, dehydration, very thick secretions which he was unable to bring out.
[2018-10-06] MEDS ORDERED: Etomidate 20 mg/10ml Inj IV ONE (07:51)
[2018-10-06 08:41] LABS: LYMPHOCYTE 5 % (20-40); MONOCYTE 2 % (0-10); NEUTROPHIL 93 % (50-75); TOTAL CELLS COUNTED 100
[2018-10-06 08:47] LABS: HYPOCHROMIC SLIGHT; PLATELET ESTIMATE NORMAL (NORMAL); POLYCHROMIC SLIGHT
--- NOTE | 2018-10-06 09:03 | RAD ---
Date of service: 10/06/2018 HISTORY: ETT placement COMPARISON: 10/03/2018 FINDINGS: Endotracheal tube terminates 1.5 cm proximal to the adan. The nasogastric tube terminates in the stomach. LUNGS: There is worsening pulmonary venous congestion and interval development of pulmonary edema. PLEURA: Moderate pleural effusions. No pneumothorax. CARDIOVASCULAR: Persistent moderate cardiomegaly. Atherosclerotic aortic arch calcifications are present. OSSEOUS STRUCTURES: Within normal limits for the patient's age. VISUALIZED UPPER ABDOMEN: Normal. OTHER FINDINGS: None. IMPRESSION: Worsening congestive heart failure with interval development of pulmonary edema. Endotracheal tube terminates 1.5 cm proximal to the adan.
[2018-10-06] MEDS: Dexmedetomidine Hydrochloride 200 MCG in Sodium Chloride 0.9% 48 ML IV PRN (09:04)
[2018-10-06] MEDS ORDERED: Fluconazole IV 200mg/100 ml NS 100 ML IVPB SCH (10:00)
--- NOTE | 2018-10-06 10:19 | CP.CCUPN ---
CCU Subjective - Physician Review Events Since Last Encounter (Free Text): 10/06/18 07:54 Patient was intubated early this morning. He was placed on Precedex. Subjective (Free Text): 10/06/18 07:55 Patient was seen and examined. He is intubated and sedated. Responsive to painful stimuli. Critical Care Time Spent (in minutes): 35 CCU Objective - Vital Signs / Intake & Output Vital Signs (Last 4 hours): Vital Signs Temp Pulse Resp BP Pulse Ox 10/06/18 08:30 83 19 100 10/06/18 08:20 84 16 100 10/06/18 08:10 76 19 100 10/06/18 08:00 97.7 F 63 18 100 10/06/18 07:50 79 24 100 10/06/18 07:40 85 13 97 10/06/18 07:37 100 H 13 156/91 H 95 10/06/18 07:30 94 H 18 97 10/06/18 07:20 96 H 22 95 10/06/18 07:10 86 21 96 10/06/18 07:00 84 21 94 L 10/06/18 06:50 99 H 24 92 L 10/06/18 06:40 89 20 93 L 10/06/18 06:37 79 21 139/67 98 10/06/18 06:30 90 22 98 10/06/18 06:20 115 H 22 95 Intake and Output (Last 8hrs): Intake & Output 10/05/18 10/06/18 10/06/18 22:59 06:59 14:59 Intake Total 150 625 75 Output Total 0 150 0 Balance 150 475 75 Weight 120 lb 3.2 oz Intake: Intake, IV Amount 150 625 75 Right PICC 150 625 75 Oral 0 0 0 Output: Urine 150 Condom 150 Emesis 0 0 0 Other: # Bowel Movements 0 0 0 - Physical Exam Physical Exam Limitations: Positive for: Altered Mental Status Head: Positive for: Atraumatic Pupils: Positive for: PERRL Mouth: Positive for: Dry Respiratory/Chest: Positive for: Other (vent). Negative for: Respiratory Distress Cardiovascular: Positive for: Regular Rate and Rhythm, Normal S1, S2 Abdomen: Negative for: Distention Upper Extremity: Positive for: NORMAL PULSES, Capillary Refill < 2s, Other (thin) Lower Extremity: Positive for: NORMAL PULSES, Capillary Refill < 2 s, Other (thin) Neurological: Positive for: Other (sedated) Skin: Positive for: Warm, Dry Psychiatric: Negative for: Alert - Medications Active Medications: Active Medications Generic Name Dose Route Start Last Admin Trade Name Freq PRN Reason Stop Dose Admin Acetaminophen 650 mg 10/04/18 00:01 Tylenol 325mg Tab PO Q8 PRN Pain, Mild (1-3) Al Hydrox/Mg Hydrox/Simethicone 30 ml 10/04/18 10:00 Maalox Plus 30 Ml PO Q4 PRN Heartburn Albuterol Sulfate 1.25 mg 10/04/18 12:00 10/06/18 08:29 Albuterol 0.042% Inhal [place] (1.25mg/3ml) Ud INH 1.25 mg RQ6 ENRIQUE Administration Ascorbic Acid 500 mg 10/04/18 10:00 10/05/18 19:30 Vitamin C 500 Mg Tab PO Not Given BID ENRIQUE Aspirin 81 mg 10/05/18 15:05 Aspirin PO DAILY ENRIQUE Clopidogrel Bisulfate 75 mg 10/04/18 10:00 10/05/18 10:50 Plavix PO 75 mg DAILY ENRIQUE Administration Dextrose 0 ml 10/05/18 19:51 Dextrose 50% Inj IV STAT PRN Hypoglycemia Protocol Protocol Dextrose 0 gm 10/05/18 19:51 Glutose 15 PO ONCE PRN Hypoglycemia Protocol Protocol Enoxaparin Sodium 40 mg 10/04/18 10:00 10/05/18 10:50 Lovenox SC 40 mg DAILY ENRIQUE Administration Glucagon 0 mg 10/05/18 19:51 Glucagen Diagnostic Kit IM STAT PRN Hypoglycemia Protocol Protocol Cefepime HCl 1 gm in 50 mls @ 100 mls/hr 10/04/18 12:00 10/06/18 00:31 Maxipime Iv 1 Gm Premix IVPB 100 mls/hr Q12H ENRIQUE Administration Protocol Vancomycin/Sodium Chloride 1 gm in 200 mls @ 133.333 mls/hr 10/04/18 12:30 10/05/18 13:37 Vancomycin 1 Gm/Ns 200 Ml IVPB 133.333 mls/hr Q24H ENRIQUE Administration Protocol Fluconazole 100 mls @ 100 mls/hr 10/06/18 10:00 Diflucan Iv 200 Mg/100 Ml Ns IVPB DAILY ENRIQUE Protocol Dextrose 1,000 mls @ 0 mls/hr 10/05/18 19:51 Dextrose 5% In Water 1000 Ml IV .Q0M PRN Hypoglycemia Protocol Protocol Per Protocol Dexmedetomidine HCl 200 mcg/ 50 mls @ 2.36 mls/hr 10/06/18 07:39 10/06/18 09:04 Sodium Chloride IV 0.2 mcg/kg/hr TITR PRN 2.36 mls/hr Titrate per Protocol Administration Protocol 0.2 MCG/KG/HR Insulin Human Regular 0 unit 10/06/18 00:00 10/06/18 06:22 Novolin R SC Not Given Q6 [facility] Protocol Lorazepam 0.5 mg 10/04/18 00:00 Ativan PO Q12 PRN Agitation Magnesium Hydroxide 30 ml 10/04/18 00:01 Milk Of Magnesia PO DAILY PRN Constipation Memantine 10 mg 10/04/18 10:00 10/05/18 19:29 Namenda PO Not Given BID ENRIQUE Methylprednisolone 40 mg 10/06/18 00:00 10/06/18 05:24 Solu-Medrol IVP 40 mg Q6H [facility] Administration Metoprolol Tartrate 25 mg 10/04/18 10:00 10/05/18 19:29 Lopressor PO Not Given BID [facility] Multivitamins 1 tab 10/04/18 10:00 10/05/18 10:45 Hexavitamin PO 1 tab DAILY [facility] Administration Pantoprazole Sodium 40 mg 10/04/18 10:00 10/05/18 10:45 Protonix Ec Tab PO 40 mg DAILY [facility] Administration Rosuvastatin Calcium 20 mg 10/04/18 22:00 10/05/18 22:33 Crestor PO Not Given HS [facility] Zinc Sulfate 220 mg 10/04/18 10:00 10/05/18 22:33 Zinc Sulfate 220 Mg Cap PO Not Given BID [facility] - Patient Studies Lab Studies: Microbiology Studies 10/04/18 07:29 Gram Stain - Final Hip - Right Wound Culture - Final Faith Albicans 10/04/18 00:59 Gram Stain - Final Hip - Left Wound Culture - Final Faith Albicans 10/03/18 18:50 Blood Culture - Preliminary Blood NO GROWTH AFTER 48 HOURS 10/03/18 18:19 Blood Culture - Preliminary Blood NO GROWTH AFTER 48 HOURS 10/04/18 11:30 Blood Culture - Preliminary Blood NO GROWTH AFTER 24 HOURS 10/04/18 11:15 Blood Culture - Preliminary Blood NO GROWTH AFTER 24 HOURS 10/04/18 07:29 Gram Stain - Final Decubitus - Sacral Area Wound Culture - Preliminary Gram Positive Cocci 10/03/18 17:12 Urine Culture - Final Urine No Growth (<1,000 CFU/ML) Lab Studies 10/06/18 10/06/18 10/06/18 Range/Units 06:35 06:35 06:35 WBC 8.6 (4.8-10.8) K/uL RBC 2.67 L (4.40-5.90) Mil/uL Hgb 8.1 L (12.0-18.0) g/dL Hct 25.9 L (35.0-51.0) % MCV 97.0 H (80.0-94.0) fL MCH 30.3 (27.0-31.0) pg MCHC 31.2 L (33.0-37.0) g/dL RDW 19.6 H (11.5-14.5) % Plt Count 163 (130-400) K/uL MPV 10.7 (7.2-11.7) fL Neut % (Auto) 92.5 H (50.0-75.0) % Lymph % (Auto) 5.7 L (20.0-40.0) % Baker % (Auto) 1.7 (0.0-10.0) % Eos % (Auto) 0.0 (0.0-4.0) % Baso % (Auto) 0.1 (0.0-2.0) % Neut # (Auto) 8.0 H (1.8-7.0) K/uL Lymph # (Auto) 0.5 L (1.0-4.3) K/uL Baker # (Auto) 0.1 (0.0-0.8) K/uL Eos # (Auto) 0.0 (0.0-0.7) K/uL Baso # (Auto) 0.0 (0.0-0.2) K/uL Neutrophils % (Manual) 93 H (50-75) % Lymphocytes % (Manual) 5 L (20-40) % Monocytes % (Manual) 2 (0-10) % Platelet Estimate Normal (NORMAL) Polychromasia Slight Hypochromasia (manual) Slight Puncture Site pCO2 (35-45) mm/Hg pO2 (80-100) mm/Hg HCO3 (21-28) mmol/L ABG pH (7.35-7.45) ABG Total CO2 (22-28) mmol/L ABG O2 Saturation (95-98) % ABG Base Excess (-2.0-3.0) mmol/L Tima Test ABG Potassium (3.6-5.2) mmol/L A-a O2 Difference mm/Hg Respiratory Index Glucose (75-110) mg/dl Lactate (0.7-2.1) mmol/L Liter Flow FiO2 % Sodium 152 H (132-148) mmol/L Potassium 3.9 (3.6-5.2) mmol/L Chloride 126 H (98-107) mmol/L Carbon Dioxide 21 L (22-30) mmol/L Anion Gap 9 L (10-20) BUN 35 H (9-20) mg/dL Creatinine 1.4 (0.8-1.5) mg/dL Est GFR ( Amer) 58 Est GFR (Non-Af Amer) 48 POC Glucose (mg/dL) (65-110) mg/dL Random Glucose 137 H (75-110) mg/dL Lactic Acid (0.7-2.1) mmol/L Calcium 7.8 L (8.6-10.4) mg/dl Phosphorus 3.6 (2.5-4.5) mg/dL Magnesium 2.2 (1.6-2.3) mg/dL Total Bilirubin 0.6 (0.2-1.3) mg/dL AST 99 H (17-59) U/L ALT 70 (21-72) U/L Alkaline Phosphatase 361 H (38-126) U/L Total Creatine Kinase 133 (55-170) U/L CK-MB (Mass) 6.66 H (0.0-3.38) ng/mL Troponin I 0.2740 H* (0.00-0.120) ng/mL Total Protein 5.8 L (6.3-8.3) g/dL Albumin 2.5 L (3.5-5.0) g/dL Globulin 3.3 (2.2-3.9) gm/dL Albumin/Globulin Ratio 0.7 L (1.0-2.1) Arterial Blood Potassium (3.6-5.2) mmol/L Random Vancomycin 23.8 ug/mL 10/06/18 10/06/18 10/06/18 Range/Units 06:30 05:33 00:22 WBC (4.8-10.8) K/uL RBC (4.40-5.90) Mil/uL Hgb (12.0-18.0) g/dL Hct (35.0-51.0) % MCV (80.0-94.0) fL MCH (27.0-31.0) pg MCHC (33.0-37.0) g/dL RDW (11.5-14.5) % Plt Count (130-400) K/uL MPV (7.2-11.7) fL Neut % (Auto) (50.0-75.0) % Lymph % (Auto) (20.0-40.0) % Baker % (Auto) (0.0-10.0) % Eos % (Auto) (0.0-4.0) % Baso % (Auto) (0.0-2.0) % Neut # (Auto) (1.8-7.0) K/uL Lymph # (Auto) (1.0-4.3) K/uL Baker # (Auto) (0.0-0.8) K/uL Eos # (Auto) (0.0-0.7) K/uL Baso # (Auto) (0.0-0.2) K/uL Neutrophils % (Manual) (50-75) % Lymphocytes % (Manual) (20-40) % Monocytes % (Manual) (0-10) % Platelet Estimate (NORMAL) Polychromasia Hypochromasia (manual) Puncture Site R brac pCO2 25 L (35-45) mm/Hg pO2 55 L (80-100) mm/Hg HCO3 21.4 (21-28) mmol/L ABG pH 7.46 H (7.35-7.45) ABG Total CO2 18.6 L (22-28) mmol/L ABG O2 Saturation 93.2 L (95-98) % ABG Base Excess -4.3 L (-2.0-3.0) mmol/L Tima Test Na ABG Potassium 3.6 (3.6-5.2) mmol/L A-a O2 Difference mm/Hg Respiratory Index Glucose 171 H (75-110) mg/dl Lactate 1.8 (0.7-2.1) mmol/L Liter Flow 4.0 FiO2 % Sodium 156.0 H (132-148) mmol/L Potassium (3.6-5.2) mmol/L Chloride 131.0 H (98-107) mmol/L Carbon Dioxide (22-30) mmol/L Anion Gap (10-20) BUN (9-20) mg/dL Creatinine (0.8-1.5) mg/dL Est GFR ( Amer) Est GFR (Non-Af Amer) POC Glucose (mg/dL) 178 H (65-110) mg/dL Random Glucose (75-110) mg/dL Lactic Acid 1.6 (0.7-2.1) mmol/L Calcium (8.6-10.4) mg/dl Phosphorus (2.5-4.5) mg/dL Magnesium (1.6-2.3) mg/dL Total Bilirubin (0.2-1.3) mg/dL AST (17-59) U/L ALT (21-72) U/L Alkaline Phosphatase (38-126) U/L Total Creatine Kinase (55-170) U/L CK-MB (Mass) (0.0-3.38) ng/mL Troponin I (0.00-0.120) ng/mL Total Protein (6.3-8.3) g/dL Albumin (3.5-5.0) g/dL Globulin (2.2-3.9) gm/dL Albumin/Globulin Ratio (1.0-2.1) Arterial Blood Potassium 3.6 (3.6-5.2) mmol/L Random Vancomycin ug/mL 10/05/18 10/05/18 10/05/18 Range/Units 23:48 20:38 17:25 WBC (4.8-10.8) K/uL RBC (4.40-5.90) Mil/uL Hgb (12.0-18.0) g/dL Hct (35.0-51.0) % MCV (80.0-94.0) fL MCH (27.0-31.0) pg MCHC (33.0-37.0) g/dL RDW (11.5-14.5) % Plt Count (130-400) K/uL MPV (7.2-11.7) fL Neut % (Auto) (50.0-75.0) % Lymph % (Auto) (20.0-40.0) % Baker % (Auto) (0.0-10.0) % Eos % (Auto) (0.0-4.0) % Baso % (Auto) (0.0-2.0) % Neut # (Auto) (1.8-7.0) K/uL Lymph # (Auto) (1.0-4.3) K/uL Baker # (Auto) (0.0-0.8) K/uL Eos # (Auto) (0.0-0.7) K/uL Baso # (Auto) (0.0-0.2) K/uL Neutrophils % (Manual) (50-75) % Lymphocytes % (Manual) (20-40) % Monocytes % (Manual) (0-10) % Platelet Estimate (NORMAL) Polychromasia Hypochromasia (manual) Puncture Site Rba pCO2 28 L (35-45) mm/Hg pO2 58 L (80-100) mm/Hg HCO3 21.8 (21-28) mmol/L ABG pH 7.44 (7.35-7.45) ABG Total CO2 19.9 L (22-28) mmol/L ABG O2 Saturation 93.7 L (95-98) % ABG Base Excess -3.8 L (-2.0-3.0) mmol/L Tima Test Na ABG Potassium 4.1 (3.6-5.2) mmol/L A-a O2 Difference 121.0 mm/Hg Respiratory Index 2.1 Glucose 154 H (75-110) mg/dl Lactate 1.8 (0.7-2.1) mmol/L Liter Flow 3.0 FiO2 30.0 % Sodium 154.0 H (132-148) mmol/L Potassium (3.6-5.2) mmol/L Chloride 127.0 H (98-107) mmol/L Carbon Dioxide (22-30) mmol/L Anion Gap (10-20) BUN (9-20) mg/dL Creatinine (0.8-1.5) mg/dL Est GFR ( Amer) Est GFR (Non-Af Amer) POC Glucose (mg/dL) 166 H (65-110) mg/dL Random Glucose (75-110) mg/dL Lactic Acid 1.8 (0.7-2.1) mmol/L Calcium (8.6-10.4) mg/dl Phosphorus (2.5-4.5) mg/dL Magnesium (1.6-2.3) mg/dL Total Bilirubin (0.2-1.3) mg/dL AST (17-59) U/L ALT (21-72) U/L Alkaline Phosphatase (38-126) U/L Total Creatine Kinase (55-170) U/L CK-MB (Mass) (0.0-3.38) ng/mL Troponin I (0.00-0.120) ng/mL Total Protein (6.3-8.3) g/dL Albumin (3.5-5.0) g/dL Globulin (2.2-3.9) gm/dL Albumin/Globulin Ratio (1.0-2.1) Arterial Blood Potassium 4.1 (3.6-5.2) mmol/L Random Vancomycin ug/mL 10/05/18 10/05/18 10/05/18 Range/Units 17:00 17:00 16:27 WBC 8.7 (4.8-10.8) K/uL RBC 2.73 L (4.40-5.90) Mil/uL Hgb 8.4 L (12.0-18.0) g/dL Hct 26.3 L (35.0-51.0) % MCV 96.6 H (80.0-94.0) fL MCH 31.0 (27.0-31.0) pg MCHC 32.1 L (33.0-37.0) g/dL RDW 19.7 H (11.5-14.5) % Plt Count 194 (130-400) K/uL MPV 10.0 (7.2-11.7) fL Neut % (Auto) 84.8 H (50.0-75.0) % Lymph % (Auto) 10.2 L (20.0-40.0) % Baker % (Auto) 4.8 (0.0-10.0) % Eos % (Auto) 0.0 (0.0-4.0) % Baso % (Auto) 0.2 (0.0-2.0) % Neut # (Auto) 7.4 H (1.8-7.0) K/uL Lymph # (Auto) 0.9 L (1.0-4.3) K/uL Baker # (Auto) 0.4 (0.0-0.8) K/uL Eos # (Auto) 0.0 (0.0-0.7) K/uL Baso # (Auto) 0.0 (0.0-0.2) K/uL Neutrophils % (Manual) (50-75) % Lymphocytes % (Manual) (20-40) % Monocytes % (Manual) (0-10) % Platelet Estimate (NORMAL) Polychromasia Hypochromasia (manual) Puncture Site pCO2 (35-45) mm/Hg pO2 (80-100) mm/Hg HCO3 (21-28) mmol/L ABG pH (7.35-7.45) ABG Total CO2 (22-28) mmol/L ABG O2 Saturation (95-98) % ABG Base Excess (-2.0-3.0) mmol/L Tima Test ABG Potassium (3.6-5.2) mmol/L A-a O2 Difference mm/Hg Respiratory Index Glucose (75-110) mg/dl Lactate (0.7-2.1) mmol/L Liter Flow FiO2 % Sodium 152 H (132-148) mmol/L Potassium 4.4 (3.6-5.2) mmol/L Chloride 124 H (98-107) mmol/L Carbon Dioxide 21 L (22-30) mmol/L Anion Gap 12 (10-20) BUN 32 H (9-20) mg/dL Creatinine 1.4 (0.8-1.5) mg/dL Est GFR ( Amer) 58 Est GFR (Non-Af Amer) 48 POC Glucose (mg/dL) 174 H (65-110) mg/dL Random Glucose 163 H (75-110) mg/dL Lactic Acid (0.7-2.1) mmol/L Calcium 7.7 L (8.6-10.4) mg/dl Phosphorus (2.5-4.5) mg/dL Magnesium (1.6-2.3) mg/dL Total Bilirubin 0.6 (0.2-1.3) mg/dL AST 122 H D (17-59) U/L ALT 65 (21-72) U/L Alkaline Phosphatase 327 H D (38-126) U/L Total Creatine Kinase 135 (55-170) U/L CK-MB (Mass) 4.85 H (0.0-3.38) ng/mL Troponin I 0.2980 H* (0.00-0.120) ng/mL Total Protein 5.9 L (6.3-8.3) g/dL Albumin 2.4 L (3.5-5.0) g/dL Globulin 3.4 (2.2-3.9) gm/dL Albumin/Globulin Ratio 0.7 L (1.0-2.1) Arterial Blood Potassium (3.6-5.2) mmol/L Random Vancomycin ug/mL Laboratory Results - last 24 hr 10/05/18 10/05/18 10/05/18 16:27 17:00 17:00 WBC 8.7 RBC 2.73 L Hgb 8.4 L Hct 26.3 L MCV 96.6 H MCH 31.0 MCHC 32.1 L RDW 19.7 H Plt Count 194 MPV 10.0 Neut % (Auto) 84.8 H Lymph % (Auto) 10.2 L Baker % (Auto) 4.8 Eos % (Auto) 0.0 Baso % (Auto) 0.2 Neut # (Auto) 7.4 H Lymph # (Auto) 0.9 L Baker # (Auto) 0.4 Eos # (Auto) 0.0 Baso # (Auto) 0.0 Neutrophils % (Manual) Lymphocytes % (Manual) Monocytes % (Manual) Platelet Estimate Polychromasia Hypochromasia (manual) Puncture Site pCO2 pO2 HCO3 ABG pH ABG Total CO2 ABG O2 Saturation ABG Base Excess Tima Test ABG Potassium A-a O2 Difference Respiratory Index Glucose Lactate Liter Flow FiO2 Sodium 152 H Potassium 4.4 Chloride 124 H Carbon Dioxide 21 L Anion Gap 12 BUN 32 H Creatinine 1.4 Est GFR ( Amer) 58 Est GFR (Non-Af Amer) 48 POC Glucose (mg/dL) 174 H Random Glucose 163 H Lactic Acid Calcium 7.7 L Phosphorus Magnesium Total Bilirubin 0.6 AST 122 H D ALT 65 Alkaline Phosphatase 327 H D Total Creatine Kinase 135 CK-MB (Mass) 4.85 H Troponin I 0.2980 H* Total Protein 5.9 L Albumin 2.4 L Globulin 3.4 Albumin/Globulin Ratio 0.7 L Arterial Blood Potassium Random Vancomycin 10/05/18 10/05/18 10/05/18 17:25 20:38 23:48 WBC RBC Hgb Hct MCV MCH MCHC RDW Plt Count MPV Neut % (Auto) Lymph % (Auto) Baker % (Auto) Eos % (Auto) Baso % (Auto) Neut # (Auto) Lymph # (Auto) Baker # (Auto) Eos # (Auto) Baso # (Auto) Neutrophils % (Manual) Lymphocytes % (Manual) Monocytes % (Manual) Platelet Estimate Polychromasia Hypochromasia (manual) Puncture Site Rba pCO2 28 L pO2 58 L HCO3 21.8 ABG pH 7.44 ABG Total CO2 19.9 L ABG O2 Saturation 93.7 L ABG Base Excess -3.8 L Tima Test Na ABG Potassium 4.1 A-a O2 Difference 121.0 Respiratory Index 2.1 Glucose 154 H Lactate 1.8 Liter Flow 3.0 FiO2 30.0 Sodium 154.0 H Potassium Chloride 127.0 H Carbon Dioxide Anion Gap BUN Creatinine Est GFR ( Amer) Est GFR (Non-Af Amer) POC Glucose (mg/dL) 166 H Random Glucose Lactic Acid 1.8 Calcium Phosphorus Magnesium Total Bilirubin AST ALT Alkaline Phosphatase Total Creatine Kinase CK-MB (Mass) Troponin I Total Protein Albumin Globulin Albumin/Globulin Ratio Arterial Blood Potassium 4.1 Random Vancomycin 10/06/18 10/06/18 10/06/18 00:22 05:33 06:30 WBC RBC Hgb Hct MCV MCH MCHC RDW Plt Count MPV Neut % (Auto) Lymph % (Auto) Baker % (Auto) Eos % (Auto) Baso % (Auto) Neut # (Auto) Lymph # (Auto) Baker # (Auto) Eos # (Auto) Baso # (Auto) Neutrophils % (Manual) Lymphocytes % (Manual) Monocytes % (Manual) Platelet Estimate Polychromasia Hypochromasia (manual) Puncture Site R brac pCO2 25 L pO2 55 L HCO3 21.4 ABG pH 7.46 H ABG Total CO2 18.6 L ABG O2 Saturation 93.2 L ABG Base Excess -4.3 L Tima Test Na ABG Potassium 3.6 A-a O2 Difference Respiratory Index Glucose 171 H Lactate 1.8 Liter Flow 4.0 FiO2 Sodium 156.0 H Potassium Chloride 131.0 H Carbon Dioxide Anion Gap BUN Creatinine Est GFR ( Amer) Est GFR (Non-Af Amer) POC Glucose (mg/dL) 178 H Random Glucose Lactic Acid 1.6 Calcium Phosphorus Magnesium Total Bilirubin AST ALT Alkaline Phosphatase Total Creatine Kinase CK-MB (Mass) Troponin I Total Protein Albumin Globulin Albumin/Globulin Ratio Arterial Blood Potassium 3.6 Random Vancomycin 10/06/18 10/06/18 10/06/18 06:35 06:35 06:35 WBC 8.6 RBC 2.67 L Hgb 8.1 L Hct 25.9 L MCV 97.0 H MCH 30.3 MCHC 31.2 L RDW 19.6 H Plt Count 163 MPV 10.7 Neut % (Auto) 92.5 H Lymph % (Auto) 5.7 L Baker % (Auto) 1.7 Eos % (Auto) 0.0 Baso % (Auto) 0.1 Neut # (Auto) 8.0 H Lymph # (Auto) 0.5 L Baker # (Auto) 0.1 Eos # (Auto) 0.0 Baso # (Auto) 0.0 Neutrophils % (Manual) 93 H Lymphocytes % (Manual) 5 L Monocytes % (Manual) 2 Platelet Estimate Normal Polychromasia Slight Hypochromasia (manual) Slight Puncture Site pCO2 pO2 HCO3 ABG pH ABG Total CO2 ABG O2 Saturation ABG Base Excess Tima Test ABG Potassium A-a O2 Difference Respiratory Index Glucose Lactate Liter Flow FiO2 Sodium 152 H Potassium 3.9 Chloride 126 H Carbon Dioxide 21 L Anion Gap 9 L BUN 35 H Creatinine 1.4 Est GFR ( Amer) 58 Est GFR (Non-Af Amer) 48 POC Glucose (mg/dL) Random Glucose 137 H Lactic Acid Calcium 7.8 L Phosphorus 3.6 Magnesium 2.2 Total Bilirubin 0.6 AST 99 H ALT 70 Alkaline Phosphatase 361 H Total Creatine Kinase 133 CK-MB (Mass) 6.66 H Troponin I 0.2740 H* Total Protein 5.8 L Albumin 2.5 L Globulin 3.3 Albumin/Globulin Ratio 0.7 L Arterial Blood Potassium Random Vancomycin 23.8 EKG/Cardiology Studies: Cardiology / EKG Studies 10/05/18 15:05 EKG [ELECTROCARDIOGRAM] Routine Comment: Mode Of Transportation: Reason For Exam: cad Isolation: Contact Fingerstick Blood Sugar Results: 178 Review of Systems - Review of Systems Systems not reviewed;Unavailable: Intubated Critical Care Progress Note - Ventilator Checklist Head of Bed 30 Degrees: Yes Daily Assessment of Readiness to Wean: Yes PUD Prophalyxis: Yes DVT Prophylaxis: Yes Oral Care with Chlorhexidine Gluconate {CHG}: Yes - Vent Settings MODE:: PRVC - Extremities/Vascular Does the Patient have a Central Venous Catheter?: No Does the Patient need a Central Venous Catheter?: No Does the Patient have a Childress Catheter?: Yes Does the Patient need a Childress Catheter?: Yes Catheter Insertion Criteria: Patient requires prolonged immobilization - Prophylaxis GI Prophylaxis GI: PPI - Prophylaxis DVT Prophylaxis DVT: Lovenox - Nutrition Nutrition: Nutrition Category Date Time Status NPO Diet [DIET] Diets 10/05/18 Dinner Active Assessment/Plan - Assessment and Plan (Free Text) Assessment: Patient is an 87 yo male who cam [facility] from [facility] for not eating or taking medications. Today he developed respiratory distress after going for CT scan- likely aspirated. Patient is now intubated and sedated. Will need thoracentesis. Plan: Neuro: Dementia - At baseline, oriented to person - Discontinue Ativan 0.5 mg PO Q12H PRN - Memantine 10 mg PO BID CV: NSTEMI - Elevated troponins (0.422->0.298) Chronic systolic heart failure, Pulmonary HTN - BNP 51,500 - CT chest: cardiomegaly, pulm artery HTN - Monitor vitals - Echo pending - Metoprolol 25 mg PO BID - Hold ACEI/ARB due to dehydration Coronary artery disease- h/o stent placement - ASA 81 mg PO daily - Plavix 75 mg PO daily - Crestor 20 mg PO QHS - Cardiology consulted (Rito) Pulm: Bilateral pleural effusions- suspect CHF and aspiration PNA - CT chest: chronic interstitial pulm disease with superimposed infiltrates R>L, mod-lag b/l pleural effusions with compression atelectasis - Maintain spO2>92%- supplemental O2 PRN - Duoneb Q6H - Methyprednisolone 40 mg IV Q6H - ET tube in place- daily CXR - Pulmonology consulted (Josué) - IR consulted (Shannon) GI: - NGT- Glucerna - [place] Pourer consult : Hypernatremia - I's & O's - Replete electrolytes PRN - Hold Lasix Endo: - Maintain euglycemia - Hypoglycemia protocol - Accuchecks Q6H with ISS Heme: - Monitor H&H - LE venous Dopplers pending ID: Sacral decubitus ulcer - Sacral ulcer Cx: VRE - Afebrile, no leukocytosis - Cefepime 1 g Q12H - Vancomycin 1 q IV Q24H - Fluconazole 200 mg IV daily - Remove RUE PICC- potential infection source - Blood Cx: no growth >48 hrs - ID consulted (Katy) PPx: VTE: SCDs, Lovenox 40 mg SC daily GI: PTX 40 mg PO daily Code status: full code Case discussed with attending, Dr. Efren Ko. PGY-1 Gris Basilio D.O.
[2018-10-06] MEDS: Enoxaparin 40 mg Syringe SC SCH (10:25)
[2018-10-06] MEDS: Multiple Vitamins Tab PO SCH (10:25)
--- NOTE | 2018-10-06 10:55 | VASCLAB ---
Date of service: 10/06/2018 PROCEDURE: Lower Extremity Venous Duplex Exam. HISTORY: Shortness of breath, r/o DVT PRIORS: None. TECHNIQUE: Bilateral common femoral, femoral, popliteal and posterior tibial, peroneal and great saphenous veins were evaluated. Flow was assessed with color Doppler, compressibility, assessment of phasic flow and augmentation response. Report prepared by production technologist. FINDINGS: RIGHT: 1. Common Femoral Vein: 1.1. Compressibility - Fully compressible: Thrombus - None : Flow - Phasic: Augmentation -Normal: Reflux - None. 2. Femoral Vein: (Proximal view only) 2.1. Compressibility - Fully compressible: Thrombus - None : Flow - Phasic: Augmentation -Normal: Reflux - None. 3. Popliteal Vein: 3.1. Compressibility - Fully compressible: Thrombus - None : Flow - Phasic: Augmentation -Normal: Reflux - None. 4. Posterior Tibial Vein: Unable to examine 5. Peroneal Vein:Unable to examine 6. Great Saphenous Vein:Unable to examine LEFT: 1. Common Femoral Vein: 1.1. Compressibility - Fully compressible: Thrombus - None: Flow - Phasic: Augmentation -Normal: Reflux - None. 2. Femoral Vein: 2.1. Compressibility - Fully compressible: Thrombus - None: Flow - Phasic: Augmentation -Normal: Reflux - None. 3. Popliteal Vein: 3.1. Compressibility - Fully compressible: Thrombus - None : Flow - Phasic: Augmentation -Normal: Reflux - None. 4. Posterior Tibial Vein:Unable to examine 5. Peroneal Vein:Unable to examine 6. Great Saphenous Vein:Unable to examine OTHER FINDINGS: Technically difficult and limited examination, due to patient's limited positioning. Incidental findings: Bilateral SFA stents appeared patent. Extensive arterial calcifications. IMPRESSION: No evidence of deep or superficial vein thrombosis for the examined veins, bilaterally.
[2018-10-06 11:09] LABS: ARTERIAL BLOOD GAS HCO3 21.5 mmol/L (21-28); ARTERIAL BLOOD GAS HEMOGLOBIN 8.4 g/dL (11.7-17.4); ARTERIAL BLOOD GAS O2 SAT 99.8 % (95-98); ARTERIAL BLOOD GAS PCO2 27 mm/Hg (35-45); ARTERIAL BLOOD GAS PH 7.45 (7.35-7.45); ARTERIAL BLOOD GAS PO2 134 mm/Hg (80-100); ARTERIAL BLOOD GAS TCO2 19.6 mmol/L (22-28)
[2018-10-06] MEDS: Pantoprazole 40 mg Susp UD NG SCH (12:13)
[2018-10-06] MEDS: Vancomycin 1 gm/NS 200 ml 1 GM/200 ML BAG IVPB SCH (12:14)
[2018-10-06] MEDS: Pantoprazole 40 mg EC Tab PO SCH (12:42)
[2018-10-06 13:09] LABS: INR 1.3; PROTHROMBIN TIME 14.4 SECONDS (9.7-12.2)
--- NOTE | 2018-10-06 13:20 | CP.PCM.PN ---
Subjective - Date & Time of Evaluation Date of Evaluation: 10/06/18 Time of Evaluation: 13:00 - Subjective Subjective: dictated Objective - Vital Signs/Intake and Output Vital Signs (last 24 hours): Temp Pulse Resp BP Pulse Ox 98.4 F 63 17 135/66 100 10/06/18 08:00 10/06/18 11:10 10/06/18 11:10 10/06/18 10:38 10/06/18 11:10 Intake and Output: 10/06/18 10/06/18 06:59 18:59 Intake Total 775 75 Output Total 150 0 Balance 625 75 - Medications Medications: Current Medications Acetaminophen (Tylenol 325mg Tab) 650 mg PO Q8 PRN PRN Reason: Pain, Mild (1-3) Al Hydrox/Mg Hydrox/Simethicone (Maalox Plus 30 Ml) 30 ml PO Q4 PRN PRN Reason: Heartburn Albuterol Sulfate (Albuterol 0.042% Inhal [place] (1.25mg/3ml) Ud) 1.25 mg INH RQ6 [facility] Last Admin: 10/06/18 08:29 Dose: 1.25 mg Ascorbic Acid (Vitamin C 500 Mg Tab) 500 mg PO BID [facility] Last Admin: 10/06/18 10:24 Dose: 500 mg Aspirin (Aspirin Chewable) 81 mg PO DAILY [facility] Last Admin: 10/06/18 12:13 Dose: 81 mg Clopidogrel Bisulfate (Plavix) 75 mg PO DAILY [facility] Last Admin: 10/06/18 10:25 Dose: 75 mg Dextrose (Dextrose 50% Inj) 0 ml IV STAT PRN; Protocol PRN Reason: Hypoglycemia Protocol Dextrose (Glutose 15) 0 gm PO ONCE PRN; Protocol PRN Reason: Hypoglycemia Protocol Enoxaparin Sodium (Lovenox) 40 mg SC DAILY [facility] Last Admin: 10/06/18 10:25 Dose: 40 mg Glucagon (Glucagen Diagnostic Kit) 0 mg IM STAT PRN; Protocol PRN Reason: Hypoglycemia Protocol Cefepime HCl (Maxipime Iv 1 Gm Premix) 1 gm in 50 mls @ 100 mls/hr IVPB Q12H [facility]; Protocol Last Admin: 10/06/18 12:14 Dose: 100 mls/hr Dextrose (Dextrose 5% In Water 1000 Ml) 1,000 mls @ 0 mls/hr IV .Q0M PRN; Protocol PRN Reason: Hypoglycemia Protocol Dexmedetomidine HCl 200 mcg/ (Sodium Chloride) 50 mls @ 2.36 mls/hr IV TITR PRN; Protocol PRN Reason: Titrate per Protocol Last Admin: 10/06/18 09:04 Dose: 0.2 mcg/kg/hr, 2.36 mls/hr Micafungin Sodium 100 mg/ (Sodium Chloride) 100 mls @ 100 mls/hr IV Q24H [facility]; Protocol Tigecycline 100 mg/ Sodium (Chloride) 100 mls @ 100 mls/hr IVPB ONCE ONE; Protocol Stop: 10/06/18 16:59 Tigecycline 50 mg/ Sodium (Chloride) 100 mls @ 100 mls/hr IVPB Q12H [facility]; Protocol Insulin Human Regular (Novolin R) 0 unit SC Q6 [facility]; Protocol Last Admin: 10/06/18 12:35 Dose: Not Given Lorazepam (Ativan) 0.5 mg PO Q12 PRN PRN Reason: Agitation Magnesium Hydroxide (Milk Of Magnesia) 30 ml PO DAILY PRN PRN Reason: Constipation Memantine (Namenda) 10 mg PO BID [facility] Last Admin: 10/06/18 10:25 Dose: 10 mg Methylprednisolone (Solu-Medrol) 40 mg IVP Q6H [facility] Last Admin: 10/06/18 12:15 Dose: 40 mg Metoprolol Tartrate (Lopressor) 25 mg PO BID [facility] Last Admin: 10/06/18 10:24 Dose: 25 mg Multivitamins (Hexavitamin) 1 tab PO DAILY [facility] Last Admin: 10/06/18 10:25 Dose: 1 tab Pantoprazole Sodium (Protonix Susp) 40 mg NG DAILY [facility] Last Admin: 10/06/18 12:13 Dose: 40 mg Rosuvastatin Calcium (Crestor) 20 mg PO HS [facility] Last Admin: 10/05/18 22:33 Dose: Not Given Zinc Sulfate (Zinc Sulfate 220 Mg Cap) 220 mg PO BID [facility] Last Admin: 10/06/18 10:24 Dose: 220 mg - Labs Labs: 10/06/18 06:35 10/06/18 06:35 PT 14.4 SECONDS (9.7-12.2) H 10/06/18 12:58 INR 1.3 10/06/18 12:58 APTT 35 SECONDS (21-34) H 10/06/18 12:58
[2018-10-06] MEDS: Micafungin 100 MG in Sodium Chloride 0.9% 100 ML IV SCH (13:54)
--- NOTE | 2018-10-06 14:31 | PCM.IRP ---
Objective - Vital Signs/Intake and Output Vital Signs (last 24 hours): Vital Signs - 24 hr 10/05/18 10/05/18 10/05/18 16:00 16:34 16:52 Temperature 97.2 F L Pulse Rate 93 H 108 H Respiratory 20 Rate Blood Pressure 166/97 H 167/80 H O2 Sat by Pulse 92 L Oximetry 10/05/18 10/05/18 10/05/18 17:00 19:15 19:29 Temperature 96 F L Pulse Rate 93 H 100 H Respiratory 22 Rate Blood Pressure 133/75 133/75 O2 Sat by Pulse 94 L Oximetry 10/05/18 10/06/18 10/06/18 20:31 02:20 02:30 Temperature 96 F L Pulse Rate 102 H 87 90 Respiratory 22 19 16 Rate Blood Pressure 144/75 O2 Sat by Pulse 92 L 94 L 91 L Oximetry 10/06/18 10/06/18 10/06/18 02:37 02:40 02:50 Temperature Pulse Rate 104 H 107 H 95 H Respiratory 23 22 24 Rate Blood Pressure 166/101 H O2 Sat by Pulse 86 L 91 L Oximetry 10/06/18 10/06/18 10/06/18 03:00 03:10 03:20 Temperature Pulse Rate 97 H 104 H 95 H Respiratory 19 22 24 Rate Blood Pressure O2 Sat by Pulse 92 L 89 L 91 L Oximetry 10/06/18 10/06/18 10/06/18 03:30 03:38 03:40 Temperature Pulse Rate 86 64 84 Respiratory 19 16 20 Rate Blood Pressure 160/69 H O2 Sat by Pulse 95 93 L 87 L Oximetry 10/06/18 10/06/18 10/06/18 03:50 04:00 04:10 Temperature Pulse Rate 82 94 H 86 Respiratory 16 17 16 Rate Blood Pressure O2 Sat by Pulse 100 98 100 Oximetry 10/06/18 10/06/18 10/06/18 04:20 04:30 04:38 Temperature Pulse Rate 97 H 93 H 96 H Respiratory 23 22 19 Rate Blood Pressure 159/78 H O2 Sat by Pulse 100 100 100 Oximetry 10/06/18 10/06/18 10/06/18 04:40 04:50 05:00 Temperature Pulse Rate 96 H 97 H 72 Respiratory 17 23 16 Rate Blood Pressure O2 Sat by Pulse 99 99 100 Oximetry 10/06/18 10/06/18 10/06/18 05:10 05:20 05:30 Temperature Pulse Rate 102 H 99 H 109 H Respiratory 24 20 23 Rate Blood Pressure O2 Sat by Pulse 97 96 93 L Oximetry 10/06/18 10/06/18 10/06/18 05:37 05:40 05:50 Temperature Pulse Rate 101 H 123 H 125 H Respiratory 22 35 H 23 Rate Blood Pressure 159/93 H O2 Sat by Pulse 89 L 88 L 89 L Oximetry 10/06/18 10/06/18 10/06/18 06:00 06:10 06:20 Temperature Pulse Rate 104 H 134 H 115 H Respiratory 21 40 H 22 Rate Blood Pressure O2 Sat by Pulse 83 L 81 L 95 Oximetry 10/06/18 10/06/18 10/06/18 06:30 06:37 06:40 Temperature Pulse Rate 90 79 89 Respiratory 22 21 20 Rate Blood Pressure 139/67 O2 Sat by Pulse 98 98 93 L Oximetry 10/06/18 10/06/18 10/06/18 06:50 07:00 07:10 Temperature Pulse Rate 99 H 84 86 Respiratory 24 21 21 Rate Blood Pressure O2 Sat by Pulse 92 L 94 L 96 Oximetry 10/06/18 10/06/18 10/06/18 07:20 07:30 07:37 Temperature Pulse Rate 96 H 94 H 100 H Respiratory 22 18 13 Rate Blood Pressure 156/91 H O2 Sat by Pulse 95 97 95 Oximetry 10/06/18 10/06/18 10/06/18 07:40 07:50 08:00 Temperature 98.4 F Pulse Rate 85 79 63 Respiratory 13 24 18 Rate Blood Pressure O2 Sat by Pulse 97 100 100 Oximetry 10/06/18 10/06/18 10/06/18 08:10 08:20 08:30 Temperature Pulse Rate 76 84 83 Respiratory 19 16 19 Rate Blood Pressure O2 Sat by Pulse 100 100 100 Oximetry 10/06/18 10/06/18 10/06/18 08:37 08:40 08:50 Temperature Pulse Rate 74 81 72 Respiratory 16 19 13 Rate Blood Pressure 129/65 O2 Sat by Pulse 100 100 89 L Oximetry 10/06/18 10/06/18 10/06/18 09:00 09:10 09:20 Temperature Pulse Rate 79 90 83 Respiratory 11 L 26 H 20 Rate Blood Pressure O2 Sat by Pulse 92 L 100 100 Oximetry 1110/06/18 10/06/18 09:30 09:38 09:40 Temperature Pulse Rate 72 73 74 Respiratory 18 24 14 Rate Blood Pressure 125/52 L O2 Sat by Pulse 85 L 97 Oximetry 10/06/18 10/06/18 10/06/18 09:50 10:00 10:10 Temperature Pulse Rate 69 81 82 Respiratory 14 14 15 Rate Blood Pressure O2 Sat by Pulse 81 L Oximetry 10/06/18 10/06/18 10/06/18 10:20 10:24 10:30 Temperature Pulse Rate 73 75 Respiratory 14 17 Rate Blood Pressure 125/52 L O2 Sat by Pulse 97 94 L Oximetry 10/06/18 10/06/18 10/06/18 10:38 10:40 10:50 Temperature Pulse Rate 73 66 79 Respiratory 14 23 19 Rate Blood Pressure 135/66 O2 Sat by Pulse 100 Oximetry 10/06/18 10/06/18 10/06/18 11:00 11:10 11:20 Temperature Pulse Rate 79 63 71 Respiratory 13 17 16 Rate Blood Pressure O2 Sat by Pulse 100 100 99 Oximetry 10/06/18 10/06/18 10/06/18 11:30 11:37 11:40 Temperature Pulse Rate 71 70 68 Respiratory 24 18 14 Rate Blood Pressure 128/59 L O2 Sat by Pulse 97 100 100 Oximetry 10/06/18 10/06/18 10/06/18 11:50 12:00 12:10 Temperature 97.8 F Pulse Rate 58 L 55 L 60 Respiratory 14 16 17 Rate Blood Pressure O2 Sat by Pulse 100 100 98 Oximetry 10/06/18 10/06/18 10/06/18 12:20 12:30 12:37 Temperature Pulse Rate 58 L 60 61 Respiratory 13 14 18 Rate Blood Pressure 129/51 L O2 Sat by Pulse 97 96 100 Oximetry 10/06/18 10/06/18 10/06/18 12:40 12:50 13:00 Temperature Pulse Rate 57 L 60 56 L Respiratory 14 20 16 Rate Blood Pressure O2 Sat by Pulse 96 98 97 Oximetry 10/06/18 10/06/18 10/06/18 13:10 13:20 13:30 Temperature Pulse Rate 57 L 64 61 Respiratory 14 15 19 Rate Blood Pressure O2 Sat by Pulse 96 97 95 Oximetry 10/06/18 10/06/18 13:37 13:40 Temperature Pulse Rate 68 67 Respiratory 20 20 Rate Blood Pressure 122/54 L O2 Sat by Pulse 99 92 L Oximetry Intake and Output (last 12 hours): Intake & Output 10/05/18 10/06/18 10/06/18 18:59 06:59 18:59 Intake Total 705 775 807.2 Output Total 150 0 Balance 705 625 807.2 Weight 120 lb 3.2 oz Intake: IV 35 Intake, IV Amount 625 775 332.2 Right Distal Port PICC 100 Right PICC 775 232.2 Right Upper arm 625 Oral 80 0 0 Tube Feeding 40 Other 400 Output: Urine 150 Condom 150 Emesis 0 0 Other: # Bowel Movements 0 0 0 - Medications Medications: Current Medications Acetaminophen (Tylenol 325mg Tab) 650 mg PO Q8 PRN PRN Reason: Pain, Mild (1-3) Al Hydrox/Mg Hydrox/Simethicone (Maalox Plus 30 Ml) 30 ml PO Q4 PRN PRN Reason: Heartburn Albuterol Sulfate (Albuterol 0.042% Inhal [place] (1.25mg/3ml) Ud) 1.25 mg INH RQ6 [facility] Last Admin: 10/06/18 13:07 Dose: 1.25 mg Ascorbic Acid (Vitamin C 500 Mg Tab) 500 mg PO BID [facility] Last Admin: 10/06/18 10:24 Dose: 500 mg Aspirin (Aspirin Chewable) 81 mg PO DAILY [facility] Last Admin: 10/06/18 12:13 Dose: 81 mg Clopidogrel Bisulfate (Plavix) 75 mg PO DAILY [facility] Last Admin: 10/06/18 10:25 Dose: 75 mg Dextrose (Dextrose 50% Inj) 0 ml IV STAT PRN; Protocol PRN Reason: Hypoglycemia Protocol Dextrose (Glutose 15) 0 gm PO ONCE PRN; Protocol PRN Reason: Hypoglycemia Protocol Enoxaparin Sodium (Lovenox) 40 mg SC DAILY [facility] Last Admin: 10/06/18 10:25 Dose: 40 mg Glucagon (Glucagen Diagnostic Kit) 0 mg IM STAT PRN; Protocol PRN Reason: Hypoglycemia Protocol Cefepime HCl (Maxipime Iv 1 Gm Premix) 1 gm in 50 mls @ 100 mls/hr IVPB Q12H [facility]; Protocol Last Admin: 10/06/18 12:14 Dose: 100 mls/hr Dextrose (Dextrose 5% In Water 1000 Ml) 1,000 mls @ 0 mls/hr IV .Q0M PRN; Protocol PRN Reason: Hypoglycemia Protocol Dexmedetomidine HCl 200 mcg/ (Sodium Chloride) 50 mls @ 2.36 mls/hr IV TITR PRN; Protocol PRN Reason: Titrate per Protocol Last Titration: 10/06/18 13:00 Dose: 0.1 mcg/kg/hr, 1.18 mls/hr Micafungin Sodium 100 mg/ (Sodium Chloride) 100 mls @ 100 mls/hr IV Q24H [facility]; Protocol Last Admin: 10/06/18 13:54 Dose: 100 mls/hr Tigecycline 100 mg/ Sodium (Chloride) 100 mls @ 100 mls/hr IVPB ONCE ONE; Protocol Stop: 10/06/18 16:59 Tigecycline 50 mg/ Sodium (Chloride) 100 mls @ 100 mls/hr IVPB Q12H [facility]; Protocol Insulin Human Regular (Novolin R) 0 unit SC Q6 [facility]; Protocol Last Admin: 10/06/18 12:35 Dose: Not Given Lorazepam (Ativan) 0.5 mg PO Q12 PRN PRN Reason: Agitation Magnesium Hydroxide (Milk Of Magnesia) 30 ml PO DAILY PRN PRN Reason: Constipation Memantine (Namenda) 10 mg PO BID [facility] Last Admin: 10/06/18 10:25 Dose: 10 mg Methylprednisolone (Solu-Medrol) 40 mg IVP Q6H [facility] Last Admin: 10/06/18 12:15 Dose: 40 mg Metoprolol Tartrate (Lopressor) 25 mg PO BID [facility] Last Admin: 10/06/18 10:24 Dose: 25 mg Multivitamins (Hexavitamin) 1 tab PO DAILY [facility] Last Admin: 10/06/18 10:25 Dose: 1 tab Pantoprazole Sodium (Protonix Susp) 40 mg NG DAILY [facility] Last Admin: 10/06/18 12:13 Dose: 40 mg Rosuvastatin Calcium (Crestor) 20 mg PO HS [facility] Last Admin: 10/05/18 22:33 Dose: Not Given Zinc Sulfate (Zinc Sulfate 220 Mg Cap) 220 mg PO BID [facility] Last Admin: 10/06/18 10:24 Dose: 220 mg - Labs Labs (last 24 hours): Laboratory Results - last 24 hr 10/05/18 10/05/18 10/05/18 16:27 17:00 17:00 WBC 8.7 RBC 2.73 L Hgb 8.4 L Hct 26.3 L MCV 96.6 H MCH 31.0 MCHC 32.1 L RDW 19.7 H Plt Count 194 MPV 10.0 Neut % (Auto) 84.8 H Lymph % (Auto) 10.2 L [place] % (Auto) 4.8 Eos % (Auto) 0.0 Baso % (Auto) 0.2 Neut # (Auto) 7.4 H Lymph # (Auto) 0.9 L [place] # (Auto) 0.4 Eos # (Auto) 0.0 Baso # (Auto) 0.0 Neutrophils % (Manual) Lymphocytes % (Manual) Monocytes % (Manual) Platelet Estimate Polychromasia Hypochromasia (manual) PT INR APTT Puncture Site pCO2 pO2 HCO3 ABG pH ABG Total CO2 ABG O2 Saturation ABG Base Excess ABG Hemoglobin ABG Carboxyhemoglobin POC ABG HHb (Measured) ABG Methemoglobin Tima Test ABG Potassium A-a O2 Difference Respiratory Index Hgb O2 Saturation Glucose Lactate Liter Flow Vent Mode Mechanical Rate FiO2 Tidal Volume PEEP Sodium 152 H Potassium 4.4 Chloride 124 H Carbon Dioxide 21 L Anion Gap 12 BUN 32 H Creatinine 1.4 Est GFR ( Amer) 58 Est GFR (Non-Af Amer) 48 POC Glucose (mg/dL) 174 H Random Glucose 163 H Lactic Acid Calcium 7.7 L Phosphorus Magnesium Total Bilirubin 0.6 AST 122 H D ALT 65 Alkaline Phosphatase 327 H D Total Creatine Kinase 135 CK-MB (Mass) 4.85 H Troponin I 0.2980 H* Total Protein 5.9 L Albumin 2.4 L Globulin 3.4 Albumin/Globulin Ratio 0.7 L Arterial Blood Potassium Random Vancomycin 10/05/18 10/05/18 10/05/18 17:25 20:38 23:48 WBC RBC Hgb Hct MCV MCH MCHC RDW Plt Count MPV Neut % (Auto) Lymph % (Auto) [place] % (Auto) Eos % (Auto) Baso % (Auto) Neut # (Auto) Lymph # (Auto) [place] # (Auto) Eos # (Auto) Baso # (Auto) Neutrophils % (Manual) Lymphocytes % (Manual) Monocytes % (Manual) Platelet Estimate Polychromasia Hypochromasia (manual) PT INR APTT Puncture Site Rba pCO2 28 L pO2 58 L HCO3 21.8 ABG pH 7.44 ABG Total CO2 19.9 L ABG O2 Saturation 93.7 L ABG Base Excess -3.8 L ABG Hemoglobin ABG Carboxyhemoglobin POC ABG HHb (Measured) ABG Methemoglobin Tima Test Na ABG Potassium 4.1 A-a O2 Difference 121.0 Respiratory Index 2.1 Hgb O2 Saturation Glucose 154 H Lactate 1.8 Liter Flow 3.0 Vent Mode Mechanical Rate FiO2 30.0 Tidal Volume PEEP Sodium 154.0 H Potassium Chloride 127.0 H Carbon Dioxide Anion Gap BUN Creatinine Est GFR ( Amer) Est GFR (Non-Af Amer) POC Glucose (mg/dL) 166 H Random Glucose Lactic Acid 1.8 Calcium Phosphorus Magnesium Total Bilirubin AST ALT Alkaline Phosphatase Total Creatine Kinase CK-MB (Mass) Troponin I Total Protein Albumin Globulin Albumin/Globulin Ratio Arterial Blood Potassium 4.1 Random Vancomycin 10/06/18 10/06/18 10/06/18 00:22 05:33 06:30 WBC RBC Hgb Hct MCV MCH MCHC RDW Plt Count MPV Neut % (Auto) Lymph % (Auto) [place] % (Auto) Eos % (Auto) Baso % (Auto) Neut # (Auto) Lymph # (Auto) [place] # (Auto) Eos # (Auto) Baso # (Auto) Neutrophils % (Manual) Lymphocytes % (Manual) Monocytes % (Manual) Platelet Estimate Polychromasia Hypochromasia (manual) PT INR APTT Puncture Site R brac pCO2 25 L pO2 55 L HCO3 21.4 ABG pH 7.46 H ABG Total CO2 18.6 L ABG O2 Saturation 93.2 L ABG Base Excess -4.3 L ABG Hemoglobin ABG Carboxyhemoglobin POC ABG HHb (Measured) ABG Methemoglobin Tima Test Na ABG Potassium 3.6 A-a O2 Difference Respiratory Index Hgb O2 Saturation Glucose 171 H Lactate 1.8 Liter Flow 4.0 Vent Mode Mechanical Rate FiO2 Tidal Volume PEEP Sodium 156.0 H Potassium Chloride 131.0 H Carbon Dioxide Anion Gap BUN Creatinine Est GFR ( Amer) Est GFR (Non-Af Amer) POC Glucose (mg/dL) 178 H Random Glucose Lactic Acid 1.6 Calcium Phosphorus Magnesium Total Bilirubin AST ALT Alkaline Phosphatase Total Creatine Kinase CK-MB (Mass) Troponin I Total Protein Albumin Globulin Albumin/Globulin Ratio Arterial Blood Potassium 3.6 Random Vancomycin 10/06/18 10/06/18 10/06/18 06:35 06:35 06:35 WBC 8.6 RBC 2.67 L Hgb 8.1 L Hct 25.9 L MCV 97.0 H MCH 30.3 MCHC 31.2 L RDW 19.6 H Plt Count 163 MPV 10.7 Neut % (Auto) 92.5 H Lymph % (Auto) 5.7 L [place] % (Auto) 1.7 Eos % (Auto) 0.0 Baso % (Auto) 0.1 Neut # (Auto) 8.0 H Lymph # (Auto) 0.5 L [place] # (Auto) 0.1 Eos # (Auto) 0.0 Baso # (Auto) 0.0 Neutrophils % (Manual) 93 H Lymphocytes % (Manual) 5 L Monocytes % (Manual) 2 Platelet Estimate Normal Polychromasia Slight Hypochromasia (manual) Slight PT INR APTT Puncture Site pCO2 pO2 HCO3 ABG pH ABG Total CO2 ABG O2 Saturation ABG Base Excess ABG Hemoglobin ABG Carboxyhemoglobin POC ABG HHb (Measured) ABG Methemoglobin Tima Test ABG Potassium A-a O2 Difference Respiratory Index Hgb O2 Saturation Glucose Lactate Liter Flow Vent Mode Mechanical Rate FiO2 Tidal Volume PEEP Sodium 152 H Potassium 3.9 Chloride 126 H Carbon Dioxide 21 L Anion Gap 9 L BUN 35 H Creatinine 1.4 Est GFR ( Amer) 58 Est GFR (Non-Af Amer) 48 POC Glucose (mg/dL) Random Glucose 137 H Lactic Acid Calcium 7.8 L Phosphorus 3.6 Magnesium 2.2 Total Bilirubin 0.6 AST 99 H ALT 70 Alkaline Phosphatase 361 H Total Creatine Kinase 133 CK-MB (Mass) 6.66 H Troponin I 0.2740 H* Total Protein 5.8 L Albumin 2.5 L Globulin 3.3 Albumin/Globulin Ratio 0.7 L Arterial Blood Potassium Random Vancomycin 23.8 10/06/18 10/06/18 10/06/18 11:05 11:44 12:58 WBC RBC Hgb Hct MCV MCH MCHC RDW Plt Count MPV Neut % (Auto) Lymph % (Auto) [place] % (Auto) Eos % (Auto) Baso % (Auto) Neut # (Auto) Lymph # (Auto) [place] # (Auto) Eos # (Auto) Baso # (Auto) Neutrophils % (Manual) Lymphocytes % (Manual) Monocytes % (Manual) Platelet Estimate Polychromasia Hypochromasia (manual) PT 14.4 H INR 1.3 APTT 35 H Puncture Site Rba pCO2 27 L pO2 134 H HCO3 21.5 ABG pH 7.45 ABG Total CO2 19.6 L ABG O2 Saturation 99.8 H ABG Base Excess -4.4 L ABG Hemoglobin 8.4 L ABG Carboxyhemoglobin 2.1 H POC ABG HHb (Measured) 0.2 ABG Methemoglobin 0.9 Tima Test Na ABG Potassium A-a O2 Difference 189.0 Respiratory Index 1.4 Hgb O2 Saturation 96.9 Glucose Lactate Liter Flow Vent Mode Prvc Mechanical Rate 14 FiO2 50.0 Tidal Volume 450 PEEP 5 Sodium Potassium Chloride Carbon Dioxide Anion Gap BUN Creatinine Est GFR ( Amer) Est GFR (Non-Af Amer) POC Glucose (mg/dL) 149 H Random Glucose Lactic Acid Calcium Phosphorus Magnesium Total Bilirubin AST ALT Alkaline Phosphatase Total Creatine Kinase CK-MB (Mass) Troponin I Total Protein Albumin Globulin Albumin/Globulin Ratio Arterial Blood Potassium Random Vancomycin Assessment/Plan - Assessment and Plan (Free Text) Assessment: The patient is currently on ASA and Plavix. The patient will be at a significantly increased risk for intra thoracic bleeding in my opinion. I have discussed this case with Dr. Ko who agreed. IR thoracentesis was not performed based on this information.
--- NOTE | 2018-10-06 16:49 | CP.PCM.CON ---
History of Present Illness - History of Present Illness History of Present Illness: Cardiothoracic Surgery Consult Note for Dr. Musa HPI: Patient is a 87 Y/O M PMHx dementia, HTN, CAD, hyperlipidemia, NPH w/ shunt, BPH, CHF and pressure ulcer of sacrum and right hip, bought to hospital from retirement due to lethargy and SOB. Was found to have a MRSA + sacral wound and a right sided pneumonia and was admitted to the ICU. Patient was intubated due to increased work of breathing, and is currently intubated. Fabiola ent history was obtained from medical records and other providers. He was refusing food at retirement and became progressively lethargic, and was sent to ICU. In the ICU he was found to have positive trops and a CT showed chronic infiltrates with chronic pulmonary interstitial disease, and bilateral effusions. PMHx: Dementia, BPH, CAD, HLD, HTN, NPH with shunt, CHF, hypernatremia PSHx: Cardiac stent x1, NPH shunt Social hx: Patient lives at home with , unable to obtain smoking, alcohol and drug history Review of Systems - Review of Systems Systems not reviewed;Unavailable: Intubated Past Patient History - Tetanus Immunizations Tetanus Immunization: Unknown - Past Medical History & Family History Past Medical History?: Yes Past Family History: Reviewed and not pertinent - Past Social History Smoking Status: Unknown If Ever Smoked Chewing Tobacco Use: No Cigar Use: No Alcohol: None Drugs: Denies Home Situation {Lives}: Correction - CARDIAC Hx Hypercholesterolemia: Yes Hx Hypertension: Yes Hx Pacemaker: No - PULMONARY Hx Respiratory Disorders: No Other/Comment: Coronary Stent - NEUROLOGICAL Hx Dementia: Yes - HEENT Hx HEENT Problems: No - RENAL Hx Chronic Kidney Disease: No - ENDOCRINE/METABOLIC Hx Endocrine Disorders: No Other/Comment: Pt incontinent - HEMATOLOGICAL/ONCOLOGICAL Hx Blood Disorders: No Hx Blood Transfusions: No Hx Blood Transfusion Reaction: No Other/Comment: MRSA - INTEGUMENTARY Hx Dermatological Problems: Yes Other/Comment: Bilaterl HIP Decubiti. Unstageable sacral decubitus. Left lateral foot unstageable pressure ulcer - MUSCULOSKELETAL/RHEUMATOLOGICAL Hx Arthritis: Yes - GASTROINTESTINAL Hx Gastrointestinal Disorders: Yes Other/Comment: Incotinence - GENITOURINARY/GYNECOLOGICAL Hx Genitourinary Disorders: Yes Other/Comment: Hx of BPH - PSYCHIATRIC Hx Substance Use: No - SURGICAL HISTORY Hx Coronary Stent: Yes - ANESTHESIA Hx Anesthesia: Yes Hx Anesthesia Reactions: No Hx Malignant Hyperthermia: No Has any member of the family had a problem w/ anesthesia?: No Meds Allergies/Adverse Reactions: Allergies Allergy/AdvReac Type Severity Reaction Status Date / Time No Known Allergies Allergy Unverified 08/29/18 17:06 - Medications Medications: Current Medications Acetaminophen (Tylenol 325mg Tab) 650 mg PO Q8 PRN PRN Reason: Pain, Mild (1-3) Al Hydrox/Mg Hydrox/Simethicone (Maalox Plus 30 Ml) 30 ml PO Q4 PRN PRN Reason: Heartburn Albuterol Sulfate (Albuterol 0.042% Inhal [place] (1.25mg/3ml) Ud) 1.25 mg INH RQ6 [facility] Last Admin: 10/06/18 13:07 Dose: 1.25 mg Ascorbic Acid (Vitamin C 500 Mg Tab) 500 mg PO BID [facility] Last Admin: 10/06/18 10:24 Dose: 500 mg Aspirin (Aspirin Chewable) 81 mg PO DAILY [facility] Last Admin: 10/06/18 12:13 Dose: 81 mg Clopidogrel Bisulfate (Plavix) 75 mg PO DAILY [facility] Last Admin: 10/06/18 10:25 Dose: 75 mg Dextrose (Dextrose 50% Inj) 0 ml IV STAT PRN; Protocol PRN Reason: Hypoglycemia Protocol Dextrose (Glutose 15) 0 gm PO ONCE PRN; Protocol PRN Reason: Hypoglycemia Protocol Enoxaparin Sodium (Lovenox) 40 mg SC DAILY [facility] Last Admin: 10/06/18 10:25 Dose: 40 mg Glucagon (Glucagen Diagnostic Kit) 0 mg IM STAT PRN; Protocol PRN Reason: Hypoglycemia Protocol Cefepime HCl (Maxipime Iv 1 Gm Premix) 1 gm in 50 mls @ 100 mls/hr IVPB Q12H [facility]; Protocol Last Admin: 10/06/18 12:14 Dose: 100 mls/hr Dextrose (Dextrose 5% In Water 1000 Ml) 1,000 mls @ 0 mls/hr IV .Q0M PRN; Protocol PRN Reason: Hypoglycemia Protocol Dexmedetomidine HCl 200 mcg/ (Sodium Chloride) 50 mls @ 2.36 mls/hr IV TITR PRN; Protocol PRN Reason: Titrate per Protocol Last Titration: 10/06/18 13:00 Dose: 0.1 mcg/kg/hr, 1.18 mls/hr Micafungin Sodium 100 mg/ (Sodium Chloride) 100 mls @ 100 mls/hr IV Q24H [facility]; Protocol Last Admin: 10/06/18 13:54 Dose: 100 mls/hr Tigecycline 100 mg/ Sodium (Chloride) 100 mls @ 100 mls/hr IVPB ONCE ONE; Protocol Stop: 10/06/18 16:59 Last Admin: 10/06/18 16:04 Dose: 100 mls/hr Tigecycline 50 mg/ Sodium (Chloride) 100 mls @ 100 mls/hr IVPB Q12H [facility]; Protocol Insulin Human Regular (Novolin R) 0 unit SC Q6 [facility]; Protocol Last Admin: 10/06/18 12:35 Dose: Not Given Lorazepam (Ativan) 0.5 mg PO Q12 PRN PRN Reason: Agitation Magnesium Hydroxide (Milk Of Magnesia) 30 ml PO DAILY PRN PRN Reason: Constipation Memantine (Namenda) 10 mg PO BID [facility] Last Admin: 10/06/18 10:25 Dose: 10 mg Methylprednisolone (Solu-Medrol) 40 mg IVP Q6H [facility] Last Admin: 10/06/18 12:15 Dose: 40 mg Metoprolol Tartrate (Lopressor) 25 mg PO BID [facility] Last Admin: 10/06/18 10:24 Dose: 25 mg Multivitamins (Hexavitamin) 1 tab PO DAILY [facility] Last Admin: 10/06/18 10:25 Dose: 1 tab Pantoprazole Sodium (Protonix Susp) 40 mg NG DAILY [facility] Last Admin: 10/06/18 12:13 Dose: 40 mg Rosuvastatin Calcium (Crestor) 20 mg PO HS [facility] Last Admin: 10/05/18 22:33 Dose: Not Given Zinc Sulfate (Zinc Sulfate 220 Mg Cap) 220 mg PO BID [facility] Last Admin: 10/06/18 10:24 Dose: 220 mg Physical Exam - Constitutional Additional comments: Intubated and sedated - Head Exam Head Exam: ATRAUMATIC - Eye Exam Additional comments: Left eye cataracts - Respiratory Exam Additional comments: ventilated - Cardiovascular Exam Cardiovascular Exam: +S1, +S2 - GI/Abdominal Exam GI & Abdominal Exam: Soft. absent: Distended, Firm, Guarding Results - Vital Signs Recent Vital Signs: Last Vital Signs Temp 97.8 F 10/06/18 12:00 Pulse 67 11/09/18 16:10 Resp 100 H 10/06/18 16:00 BP 119/60 10/06/18 15:37 Pulse Ox 100 10/06/18 16:10 - Labs Result Diagrams: 10/06/18 06:35 10/06/18 06:35 Labs: Laboratory Results - last 24 hr 10/05/18 10/05/18 10/05/18 16:27 17:00 17:00 WBC 8.7 RBC 2.73 L Hgb 8.4 L Hct 26.3 L MCV 96.6 H MCH 31.0 MCHC 32.1 L RDW 19.7 H Plt Count 194 MPV 10.0 Neut % (Auto) 84.8 H Lymph % (Auto) 10.2 L Thayer % (Auto) 4.8 Eos % (Auto) 0.0 Baso % (Auto) 0.2 Neut # (Auto) 7.4 H Lymph # (Auto) 0.9 L Thayer # (Auto) 0.4 Eos # (Auto) 0.0 Baso # (Auto) 0.0 Neutrophils % (Manual) Lymphocytes % (Manual) Monocytes % (Manual) Platelet Estimate Polychromasia Hypochromasia (manual) PT INR APTT Puncture Site pCO2 pO2 HCO3 ABG pH ABG Total CO2 ABG O2 Saturation ABG Base Excess ABG Hemoglobin ABG Carboxyhemoglobin POC ABG HHb (Measured) ABG Methemoglobin Tima Test ABG Potassium A-a O2 Difference Respiratory Index Hgb O2 Saturation Glucose Lactate Liter Flow Vent Mode Mechanical Rate FiO2 Tidal Volume PEEP Sodium 152 H Potassium 4.4 Chloride 124 H Carbon Dioxide 21 L Anion Gap 12 BUN 32 H Creatinine 1.4 Est GFR ( Amer) 58 Est GFR (Non-Af Amer) 48 POC Glucose (mg/dL) 174 H Random Glucose 163 H Lactic Acid Calcium 7.7 L Phosphorus Magnesium Total Bilirubin 0.6 AST 122 H D ALT 65 Alkaline Phosphatase 327 H D Total Creatine Kinase 135 CK-MB (Mass) 4.85 H Troponin I 0.2980 H* Total Protein 5.9 L Albumin 2.4 L Globulin 3.4 Albumin/Globulin Ratio 0.7 L Arterial Blood Potassium Random Vancomycin 10/05/18 10/05/18 10/05/18 17:25 20:38 23:48 WBC RBC Hgb Hct MCV MCH MCHC RDW Plt Count MPV Neut % (Auto) Lymph % (Auto) Thayer % (Auto) Eos % (Auto) Baso % (Auto) Neut # (Auto) Lymph # (Auto) Thayer # (Auto) Eos # (Auto) Baso # (Auto) Neutrophils % (Manual) Lymphocytes % (Manual) Monocytes % (Manual) Platelet Estimate Polychromasia Hypochromasia (manual) PT INR APTT Puncture Site Rba pCO2 28 L pO2 58 L HCO3 21.8 ABG pH 7.44 ABG Total CO2 19.9 L ABG O2 Saturation 93.7 L ABG Base Excess -3.8 L ABG Hemoglobin ABG Carboxyhemoglobin POC ABG HHb (Measured) ABG Methemoglobin Tima Test Na ABG Potassium 4.1 A-a O2 Difference 121.0 Respiratory Index 2.1 Hgb O2 Saturation Glucose 154 H Lactate 1.8 Liter Flow 3.0 Vent Mode Mechanical Rate FiO2 30.0 Tidal Volume PEEP Sodium 154.0 H Potassium Chloride 127.0 H Carbon Dioxide Anion Gap BUN Creatinine Est GFR ( Amer) Est GFR (Non-Af Amer) POC Glucose (mg/dL) 166 H Random Glucose Lactic Acid 1.8 Calcium Phosphorus Magnesium Total Bilirubin AST ALT Alkaline Phosphatase Total Creatine Kinase CK-MB (Mass) Troponin I Total Protein Albumin Globulin Albumin/Globulin Ratio Arterial Blood Potassium 4.1 Random Vancomycin 10/06/18 10/06/18 10/06/18 00:22 05:33 06:30 WBC RBC Hgb Hct MCV MCH MCHC RDW Plt Count MPV Neut % (Auto) Lymph % (Auto) Thayer % (Auto) Eos % (Auto) Baso % (Auto) Neut # (Auto) Lymph # (Auto) Thayer # (Auto) Eos # (Auto) Baso # (Auto) Neutrophils % (Manual) Lymphocytes % (Manual) Monocytes % (Manual) Platelet Estimate Polychromasia Hypochromasia (manual) PT INR APTT Puncture Site R brac pCO2 25 L pO2 55 L HCO3 21.4 ABG pH 7.46 H ABG Total CO2 18.6 L ABG O2 Saturation 93.2 L ABG Base Excess -4.3 L ABG Hemoglobin ABG Carboxyhemoglobin POC ABG HHb (Measured) ABG Methemoglobin Tima Test Na ABG Potassium 3.6 A-a O2 Difference Respiratory Index Hgb O2 Saturation Glucose 171 H Lactate 1.8 Liter Flow 4.0 Vent Mode Mechanical Rate FiO2 Tidal Volume PEEP Sodium 156.0 H Potassium Chloride 131.0 H Carbon Dioxide Anion Gap BUN Creatinine Est GFR ( Amer) Est GFR (Non-Af Amer) POC Glucose (mg/dL) 178 H Random Glucose Lactic Acid 1.6 Calcium Phosphorus Magnesium Total Bilirubin AST ALT Alkaline Phosphatase Total Creatine Kinase CK-MB (Mass) Troponin I Total Protein Albumin Globulin Albumin/Globulin Ratio Arterial Blood Potassium 3.6 Random Vancomycin 10/06/18 10/06/18 10/06/18 06:35 06:35 06:35 WBC 8.6 RBC 2.67 L Hgb 8.1 L Hct 25.9 L MCV 97.0 H MCH 30.3 MCHC 31.2 L RDW 19.6 H Plt Count 163 MPV 10.7 Neut % (Auto) 92.5 H Lymph % (Auto) 5.7 L Thayer % (Auto) 1.7 Eos % (Auto) 0.0 Baso % (Auto) 0.1 Neut # (Auto) 8.0 H Lymph # (Auto) 0.5 L Thayer # (Auto) 0.1 Eos # (Auto) 0.0 Baso # (Auto) 0.0 Neutrophils % (Manual) 93 H Lymphocytes % (Manual) 5 L Monocytes % (Manual) 2 Platelet Estimate Normal Polychromasia Slight Hypochromasia (manual) Slight PT INR APTT Puncture Site pCO2 pO2 HCO3 ABG pH ABG Total CO2 ABG O2 Saturation ABG Base Excess ABG Hemoglobin ABG Carboxyhemoglobin POC ABG HHb (Measured) ABG Methemoglobin Tima Test ABG Potassium A-a O2 Difference Respiratory Index Hgb O2 Saturation Glucose Lactate Liter Flow Vent Mode Mechanical Rate FiO2 Tidal Volume PEEP Sodium 152 H Potassium 3.9 Chloride 126 H Carbon Dioxide 21 L Anion Gap 9 L BUN 35 H Creatinine 1.4 Est GFR ( Amer) 58 Est GFR (Non-Af Amer) 48 POC Glucose (mg/dL) Random Glucose 137 H Lactic Acid Calcium 7.8 L Phosphorus 3.6 Magnesium 2.2 Total Bilirubin 0.6 AST 99 H ALT 70 Alkaline Phosphatase 361 H Total Creatine Kinase 133 CK-MB (Mass) 6.66 H Troponin I 0.2740 H* Total Protein 5.8 L Albumin 2.5 L Globulin 3.3 Albumin/Globulin Ratio 0.7 L Arterial Blood Potassium Random Vancomycin 23.8 11/09/18 11/09/18 11/09/18 11:05 11:44 12:58 WBC RBC Hgb Hct MCV MCH MCHC RDW Plt Count MPV Neut % (Auto) Lymph % (Auto) Thayer % (Auto) Eos % (Auto) Baso % (Auto) Neut # (Auto) Lymph # (Auto) Thayer # (Auto) Eos # (Auto) Baso # (Auto) Neutrophils % (Manual) Lymphocytes % (Manual) Monocytes % (Manual) Platelet Estimate Polychromasia Hypochromasia (manual) PT 14.4 H INR 1.3 APTT 35 H Puncture Site Rba pCO2 27 L pO2 134 H HCO3 21.5 ABG pH 7.45 ABG Total CO2 19.6 L ABG O2 Saturation 99.8 H ABG Base Excess -4.4 L ABG Hemoglobin 8.4 L ABG Carboxyhemoglobin 2.1 H POC ABG HHb (Measured) 0.2 ABG Methemoglobin 0.9 Tima Test Na ABG Potassium A-a O2 Difference 189.0 Respiratory Index 1.4 Hgb O2 Saturation 96.9 Glucose Lactate Liter Flow Vent Mode Prvc Mechanical Rate 14 FiO2 50.0 Tidal Volume 450 PEEP 5 Sodium Potassium Chloride Carbon Dioxide Anion Gap BUN Creatinine Est GFR ( Amer) Est GFR (Non-Af Amer) POC Glucose (mg/dL) 149 H Random Glucose Lactic Acid Calcium Phosphorus Magnesium Total Bilirubin AST ALT Alkaline Phosphatase Total Creatine Kinase CK-MB (Mass) Troponin I Total Protein Albumin Globulin Albumin/Globulin Ratio Arterial Blood Potassium Random Vancomycin - Imaging and Cardiology CT scan - chest Status: Image reviewed by me, Report reviewed by me Assessment & Plan - Assessment and Plan (Free Text) Assessment: Assessment and plan: 87 year old male with PMHx of dementia, HTN, hyperlipidemia, NPH w/ shunt, CAD, and CHF consulted to surgery for pulmonary inoculated effusions. - Continue medical management with IV antibiotics - F/U percutanious drainage - If emphyema present consider decortication - For renal failure and CHF pleuredesis wont benefit patient for such case IR drainage possible pleurex D/W Dr. Lencho Tran PGY3
--- NOTE | 2018-10-06 17:58 | CP.PCM.PCO ---
Procedure: Fluid Aspiration - Time Performed Time Performed: 17:30 - Time Out Time Out: Side verified, Site verified, Patient ID confirmed, Sterile procedures obs. - Procedure Procedure: Thoracentesis - Consent Obtained Consent obtained: Written - Performed By Performed by: Attending Physician - Indications Indication(s): Therapeutic, Diagnostic - Contraindications Contraindications: None - Location Location: Right, Lateral, Thorax - Anesthetic Technique Anesthetic Technique: Local Anesthetic: Lidocaine 1% Procedural Sedation: Other (patient already on Precedex) - Appearance Appearance: Straw-colored - Drained Drained ml: 1500 - Post-procedure Post-procedure: Dressed - Complications Complications: None - Patient tolerated procedure Patient tolerated procedure: Well
[2018-10-06 18:13] LABS: BODY FLUID TYPE PLEURAL/THORACENTESI
--- NOTE | 2018-10-06 18:19 | CP.PCM.CON ---
History of Present Illness - History of Present Illness History of Present Illness: Podiatry consult note for Dr. Perdomo, 87 y/o male patient with PMHx dementia, HTN, CAD, hyperlipidemia, NPH w/ shunt, BPH, CHF and pressure ulcer of sacrum and right hip is [facility] to [facility]argy and SOB. Patient also has right-sided pneumonia and was intubated due to increased work of breathing. Patient history was obtained from medical records and other providers. Patient unable to commu nicate at this time. Podiatry was consulted for foot care and eschars to the left lateral leg. PMHx: Dementia, BPH, CAD, HLD, HTN, NPH with shunt, CHF, hypernatremia PSHx: Cardiac stent x1, NPH shunt Review of Systems - Review of Systems Review of Systems: Unable to obtain from patient, patient intubated Past Patient History - Tetanus Immunizations Tetanus Immunization: Unknown - Past Medical History & Family History Past Medical History?: Yes Past Family History: Reviewed and not pertinent - Past Social History Smoking Status: Unknown If Ever Smoked Chewing Tobacco Use: No Cigar Use: No Alcohol: None Drugs: Denies Home Situation {Lives}: Prison - CARDIAC Hx Hypercholesterolemia: Yes Hx Hypertension: Yes Hx Pacemaker: No - PULMONARY Hx Respiratory Disorders: No Other/Comment: Coronary Stent - NEUROLOGICAL Hx Dementia: Yes - HEENT Hx HEENT Problems: No - RENAL Hx Chronic Kidney Disease: No - ENDOCRINE/METABOLIC Hx Endocrine Disorders: No Other/Comment: Pt incontinent - HEMATOLOGICAL/ONCOLOGICAL Hx Blood Disorders: No Hx Blood Transfusions: No Hx Blood Transfusion Reaction: No Other/Comment: MRSA - INTEGUMENTARY Hx Dermatological Problems: Yes Other/Comment: Bilaterl HIP Decubiti. Unstageable sacral decubitus. Left lateral foot unstageable pressure ulcer - MUSCULOSKELETAL/RHEUMATOLOGICAL Hx Arthritis: Yes - GASTROINTESTINAL Hx Gastrointestinal Disorders: Yes Other/Comment: Incotinence - GENITOURINARY/GYNECOLOGICAL Hx Genitourinary Disorders: Yes Other/Comment: Hx of BPH - PSYCHIATRIC Hx Substance Use: No - SURGICAL HISTORY Hx Coronary Stent: Yes - ANESTHESIA Hx Anesthesia: Yes Hx Anesthesia Reactions: No Hx Malignant Hyperthermia: No Has any member of the family had a problem w/ anesthesia?: No Meds Allergies/Adverse Reactions: Allergies Allergy/AdvReac Type Severity Reaction Status Date / Time No Known Allergies Allergy Unverified 08/29/18 17:06 - Medications Medications: Current Medications Acetaminophen (Tylenol 325mg Tab) 650 mg PO Q8 PRN PRN Reason: Pain, Mild (1-3) Al Hydrox/Mg Hydrox/Simethicone (Maalox Plus 30 Ml) 30 ml PO Q4 PRN PRN Reason: Heartburn Albuterol Sulfate (Albuterol 0.042% Inhal [place] (1.25mg/3ml) Ud) 1.25 mg INH RQ6 [facility] Last Admin: 10/06/18 13:07 Dose: 1.25 mg Ascorbic Acid (Vitamin C 500 Mg Tab) 500 mg PO BID [facility] Last Admin: 10/06/18 17:11 Dose: 500 mg Aspirin (Aspirin Chewable) 81 mg PO DAILY [facility] Last Admin: 10/06/18 12:13 Dose: 81 mg Clopidogrel Bisulfate (Plavix) 75 mg PO DAILY [facility] Last Admin: 10/06/18 10:25 Dose: 75 mg Dextrose (Dextrose 50% Inj) 0 ml IV STAT PRN; Protocol PRN Reason: Hypoglycemia Protocol Dextrose (Glutose 15) 0 gm PO ONCE PRN; Protocol PRN Reason: Hypoglycemia Protocol Enoxaparin Sodium (Lovenox) 40 mg SC DAILY [facility] Last Admin: 10/06/18 10:25 Dose: 40 mg Glucagon (Glucagen Diagnostic Kit) 0 mg IM STAT PRN; Protocol PRN Reason: Hypoglycemia Protocol Cefepime HCl (Maxipime Iv 1 Gm Premix) 1 gm in 50 mls @ 100 mls/hr IVPB Q12H [facility]; Protocol Last Admin: 10/06/18 12:14 Dose: 100 mls/hr Dextrose (Dextrose 5% In Water 1000 Ml) 1,000 mls @ 0 mls/hr IV .Q0M PRN; Protocol PRN Reason: Hypoglycemia Protocol Dexmedetomidine HCl 200 mcg/ (Sodium Chloride) 50 mls @ 2.36 mls/hr IV TITR PRN; Protocol PRN Reason: Titrate per Protocol Last Titration: 10/06/18 13:00 Dose: 0.1 mcg/kg/hr, 1.18 mls/hr Micafungin Sodium 100 mg/ (Sodium Chloride) 100 mls @ 100 mls/hr IV Q24H [facility]; Protocol Last Admin: 10/06/18 13:54 Dose: 100 mls/hr Tigecycline 50 mg/ Sodium (Chloride) 100 mls @ 100 mls/hr IVPB Q12H [facility]; Protocol Insulin Human Regular (Novolin R) 0 unit SC Q6 [facility]; Protocol Last Admin: 10/06/18 12:35 Dose: Not Given Lorazepam (Ativan) 0.5 mg PO Q12 PRN PRN Reason: Agitation Magnesium Hydroxide (Milk Of Magnesia) 30 ml PO DAILY PRN PRN Reason: Constipation Memantine (Namenda) 10 mg PO BID [facility] Last Admin: 10/06/18 17:11 Dose: 10 mg Methylprednisolone (Solu-Medrol) 40 mg IVP Q6H [facility] Last Admin: 10/06/18 17:10 Dose: 40 mg Metoprolol Tartrate (Lopressor) 25 mg PO BID [facility] Last Admin: 10/06/18 17:11 Dose: 25 mg Multivitamins (Hexavitamin) 1 tab PO DAILY [facility] Last Admin: 10/06/18 10:25 Dose: 1 tab Pantoprazole Sodium (Protonix Susp) 40 mg NG DAILY [facility] Last Admin: 10/06/18 12:13 Dose: 40 mg Rosuvastatin Calcium (Crestor) 20 mg PO HS [facility] Last Admin: 10/05/18 22:33 Dose: Not Given Zinc Sulfate (Zinc Sulfate 220 Mg Cap) 220 mg PO BID [facility] Last Admin: 10/06/18 17:10 Dose: 220 mg Physical Exam - Constitutional Appears: Well, Non-toxic - Head Exam Head Exam: ATRAUMATIC, NORMOCEPHALIC - Extremities Exam Additional comments: Bilateral Lower Extremity Exam Patient lower extremities contracted VASC: DP and PT 1/4 bilaterally, CFT less than 3 seconds X 10, no edema, no varicosities, TG warm to warm NEURO: unable to assess DERM: two stable eschars noted to the lateral aspect of the left foot, no drainage, no malodor, no erythema, no edema, no probe to bone, no other open lesions, no clinical signs of infection ORTHO: unable to assess - Psychiatric Exam Psychiatric exam: Normal Affect, Normal Mood Results - Vital Signs Recent Vital Signs: Last Vital Signs Temp 98.2 F 10/06/18 16:00 Pulse 67 10/06/18 16:10 Resp 100 H 10/06/18 16:00 BP 124/63 10/06/18 17:11 Pulse Ox 100 10/06/18 16:10 - Labs Result Diagrams: 10/06/18 06:35 10/06/18 06:35 Labs: Laboratory Results - last 24 hr 10/05/18 10/05/18 10/06/18 20:38 23:48 00:22 WBC RBC Hgb Hct MCV MCH MCHC RDW Plt Count MPV Neut % (Auto) Lymph % (Auto) Ector % (Auto) Eos % (Auto) Baso % (Auto) Neut # (Auto) Lymph # (Auto) Ector # (Auto) Eos # (Auto) Baso # (Auto) Neutrophils % (Manual) Lymphocytes % (Manual) Monocytes % (Manual) Platelet Estimate Polychromasia Hypochromasia (manual) PT INR APTT Puncture Site pCO2 pO2 HCO3 ABG pH ABG Total CO2 ABG O2 Saturation ABG Base Excess ABG Hemoglobin ABG Carboxyhemoglobin POC ABG HHb (Measured) ABG Methemoglobin Tima Test ABG Potassium A-a O2 Difference Respiratory Index Hgb O2 Saturation Sodium Chloride Glucose Lactate Liter Flow Vent Mode Mechanical Rate FiO2 Tidal Volume PEEP Potassium Carbon Dioxide Anion Gap BUN Creatinine Est GFR ( Amer) Est GFR (Non-Af Amer) POC Glucose (mg/dL) 166 H Random Glucose Lactic Acid 1.8 1.6 Calcium Phosphorus Magnesium Total Bilirubin AST ALT Alkaline Phosphatase Total Creatine Kinase CK-MB (Mass) Troponin I Total Protein Albumin Globulin Albumin/Globulin Ratio Arterial Blood Potassium Fluid Source Random Vancomycin 10/06/18 10/06/18 10/06/18 05:33 06:30 06:35 WBC 8.6 RBC 2.67 L Hgb 8.1 L Hct 25.9 L MCV 97.0 H MCH 30.3 MCHC 31.2 L RDW 19.6 H Plt Count 163 MPV 10.7 Neut % (Auto) 92.5 H Lymph % (Auto) 5.7 L Ector % (Auto) 1.7 Eos % (Auto) 0.0 Baso % (Auto) 0.1 Neut # (Auto) 8.0 H Lymph # (Auto) 0.5 L Ector # (Auto) 0.1 Eos # (Auto) 0.0 Baso # (Auto) 0.0 Neutrophils % (Manual) 93 H Lymphocytes % (Manual) 5 L Monocytes % (Manual) 2 Platelet Estimate Normal Polychromasia Slight Hypochromasia (manual) Slight PT INR APTT Puncture Site R brac pCO2 25 L pO2 55 L HCO3 21.4 ABG pH 7.46 H ABG Total CO2 18.6 L ABG O2 Saturation 93.2 L ABG Base Excess -4.3 L ABG Hemoglobin ABG Carboxyhemoglobin POC ABG HHb (Measured) ABG Methemoglobin Tima Test Na ABG Potassium 3.6 A-a O2 Difference Respiratory Index Hgb O2 Saturation Sodium 156.0 H Chloride 131.0 H Glucose 171 H Lactate 1.8 Liter Flow 4.0 Vent Mode Mechanical Rate FiO2 Tidal Volume PEEP Potassium Carbon Dioxide Anion Gap BUN Creatinine Est GFR ( Amer) Est GFR (Non-Af Amer) POC Glucose (mg/dL) 178 H Random Glucose Lactic Acid Calcium Phosphorus Magnesium Total Bilirubin AST ALT Alkaline Phosphatase Total Creatine Kinase CK-MB (Mass) Troponin I Total Protein Albumin Globulin Albumin/Globulin Ratio Arterial Blood Potassium 3.6 Fluid Source Random Vancomycin 10/06/18 10/06/18 10/06/18 06:35 06:35 11:05 WBC RBC Hgb Hct MCV MCH MCHC RDW Plt Count MPV Neut % (Auto) Lymph % (Auto) Ector % (Auto) Eos % (Auto) Baso % (Auto) Neut # (Auto) Lymph # (Auto) Ector # (Auto) Eos # (Auto) Baso # (Auto) Neutrophils % (Manual) Lymphocytes % (Manual) Monocytes % (Manual) Platelet Estimate Polychromasia Hypochromasia (manual) PT INR APTT Puncture Site Rba pCO2 27 L pO2 134 H HCO3 21.5 ABG pH 7.45 ABG Total CO2 19.6 L ABG O2 Saturation 99.8 H ABG Base Excess -4.4 L ABG Hemoglobin 8.4 L ABG Carboxyhemoglobin 2.1 H POC ABG HHb (Measured) 0.2 ABG Methemoglobin 0.9 Tima Test Na ABG Potassium A-a O2 Difference 189.0 Respiratory Index 1.4 Hgb O2 Saturation 96.9 Sodium 152 H Chloride 126 H Glucose Lactate Liter Flow Vent Mode Prvc Mechanical Rate 14 FiO2 50.0 Tidal Volume 450 PEEP 5 Potassium 3.9 Carbon Dioxide 21 L Anion Gap 9 L BUN 35 H Creatinine 1.4 Est GFR ( Amer) 58 Est GFR (Non-Af Amer) 48 POC Glucose (mg/dL) Random Glucose 137 H Lactic Acid Calcium 7.8 L Phosphorus 3.6 Magnesium 2.2 Total Bilirubin 0.6 AST 99 H ALT 70 Alkaline Phosphatase 361 H Total Creatine Kinase 133 CK-MB (Mass) 6.66 H Troponin I 0.2740 H* Total Protein 5.8 L Albumin 2.5 L Globulin 3.3 Albumin/Globulin Ratio 0.7 L Arterial Blood Potassium Fluid Source Random Vancomycin 23.8 10/06/18 10/06/18 10/06/18 11:44 12:58 17:56 WBC RBC Hgb Hct MCV MCH MCHC RDW Plt Count MPV Neut % (Auto) Lymph % (Auto) Ector % (Auto) Eos % (Auto) Baso % (Auto) Neut # (Auto) Lymph # (Auto) Ector # (Auto) Eos # (Auto) Baso # (Auto) Neutrophils % (Manual) Lymphocytes % (Manual) Monocytes % (Manual) Platelet Estimate Polychromasia Hypochromasia (manual) PT 14.4 H INR 1.3 APTT 35 H Puncture Site pCO2 pO2 HCO3 ABG pH ABG Total CO2 ABG O2 Saturation ABG Base Excess ABG Hemoglobin ABG Carboxyhemoglobin POC ABG HHb (Measured) ABG Methemoglobin Tima Test ABG Potassium A-a O2 Difference Respiratory Index Hgb O2 Saturation Sodium Chloride Glucose Lactate Liter Flow Vent Mode Mechanical Rate FiO2 Tidal Volume PEEP Potassium Carbon Dioxide Anion Gap BUN Creatinine Est GFR ( Amer) Est GFR (Non-Af Amer) POC Glucose (mg/dL) 149 H 169 H Random Glucose Lactic Acid Calcium Phosphorus Magnesium Total Bilirubin AST ALT Alkaline Phosphatase Total Creatine Kinase CK-MB (Mass) Troponin I Total Protein Albumin Globulin Albumin/Globulin Ratio Arterial Blood Potassium Fluid Source Random Vancomycin 10/06/18 18:12 WBC RBC Hgb Hct MCV MCH MCHC RDW Plt Count MPV Neut % (Auto) Lymph % (Auto) Ector % (Auto) Eos % (Auto) Baso % (Auto) Neut # (Auto) Lymph # (Auto) Ector # (Auto) Eos # (Auto) Baso # (Auto) Neutrophils % (Manual) Lymphocytes % (Manual) Monocytes % (Manual) Platelet Estimate Polychromasia Hypochromasia (manual) PT INR APTT Puncture Site pCO2 pO2 HCO3 ABG pH ABG Total CO2 ABG O2 Saturation ABG Base Excess ABG Hemoglobin ABG Carboxyhemoglobin POC ABG HHb (Measured) ABG Methemoglobin Tima Test ABG Potassium A-a O2 Difference Respiratory Index Hgb O2 Saturation Sodium Chloride Glucose Lactate Liter Flow Vent Mode Mechanical Rate FiO2 Tidal Volume PEEP Potassium Carbon Dioxide Anion Gap BUN Creatinine Est GFR ( Amer) Est GFR (Non-Af Amer) POC Glucose (mg/dL) Random Glucose Lactic Acid Calcium Phosphorus Magnesium Total Bilirubin AST ALT Alkaline Phosphatase Total Creatine Kinase CK-MB (Mass) Troponin I Total Protein Albumin Globulin Albumin/Globulin Ratio Arterial Blood Potassium Fluid Source Pleural/thoracentesi Random Vancomycin Assessment & Plan - Assessment and Plan (Free Text) Assessment: 87 y/o male seen and evaluated for eschars to left foot Plan: Patient seen and evaluated Plan discussed with attending Dr. Perdomo Chart, labs and vitals were reviewed Patient noted to be in Multipodus boots Patient left foot dressed in dry sterile dressing Patient stable from podiatry standpoint Podiatry will continue to follow patient while he is in house - Date & Time Date: 10/06/18 Time: 18:26
--- NOTE | 2018-10-06 18:30 | RAD ---
Date of service: 10/06/2018 HISTORY: post-thoaracentesis COMPARISON: October 06, 2018 FINDINGS: LUNGS: Improved aeration of the right lung following thoracentesis. PLEURA: No pneumothorax following right-sided thoracentesis. Stable left pleural effusion. CARDIOVASCULAR: Atherosclerotic calcifications identified primarily aortic arch. Improving presumed cardiogenic pulmonary edema. OSSEOUS STRUCTURES: No significant abnormalities. VISUALIZED UPPER ABDOMEN: Normal. OTHER FINDINGS: Stable position of support apparatus including endotracheal tube and nasogastric tube. IMPRESSION: Status post right thoracentesis with improved aeration of the right lung. No pneumothorax identified. Improving pulmonary edema. Stable position of support apparatus.
--- NOTE | 2018-10-06 19:00 | CP.PCM.PN ---
Subjective - Date & Time of Evaluation Date of Evaluation: 10/06/18 Time of Evaluation: 12:15 - Subjective Subjective: clinically same Objective - Vital Signs/Intake and Output Vital Signs (last 24 hours): Temp Pulse Resp BP Pulse Ox 98.2 F 67 100 H 124/63 100 10/06/18 16:00 10/06/18 16:10 10/06/18 16:00 10/06/18 17:11 10/06/18 16:10 Intake and Output: 10/06/18 10/06/18 06:59 18:59 Intake Total 775 1492.0 Output Total 150 0 Balance 625 1492.0 - Medications Medications: Current Medications Acetaminophen (Tylenol 325mg Tab) 650 mg PO Q8 PRN PRN Reason: Pain, Mild (1-3) Al Hydrox/Mg Hydrox/Simethicone (Maalox Plus 30 Ml) 30 ml PO Q4 PRN PRN Reason: Heartburn Albuterol Sulfate (Albuterol 0.042% Inhal [place] (1.25mg/3ml) Ud) 1.25 mg INH RQ6 [facility] Last Admin: 10/06/18 13:07 Dose: 1.25 mg Ascorbic Acid (Vitamin C 500 Mg Tab) 500 mg PO BID [facility] Last Admin: 10/06/18 17:11 Dose: 500 mg Aspirin (Aspirin Chewable) 81 mg PO DAILY [facility] Last Admin: 10/06/18 12:13 Dose: 81 mg Clopidogrel Bisulfate (Plavix) 75 mg PO DAILY [facility] Last Admin: 10/06/18 10:25 Dose: 75 mg Dextrose (Dextrose 50% Inj) 0 ml IV STAT PRN; Protocol PRN Reason: Hypoglycemia Protocol Dextrose (Glutose 15) 0 gm PO ONCE PRN; Protocol PRN Reason: Hypoglycemia Protocol Enoxaparin Sodium (Lovenox) 40 mg SC DAILY [facility] Last Admin: 10/06/18 10:25 Dose: 40 mg Glucagon (Glucagen Diagnostic Kit) 0 mg IM STAT PRN; Protocol PRN Reason: Hypoglycemia Protocol Cefepime HCl (Maxipime Iv 1 Gm Premix) 1 gm in 50 mls @ 100 mls/hr IVPB Q12H [facility]; Protocol Last Admin: 10/06/18 12:14 Dose: 100 mls/hr Dextrose (Dextrose 5% In Water 1000 Ml) 1,000 mls @ 0 mls/hr IV .Q0M PRN; Protocol PRN Reason: Hypoglycemia Protocol Dexmedetomidine HCl 200 mcg/ (Sodium Chloride) 50 mls @ 2.36 mls/hr IV TITR PRN; Protocol PRN Reason: Titrate per Protocol Last Titration: 10/06/18 13:00 Dose: 0.1 mcg/kg/hr, 1.18 mls/hr Micafungin Sodium 100 mg/ (Sodium Chloride) 100 mls @ 100 mls/hr IV Q24H [facility]; Protocol Last Admin: 10/06/18 13:54 Dose: 100 mls/hr Tigecycline 50 mg/ Sodium (Chloride) 100 mls @ 100 mls/hr IVPB Q12H [facility]; Protocol Insulin Human Regular (Novolin R) 0 unit SC Q6 [facility]; Protocol Last Admin: 10/06/18 18:17 Dose: 1 unit Lorazepam (Ativan) 0.5 mg PO Q12 PRN PRN Reason: Agitation Magnesium Hydroxide (Milk Of Magnesia) 30 ml PO DAILY PRN PRN Reason: Constipation Memantine (Namenda) 10 mg PO BID [facility] Last Admin: 10/06/18 17:11 Dose: 10 mg Methylprednisolone (Solu-Medrol) 40 mg IVP Q6H [facility] Last Admin: 10/06/18 17:10 Dose: 40 mg Metoprolol Tartrate (Lopressor) 25 mg PO BID [facility] Last Admin: 10/06/18 17:11 Dose: 25 mg Multivitamins (Hexavitamin) 1 tab PO DAILY [facility] Last Admin: 10/06/18 10:25 Dose: 1 tab Pantoprazole Sodium (Protonix Susp) 40 mg NG DAILY [facility] Last Admin: 10/06/18 12:13 Dose: 40 mg Rosuvastatin Calcium (Crestor) 20 mg PO HS [facility] Last Admin: 10/05/18 22:33 Dose: Not Given Zinc Sulfate (Zinc Sulfate 220 Mg Cap) 220 mg PO BID [facility] Last Admin: 10/06/18 17:10 Dose: 220 mg - Labs Labs: 10/06/18 06:35 10/06/18 06:35 PT 14.4 SECONDS (9.7-12.2) H 10/06/18 12:58 INR 1.3 10/06/18 12:58 APTT 35 SECONDS (21-34) H 10/06/18 12:58 - Constitutional Appears: Well - Head Exam Head Exam: ATRAUMATIC, NORMAL INSPECTION, NORMOCEPHALIC - Eye Exam Eye Exam: EOMI, Normal appearance, PERRL Pupil Exam: NORMAL ACCOMODATION, PERRL - ENT Exam ENT Exam: Mucous Membranes Moist, Normal Exam - Neck Exam Neck Exam: Full ROM, Normal Inspection. absent: Lymphadenopathy - Respiratory Exam Respiratory Exam: Decreased Breath Sounds - Cardiovascular Exam Cardiovascular Exam: REGULAR RHYTHM, +S1, +S2 - GI/Abdominal Exam GI & Abdominal Exam: Soft, Diminished Bowel Sounds - Rectal Exam Rectal Exam: Deferred
[2018-10-06 19:39] LABS: BF GROSS APPEARANCE CLEAR (CLEAR)
--- NOTE | 2018-10-06 19:39 | PN ---
DATE: 10/06/2018 PHYSICAL EXAMINATION GENERAL: He is intubated. He was having chest issues yesterday. VITAL SIGNS: The patient's temperature is 98.4, pulse is 63. HEENT: Head is atraumatic, normocephalic. LUNGS: Decreased breath sounds. HEART: S1, S2 are present. ABDOMEN: Soft, nontender. No guarding, no rigidity present. BACK: He has sacral decubitus, four of them on the back. EXTREMITIES: Have no edema. ASSESSMENT AND PLAN: He came in with dehydration and now he is intubated with respiratory issues. White count is 8.6, hemoglobin 8.1, hematocrit 25.9, platelet count is 163. INR is 1.3. His lactate level was 1.8, yesterday it was done. Troponin is positive. His vancomycin random was 23.8 today, but his wound culture came back as vancomycin-resistant enterococci and Faith albicans. Urine also has yeast species and wound culture has Faith albicans and at this time they do not have intravenous Diflucan, hence I will give him Mycamine, also this vancomycin-resistant enterococci was only sensitive to Zyvox before, but I called them and Microbiology said that it is sensitive to Tygacil, so I placed him on Tygacil for a better coverage. At this time, we will continue with Tygacil with cefepime and we will follow. I will be away from tomorrow and I am going to endorse this patient to Dr. Sethi. However, prognosis is poor. He is an elderly male with lot of comorbidities and now with respiratory failure and multiple sacral decubitus, contractures, bed bound, and has functional quadriplegia. Faith in the urine and we are going to do the sputum. Stacey Burns MD
--- NOTE | 2018-10-06 22:18 | CARD ---
APPROVED REPORT Date of service: 10/06/2018 EXAM: Two-dimensional and M-mode echocardiogram with Doppler and color Doppler. INDICATION Cardiac Disease: CAD coronary stent RISK FACTORS Hypertension Hyperlipidemia 2D DIMENSIONS IVSd0.8 (0.7-1.1cm)LVDd5.5 (3.9-5.9cm) PWd0.7 (0.7-1.1cm)LA [id number] (18-58mL) LVDs3.8 (2.5-4.0cm)FS (%) 30.7 % LVEF (%)57.7 (>50%) M-Mode DIMENSIONS Left Atrium (MM)2.54 (2.5-4.0cm)IVSd0.85 (0.7-1.1cm) Aortic Root2.51 (2.2-3.7cm)LVDd3.84 (4.0-5.6cm) Aortic Cusp Exc.1.18 (1.5-2.0cm)PWd1.22 (0.7-1.1cm) FS (%) 38 %LVDs2.36 (2.0-3.8cm) TAPSE17.57 cmLVEF (%)55 (>50%) Aortic Valve AI P 1/2 [id number] Mitral Valve MV E Eipgbrcp70.3cm/sMV A Olwdoiqn05.1cm/sE/A ratio1.6 TDI Lateral E' Peak V9.13cm/sMedial E' Peak V4.61cm/sE/Lateral E'7.5 E/Medial E'14.8 Tricuspid Valve TR Peak [id number]/sTR Peak Gr.[id number] LEFT VENTRICLE The left ventricle is normal size. There is normal left ventricular wall thickness. The left ventricular ejection fraction is within the normal range. Septal hypokinesis Transmitral Doppler flow pattern is Grade II-pseudonormal filling dynamics. Cannot rule out thrombus in left Ventricle or left atrium RIGHT VENTRICLE The right ventricle is normal size. There is normal right ventricular wall thickness. The right ventricular systolic function is normal. ATRIA The left atrium size is normal. The right atrium size is normal. AORTIC VALVE The aortic valve is severely sclerotic. There is mild aortic regurgitation. MITRAL VALVE The mitral valve is moderately thickened. Mitral regurgitation is moderate. TRICUSPID VALVE There is moderate tricuspid regurgitation. There is moderate pulmonary hypertension. PULMONIC VALVE There is mild pulmonic valvular regurgitation. GREAT VESSELS The aortic root is normal in size. PERICARDIAL EFFUSION There is a small pericardial effusion. There is large pleural effusion. <Conclusion> The left ventricle is normal size. There is normal left ventricular wall thickness. The left ventricular ejection fraction is within the normal range. Septal hypokinesis Transmitral Doppler flow pattern is Grade II-pseudonormal filling dynamics. Cannot rule out thrombus in left Ventricle or left atrium The aortic valve is severely sclerotic.There is mild aortic regurgitation. Mitral regurgitation is moderate. There is moderate tricuspid regurgitation.There is moderate pulmonary hypertension. There is mild pulmonic valvular regurgitation. There is a small pericardial effusion. There is large pleural effusion.
--- NOTE | 2018-10-06 23:40 | CARD ---
APPROVED REPORT Date of service: 10/05/2018 EKG Measurement Heart [id number] <Conclusion> Normal sinus rhythm with sinus arrhythmia Septal infarct, age undetermined Abnormal ECG
--- NOTE | 2018-10-06 23:46 | PN ---
DATE: 10/06/2018 SUBJECTIVE: The patient required intubation and mechanical ventilation, but he is being evaluated by the surgical team for possible right pleurodesis. PHYSICAL EXAMINATION: VITAL SIGNS: Blood pressure 124/63, heart rate 67, temperature 98.2, respirations 20. HEENT: Temporal wasting. CHEST: Absent breath sounds over the right base. HEART: S1 and S2 regular. ABDOMEN: Soft. EXTREMITIES: Contracted lower extremity with significant muscle wasting. LABORATORY DATA: Today's hemoglobin and hematocrit are 8.1 and 25.9. White count and platelet count are within normal limits. Today's SMA-7: Sodium 152, potassium 3.9, chloride 126, glucose 137, BUN 35, creatinine 1.4, troponin 0.27. INR is 1.3. Venous Doppler of lower extremities, no evidence of deep superficial and deep venous thrombosis. Incidentally bilateral superficial femoral artery stents appeared patent. Extensive arterial classification. Chest CT scan without contrast revealed chronic interstitial pulmonary disease, most likely superimposed infiltrate affecting the right lateral and left upper lobes, moderate large bilateral pleural effusion, compression atelectasis at the bilateral lower lobe predominantly, and minimally affecting the right middle lobe. Cardiomegaly, mildly pulmonary artery segmental dilatation may reflect pulmonary arterial hypertension. ASSESSMENT: 1. Respiratory failure. 2. Bilateral pneumonia with significant bilateral pleural effusion. 3. Borderline troponin elevation. 4. sacral decubitus. 5. Dehydration with hypernatremia and prerenal azotemia. RECOMMENDATIONS: Continue current aspirin 81 mg once a day, Crestor 20 mg once a day, Lopressor 25 mg twice a day, IV Maxipime at 1 g every 12 hours, IV micafungin at 100 mg daily, Plavix 75 mg once a day, tigecycline 50 mg intravenously every 12 hours, Solu-Medrol 40 mg intravenously every 6 hours. I would review the echocardiographic study performed today. Tomas Veras MD
[2018-10-07] MEDS: (Novolin R) Insulin Human Regular 100 units/ml vial SC SCH ×4 (00:38→17:40)
[2018-10-07] MEDS: Albuterol 0.042% Inhal Sol (1.25 mg/3 mL) UD INH SCH ×4 (01:18→20:40)
[2018-10-07 04:49] LABS: ARTERIAL BLOOD GAS HCO3 21.5 mmol/L (21-28); ARTERIAL BLOOD GAS HEMOGLOBIN 8.6 g/dL (11.7-17.4); ARTERIAL BLOOD GAS O2 SAT 99.9 % (95-98); ARTERIAL BLOOD GAS PCO2 27 mm/Hg (35-45); ARTERIAL BLOOD GAS PH 7.45 (7.35-7.45); ARTERIAL BLOOD GAS PO2 186 mm/Hg (80-100); ARTERIAL BLOOD GAS TCO2 19.6 mmol/L (22-28)
[2018-10-07] MEDS: MethylPREDNISolone 40 mg Vial IVP SCH ×3 (06:08→21:56)
[2018-10-07 06:12] LABS: HEMOGLOBIN 7.1 g/dL (12.0-18.0); LYMPH # 0.4 K/uL (1.0-4.3); LYMPH % 4.7 % (20.0-40.0); MEAN CELL VOLUME 95.6 fL (80.0-94.0); MEAN CORPUSCULAR HEMOGLOBIN 30.7 pg (27.0-31.0); MEAN CORPUSCULAR HGB CONC 32.1 g/dL (33.0-37.0); MEAN PLATELET VOLUME 10.5 fL (7.2-11.7); MONO # 0.2 K/uL (0.0-0.8); NEUT # 8.5 K/uL (1.8-7.0); NEUT % 93.3 % (50.0-75.0); NRBC % 0.1 % (0.0-2.0); PLATELET COUNT 149 K/uL (130-400); RBC 2.31 Mil/uL (4.40-5.90); RED CELL DISTRIBUTION WIDTH 20.2 % (11.5-14.5); WHITE BLOOD COUNT 9.1 K/uL (4.8-10.8)
[2018-10-07 06:32] LABS: ALB/GLOB RATIO 0.8 (1.0-2.1); ALBUMIN 2.1 g/dL (3.5-5.0); ALT/SGPT 60 U/L (21-72); AST/SGOT 57 U/L (17-59); BLOOD UREA NITROGEN 46 mg/dL (9-20); CALCIUM 7.1 mg/dl (8.6-10.4); GFR NON-AFRICAN AMERICAN 52
[2018-10-07] MEDS: Dexmedetomidine Hydrochloride 200 MCG in Sodium Chloride 0.9% 48 ML IV PRN (06:44)
[2018-10-07 07:03] LABS: SQUAMOUS EPITHIAL 1 /hpf (0-5); URINE BACTERIA RARE (<OCC); URINE BILIRUBIN NEGATIVE (NEGATIVE); URINE BLOOD NEGATIVE (NEGATIVE); URINE CLARITY Hazy (Clear); URINE COLOR Amber (YELLOW); URINE GLUCOSE (UA) NORMAL (Normal); URINE LEUKOCYTE ESTERASE NEG Leu/uL (Negative); URINE PROTEIN 1+ mg/dL (NEGATIVE); URINE UROBILINOGEN NORMAL mg/dL (0.2-1.0); WBC CLUMPS FEW /hpf
--- NOTE | 2018-10-07 09:06 | CP.PCM.CON ---
History of Present Illness - History of Present Illness History of Present Illness: Patient is a 87 y/o male with PMHx of dementia, who presented to the ED on 10/03/18 from the [facility] after refusing to eat or take medications for 2 days. Upon admission, patient was found to be dehydrated and had multiple pressure ulcers (was being treated with IV Abx at [place]). Patient also complained of shortness of breath, for which CT chest showed chronic interstitial pulmonary disease with likely superimposed infiltrates affecting the right greater than left upper lobes and moderately large bilateral pleural effusions. Patient has been transferred to the ICU and intubated last night. He is non- communicative and cannot provide any history. PMHx: dementia, sacral decubitus, HTN, BPH, CAD, CVA with left-sided weakness, hypercholesteremia, NPH-shunt PSHx: coronary stent (2011) Meds: see MAR FHx: NC Social: denies tobacco, alcohol, drug use; lives at [facility] -CT chest (10/05): 1) Chronic interstitial pulmonary disease appreciated with likely superimposed infiltrates affecting the right greater than left upper lobes. 2) Moderately large bilateral pleural effusions exerts compression atelectasis at the bilateral lower lobes predominantly and minimally affecting the right middle lobe, marginal at the bilateral upper lobes. 3) Cardiomegaly. Mild main pulmonary artery segmental dilatation may reflect pulmonary artery hypertension. 4) Bones: multiple compression fractures, including moderate severe at T5, mild at T6-10. These are of indeterminate age. Review of Systems - Review of Systems Systems not reviewed;Unavailable: Intubated Past Patient History - Tetanus Immunizations Tetanus Immunization: Unknown - Past Medical History & Family History Past Medical History?: Yes Past Family History: Reviewed and not pertinent - Past Social History Smoking Status: Unknown If Ever Smoked Chewing Tobacco Use: No Cigar Use: No Alcohol: None Drugs: Denies Home Situation {Lives}: Long Term - CARDIAC Hx Hypercholesterolemia: Yes Hx Hypertension: Yes Hx Pacemaker: No - PULMONARY Hx Respiratory Disorders: No Other/Comment: Coronary Stent - NEUROLOGICAL Hx Dementia: Yes - HEENT Hx HEENT Problems: No - RENAL Hx Chronic Kidney Disease: No - ENDOCRINE/METABOLIC Hx Endocrine Disorders: No Other/Comment: Pt incontinent - HEMATOLOGICAL/ONCOLOGICAL Hx Blood Disorders: No Hx Blood Transfusions: No Hx Blood Transfusion Reaction: No Other/Comment: MRSA - INTEGUMENTARY Hx Dermatological Problems: Yes Other/Comment: Bilaterl HIP Decubiti. Unstageable sacral decubitus. Left lateral foot unstageable pressure ulcer - MUSCULOSKELETAL/RHEUMATOLOGICAL Hx Arthritis: Yes - GASTROINTESTINAL Hx Gastrointestinal Disorders: Yes Other/Comment: Incotinence - GENITOURINARY/GYNECOLOGICAL Hx Genitourinary Disorders: Yes Other/Comment: Hx of BPH - PSYCHIATRIC Hx Substance Use: No - SURGICAL HISTORY Hx Coronary Stent: Yes - ANESTHESIA Hx Anesthesia: Yes Hx Anesthesia Reactions: No Hx Malignant Hyperthermia: No Has any member of the family had a problem w/ anesthesia?: No Meds Allergies/Adverse Reactions: Allergies Allergy/AdvReac Type Severity Reaction Status Date / Time No Known Allergies Allergy Unverified 08/29/18 17:06 - Medications Medications: Current Medications Acetaminophen (Tylenol 325mg Tab) 650 mg PO Q8 PRN PRN Reason: Pain, Mild (1-3) Albuterol Sulfate (Albuterol 0.042% Inhal [place] (1.25mg/3ml) Ud) 1.25 mg INH RQ6 [facility] Last Admin: 10/07/18 08:27 Dose: 1.25 mg Ascorbic Acid (Vitamin C 500 Mg Tab) 500 mg PO BID [facility] Last Admin: 10/06/18 17:11 Dose: 500 mg Aspirin (Aspirin Chewable) 81 mg PO DAILY [facility] Last Admin: 10/06/18 12:13 Dose: 81 mg Clopidogrel Bisulfate (Plavix) 75 mg PO DAILY [facility] Last Admin: 10/06/18 10:25 Dose: 75 mg Dextrose (Dextrose 50% Inj) 0 ml IV STAT PRN; Protocol PRN Reason: Hypoglycemia Protocol Dextrose (Glutose 15) 0 gm PO ONCE PRN; Protocol PRN Reason: Hypoglycemia Protocol Enoxaparin Sodium (Lovenox) 40 mg SC DAILY [facility] Last Admin: 10/06/18 10:25 Dose: 40 mg Glucagon (Glucagen Diagnostic Kit) 0 mg IM STAT PRN; Protocol PRN Reason: Hypoglycemia Protocol Cefepime HCl (Maxipime Iv 1 Gm Premix) 1 gm in 50 mls @ 100 mls/hr IVPB Q12H [facility]; Protocol Last Admin: 10/06/18 23:22 Dose: 100 mls/hr Dextrose (Dextrose 5% In Water 1000 Ml) 1,000 mls @ 0 mls/hr IV .Q0M PRN; Protocol PRN Reason: Hypoglycemia Protocol Dexmedetomidine HCl 200 mcg/ (Sodium Chloride) 50 mls @ 2.36 mls/hr IV TITR PRN; Protocol PRN Reason: Titrate per Protocol Last Admin: 10/07/18 06:44 Dose: 0.1 mcg/kg/hr, 1.18 mls/hr Micafungin Sodium 100 mg/ (Sodium Chloride) 100 mls @ 100 mls/hr IV Q24H [facility]; Protocol Last Admin: 10/06/18 13:54 Dose: 100 mls/hr Tigecycline 50 mg/ Sodium (Chloride) 100 mls @ 100 mls/hr IVPB Q12H ENRIQUE; Pro tocol Last Admin: 10/07/18 03:58 Dose: 100 mls/hr Insulin Human Regular (Novolin R) 0 unit SC Q6 [facility]; Protocol Last Admin: 10/07/18 06:08 Dose: 1 unit Methylprednisolone (Solu-Medrol) 20 mg IVP Q12 ENRIQUE Metoprolol Tartrate (Lopressor) 25 mg PO BID [facility] Last Admin: 10/06/18 17:11 Dose: 25 mg Multivitamins (Hexavitamin) 1 tab PO DAILY [facility] Last Admin: 10/06/18 10:25 Dose: 1 tab Pantoprazole Sodium (Protonix Susp) 40 mg NG DAILY [facility] Last Admin: 10/06/18 12:13 Dose: 40 mg Zinc Sulfate (Zinc Sulfate 220 Mg Cap) 220 mg PO BID [facility] Last Admin: 10/06/18 17:10 Dose: 220 mg Physical Exam - Head Exam Head Exam: ATRAUMATIC, NORMOCEPHALIC - ENT Exam ENT Exam: Mucous Membranes Moist - Neck Exam Neck exam: Positive for: Normal Inspection - Respiratory Exam Respiratory Exam: Decreased Breath Sounds - Cardiovascular Exam Cardiovascular Exam: REGULAR RHYTHM - GI/Abdominal Exam GI & Abdominal Exam: Normal Bowel Sounds - Extremities Exam Extremities exam: Positive for: normal inspection - Neurological Exam Neurological exam: Alert, Oriented x3 Results - Vital Signs Recent Vital Signs: Last Vital Signs Temp 98.5 F 10/07/18 04:00 Pulse 82 10/07/18 08:07 Resp 20 10/06/18 23:00 BP 111/58 L 10/07/18 08:07 Pulse Ox 100 10/07/18 08:07 - Labs Result Diagrams: 10/07/18 05:59 10/07/18 05:59 Labs: Laboratory Results - last 24 hr 10/06/18 10/06/18 10/06/18 11:05 11:44 12:58 WBC RBC Hgb Hct MCV MCH MCHC RDW Plt Count MPV Neut % (Auto) Lymph % (Auto) [place] % (Auto) Eos % (Auto) Baso % (Auto) Neut # (Auto) Lymph # (Auto) [place] # (Auto) Eos # (Auto) Baso # (Auto) PT 14.4 H INR 1.3 APTT 35 H Puncture Site Rba pCO2 27 L pO2 134 H HCO3 21.5 ABG pH 7.45 ABG Total CO2 19.6 L ABG O2 Saturation 99.8 H ABG Base Excess -4.4 L ABG Hemoglobin 8.4 L ABG Carboxyhemoglobin 2.1 H POC ABG HHb (Measured) 0.2 ABG Methemoglobin 0.9 Tima Test Na A-a O2 Difference 189.0 Respiratory Index 1.4 Hgb O2 Saturation 96.9 Vent Mode Prvc Mechanical Rate 14 FiO2 50.0 Tidal Volume 450 PEEP 5 Sodium Potassium Chloride Carbon Dioxide Anion Gap BUN Creatinine Est GFR ( Amer) Est GFR (Non-Af Amer) POC Glucose (mg/dL) 149 H Random Glucose Calcium Phosphorus Magnesium Total Bilirubin AST ALT Alkaline Phosphatase Total Protein Albumin Globulin Albumin/Globulin Ratio Urine Color Urine Clarity Urine pH Ur Specific [place] Urine Protein Urine Glucose (UA) Urine Ketones Urine Blood Urine Nitrate Urine Bilirubin Urine Urobilinogen Ur Leukocyte Esterase Urine WBC (Auto) Urine RBC (Auto) Urine WBC Clumps (Auto) Ur Squamous Epith Cells Urine Bacteria Urine Yeast (Budding) Fluid Source Fluid Appearance Fluid WBC Fluid RBC Fluid Tot Cell Count Fld Monocyte/Macrophag Fluid Comment 10/06/18 10/06/18 10/07/18 17:56 18:12 00:36 WBC RBC Hgb Hct MCV MCH MCHC RDW Plt Count MPV Neut % (Auto) Lymph % (Auto) [place] % (Auto) Eos % (Auto) Baso % (Auto) Neut # (Auto) Lymph # (Auto) [place] # (Auto) Eos # (Auto) Baso # (Auto) PT INR APTT Puncture Site pCO2 pO2 HCO3 ABG pH ABG Total CO2 ABG O2 Saturation ABG Base Excess ABG Hemoglobin ABG Carboxyhemoglobin POC ABG HHb (Measured) ABG Methemoglobin Tima Test A-a O2 Difference Respiratory Index Hgb O2 Saturation Vent Mode Mechanical Rate FiO2 Tidal Volume PEEP Sodium Potassium Chloride Carbon Dioxide Anion Gap BUN Creatinine Est GFR ( Amer) Est GFR (Non-Af Amer) POC Glucose (mg/dL) 169 H 125 H Random Glucose Calcium Phosphorus Magnesium Total Bilirubin AST ALT Alkaline Phosphatase Total Protein Albumin Globulin Albumin/Globulin Ratio Urine Color Urine Clarity Urine pH Ur Specific [place] Urine Protein Urine Glucose (UA) Urine Ketones Urine Blood Urine Nitrate Urine Bilirubin Urine Urobilinogen Ur Leukocyte Esterase Urine WBC (Auto) Urine RBC (Auto) Urine WBC Clumps (Auto) Ur Squamous Epith Cells Urine Bacteria Urine Yeast (Budding) Fluid Source Pleural/thoracentesi Fluid Appearance Clear Fluid WBC 7.0 Fluid RBC 49.0 H Fluid Tot Cell Count TEST NOT PERFORMED Fld Monocyte/Macrophag TEST NOT PERFORMED Fluid Comment 10/07/18 10/07/18 10/07/18 04:35 05:21 05:59 WBC 9.1 RBC 2.31 L Hgb 7.1 L Hct 22.1 L MCV 95.6 H MCH 30.7 MCHC 32.1 L RDW 20.2 H Plt Count 149 MPV 10.5 Neut % (Auto) 93.3 H Lymph % (Auto) 4.7 L [place] % (Auto) 2.0 Eos % (Auto) 0.0 Baso % (Auto) 0.0 Neut # (Auto) 8.5 H Lymph # (Auto) 0.4 L [place] # (Auto) 0.2 Eos # (Auto) 0.0 Baso # (Auto) 0.0 PT INR APTT Puncture Site Rb pCO2 27 L pO2 186 H HCO3 21.5 ABG pH 7.45 ABG Total CO2 19.6 L ABG O2 Saturation 99.9 H ABG Base Excess -4.4 L ABG Hemoglobin 8.6 L ABG Carboxyhemoglobin 1.9 H POC ABG HHb (Measured) 0.1 ABG Methemoglobin 1.4 Tima Test Na A-a O2 Difference 137.0 Respiratory Index 0.7 Hgb O2 Saturation 96.6 Vent Mode Prvc Mechanical Rate 14 FiO2 50.0 Tidal Volume 450 PEEP 5 Sodium Potassium Chloride Carbon Dioxide Anion Gap BUN Creatinine Est GFR ( Amer) Est GFR (Non-Af Amer) POC Glucose (mg/dL) 158 H Random Glucose Calcium Phosphorus Magnesium Total Bilirubin AST ALT Alkaline Phosphatase Total Protein Albumin Globulin Albumin/Globulin Ratio Urine Color Urine Clarity Urine pH Ur Specific [place] Urine Protein Urine Glucose (UA) Urine Ketones Urine Blood Urine Nitrate Urine Bilirubin Urine Urobilinogen Ur Leukocyte Esterase Urine WBC (Auto) Urine RBC (Auto) Urine WBC Clumps (Auto) Ur Squamous Epith Cells Urine Bacteria Urine Yeast (Budding) Fluid Source Fluid Appearance Fluid WBC Fluid RBC Fluid Tot Cell Count Fld Monocyte/Macrophag Fluid Comment 10/07/18 10/07/18 05:59 06:51 WBC RBC Hgb Hct MCV MCH MCHC RDW Plt Count MPV Neut % (Auto) Lymph % (Auto) [place] % (Auto) Eos % (Auto) Baso % (Auto) Neut # (Auto) Lymph # (Auto) [place] # (Auto) Eos # (Auto) Baso # (Auto) PT INR APTT Puncture Site pCO2 pO2 HCO3 ABG pH ABG Total CO2 ABG O2 Saturation ABG Base Excess ABG Hemoglobin ABG Carboxyhemoglobin POC ABG HHb (Measured) ABG Methemoglobin Tima Test A-a O2 Difference Respiratory Index Hgb O2 Saturation Vent Mode Mechanical Rate FiO2 Tidal Volume PEEP Sodium 147 Potassium 4.1 Chloride 122 H Carbon Dioxide 16 L Anion Gap 12 BUN 46 H Creatinine 1.3 Est GFR ( Amer) > 60 Est GFR (Non-Af Amer) 52 POC Glucose (mg/dL) Random Glucose 135 H Calcium 7.1 L Phosphorus 3.4 Magnesium 2.2 Total Bilirubin 0.4 AST 57 ALT 60 Alkaline Phosphatase 250 H D Total Protein 4.7 L Albumin 2.1 L Globulin 2.7 Albumin/Globulin Ratio 0.8 L Urine Color [place] Urine Clarity Hazy Urine pH 5.0 Ur Specific [place] 1.021 Urine Protein 1+ H Urine Glucose (UA) Normal Urine Ketones Trace Urine Blood Negative Urine Nitrate Negative Urine Bilirubin Negative Urine Urobilinogen Normal Ur Leukocyte Esterase Neg Urine WBC (Auto) 4 Urine RBC (Auto) 1 Urine WBC Clumps (Auto) Few H Ur Squamous Epith Cells 1 Urine Bacteria Rare Urine Yeast (Budding) Few H Fluid Source Fluid Appearance Fluid WBC Fluid RBC Fluid Tot Cell Count Fld Monocyte/Macrophag Fluid Comment Assessment & Plan (1) Acute respiratory failure Status: Acute Comment: on ventilatory support. Status post thoracentesis. Fluid analysis. Continue antibiotics. Sedation vacation. Wean as tolerated. Nebulizer treatment. Steroids (2) Pleural effusion Status: Acute (3) COPD (chronic obstructive pulmonary disease) Status: Acute
[2018-10-07 09:26] LABS: BANDS 2 % (0-2); LYMPHOCYTE 4 % (20-40); MONOCYTE 2 % (0-10); NEUTROPHIL 92 % (50-75); PLATELET ESTIMATE NORMAL (NORMAL); TOTAL CELLS COUNTED 100
[2018-10-07 09:27] LABS: ANISOCYTOSIS MODERATE; BURR CELLS SLIGHT; HYPOCHROMIC SLIGHT; OVALOCYTES SLIGHT; POLYCHROMIC SLIGHT
[2018-10-07 09:28] LABS: LARGE PLATELETS PRESENT; SCHISTOCYTES SLIGHT; TOXIC GRANULATION PRESENT
[2018-10-07 09:29] LABS: POIKILOCYTOSIS MODERATE
[2018-10-07] MEDS: Pantoprazole 40 mg Susp UD NG SCH (09:49)
[2018-10-07] MEDS: Multiple Vitamins Tab PO SCH (09:49)
[2018-10-07] MEDS: Enoxaparin 40 mg Syringe SC SCH (09:50)
--- NOTE | 2018-10-07 09:56 | CP.CCUPN ---
CCU Subjective - Physician Review Events Since Last Encounter (Free Text): 10/07/18 09:55 Patient is 87-year-old male with a history of dementia, multiple decubiti, CAD and stent hypertension high cholesterol multiple CVA, normal pressure hydrocephalus and a stent, IMPRESSION PRINTER shunt. Patient admitted with respiratory failure and aspiration pneumonia, pleural effusion. Patient is extremely contracted with the multiple pressure ulcers. Overall prognosis is very poor at this time. On examination: Patient is awake sometimes responding to deep stability. Chest good air entry, weakness noted generalized. Labs reviewed in X-ray left lung pleural effusion possible Assessment and recommendation: 87-year-old male with multiple medical history and the extreme extremity contractures. Multiple pressure ulcers. Aspiration pneumonia. Pleural effusion Acute respiratory failure, secondary to hypoxic. On ventilator. Overall prognosis very poor. Patient is not a candidate for pleural decortication. Patient has a bilateral pleural effusion possibly secondary to volume overload, nutritional, CHF. Lasix as needed. cpap trial as tolerated CCU Objective - Vital Signs / Intake & Output Vital Signs (Last 4 hours): Vital Signs Pulse BP Pulse Ox 10/07/18 09:07 72 98/49 L 100 10/07/18 09:00 71 100 10/07/18 08:07 82 111/58 L 100 10/07/18 08:00 77 100 10/07/18 07:49 82 106/59 L 100 10/07/18 07:08 67 89/49 L 100 10/07/18 07:07 59 L 86/45 L 100 10/07/18 07:00 57 L 100 10/07/18 06:07 90 117/62 100 Intake and Output (Last 8hrs): Intake & Output 10/06/18 10/07/18 10/07/18 22:59 06:59 14:59 Intake Total 1474.6 1257.2 103.6 Output Total 1510 240 Balance -35.4 1017.2 103.6 Weight 117 lb 6.4 oz Intake: IV 5 10 Intake, IV Amount 109.6 157.2 3.6 Right Distal Port PICC 100 Right External Jugular 3.6 7.2 3.6 Right External Jugular - 150 Distal Port Right PICC 6.0 Tube Feeding 160 290 100 Other 1200 800 Output: Drainage 1500 Right Chest 1500 Urine 10 240 Condom 10 0 Urethral ([place]) 240 Emesis 0 Other: # Bowel Movements 0 0 - Physical Exam Head: Positive for: Atraumatic Pupils: Positive for: PERRL Mouth: Positive for: Dry Respiratory/Chest: Positive for: Other (vent). Negative for: Respiratory Distress Cardiovascular: Positive for: Regular Rate and Rhythm, Normal S1, S2 Abdomen: Negative for: Distention Upper Extremity: Positive for: NORMAL PULSES, Capillary Refill < 2s, Other (thin) Lower Extremity: Positive for: NORMAL PULSES, Capillary Refill < 2 s, Other (thin) Neurological: Positive for: Other (sedated) Skin: Positive for: Warm, Dry Psychiatric: Negative for: Alert - Medications Active Medications: Active Medications Generic Name Dose Route Start Last Admin Trade Name Freq PRN Reason Stop Dose Admin Acetaminophen 650 mg 10/04/18 00:01 Tylenol 325mg Tab PO Q8 PRN Pain, Mild (1-3) Albuterol Sulfate 1.25 mg 10/04/18 12:00 10/07/18 08:27 Albuterol 0.042% Inhal [place] (1.25mg/3ml) Ud INH 1.25 mg RQ6 ENRIQUE Administration Ascorbic Acid 500 mg 10/04/18 10:00 10/06/18 17:11 Vitamin C 500 Mg Tab PO 500 mg BID ENRIQUE Administration Aspirin 81 mg 10/06/18 11:00 10/06/18 12:13 Aspirin Chewable PO 81 mg DAILY ENRIQUE Administration Clopidogrel Bisulfate 75 mg 10/04/18 10:00 10/06/18 10:25 Plavix PO 75 mg DAILY ENRIQUE Administration Dextrose 0 ml 10/05/18 19:51 Dextrose 50% Inj IV STAT PRN Hypoglycemia Protocol Protocol Dextrose 0 gm 10/05/18 19:51 Glutose 15 PO ONCE PRN Hypoglycemia Protocol Protocol Enoxaparin Sodium 40 mg 10/04/18 10:00 10/06/18 10:25 Lovenox SC 40 mg DAILY ENRIQUE Administration Glucagon 0 mg 10/05/18 19:51 Glucagen Diagnostic Kit IM STAT PRN Hypoglycemia Protocol Protocol Cefepime HCl 1 gm in 50 mls @ 100 mls/hr 10/04/18 12:00 10/06/18 23:22 Maxipime Iv 1 Gm Premix IVPB 100 mls/hr Q12H ENRIQUE Administration Protocol Dextrose 1,000 mls @ 0 mls/hr 10/05/18 19:51 Dextrose 5% In Water 1000 Ml IV .Q0M PRN Hypoglycemia Protocol Protocol Per Protocol Dexmedetomidine HCl 200 mcg/ 50 mls @ 2.36 mls/hr 10/06/18 07:39 10/07/18 06:44 Sodium Chloride IV 0.1 mcg/kg/hr TITR PRN 1.18 mls/hr Titrate per Protocol Administration Protocol 0.2 MCG/KG/HR Micafungin Sodium 100 mg/ 100 mls @ 100 mls/hr 10/06/18 14:00 10/06/18 13:54 Sodium Chloride IV 100 mls/hr Q24H ENRIQUE Administration Protocol Tigecycline 50 mg/ Sodium 100 mls @ 100 mls/hr 10/07/18 04:00 10/07/18 03:58 Chloride IVPB 100 mls/hr Q12H ENRIQUE Administration Protocol Insulin Human Regular 0 unit 10/06/18 00:00 10/07/18 06:08 Novolin R SC 1 unit Q6 ENRIQUE Administration Protocol Methylprednisolone 20 mg 10/07/18 10:00 Solu-Medrol IVP Q12 ENRIQUE Metoprolol Tartrate 25 mg 10/04/18 10:00 10/06/18 17:11 Lopressor PO 25 mg BID ENRIQUE Administration Multivitamins 1 tab 10/04/18 10:00 10/06/18 10:25 Hexavitamin PO 1 tab DAILY ENRIQUE Administration Pantoprazole Sodium 40 mg 10/06/18 11:30 10/06/18 12:13 Protonix Susp NG 40 mg DAILY ENRIQUE Administration Zinc Sulfate 220 mg 10/04/18 10:00 10/06/18 17:10 Zinc Sulfate 220 Mg Cap PO 220 mg BID ENRIQUE Administration - Patient Studies Lab Studies: Microbiology Studies 10/05/18 21:47 MRSA Culture (Admit) - Final Nose MRSA NOT DETECTED 10/03/18 18:50 Blood Culture - Preliminary Blood NO GROWTH AFTER 3 DAYS 10/06/18 18:12 Gram Stain - Final Pleural Fluid 10/03/18 18:19 Blood Culture - Preliminary Blood NO GROWTH AFTER 3 DAYS 10/06/18 14:46 Gram Stain - Final Trachasp 10/04/18 11:30 Blood Culture - Preliminary Blood NO GROWTH AFTER 48 HOURS 10/04/18 11:15 Blood Culture - Preliminary Blood NO GROWTH AFTER 48 HOURS 10/04/18 07:29 Gram Stain - Final Decubitus - Sacral Area Wound Culture - Final Vancomycin Resistant E.faecium Faith Albicans 10/04/18 14:35 Urine Culture - Final Urine,Clean Catch Yeast Species 10/04/18 07:29 Gram Stain - Final Hip - Right Wound Culture - Final Faith Albicans 10/04/18 00:59 Gram Stain - Final Hip - Left Wound Culture - Final Faith Albicans Lab Studies 10/07/18 10/07/18 10/07/18 Range/Units 06:51 05:59 05:59 WBC 9.1 (4.8-10.8) K/uL RBC 2.31 L (4.40-5.90) Mil/uL Hgb 7.1 L (12.0-18.0) g/dL Hct 22.1 L (35.0-51.0) % MCV 95.6 H (80.0-94.0) fL MCH 30.7 (27.0-31.0) pg MCHC 32.1 L (33.0-37.0) g/dL RDW 20.2 H (11.5-14.5) % Plt Count 149 (130-400) K/uL MPV 10.5 (7.2-11.7) fL Neut % (Auto) 93.3 H (50.0-75.0) % Lymph % (Auto) 4.7 L (20.0-40.0) % [place] % (Auto) 2.0 (0.0-10.0) % Eos % (Auto) 0.0 (0.0-4.0) % Baso % (Auto) 0.0 (0.0-2.0) % Neut # (Auto) 8.5 H (1.8-7.0) K/uL Lymph # (Auto) 0.4 L (1.0-4.3) K/uL [place] # (Auto) 0.2 (0.0-0.8) K/uL Eos # (Auto) 0.0 (0.0-0.7) K/uL Baso # (Auto) 0.0 (0.0-0.2) K/uL Neutrophils % (Manual) 92 H (50-75) % Band Neutrophils % 2 (0-2) % Lymphocytes % (Manual) 4 L (20-40) % Monocytes % (Manual) 2 (0-10) % Toxic Granulation Present Platelet Estimate Normal (NORMAL) Large Platelets Present Polychromasia Slight Hypochromasia (manual) Slight Poikilocytosis (manual Moderate Anisocytosis (manual) Moderate Macrocytosis (manual) Slight Ovalocytes Slight Shila Cells Slight Schistocytes Slight PT (9.7-12.2) SECONDS INR APTT (21-34) SECONDS Puncture Site pCO2 (35-45) mm/Hg pO2 (80-100) mm/Hg HCO3 (21-28) mmol/L ABG pH (7.35-7.45) ABG Total CO2 (22-28) mmol/L ABG O2 Saturation (95-98) % ABG Base Excess (-2.0-3.0) mmol/L ABG Hemoglobin (11.7-17.4) g/dL ABG Carboxyhemoglobin (0.5-1.5) % POC ABG HHb (Measured) (0.0-5.0) % ABG Methemoglobin (0.0-3.0) % Tima Test A-a O2 Difference mm/Hg Respiratory Index Hgb O2 Saturation (95.0-98.0) % Vent Mode Mechanical Rate FiO2 % Tidal Volume PEEP Sodium 147 (132-148) mmol/L Potassium 4.1 (3.6-5.2) mmol/L Chloride 122 H (98-107) mmol/L Carbon Dioxide 16 L (22-30) mmol/L Anion Gap 12 (10-20) BUN 46 H (9-20) mg/dL Creatinine 1.3 (0.8-1.5) mg/dL Est GFR ( Amer) > 60 Est GFR (Non-Af Amer) 52 POC Glucose (mg/dL) (65-110) mg/dL Random Glucose 135 H (75-110) mg/dL Calcium 7.1 L (8.6-10.4) mg/dl Phosphorus 3.4 (2.5-4.5) mg/dL Magnesium 2.2 (1.6-2.3) mg/dL Total Bilirubin 0.4 (0.2-1.3) mg/dL AST 57 (17-59) U/L ALT 60 (21-72) U/L Alkaline Phosphatase 250 H D (38-126) U/L Total Protein 4.7 L (6.3-8.3) g/dL Albumin 2.1 L (3.5-5.0) g/dL Globulin 2.7 (2.2-3.9) gm/dL Albumin/Globulin Ratio 0.8 L (1.0-2.1) Urine Color Diana (YELLOW) Urine Clarity Hazy (Clear) Urine pH 5.0 (5.0-8.0) Ur Specific [place] 1.021 (1.003-1.030) Urine Protein 1+ H (NEGATIVE) mg/dL Urine Glucose (UA) Normal (Normal) mg/dL Urine Ketones Trace (NEGATIVE) mg/dL Urine Blood Negative (NEGATIVE) Urine Nitrate Negative (NEGATIVE) Urine Bilirubin Negative (NEGATIVE) Urine Urobilinogen Normal (0.2-1.0) mg/dL Ur Leukocyte Esterase Neg (Negative) Carla/uL Urine WBC (Auto) 4 (0-5) /hpf Urine RBC (Auto) 1 (0-3) /hpf Urine WBC Clumps (Auto) Few H (NONE) /hpf Ur Squamous Epith Cells 1 (0-5) /hpf Urine Bacteria Rare (<OCC) Urine Yeast (Budding) Few H (NEGATIVE) /hpf Fluid Source Fluid Appearance (CLEAR) Fluid WBC (0.0-300.0) /mm3 Fluid RBC (0.0-0.0) /mm3 Fluid Tot Cell Count Fld Monocyte/Macrophag Fluid Comment 10/07/18 10/07/18 10/07/18 Range/Units 05:21 04:35 00:36 WBC (4.8-10.8) K/uL RBC (4.40-5.90) Mil/uL Hgb (12.0-18.0) g/dL Hct (35.0-51.0) % MCV (80.0-94.0) fL MCH (27.0-31.0) pg MCHC (33.0-37.0) g/dL RDW (11.5-14.5) % Plt Count (130-400) K/uL MPV (7.2-11.7) fL Neut % (Auto) (50.0-75.0) % Lymph % (Auto) (20.0-40.0) % [place] % (Auto) (0.0-10.0) % Eos % (Auto) (0.0-4.0) % Baso % (Auto) (0.0-2.0) % Neut # (Auto) (1.8-7.0) K/uL Lymph # (Auto) (1.0-4.3) K/uL [place] # (Auto) (0.0-0.8) K/uL Eos # (Auto) (0.0-0.7) K/uL Baso # (Auto) (0.0-0.2) K/uL Neutrophils % (Manual) (50-75) % Band Neutrophils % (0-2) % Lymphocytes % (Manual) (20-40) % Monocytes % (Manual) (0-10) % Toxic Granulation Platelet Estimate (NORMAL) Large Platelets Polychromasia Hypochromasia (manual) Poikilocytosis (manual Anisocytosis (manual) Macrocytosis (manual) Ovalocytes [place] Cells Schistocytes PT (9.7-12.2) SECONDS INR APTT (21-34) SECONDS Puncture Site Rb pCO2 27 L (35-45) mm/Hg pO2 186 H (80-100) mm/Hg HCO3 21.5 (21-28) mmol/L ABG pH 7.45 (7.35-7.45) ABG Total CO2 19.6 L (22-28) mmol/L ABG O2 Saturation 99.9 H (95-98) % ABG Base Excess -4.4 L (-2.0-3.0) mmol/L ABG Hemoglobin 8.6 L (11.7-17.4) g/dL ABG Carboxyhemoglobin 1.9 H (0.5-1.5) % POC ABG HHb (Measured) 0.1 (0.0-5.0) % ABG Methemoglobin 1.4 (0.0-3.0) % Tima Test Na A-a O2 Difference 137.0 mm/Hg Respiratory Index 0.7 Hgb O2 Saturation 96.6 (95.0-98.0) % Vent Mode Prvc Mechanical Rate 14 FiO2 50.0 % Tidal Volume 450 PEEP 5 Sodium (132-148) mmol/L Potassium (3.6-5.2) mmol/L Chloride (98-107) mmol/L Carbon Dioxide (22-30) mmol/L Anion Gap (10-20) BUN (9-20) mg/dL Creatinine (0.8-1.5) mg/dL Est GFR ( Amer) Est GFR (Non-Af Amer) POC Glucose (mg/dL) 158 H 125 H (65-110) mg/dL Random Glucose (75-110) mg/dL Calcium (8.6-10.4) mg/dl Phosphorus (2.5-4.5) mg/dL Magnesium (1.6-2.3) mg/dL Total Bilirubin (0.2-1.3) mg/dL AST (17-59) U/L ALT (21-72) U/L Alkaline Phosphatase (38-126) U/L Total Protein (6.3-8.3) g/dL Albumin (3.5-5.0) g/dL Globulin (2.2-3.9) gm/dL Albumin/Globulin Ratio (1.0-2.1) Urine Color (YELLOW) Urine Clarity (Clear) Urine pH (5.0-8.0) Ur Specific [place] (1.003-1.030) Urine Protein (NEGATIVE) mg/dL Urine Glucose (UA) (Normal) mg/dL Urine Ketones (NEGATIVE) mg/dL Urine Blood (NEGATIVE) Urine Nitrate (NEGATIVE) Urine Bilirubin (NEGATIVE) Urine Urobilinogen (0.2-1.0) mg/dL Ur Leukocyte Esterase (Negative) Carla/uL Urine WBC (Auto) (0-5) /hpf Urine RBC (Auto) (0-3) /hpf Urine WBC Clumps (Auto) (NONE) /hpf Ur Squamous Epith Cells (0-5) /hpf Urine Bacteria (<OCC) Urine Yeast (Budding) (NEGATIVE) /hpf Fluid Source Fluid Appearance (CLEAR) Fluid WBC (0.0-300.0) /mm3 Fluid RBC (0.0-0.0) /mm3 Fluid Tot Cell Count Fld Monocyte/Macrophag Fluid Comment 10/06/18 10/06/18 10/06/18 Range/Units 18:12 17:56 12:58 WBC (4.8-10.8) K/uL RBC (4.40-5.90) Mil/uL Hgb (12.0-18.0) g/dL Hct (35.0-51.0) % MCV (80.0-94.0) fL MCH (27.0-31.0) pg MCHC (33.0-37.0) g/dL RDW (11.5-14.5) % Plt Count (130-400) K/uL MPV (7.2-11.7) fL Neut % (Auto) (50.0-75.0) % Lymph % (Auto) (20.0-40.0) % [place] % (Auto) (0.0-10.0) % Eos % (Auto) (0.0-4.0) % Baso % (Auto) (0.0-2.0) % Neut # (Auto) (1.8-7.0) K/uL Lymph # (Auto) (1.0-4.3) K/uL [place] # (Auto) (0.0-0.8) K/uL Eos # (Auto) (0.0-0.7) K/uL Baso # (Auto) (0.0-0.2) K/uL Neutrophils % (Manual) (50-75) % Band Neutrophils % (0-2) % Lymphocytes % (Manual) (20-40) % Monocytes % (Manual) (0-10) % Toxic Granulation Platelet Estimate (NORMAL) Large Platelets Polychromasia Hypochromasia (manual) Poikilocytosis (manual Anisocytosis (manual) Macrocytosis (manual) Ovalocytes Shila Cells Schistocytes PT 14.4 H (9.7-12.2) SECONDS INR 1.3 APTT 35 H (21-34) SECONDS Puncture Site pCO2 (35-45) mm/Hg pO2 (80-100) mm/Hg HCO3 (21-28) mmol/L ABG pH (7.35-7.45) ABG Total CO2 (22-28) mmol/L ABG O2 Saturation (95-98) % ABG Base Excess (-2.0-3.0) mmol/L ABG Hemoglobin (11.7-17.4) g/dL ABG Carboxyhemoglobin (0.5-1.5) % POC ABG HHb (Measured) (0.0-5.0) % ABG Methemoglobin (0.0-3.0) % Tima Test A-a O2 Difference mm/Hg Respiratory Index Hgb O2 Saturation (95.0-98.0) % Vent Mode Mechanical Rate FiO2 % Tidal Volume PEEP Sodium (132-148) mmol/L Potassium (3.6-5.2) mmol/L Chloride (98-107) mmol/L Carbon Dioxide (22-30) mmol/L Anion Gap (10-20) BUN (9-20) mg/dL Creatinine (0.8-1.5) mg/dL Est GFR ( Amer) Est GFR (Non-Af Amer) POC Glucose (mg/dL) 169 H (65-110) mg/dL Random Glucose (75-110) mg/dL Calcium (8.6-10.4) mg/dl Phosphorus (2.5-4.5) mg/dL Magnesium (1.6-2.3) mg/dL Total Bilirubin (0.2-1.3) mg/dL AST (17-59) U/L ALT (21-72) U/L Alkaline Phosphatase (38-126) U/L Total Protein (6.3-8.3) g/dL Albumin (3.5-5.0) g/dL Globulin (2.2-3.9) gm/dL Albumin/Globulin Ratio (1.0-2.1) Urine Color (YELLOW) Urine Clarity (Clear) Urine pH (5.0-8.0) Ur Specific [place] (1.003-1.030) Urine Protein (NEGATIVE) mg/dL Urine Glucose (UA) (Normal) mg/dL Urine Ketones (NEGATIVE) mg/dL Urine Blood (NEGATIVE) Urine Nitrate (NEGATIVE) Urine Bilirubin (NEGATIVE) Urine Urobilinogen (0.2-1.0) mg/dL Ur Leukocyte Esterase (Negative) Carla/uL Urine WBC (Auto) (0-5) /hpf Urine RBC (Auto) (0-3) /hpf Urine WBC Clumps (Auto) (NONE) /hpf Ur Squamous Epith Cells (0-5) /hpf Urine Bacteria (<OCC) Urine Yeast (Budding) (NEGATIVE) /hpf Fluid Source Pleural/thoracentesi Fluid Appearance Clear (CLEAR) Fluid WBC 7.0 (0.0-300.0) /mm3 Fluid RBC 49.0 H (0.0-0.0) /mm3 Fluid Tot Cell Count TEST NOT PERFORMED Fld Monocyte/Macrophag TEST NOT PERFORMED Fluid Comment 10/06/18 10/06/18 Range/Units 11:44 11:05 WBC (4.8-10.8) K/uL RBC (4.40-5.90) Mil/uL Hgb (12.0-18.0) g/dL Hct (35.0-51.0) % MCV (80.0-94.0) fL MCH (27.0-31.0) pg MCHC (33.0-37.0) g/dL RDW (11.5-14.5) % Plt Count (130-400) K/uL MPV (7.2-11.7) fL Neut % (Auto) (50.0-75.0) % Lymph % (Auto) (20.0-40.0) % [place] % (Auto) (0.0-10.0) % Eos % (Auto) (0.0-4.0) % Baso % (Auto) (0.0-2.0) % Neut # (Auto) (1.8-7.0) K/uL Lymph # (Auto) (1.0-4.3) K/uL [place] # (Auto) (0.0-0.8) K/uL Eos # (Auto) (0.0-0.7) K/uL Baso # (Auto) (0.0-0.2) K/uL Neutrophils % (Manual) (50-75) % Band Neutrophils % (0-2) % Lymphocytes % (Manual) (20-40) % Monocytes % (Manual) (0-10) % Toxic Granulation Platelet Estimate (NORMAL) Large Platelets Polychromasia Hypochromasia (manual) Poikilocytosis (manual Anisocytosis (manual) Macrocytosis (manual) Ovalocytes Shila Cells Schistocytes PT (9.7-12.2) SECONDS INR APTT (21-34) SECONDS Puncture Site Rba pCO2 27 L (35-45) mm/Hg pO2 134 H (80-100) mm/Hg HCO3 21.5 (21-28) mmol/L ABG pH 7.45 (7.35-7.45) ABG Total CO2 19.6 L (22-28) mmol/L ABG O2 Saturation 99.8 H (95-98) % ABG Base Excess -4.4 L (-2.0-3.0) mmol/L ABG Hemoglobin 8.4 L (11.7-17.4) g/dL ABG Carboxyhemoglobin 2.1 H (0.5-1.5) % POC ABG HHb (Measured) 0.2 (0.0-5.0) % ABG Methemoglobin 0.9 (0.0-3.0) % Tima Test Na A-a O2 Difference 189.0 mm/Hg Respiratory Index 1.4 Hgb O2 Saturation 96.9 (95.0-98.0) % Vent Mode Prvc Mechanical Rate 14 FiO2 50.0 % Tidal Volume 450 PEEP 5 Sodium (132-148) mmol/L Potassium (3.6-5.2) mmol/L Chloride (98-107) mmol/L Carbon Dioxide (22-30) mmol/L Anion Gap (10-20) BUN (9-20) mg/dL Creatinine (0.8-1.5) mg/dL Est GFR ( Amer) Est GFR (Non-Af Amer) POC Glucose (mg/dL) 149 H (65-110) mg/dL Random Glucose (75-110) mg/dL Calcium (8.6-10.4) mg/dl Phosphorus (2.5-4.5) mg/dL Magnesium (1.6-2.3) mg/dL Total Bilirubin (0.2-1.3) mg/dL AST (17-59) U/L ALT (21-72) U/L Alkaline Phosphatase (38-126) U/L Total Protein (6.3-8.3) g/dL Albumin (3.5-5.0) g/dL Globulin (2.2-3.9) gm/dL Albumin/Globulin Ratio (1.0-2.1) Urine Color (YELLOW) Urine Clarity (Clear) Urine pH (5.0-8.0) Ur Specific [place] (1.003-1.030) Urine Protein (NEGATIVE) mg/dL Urine Glucose (UA) (Normal) mg/dL Urine Ketones (NEGATIVE) mg/dL Urine Blood (NEGATIVE) Urine Nitrate (NEGATIVE) Urine Bilirubin (NEGATIVE) Urine Urobilinogen (0.2-1.0) mg/dL Ur Leukocyte Esterase (Negative) Carla/uL Urine WBC (Auto) (0-5) /hpf Urine RBC (Auto) (0-3) /hpf Urine WBC Clumps (Auto) (NONE) /hpf Ur Squamous Epith Cells (0-5) /hpf Urine Bacteria (<OCC) Urine Yeast (Budding) (NEGATIVE) /hpf Fluid Source Fluid Appearance (CLEAR) Fluid WBC (0.0-300.0) /mm3 Fluid RBC (0.0-0.0) /mm3 Fluid Tot Cell Count Fld Monocyte/Macrophag Fluid Comment Laboratory Results - last 24 hr 10/06/18 10/06/18 10/06/18 11:05 11:44 12:58 WBC RBC Hgb Hct MCV MCH MCHC RDW Plt Count MPV Neut % (Auto) Lymph % (Auto) [place] % (Auto) Eos % (Auto) Baso % (Auto) Neut # (Auto) Lymph # (Auto) [place] # (Auto) Eos # (Auto) Baso # (Auto) Neutrophils % (Manual) Band Neutrophils % Lymphocytes % (Manual) Monocytes % (Manual) Toxic Granulation Platelet Estimate Large Platelets Polychromasia Hypochromasia (manual) Poikilocytosis (manual Anisocytosis (manual) Macrocytosis (manual) Ovalocytes Shila Cells Schistocytes PT 14.4 H INR 1.3 APTT 35 H Puncture Site Rba pCO2 27 L pO2 134 H HCO3 21.5 ABG pH 7.45 ABG Total CO2 19.6 L ABG O2 Saturation 99.8 H ABG Base Excess -4.4 L ABG Hemoglobin 8.4 L ABG Carboxyhemoglobin 2.1 H POC ABG HHb (Measured) 0.2 ABG Methemoglobin 0.9 Tima Test Na A-a O2 Difference 189.0 Respiratory Index 1.4 Hgb O2 Saturation 96.9 Vent Mode Prvc Mechanical Rate 14 FiO2 50.0 Tidal Volume 450 PEEP 5 Sodium Potassium Chloride Carbon Dioxide Anion Gap BUN Creatinine Est GFR ( Amer) Est GFR (Non-Af Amer) POC Glucose (mg/dL) 149 H Random Glucose Calcium Phosphorus Magnesium Total Bilirubin AST ALT Alkaline Phosphatase Total Protein Albumin Globulin Albumin/Globulin Ratio Urine Color Urine Clarity Urine pH Ur Specific [place] Urine Protein Urine Glucose (UA) Urine Ketones Urine Blood Urine Nitrate Urine Bilirubin Urine Urobilinogen Ur Leukocyte Esterase Urine WBC (Auto) Urine RBC (Auto) Urine WBC Clumps (Auto) Ur Squamous Epith Cells Urine Bacteria Urine Yeast (Budding) Fluid Source Fluid Appearance Fluid WBC Fluid RBC Fluid Tot Cell Count Fld Monocyte/Macrophag Fluid Comment 10/06/18 10/06/18 10/07/18 17:56 18:12 00:36 WBC RBC Hgb Hct MCV MCH MCHC RDW Plt Count MPV Neut % (Auto) Lymph % (Auto) [place] % (Auto) Eos % (Auto) Baso % (Auto) Neut # (Auto) Lymph # (Auto) [place] # (Auto) Eos # (Auto) Baso # (Auto) Neutrophils % (Manual) Band Neutrophils % Lymphocytes % (Manual) Monocytes % (Manual) Toxic Granulation Platelet Estimate Large Platelets Polychromasia Hypochromasia (manual) Poikilocytosis (manual Anisocytosis (manual) Macrocytosis (manual) Ovalocytes Shila Cells Schistocytes PT INR APTT Puncture Site pCO2 pO2 HCO3 ABG pH ABG Total CO2 ABG O2 Saturation ABG Base Excess ABG Hemoglobin ABG Carboxyhemoglobin POC ABG HHb (Measured) ABG Methemoglobin Tima Test A-a O2 Difference Respiratory Index Hgb O2 Saturation Vent Mode Mechanical Rate FiO2 Tidal Volume PEEP Sodium Potassium Chloride Carbon Dioxide Anion Gap BUN Creatinine Est GFR ( Amer) Est GFR (Non-Af Amer) POC Glucose (mg/dL) 169 H 125 H Random Glucose Calcium Phosphorus Magnesium Total Bilirubin AST ALT Alkaline Phosphatase Total Protein Albumin Globulin Albumin/Globulin Ratio Urine Color Urine Clarity Urine pH Ur Specific [place] Urine Protein Urine Glucose (UA) Urine Ketones Urine Blood Urine Nitrate Urine Bilirubin Urine Urobilinogen Ur Leukocyte Esterase Urine WBC (Auto) Urine RBC (Auto) Urine WBC Clumps (Auto) Ur Squamous Epith Cells Urine Bacteria Urine Yeast (Budding) Fluid Source Pleural/thoracentesi Fluid Appearance Clear Fluid WBC 7.0 Fluid RBC 49.0 H Fluid Tot Cell Count TEST NOT PERFORMED Fld Monocyte/Macrophag TEST NOT PERFORMED Fluid Comment 10/07/18 10/07/18 10/07/18 04:35 05:21 05:59 WBC 9.1 RBC 2.31 L Hgb 7.1 L Hct 22.1 L MCV 95.6 H MCH 30.7 MCHC 32.1 L RDW 20.2 H Plt Count 149 MPV 10.5 Neut % (Auto) 93.3 H Lymph % (Auto) 4.7 L [place] % (Auto) 2.0 Eos % (Auto) 0.0 Baso % (Auto) 0.0 Neut # (Auto) 8.5 H Lymph # (Auto) 0.4 L [place] # (Auto) 0.2 Eos # (Auto) 0.0 Baso # (Auto) 0.0 Neutrophils % (Manual) 92 H Band Neutrophils % 2 Lymphocytes % (Manual) 4 L Monocytes % (Manual) 2 Toxic Granulation Present Platelet Estimate Normal Large Platelets Present Polychromasia Slight Hypochromasia (manual) Slight Poikilocytosis (manual Moderate Anisocytosis (manual) Moderate Macrocytosis (manual) Slight Ovalocytes Slight [place] Cells Slight Schistocytes Slight PT INR APTT Puncture Site Rb pCO2 27 L pO2 186 H HCO3 21.5 ABG pH 7.45 ABG Total CO2 19.6 L ABG O2 Saturation 99.9 H ABG Base Excess -4.4 L ABG Hemoglobin 8.6 L ABG Carboxyhemoglobin 1.9 H POC ABG HHb (Measured) 0.1 ABG Methemoglobin 1.4 Tima Test Na A-a O2 Difference 137.0 Respiratory Index 0.7 Hgb O2 Saturation 96.6 Vent Mode Prvc Mechanical Rate 14 FiO2 50.0 Tidal Volume 450 PEEP 5 Sodium Potassium Chloride Carbon Dioxide Anion Gap BUN Creatinine Est GFR ( Amer) Est GFR (Non-Af Amer) POC Glucose (mg/dL) 158 H Random Glucose Calcium Phosphorus Magnesium Total Bilirubin AST ALT Alkaline Phosphatase Total Protein Albumin Globulin Albumin/Globulin Ratio Urine Color Urine Clarity Urine pH Ur Specific [place] Urine Protein Urine Glucose (UA) Urine Ketones Urine Blood Urine Nitrate Urine Bilirubin Urine Urobilinogen Ur Leukocyte Esterase Urine WBC (Auto) Urine RBC (Auto) Urine WBC Clumps (Auto) Ur Squamous Epith Cells Urine Bacteria Urine Yeast (Budding) Fluid Source Fluid Appearance Fluid WBC Fluid RBC Fluid Tot Cell Count Fld Monocyte/Macrophag Fluid Comment 10/07/18 10/07/18 05:59 06:51 WBC RBC Hgb Hct MCV MCH MCHC RDW Plt Count MPV Neut % (Auto) Lymph % (Auto) [place] % (Auto) Eos % (Auto) Baso % (Auto) Neut # (Auto) Lymph # (Auto) [place] # (Auto) Eos # (Auto) Baso # (Auto) Neutrophils % (Manual) Band Neutrophils % Lymphocytes % (Manual) Monocytes % (Manual) Toxic Granulation Platelet Estimate Large Platelets Polychromasia Hypochromasia (manual) Poikilocytosis (manual Anisocytosis (manual) Macrocytosis (manual) Ovalocytes Shila Cells Schistocytes PT INR APTT Puncture Site pCO2 pO2 HCO3 ABG pH ABG Total CO2 ABG O2 Saturation ABG Base Excess ABG Hemoglobin ABG Carboxyhemoglobin POC ABG HHb (Measured) ABG Methemoglobin Tima Test A-a O2 Difference Respiratory Index Hgb O2 Saturation Vent Mode Mechanical Rate FiO2 Tidal Volume PEEP Sodium 147 Potassium 4.1 Chloride 122 H Carbon Dioxide 16 L Anion Gap 12 BUN 46 H Creatinine 1.3 Est GFR ( Amer) > 60 Est GFR (Non-Af Amer) 52 POC Glucose (mg/dL) Random Glucose 135 H Calcium 7.1 L Phosphorus 3.4 Magnesium 2.2 Total Bilirubin 0.4 AST 57 ALT 60 Alkaline Phosphatase 250 H D Total Protein 4.7 L Albumin 2.1 L Globulin 2.7 Albumin/Globulin Ratio 0.8 L Urine Color Diana Urine Clarity Hazy Urine pH 5.0 Ur Specific [place] 1.021 Urine Protein 1+ H Urine Glucose (UA) Normal Urine Ketones Trace Urine Blood Negative Urine Nitrate Negative Urine Bilirubin Negative Urine Urobilinogen Normal Ur Leukocyte Esterase Neg Urine WBC (Auto) 4 Urine RBC (Auto) 1 Urine WBC Clumps (Auto) Few H Ur Squamous Epith Cells 1 Urine Bacteria Rare Urine Yeast (Budding) Few H Fluid Source Fluid Appearance Fluid WBC Fluid RBC Fluid Tot Cell Count Fld Monocyte/Macrophag Fluid Comment Fingerstick Blood Sugar Results: 158
[2018-10-07] MEDS: Cefepime IV 1 gm in Dextrose 1 GM/50 ML BAG IVPB SCH (13:05)
[2018-10-07] MEDS: Micafungin 100 MG in Sodium Chloride 0.9% 100 ML IV SCH (15:04)
--- NOTE | 2018-10-07 19:52 | CP.PCM.PN ---
Subjective - Date & Time of Evaluation Date of Evaluation: 10/07/18 Time of Evaluation: 11:00 - Subjective Subjective: clinically same Objective - Vital Signs/Intake and Output Vital Signs (last 24 hours): Temp Pulse Resp BP Pulse Ox 97.6 F 84 20 105/51 L 100 10/07/18 16:00 10/07/18 19:07 10/06/18 23:00 10/07/18 19:07 10/07/18 19:07 Intake and Output: 10/07/18 10/08/18 18:59 06:59 Intake Total 359.6 Output Total 170 Balance 189.6 - Medications Medications: Current Medications Acetaminophen (Tylenol 325mg Tab) 650 mg PO Q8 PRN PRN Reason: Pain, Mild (1-3) Albuterol Sulfate (Albuterol 0.042% Inhal [place] (1.25mg/3ml) Ud) 1.25 mg INH RQ6 [facility] Last Admin: 10/07/18 13:37 Dose: 1.25 mg Ascorbic Acid (Vitamin C 500 Mg Tab) 500 mg PO BID [facility] Last Admin: 10/07/18 17:39 Dose: 500 mg Aspirin (Aspirin Chewable) 81 mg PO DAILY [facility] Last Admin: 10/07/18 09:49 Dose: 81 mg Clopidogrel Bisulfate (Plavix) 75 mg PO DAILY [facility] Last Admin: 10/07/18 09:49 Dose: 75 mg Dextrose (Dextrose 50% Inj) 0 ml IV STAT PRN; Protocol PRN Reason: Hypoglycemia Protocol Dextrose (Glutose 15) 0 gm PO ONCE PRN; Protocol PRN Reason: Hypoglycemia Protocol Enoxaparin Sodium (Lovenox) 40 mg SC DAILY [facility] Last Admin: 10/07/18 09:50 Dose: 40 mg Glucagon (Glucagen Diagnostic Kit) 0 mg IM STAT PRN; Protocol PRN Reason: Hypoglycemia Protocol Dextrose (Dextrose 5% In Water 1000 Ml) 1,000 mls @ 0 mls/hr IV .Q0M PRN; Protocol PRN Reason: Hypoglycemia Protocol Dexmedetomidine HCl 200 mcg/ (Sodium Chloride) 50 mls @ 2.36 mls/hr IV TITR PRN; Protocol PRN Reason: Titrate per Protocol Last Admin: 10/07/18 06:44 Dose: 0.1 mcg/kg/hr, 1.18 mls/hr Micafungin Sodium 100 mg/ (Sodium Chloride) 100 mls @ 100 mls/hr IV Q24H [facility]; Protocol Last Admin: 10/07/18 15:04 Dose: 100 mls/hr Tigecycline 50 mg/ Sodium (Chloride) 100 mls @ 100 mls/hr IVPB Q12H [facility]; Protocol Last Admin: 10/07/18 16:22 Dose: 100 mls/hr Insulin Human Regular (Novolin R) 0 unit SC Q6 [facility]; Protocol Last Admin: 10/07/18 17:40 Dose: Not Given Methylprednisolone (Solu-Medrol) 20 mg IVP Q12 [facility] Last Admin: 10/07/18 09:50 Dose: 20 mg Metoprolol Tartrate (Lopressor) 25 mg PO BID [facility] Last Admin: 10/07/18 19:39 Dose: Not Given Multivitamins (Hexavitamin) 1 tab PO DAILY [facility] Last Admin: 10/07/18 09:49 Dose: 1 tab Pantoprazole Sodium (Protonix Susp) 40 mg NG DAILY [facility] Last Admin: 10/07/18 09:49 Dose: 40 mg Zinc Sulfate (Zinc Sulfate 220 Mg Cap) 220 mg PO BID [facility] Last Admin: 10/07/18 17:39 Dose: 220 mg - Labs Labs: 10/07/18 05:59 10/07/18 05:59 PT 14.4 SECONDS (9.7-12.2) H 10/06/18 12:58 INR 1.3 10/06/18 12:58 APTT 35 SECONDS (21-34) H 10/06/18 12:58 - Constitutional Appears: Well - Head Exam Head Exam: ATRAUMATIC, NORMAL INSPECTION, NORMOCEPHALIC - Eye Exam Eye Exam: EOMI, Normal appearance, PERRL Pupil Exam: NORMAL ACCOMODATION, PERRL - ENT Exam ENT Exam: Mucous Membranes Moist, Normal Exam - Neck Exam Neck Exam: Full ROM, Normal Inspection. absent: Lymphadenopathy - Respiratory Exam Respiratory Exam: Decreased Breath Sounds - Cardiovascular Exam Cardiovascular Exam: REGULAR RHYTHM, +S1, +S2 - GI/Abdominal Exam GI & Abdominal Exam: Soft, Diminished Bowel Sounds - Rectal Exam Rectal Exam: Deferred
--- NOTE | 2018-10-07 20:49 | PN ---
DATE: 10/07/2018 SUBJECTIVE: The patient is currently on a ventilator, unresponsive. PHYSICAL EXAMINATION: VITAL SIGNS: Blood pressure 119/60, heart rate 72, respirations 16, temperature 97.1. HEENT: Pale conjunctivae. CHEST: Diffuse bilateral rhonchi. HEART: S1, S2 regular. EXTREMITIES: Contracted lower extremities. Echocardiographic study revealed normal left ventricular size and wall thickness with normal ejection fraction, septal hypokinesis, cannot rule out left ventricular or left atrial thrombus, severely sclerotic aortic valve with mild aortic insufficiency, moderate pulmonary hypertension, and a large pleural effusion noted. ASSESSMENT: 1. Respiratory failure. 2. History of coronary artery disease in the past. 3. History of peripheral vascular disease, status post peripheral artery stenting. 4. Multiple cerebrovascular accidents in the past. 5. Borderline troponin elevation. 6. Sacral decubitus. 8. Bilateral pneumonia and pleural effusion. RECOMMENDATIONS: Continue current albuterol inhaler every 6 hours, aspirin 81 mg once a day, multivitamin 1 tablet daily, Lovenox 40 mg subcutaneously twice a day, IV micafungin at 100 mg daily, Solu-Medrol 20 mg intravenously every 12 hours. tigecycline at 50 mg intravenously every 12 hours. The patient is a very poor surgical risk candidate. Case was discussed yesterday with Dr. Osborne and will be discussed today. Tomas Veras MD
[2018-10-08] MEDS: (Novolin R) Insulin Human Regular 100 units/ml vial SC SCH ×4 (00:44→19:25)
[2018-10-08] MEDS: Albuterol 0.042% Inhal Sol (1.25 mg/3 mL) UD INH SCH ×4 (02:46→19:24)
[2018-10-08 06:02] LABS: ABG ALLEN TEST POS; ARTERIAL BLOOD GAS HCO3 20.7 mmol/L (21-28); ARTERIAL BLOOD GAS O2 SAT 100.3 % (95-98); ARTERIAL BLOOD GAS PCO2 27 mm/Hg (35-45); ARTERIAL BLOOD GAS PH 7.42 (7.35-7.45); ARTERIAL BLOOD GAS PO2 223 mm/Hg (80-100); ARTERIAL BLOOD GAS TCO2 18.3 mmol/L (22-28)
[2018-10-08 06:10] LABS: BASO % 0.1 % (0.0-2.0); HEMOGLOBIN 7.7 g/dL (12.0-18.0); LYMPH # 0.3 K/uL (1.0-4.3); MEAN CORPUSCULAR HEMOGLOBIN 30.4 pg (27.0-31.0); MEAN CORPUSCULAR HGB CONC 31.7 g/dL (33.0-37.0); MEAN PLATELET VOLUME 11.1 fL (7.2-11.7); MONO # 0.3 K/uL (0.0-0.8); MONO % 2.7 % (0.0-10.0); NEUT # 9.7 K/uL (1.8-7.0); NEUT % 94.2 % (50.0-75.0); NRBC % 0.1 % (0.0-2.0); PLATELET COUNT 151 K/uL (130-400); RBC 2.54 Mil/uL (4.40-5.90); RED CELL DISTRIBUTION WIDTH 19.9 % (11.5-14.5); WHITE BLOOD COUNT 10.3 K/uL (4.8-10.8)
[2018-10-08 06:27] LABS: ALB/GLOB RATIO 0.7 (1.0-2.1); ALBUMIN 2.1 g/dL (3.5-5.0); CALCIUM 7.4 mg/dl (8.6-10.4)
[2018-10-08 07:10] LABS: BANDS 1 % (0-2); LYMPHOCYTE 4 % (20-40); MONOCYTE 3 % (0-10); NEUTROPHIL 92 % (50-75); PLATELET ESTIMATE NORMAL (NORMAL); TOTAL CELLS COUNTED 100
--- NOTE | 2018-10-08 07:59 | CP.CCUPN ---
CCU Subjective - Physician Review Events Since Last Encounter (Free Text): 10/08/18 07:59 Patient is 87-year-old male with a history of dementia, multiple decubiti, CAD and stent hypertension high cholesterol multiple CVA, normal pressure hydrocephalus and a stent, [employer] TEACHER shunt. Patient admitted with respiratory failure and aspiration pneumonia, pleural effusion. Patient was awake, yesterday unable to tolerate the CPAP trial. Secretions in the lungs noted No fever today On examination: Patient is awake sometimes responding to deep stability. Chest good air entry, weakness noted generalized. Labs reviewed in X-ray left lung pleural effusion possible Assessment and recommendation: 87-year-old male with multiple medical history and the extreme extremity contractures. Multiple pressure ulcers. Aspiration pneumonia. Pleural effusion Acute respiratory failure, secondary to hypoxic. On ventilator. Overall prognosis very poor. Patient is not a candidate for pleural decortication. Patient has a bilateral pleural effusion possibly secondary to volume overload, nutritional, CHF. Lasix as needed. cpap trial as tolerated CCU Objective - Vital Signs / Intake & Output Vital Signs (Last 4 hours): Vital Signs Temp Pulse BP Pulse Ox 10/08/18 07:07 83 132/63 100 10/08/18 07:00 85 100 10/08/18 06:08 71 105/52 L 100 10/08/18 06:00 76 100 10/08/18 05:08 101 H 155/81 H 100 10/08/18 05:00 88 100 10/08/18 04:07 84 97/47 L 100 10/08/18 04:00 98 F 75 100 Intake and Output (Last 8hrs): Intake & Output 10/07/18 10/08/18 10/08/18 22:59 06:59 14:59 Intake Total 205 363.4 3.6 Output Total 122 143 0 Balance 83 220.4 3.6 Weight 114 lb 6.4 oz Intake: IV 5 5 Intake, IV Amount 200 58.4 3.6 Left Forearm 0 8.4 3.6 Right External Jugular 0 Right External Jugular - 200 50 0 Distal Port Oral 0 0 Tube Feeding 300 0 Output: Urine 122 143 Urethral ([place]) 122 143 Stool 0 0 0 Emesis 0 Other: # Bowel Movements 1 1 - Physical Exam Head: Positive for: Atraumatic Pupils: Positive for: PERRL Mouth: Positive for: Dry Respiratory/Chest: Positive for: Other (vent). Negative for: Respiratory Distress Cardiovascular: Positive for: Regular Rate and Rhythm, Normal S1, S2 Abdomen: Negative for: Distention Upper Extremity: Positive for: NORMAL PULSES, Capillary Refill < 2s, Other (th in) Lower Extremity: Positive for: NORMAL PULSES, Capillary Refill < 2 s, Other (thin) Neurological: Positive for: Other (sedated) Skin: Positive for: Warm, Dry Psychiatric: Negative for: Alert - Medications Active Medications: Active Medications Generic Name Dose Route Start Last Admin Trade Name Freq PRN Reason Stop Dose Admin Acetaminophen 650 mg 10/04/18 00:01 Tylenol 325mg Tab PO Q8 PRN Pain, Mild (1-3) Albuterol Sulfate 1.25 mg 10/04/18 12:00 10/08/18 07:51 Albuterol 0.042% Inhal [place] (1.25mg/3ml) Ud INH 1.25 mg RQ6 [facility] Administration Ascorbic Acid 500 mg 10/04/18 10:00 10/07/18 17:39 Vitamin C 500 Mg Tab PO 500 mg BID [facility] Administration Aspirin 81 mg 10/06/18 11:00 10/07/18 09:49 Aspirin Chewable PO 81 mg DAILY [facility] Administration Clopidogrel Bisulfate 75 mg 10/04/18 10:00 10/07/18 09:49 Plavix PO 75 mg DAILY [facility] Administration Dextrose 0 ml 10/05/18 19:51 Dextrose 50% Inj IV STAT PRN Hypoglycemia Protocol Protocol Dextrose 0 gm 10/05/18 19:51 Glutose 15 PO ONCE PRN Hypoglycemia Protocol Protocol Enoxaparin Sodium 40 mg 10/04/18 10:00 10/07/18 09:50 Lovenox SC 40 mg DAILY [facility] Administration Glucagon 0 mg 10/05/18 19:51 Glucagen Diagnostic Kit IM STAT PRN Hypoglycemia Protocol Protocol Dextrose 1,000 mls @ 0 mls/hr 10/05/18 19:51 Dextrose 5% In Water 1000 Ml IV .Q0M PRN Hypoglycemia Protocol Protocol Per Protocol Dexmedetomidine HCl 200 mcg/ 50 mls @ 2.36 mls/hr 10/06/18 07:39 10/08/18 06:45 Sodium Chloride IV 0.3 mcg/kg/hr TITR PRN 3.54 mls/hr Titrate per Protocol Titration Protocol 0.2 MCG/KG/HR Micafungin Sodium 100 mg/ 100 mls @ 100 mls/hr 10/06/18 14:00 10/07/18 15:04 Sodium Chloride IV 100 mls/hr Q24H [facility] Administration Protocol Tigecycline 50 mg/ Sodium 100 mls @ 100 mls/hr 10/07/18 04:00 10/08/18 04:46 Chloride IVPB 100 mls/hr Q12H [facility] Administration Protocol Insulin Human Regular 0 unit 10/06/18 00:00 10/08/18 06:30 Novolin R SC Not Given Q6 [facility] Protocol Methylprednisolone 20 mg 10/07/18 10:00 10/07/18 21:56 Solu-Medrol IVP 20 mg Q12 [facility] Administration Metoprolol Tartrate 25 mg 10/04/18 10:00 10/07/18 19:39 Lopressor PO Not Given BID [facility] Multivitamins 1 tab 10/04/18 10:00 10/07/18 09:49 Hexavitamin PO 1 tab DAILY [facility] Administration Pantoprazole Sodium 40 mg 10/06/18 11:30 10/07/18 09:49 Protonix Susp NG 40 mg DAILY [facility] Administration Zinc Sulfate 220 mg 10/04/18 10:00 10/07/18 17:39 Zinc Sulfate 220 Mg Cap PO 220 mg BID [facility] Administration - Patient Studies Lab Studies: Microbiology Studies 10/07/18 06:51 Urine Culture - Final Urine,Catheterized No Growth (<1,000 CFU/ML) 10/03/18 18:50 Blood Culture - Preliminary Blood NO GROWTH AFTER 4 DAYS 10/03/18 18:19 Blood Culture - Preliminary Blood NO GROWTH AFTER 4 DAYS 10/04/18 11:30 Blood Culture - Preliminary Blood NO GROWTH AFTER 3 DAYS 10/04/18 11:15 Blood Culture - Preliminary Blood NO GROWTH AFTER 3 DAYS 10/06/18 18:12 Gram Stain - Final Pleural Fluid Body Fluid Culture - Preliminary NO GROWTH AFTER 24 HOURS 10/06/18 14:46 Gram Stain - Final Trachasp Sputum Culture - Preliminary NORMAL ORAL SAPNA Lab Studies 10/08/18 10/08/18 10/08/18 Range/Units 06:01 06:01 05:48 WBC 10.3 (4.8-10.8) K/uL RBC 2.54 L (4.40-5.90) Mil/uL Hgb 7.7 L (12.0-18.0) g/dL Hct 24.4 L (35.0-51.0) % MCV 96.0 H (80.0-94.0) fL MCH 30.4 (27.0-31.0) pg MCHC 31.7 L (33.0-37.0) g/dL RDW 19.9 H (11.5-14.5) % Plt Count 151 (130-400) K/uL MPV 11.1 (7.2-11.7) fL Neut % (Auto) 94.2 H (50.0-75.0) % Lymph % (Auto) 3.0 L (20.0-40.0) % [place] % (Auto) 2.7 (0.0-10.0) % Eos % (Auto) 0.0 (0.0-4.0) % Baso % (Auto) 0.1 (0.0-2.0) % Neut # (Auto) 9.7 H (1.8-7.0) K/uL Lymph # (Auto) 0.3 L (1.0-4.3) K/uL [place] # (Auto) 0.3 (0.0-0.8) K/uL Eos # (Auto) 0.0 (0.0-0.7) K/uL Baso # (Auto) 0.0 (0.0-0.2) K/uL Neutrophils % (Manual) 92 H (50-75) % Band Neutrophils % 1 (0-2) % Lymphocytes % (Manual) 4 L (20-40) % Monocytes % (Manual) 3 (0-10) % Toxic Granulation Platelet Estimate Normal (NORMAL) Large Platelets Polychromasia Hypochromasia (manual) Poikilocytosis (manual Anisocytosis (manual) Macrocytosis (manual) Ovalocytes Shila Cells Schistocytes Puncture Site R rad pCO2 27 L (35-45) mm/Hg pO2 223 H (80-100) mm/Hg HCO3 20.7 L (21-28) mmol/L ABG pH 7.42 (7.35-7.45) ABG Total CO2 18.3 L (22-28) mmol/L ABG O2 Saturation 100.3 H (95-98) % ABG Base Excess -5.5 L (-2.0-3.0) mmol/L Tima Test Pos ABG Potassium 4.0 (3.6-5.2) mmol/L A-a O2 Difference 100.0 mm/Hg Respiratory Index 0.4 Sodium 146 148.0 (132-148) mmol/l Chloride 123 H 126.0 H (98-107) mmol/L Glucose 151 H (75-110) mg/dl Lactate 1.7 (0.7-2.1) mmol/L Vent Mode Cpap FiO2 50.0 % Pressure Support 12 CPAP 5 Potassium 4.6 (3.6-5.2) mmol/L Carbon Dioxide 18 L (22-30) mmol/L Anion Gap 10 (10-20) BUN 63 H (9-20) mg/dL Creatinine 1.6 H (0.8-1.5) mg/dL Est GFR ( Amer) 50 Est GFR (Non-Af Amer) 41 Random Glucose 136 H (75-110) mg/dL Calcium 7.4 L (8.6-10.4) mg/dl Phosphorus 4.7 H (2.5-4.5) mg/dL Magnesium 2.3 (1.6-2.3) mg/dL Total Bilirubin 0.6 (0.2-1.3) mg/dL AST 66 H (17-59) U/L ALT 50 (21-72) U/L Alkaline Phosphatase 225 H (38-126) U/L Total Protein 5.3 L (6.3-8.3) g/dL Albumin 2.1 L (3.5-5.0) g/dL Globulin 3.2 (2.2-3.9) gm/dL Albumin/Globulin Ratio 0.7 L (1.0-2.1) Arterial Blood Potassium 4.0 (3.6-5.2) mmol/L 10/07/18 Range/Units 05:59 WBC (4.8-10.8) K/uL RBC (4.40-5.90) Mil/uL Hgb (12.0-18.0) g/dL Hct (35.0-51.0) % MCV (80.0-94.0) fL MCH (27.0-31.0) pg MCHC (33.0-37.0) g/dL RDW (11.5-14.5) % Plt Count (130-400) K/uL MPV (7.2-11.7) fL Neut % (Auto) (50.0-75.0) % Lymph % (Auto) (20.0-40.0) % [place] % (Auto) (0.0-10.0) % Eos % (Auto) (0.0-4.0) % Baso % (Auto) (0.0-2.0) % Neut # (Auto) (1.8-7.0) K/uL Lymph # (Auto) (1.0-4.3) K/uL [place] # (Auto) (0.0-0.8) K/uL Eos # (Auto) (0.0-0.7) K/uL Baso # (Auto) (0.0-0.2) K/uL Neutrophils % (Manual) 92 H (50-75) % Band Neutrophils % 2 (0-2) % Lymphocytes % (Manual) 4 L (20-40) % Monocytes % (Manual) 2 (0-10) % Toxic Granulation Present Platelet Estimate Normal (NORMAL) Large Platelets Present Polychromasia Slight Hypochromasia (manual) Slight Poikilocytosis (manual Moderate Anisocytosis (manual) Moderate Macrocytosis (manual) Slight Ovalocytes Slight [place] Cells Slight Schistocytes Slight Puncture Site pCO2 (35-45) mm/Hg pO2 (80-100) mm/Hg HCO3 (21-28) mmol/L ABG pH (7.35-7.45) ABG Total CO2 (22-28) mmol/L ABG O2 Saturation (95-98) % ABG Base Excess (-2.0-3.0) mmol/L Tima Test ABG Potassium (3.6-5.2) mmol/L A-a O2 Difference mm/Hg Respiratory Index Sodium (132-148) mmol/l Chloride (98-107) mmol/L Glucose (75-110) mg/dl Lactate (0.7-2.1) mmol/L Vent Mode FiO2 % Pressure Support CPAP Potassium (3.6-5.2) mmol/L Carbon Dioxide (22-30) mmol/L Anion Gap (10-20) BUN (9-20) mg/dL Creatinine (0.8-1.5) mg/dL Est GFR ( Amer) Est GFR (Non-Af Amer) Random Glucose (75-110) mg/dL Calcium (8.6-10.4) mg/dl Phosphorus (2.5-4.5) mg/dL Magnesium (1.6-2.3) mg/dL Total Bilirubin (0.2-1.3) mg/dL AST (17-59) U/L ALT (21-72) U/L Alkaline Phosphatase (38-126) U/L Total Protein (6.3-8.3) g/dL Albumin (3.5-5.0) g/dL Globulin (2.2-3.9) gm/dL Albumin/Globulin Ratio (1.0-2.1) Arterial Blood Potassium (3.6-5.2) mmol/L Laboratory Results - last 24 hr 10/07/18 10/08/18 10/08/18 05:59 05:48 06:01 WBC 10.3 RBC 2.54 L Hgb 7.7 L Hct 24.4 L MCV 96.0 H MCH 30.4 MCHC 31.7 L RDW 19.9 H Plt Count 151 MPV 11.1 Neut % (Auto) 94.2 H Lymph % (Auto) 3.0 L [place] % (Auto) 2.7 Eos % (Auto) 0.0 Baso % (Auto) 0.1 Neut # (Auto) 9.7 H Lymph # (Auto) 0.3 L [place] # (Auto) 0.3 Eos # (Auto) 0.0 Baso # (Auto) 0.0 Neutrophils % (Manual) 92 H 92 H Band Neutrophils % 2 1 Lymphocytes % (Manual) 4 L 4 L Monocytes % (Manual) 2 3 Toxic Granulation Present Platelet Estimate Normal Normal Large Platelets Present Polychromasia Slight Hypochromasia (manual) Slight Poikilocytosis (manual Moderate Anisocytosis (manual) Moderate Macrocytosis (manual) Slight Ovalocytes Slight Shila Cells Slight Schistocytes Slight Puncture Site R rad pCO2 27 L pO2 223 H HCO3 20.7 L ABG pH 7.42 ABG Total CO2 18.3 L ABG O2 Saturation 100.3 H ABG Base Excess -5.5 L Tima Test Pos ABG Potassium 4.0 A-a O2 Difference 100.0 Respiratory Index 0.4 Sodium 148.0 Chloride 126.0 H Glucose 151 H Lactate 1.7 Vent Mode Cpap FiO2 50.0 Pressure Support 12 CPAP 5 Potassium Carbon Dioxide Anion Gap BUN Creatinine Est GFR ( Amer) Est GFR (Non-Af Amer) Random Glucose Calcium Phosphorus Magnesium Total Bilirubin AST ALT Alkaline Phosphatase Total Protein Albumin Globulin Albumin/Globulin Ratio Arterial Blood Potassium 4.0 10/08/18 06:01 WBC RBC Hgb Hct MCV MCH MCHC RDW Plt Count MPV Neut % (Auto) Lymph % (Auto) [place] % (Auto) Eos % (Auto) Baso % (Auto) Neut # (Auto) Lymph # (Auto) [place] # (Auto) Eos # (Auto) Baso # (Auto) Neutrophils % (Manual) Band Neutrophils % Lymphocytes % (Manual) Monocytes % (Manual) Toxic Granulation Platelet Estimate Large Platelets Polychromasia Hypochromasia (manual) Poikilocytosis (manual Anisocytosis (manual) Macrocytosis (manual) Ovalocytes Shila Cells Schistocytes Puncture Site pCO2 pO2 HCO3 ABG pH ABG Total CO2 ABG O2 Saturation ABG Base Excess Tima Test ABG Potassium A-a O2 Difference Respiratory Index Sodium 146 Chloride 123 H Glucose Lactate Vent Mode FiO2 Pressure Support CPAP Potassium 4.6 Carbon Dioxide 18 L Anion Gap 10 BUN 63 H Creatinine 1.6 H Est GFR ( Amer) 50 Est GFR (Non-Af Amer) 41 Random Glucose 136 H Calcium 7.4 L Phosphorus 4.7 H Magnesium 2.3 Total Bilirubin 0.6 AST 66 H ALT 50 Alkaline Phosphatase 225 H Total Protein 5.3 L Albumin 2.1 L Globulin 3.2 Albumin/Globulin Ratio 0.7 L Arterial Blood Potassium Fingerstick Blood Sugar Results: 145
[2018-10-08] MEDS: MethylPREDNISolone 40 mg Vial IVP SCH ×2 (09:56→21:58)
[2018-10-08] MEDS: Enoxaparin 40 mg Syringe SC SCH (09:56)
[2018-10-08] MEDS: Pantoprazole 40 mg Susp UD NG SCH (10:00)
[2018-10-08] MEDS: Multiple Vitamins Tab PO SCH (10:00)
[2018-10-08] MEDS: Micafungin 100 MG in Sodium Chloride 0.9% 100 ML IV SCH (13:40)
--- NOTE | 2018-10-08 14:22 | CP.PCM.PN ---
Subjective - Date & Time of Evaluation Date of Evaluation: 10/08/18 Time of Evaluation: 11:30 - Subjective Subjective: clinically same Objective - Vital Signs/Intake and Output Vital Signs (last 24 hours): Temp Pulse Resp BP Pulse Ox 98.1 F 59 L 28 H 111/49 L 100 10/08/18 11:55 10/08/18 13:07 10/07/18 23:00 10/08/18 13:07 10/08/18 13:07 Intake and Output: 10/08/18 10/08/18 06:59 18:59 Intake Total 363.4 85.0 Output Total 200 225 Balance 163.4 -140.0 - Medications Medications: Current Medications Acetaminophen (Tylenol 325mg Tab) 650 mg PO Q8 PRN PRN Reason: Pain, Mild (1-3) Albuterol Sulfate (Albuterol 0.042% Inhal [place] (1.25mg/3ml) Ud) 1.25 mg INH RQ6 [facility] Last Admin: 10/08/18 13:15 Dose: 1.25 mg Ascorbic Acid (Vitamin C 500 Mg Tab) 500 mg PO BID [facility] Last Admin: 10/08/18 09:59 Dose: 500 mg Aspirin (Aspirin Chewable) 81 mg PO DAILY [facility] Last Admin: 10/08/18 09:59 Dose: 81 mg Clopidogrel Bisulfate (Plavix) 75 mg PO DAILY [facility] Last Admin: 10/08/18 10:00 Dose: 75 mg Dextrose (Dextrose 50% Inj) 0 ml IV STAT PRN; Protocol PRN Reason: Hypoglycemia Protocol Dextrose (Glutose 15) 0 gm PO ONCE PRN; Protocol PRN Reason: Hypoglycemia Protocol Enoxaparin Sodium (Lovenox) 40 mg SC DAILY [facility] Last Admin: 10/08/18 09:56 Dose: 40 mg Glucagon (Glucagen Diagnostic Kit) 0 mg IM STAT PRN; Protocol PRN Reason: Hypoglycemia Protocol Dextrose (Dextrose 5% In Water 1000 Ml) 1,000 mls @ 0 mls/hr IV .Q0M PRN; Protocol PRN Reason: Hypoglycemia Protocol Dexmedetomidine HCl 200 mcg/ (Sodium Chloride) 50 mls @ 2.36 mls/hr IV TITR PRN; Protocol PRN Reason: Titrate per Protocol Last Titration: 10/08/18 11:46 Dose: 0 mcg/kg/hr, 0 mls/hr Micafungin Sodium 100 mg/ (Sodium Chloride) 100 mls @ 100 mls/hr IV Q24H [facility]; Protocol Last Admin: 10/08/18 13:40 Dose: 100 mls/hr Tigecycline 50 mg/ Sodium (Chloride) 100 mls @ 100 mls/hr IVPB Q12H [facility]; Protocol Last Admin: 10/08/18 04:46 Dose: 100 mls/hr Insulin Human Regular (Novolin R) 0 unit SC Q6 [facility]; Protocol Last Admin: 10/08/18 12:15 Dose: Not Given Methylprednisolone (Solu-Medrol) 20 mg IVP Q12 [facility] Last Admin: 10/08/18 09:56 Dose: 20 mg Metoprolol Tartrate (Lopressor) 25 mg PO BID [facility] Last Admin: 10/08/18 10:00 Dose: 25 mg Multivitamins (Hexavitamin) 1 tab PO DAILY [facility] Last Admin: 10/08/18 10:00 Dose: 1 tab Pantoprazole Sodium (Protonix Susp) 40 mg NG DAILY [facility] Last Admin: 10/08/18 10:00 Dose: 40 mg Zinc Sulfate (Zinc Sulfate 220 Mg Cap) 220 mg PO BID [facility] Last Admin: 10/08/18 09:59 Dose: 220 mg - Labs Labs: 10/08/18 06:01 10/08/18 06:01 PT 14.4 SECONDS (9.7-12.2) H 10/06/18 12:58 INR 1.3 10/06/18 12:58 APTT 35 SECONDS (21-34) H 10/06/18 12:58 - Constitutional Appears: Well - Head Exam Head Exam: ATRAUMATIC, NORMAL INSPECTION, NORMOCEPHALIC - Eye Exam Eye Exam: EOMI, Normal appearance, PERRL Pupil Exam: NORMAL ACCOMODATION, PERRL - ENT Exam ENT Exam: Mucous Membranes Moist, Normal Exam - Neck Exam Neck Exam: Full ROM, Normal Inspection. absent: Lymphadenopathy - Respiratory Exam Respiratory Exam: Decreased Breath Sounds - Cardiovascular Exam Cardiovascular Exam: REGULAR RHYTHM, +S1, +S2 - GI/Abdominal Exam GI & Abdominal Exam: Soft, Diminished Bowel Sounds - Rectal Exam Rectal Exam: Deferred
--- NOTE | 2018-10-08 21:07 | PN ---
DATE: 10/08/2018 SUBJECTIVE: The patient is still on ventilator. He is awake. Family are at the bedside. PHYSICAL EXAMINATION VITAL SIGNS: Blood pressure 111/49, heart rate 69, temperature 98.1. HEENT: Pale conjunctivae. CHEST: Right basal coarse crepitations. HEART: S1 and S2 regular. EXTREMITIES: No edema. LABORATORY DATA: Today's hemoglobin and hematocrit are 7.7 and 24.4, white count 10.3 and platelet count 151,000. Today's SMA-7: Sodium 146, potassium 4.6, chloride 123, CO2 of 18, glucose 136, BUN 63, creatinine 1.6. ASSESSMENT: 1. Respiratory failure. 2. 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 3. Borderline troponin elevation. 4. Bilateral pneumonia and pleural effusion. 5. Severe aortic valve sclerosis with mild aortic insufficiency. RECOMMENDATIONS: The case was discussed with Dr. Osborne, the university services program associate and iap displays analyst. Continue current aspirin 81 mg once a day, Lopressor 25 mg once a day, micafungin 100 mg intravenously daily, Plavix 75 mg once a day, tigecycline 50 mg intravenously every 12 hours. Tomas Veras MD
[2018-10-09] MEDS: (Novolin R) Insulin Human Regular 100 units/ml vial SC SCH ×4 (00:56→18:00)
[2018-10-09] MEDS: Albuterol 0.042% Inhal Sol (1.25 mg/3 mL) UD INH SCH ×4 (01:13→19:47)
[2018-10-09 07:57] LABS: BASO # 0.1 K/uL (0.0-0.2); BASO % 0.4 % (0.0-2.0); LYMPH # 0.6 K/uL (1.0-4.3); LYMPH % 4.9 % (20.0-40.0); MEAN CORPUSCULAR HEMOGLOBIN 30.3 pg (27.0-31.0); MEAN CORPUSCULAR HGB CONC 30.8 g/dL (33.0-37.0); MEAN PLATELET VOLUME 11.1 fL (7.2-11.7); MONO # 0.4 K/uL (0.0-0.8); NEUT # 11.2 K/uL (1.8-7.0); NEUT % 91.7 % (50.0-75.0); NRBC % 0.1 % (0.0-2.0); PLATELET COUNT 159 K/uL (130-400); RBC 3.55 Mil/uL (4.40-5.90); RED CELL DISTRIBUTION WIDTH 20.1 % (11.5-14.5); WHITE BLOOD COUNT 12.2 K/uL (4.8-10.8)
[2018-10-09 07:58] LABS: HEMOGLOBIN 10.8 g/dL (12.0-18.0); MEAN CELL VOLUME 98.3 fL (80.0-94.0)
[2018-10-09 08:27] LABS: ALB/GLOB RATIO 0.7 (1.0-2.1); ALBUMIN 2.6 g/dL (3.5-5.0); CALCIUM 8.1 mg/dl (8.6-10.4)
--- NOTE | 2018-10-09 08:44 | CP.PCM.PN ---
Subjective - Date & Time of Evaluation Date of Evaluation: 10/09/18 Time of Evaluation: 08:40 - Subjective Subjective: pt seen and examined patient extubated yesterday Slight cough but no shortess of breath noted Afebrile Objective - Vital Signs/Intake and Output Vital Signs (last 24 hours): Temp Pulse Resp BP Pulse Ox 98 F 84 14 156/77 H 100 10/09/18 04:00 10/09/18 06:00 10/09/18 06:00 10/09/18 06:00 10/09/18 06:00 Intake and Output: 10/09/18 10/09/18 06:59 18:59 Intake Total 100 0 Output Total 360 40 Balance -260 -40 - Medications Medications: Current Medications Acetaminophen (Tylenol 325mg Tab) 650 mg PO Q8 PRN PRN Reason: Pain, Mild (1-3) Albuterol Sulfate (Albuterol 0.042% Inhal [place] (1.25mg/3ml) Ud) 1.25 mg INH RQ6 [facility] Last Admin: 10/09/18 07:59 Dose: 1.25 mg Ascorbic Acid (Vitamin C 500 Mg Tab) 500 mg PO BID [facility] Last Admin: 10/08/18 17:16 Dose: 500 mg Aspirin (Aspirin Chewable) 81 mg PO DAILY [facility] Last Admin: 10/08/18 09:59 Dose: 81 mg Clopidogrel Bisulfate (Plavix) 75 mg PO DAILY [facility] Last Admin: 10/08/18 10:00 Dose: 75 mg Dextrose (Dextrose 50% Inj) 0 ml IV STAT PRN; Protocol PRN Reason: Hypoglycemia Protocol Dextrose (Glutose 15) 0 gm PO ONCE PRN; Protocol PRN Reason: Hypoglycemia Protocol Enoxaparin Sodium (Lovenox) 40 mg SC DAILY [facility] Last Admin: 10/08/18 09:56 Dose: 40 mg Glucagon (Glucagen Diagnostic Kit) 0 mg IM STAT PRN; Protocol PRN Reason: Hypoglycemia Protocol Dextrose (Dextrose 5% In Water 1000 Ml) 1,000 mls @ 0 mls/hr IV .Q0M PRN; Protocol PRN Reason: Hypoglycemia Protocol Dexmedetomidine HCl 200 mcg/ (Sodium Chloride) 50 mls @ 2.36 mls/hr IV TITR PRN; Protocol PRN Reason: Titrate per Protocol Last Titration: 10/08/18 11:46 Dose: 0 mcg/kg/hr, 0 mls/hr Micafungin Sodium 100 mg/ (Sodium Chloride) 100 mls @ 100 mls/hr IV Q24H [facility]; Protocol Last Admin: 10/08/18 13:40 Dose: 100 mls/hr Tigecycline 50 mg/ Sodium (Chloride) 100 mls @ 100 mls/hr IVPB Q12H [facility]; Protocol Last Admin: 10/09/18 04:01 Dose: 100 mls/hr Insulin Human Regular (Novolin R) 0 unit SC Q6 [facility]; Protocol Last Admin: 10/09/18 07:00 Dose: Not Given Methylprednisolone (Solu-Medrol) 20 mg IVP Q12 [facility] Last Admin: 10/08/18 21:58 Dose: 20 mg Metoprolol Tartrate (Lopressor) 25 mg PO BID [facility] Last Admin: 10/08/18 17:16 Dose: 25 mg Multivitamins (Hexavitamin) 1 tab PO DAILY [facility] Last Admin: 10/08/18 10:00 Dose: 1 tab Pantoprazole Sodium (Protonix Susp) 40 mg NG DAILY [facility] Last Admin: 10/08/18 10:00 Dose: 40 mg Zinc Sulfate (Zinc Sulfate 220 Mg Cap) 220 mg PO BID [facility] Last Admin: 10/08/18 17:16 Dose: 220 mg - Labs Labs: 10/09/18 07:53 10/09/18 07:53 PT 14.4 SECONDS (9.7-12.2) H 10/06/18 12:58 INR 1.3 10/06/18 12:58 APTT 35 SECONDS (21-34) H 10/06/18 12:58 - Head Exam Head Exam: ATRAUMATIC, NORMOCEPHALIC - ENT Exam ENT Exam: Mucous Membranes Moist - Neck Exam Neck Exam: Normal Inspection - Respiratory Exam Respiratory Exam: Rales, Rhonchi, Wheezes - Cardiovascular Exam Cardiovascular Exam: REGULAR RHYTHM - GI/Abdominal Exam GI & Abdominal Exam: Normal Bowel Sounds - Extremities Exam Extremities Exam: Normal Inspection Assessment and Plan (1) Acute respiratory failure Assessment & Plan: Status post extubation Continue antibiotics Nebulizer treatment Pulmonary toilet Mucolytic Status: Acute (2) Pleural effusion Status: Acute (3) COPD (chronic obstructive pulmonary disease) Status: Acute
[2018-10-09 08:51] LABS: ANISOCYTOSIS SLIGHT; HYPOCHROMIC SLIGHT; LYMPHOCYTE 6 % (20-40); MONOCYTE 1 % (0-10); NEUTROPHIL 93 % (50-75); NUCLEATED RED BLOOD CELL 1 % (0-0); PLATELET ESTIMATE NORMAL (NORMAL); POIKILOCYTOSIS SLIGHT; TOTAL CELLS COUNTED 100
[2018-10-09 08:52] LABS: BURR CELLS SLIGHT; OVALOCYTES SLIGHT
--- NOTE | 2018-10-09 09:23 | RAD ---
Date of service: 10/09/2018 HISTORY: dx. CHF, aspiration pneumonia, extubated 10/08 COMPARISON: 10/06/2018 FINDINGS: LUNGS: NG tube extending into the stomach. Confluent opacification in the left mid to lower lung zone as well as within right hilar region extending to the right lung base. Moderate left and small right pleural effusion. Biapical pleural thickening with upper lobe granulomatous changes. Linear atelectasis in the right midlung. PLEURA: As above. CARDIOVASCULAR: Aortic atherosclerotic calcification present. Enlarged ectatic aorta. Cardiomegaly. OSSEOUS STRUCTURES: Degenerative changes in the spine. VISUALIZED UPPER ABDOMEN: Normal. OTHER FINDINGS: None. IMPRESSION: NG tube extending into the stomach. Confluent opacification in the left mid to lower lung zone as well as within right hilar region extending to the right lung base. Moderate left and small right pleural effusion. Biapical pleural thickening with upper lobe granulomatous changes. Linear atelectasis in the right midlung.
[2018-10-09] MEDS: Enoxaparin 40 mg Syringe SC SCH (11:33)
[2018-10-09] MEDS: MethylPREDNISolone 40 mg Vial IVP SCH ×2 (11:33→22:06)
[2018-10-09] MEDS: Pantoprazole 40 mg Susp UD NG SCH (11:34)
[2018-10-09] MEDS: Multiple Vitamins Tab PO SCH (11:35)
[2018-10-09] MEDS: Micafungin 100 MG in Sodium Chloride 0.9% 100 ML IV SCH (13:36)
[2018-10-09] MEDS ORDERED: ePHEDrine 50 mg/ml Inj ONE (15:46)
--- NOTE | 2018-10-09 18:12 | CP.PCM.PN ---
Subjective - Date & Time of Evaluation Date of Evaluation: 10/09/18 Time of Evaluation: 12:00 - Subjective Subjective: clinically same Objective - Vital Signs/Intake and Output Vital Signs (last 24 hours): Temp Pulse Resp BP Pulse Ox 99.2 F 80 14 161/68 H 100 10/09/18 12:00 10/09/18 17:00 10/09/18 17:00 10/09/18 17:30 10/09/18 16:00 Intake and Output: 10/09/18 10/09/18 06:59 18:59 Intake Total 100 120 Output Total 360 355 Balance -260 -235 - Medications Medications: Current Medications Acetaminophen (Tylenol 325mg Tab) 650 mg PO Q8 PRN PRN Reason: Pain, Mild (1-3) Albuterol Sulfate (Albuterol 0.042% Inhal [place] (1.25mg/3ml) Ud) 1.25 mg INH RQ6 [facility] Last Admin: 10/09/18 13:15 Dose: 1.25 mg Ascorbic Acid (Vitamin C 500 Mg Tab) 500 mg PO BID [facility] Last Admin: 10/09/18 17:29 Dose: 500 mg Aspirin (Aspirin Chewable) 81 mg PO DAILY [facility] Last Admin: 10/09/18 11:34 Dose: 81 mg Clopidogrel Bisulfate (Plavix) 75 mg PO DAILY [facility] Last Admin: 10/09/18 11:34 Dose: 75 mg Dextrose (Dextrose 50% Inj) 0 ml IV STAT PRN; Protocol PRN Reason: Hypoglycemia Protocol Dextrose (Glutose 15) 0 gm PO ONCE PRN; Protocol PRN Reason: Hypoglycemia Protocol Enoxaparin Sodium (Lovenox) 40 mg SC DAILY [facility] Last Admin: 10/09/18 11:33 Dose: 40 mg Glucagon (Glucagen Diagnostic Kit) 0 mg IM STAT PRN; Protocol PRN Reason: Hypoglycemia Protocol Dextrose (Dextrose 5% In Water 1000 Ml) 1,000 mls @ 0 mls/hr IV .Q0M PRN; Protocol PRN Reason: Hypoglycemia Protocol Dexmedetomidine HCl 200 mcg/ (Sodium Chloride) 50 mls @ 2.36 mls/hr IV TITR PRN; Protocol PRN Reason: Titrate per Protocol Last Titration: 10/08/18 11:46 Dose: 0 mcg/kg/hr, 0 mls/hr Micafungin Sodium 100 mg/ (Sodium Chloride) 100 mls @ 100 mls/hr IV Q24H [facility]; Protocol Last Admin: 10/09/18 13:36 Dose: 100 mls/hr Tigecycline 50 mg/ Sodium (Chloride) 100 mls @ 100 mls/hr IVPB Q12H [facility]; Protocol Last Admin: 10/09/18 15:48 Dose: 100 mls/hr Insulin Human Regular (Novolin R) 0 unit SC Q6 [facility]; Protocol Last Admin: 10/09/18 12:00 Dose: Not Given Methylprednisolone (Solu-Medrol) 20 mg IVP Q12 [facility] Last Admin: 10/09/18 11:33 Dose: 20 mg Metoprolol Tartrate (Lopressor) 25 mg PO BID [facility] Last Admin: 10/09/18 17:30 Dose: 25 mg Multivitamins (Hexavitamin) 1 tab PO DAILY [facility] Last Admin: 10/09/18 11:35 Dose: 1 tab Pantoprazole Sodium (Protonix Susp) 40 mg NG DAILY [facility] Last Admin: 10/09/18 11:34 Dose: 40 mg Zinc Sulfate (Zinc Sulfate 220 Mg Cap) 220 mg PO BID [facility] Last Admin: 10/09/18 17:29 Dose: 220 mg - Labs Labs: 10/09/18 07:53 10/09/18 07:53 PT 14.4 SECONDS (9.7-12.2) H 10/06/18 12:58 INR 1.3 10/06/18 12:58 APTT 35 SECONDS (21-34) H 10/06/18 12:58 - Constitutional Appears: Well - Head Exam Head Exam: ATRAUMATIC, NORMAL INSPECTION, NORMOCEPHALIC - Eye Exam Eye Exam: EOMI, Normal appearance, PERRL Pupil Exam: NORMAL ACCOMODATION, PERRL - ENT Exam ENT Exam: Mucous Membranes Moist, Normal Exam - Neck Exam Neck Exam: Full ROM, Normal Inspection. absent: Lymphadenopathy - Respiratory Exam Respiratory Exam: Decreased Breath Sounds - Cardiovascular Exam Cardiovascular Exam: REGULAR RHYTHM, +S1, +S2 - GI/Abdominal Exam GI & Abdominal Exam: Soft, Diminished Bowel Sounds - Rectal Exam Rectal Exam: Deferred
--- NOTE | 2018-10-09 19:08 | CP.PCM.PN ---
Subjective - Date & Time of Evaluation Date of Evaluation: 10/09/18 Time of Evaluation: 19:05 - Subjective Subjective: Podiatry Progress Note for Dr. Perdomo 87M seen for eschars of left leg. Patient is unable to communicate at this time. Per nursing, no acute overnight events Objective - Vital Signs/Intake and Output Vital Signs (last 24 hours): Temp Pulse Resp BP Pulse Ox 99.2 F 80 14 161/68 H 100 10/09/18 12:00 10/09/18 17:00 10/09/18 17:00 10/09/18 17:30 10/09/18 16:00 Intake and Output: 10/09/18 10/10/18 18:59 06:59 Intake Total 120 Output Total 355 Balance -235 - Medications Medications: Current Medications Acetaminophen (Tylenol 325mg Tab) 650 mg PO Q8 PRN PRN Reason: Pain, Mild (1-3) Albuterol Sulfate (Albuterol 0.042% Inhal [place] (1.25mg/3ml) Ud) 1.25 mg INH RQ6 [facility] Last Admin: 10/09/18 13:15 Dose: 1.25 mg Ascorbic Acid (Vitamin C 500 Mg Tab) 500 mg PO BID [facility] Last Admin: 10/09/18 17:29 Dose: 500 mg Aspirin (Aspirin Chewable) 81 mg PO DAILY [facility] Last Admin: 10/09/18 11:34 Dose: 81 mg Clopidogrel Bisulfate (Plavix) 75 mg PO DAILY [facility] Last Admin: 10/09/18 11:34 Dose: 75 mg Dextrose (Dextrose 50% Inj) 0 ml IV STAT PRN; Protocol PRN Reason: Hypoglycemia Protocol Dextrose (Glutose 15) 0 gm PO ONCE PRN; Protocol PRN Reason: Hypoglycemia Protocol Enoxaparin Sodium (Lovenox) 40 mg SC DAILY [facility] Last Admin: 10/09/18 11:33 Dose: 40 mg Glucagon (Glucagen Diagnostic Kit) 0 mg IM STAT PRN; Protocol PRN Reason: Hypoglycemia Protocol Dextrose (Dextrose 5% In Water 1000 Ml) 1,000 mls @ 0 mls/hr IV .Q0M PRN; Protocol PRN Reason: Hypoglycemia Protocol Dexmedetomidine HCl 200 mcg/ (Sodium Chloride) 50 mls @ 2.36 mls/hr IV TITR PRN; Protocol PRN Reason: Titrate per Protocol Last Titration: 10/08/18 11:46 Dose: 0 mcg/kg/hr, 0 mls/hr Micafungin Sodium 100 mg/ (Sodium Chloride) 100 mls @ 100 mls/hr IV Q24H [facility]; Protocol Last Admin: 10/09/18 13:36 Dose: 100 mls/hr Tigecycline 50 mg/ Sodium (Chloride) 100 mls @ 100 mls/hr IVPB Q12H [facility]; Protocol Last Admin: 10/09/18 15:48 Dose: 100 mls/hr Insulin Human Regular (Novolin R) 0 unit SC Q6 [facility]; Protocol Last Admin: 10/09/18 12:00 Dose: Not Given Methylprednisolone (Solu-Medrol) 20 mg IVP Q12 [facility] Last Admin: 10/09/18 11:33 Dose: 20 mg Metoprolol Tartrate (Lopressor) 25 mg PO BID [facility] Last Admin: 10/09/18 17:30 Dose: 25 mg Multivitamins (Hexavitamin) 1 tab PO DAILY [facility] Last Admin: 10/09/18 11:35 Dose: 1 tab Pantoprazole Sodium (Protonix Susp) 40 mg NG DAILY [facility] Last Admin: 10/09/18 11:34 Dose: 40 mg Zinc Sulfate (Zinc Sulfate 220 Mg Cap) 220 mg PO BID [facility] Last Admin: 10/09/18 17:29 Dose: 220 mg - Labs Labs: 10/09/18 07:53 10/09/18 07:53 PT 14.4 SECONDS (9.7-12.2) H 10/06/18 12:58 INR 1.3 10/06/18 12:58 APTT 35 SECONDS (21-34) H 10/06/18 12:58 - Constitutional Appears: Well, Non-toxic, No Acute Distress - Extremities Exam Additional comments: LLE focused exam Patient lower extremities contracted VASC: DP and PT 1/4, CFT less than 3 seconds X 10, no edema, no varicosities, TG warm to warm NEURO: unable to assess DERM: two stable eschars noted to the lateral aspect of the left foot, no drainage, no malodor, no erythema, no edema, no probe to bone, no other open lesions, no clinical signs of infection ORTHO: unable to assess - Neurological Exam Neurological Exam: Alert, Awake, Oriented x3 - Psychiatric Exam Psychiatric exam: Normal Affect, Normal Mood Assessment and Plan - Assessment and Plan (Free Text) Assessment: 87M seen for eschars of left leg Plan: Patient seen and evaluated Plan discussed with Dr. Perdomo No signs of infection at this time No plan for intervention at this time Wounds dressed with DSD Podiatry will continue to follow while patient in house Keep multipodus boots in place
--- NOTE | 2018-10-09 20:00 | PN ---
DATE: 10/09/2018 SUBJECTIVE: The patient was extubated yesterday and he is planned to undergo a second thoracocentesis. PHYSICAL EXAMINATION: VITAL SIGNS: Blood pressure 163/79, heart rate 90, temperature 98. HEENT: Pale conjunctivae. CHEST: Absent breath sounds over the bases. HEART: S1, S2, regular. EXTREMITIES: Significantly contracted lower extremities. LABORATORY DATA: Hemoglobin and hematocrit 10.8 and 35, white count 12.2, platelet count 159,000. SMA-7, sodium 148, potassium 4.7, chloride 121, CO2 17, glucose 115, BUN 72, creatinine 1.8. Chest x-ray reports confluent opacification in the left mid to lower lung zones as well as right hilar region extending into the right lung base, moderate left and small right pleural effusion. ASSESSMENT: 1. Status post respiratory failure. 2. Pneumonia with moderate left and small right pleural effusion. 3. Chronic obstructive lung disease. 4. Borderline troponin elevation. 5. Mild aortic insufficiency. 6. 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 RECOMMENDATIONS: Continue aspirin 81 mg once a day, Lopressor 25 mg once a day, Lovenox 40 mg once a day. Continue Plavix 75 mg once a day, IV micafungin, and IV tigecycline. Tomas Veras MD
[2018-10-10] MEDS: (Novolin R) Insulin Human Regular 100 units/ml vial SC SCH ×4 (00:16→18:54)
[2018-10-10] MEDS: Albuterol 0.042% Inhal Sol (1.25 mg/3 mL) UD INH SCH ×4 (03:26→19:47)
[2018-10-10 08:51] LABS: BASO # 0.1 K/uL (0.0-0.2); BASO % 0.7 % (0.0-2.0); HEMOGLOBIN 8.9 g/dL (12.0-18.0); LYMPH # 0.4 K/uL (1.0-4.3); MEAN CORPUSCULAR HEMOGLOBIN 30.9 pg (27.0-31.0); MEAN CORPUSCULAR HGB CONC 32.4 g/dL (33.0-37.0); MEAN PLATELET VOLUME 11.1 fL (7.2-11.7); MONO # 0.5 K/uL (0.0-0.8); MONO % 4.8 % (0.0-10.0); NEUT # 8.8 K/uL (1.8-7.0); NEUT % 90.5 % (50.0-75.0); NRBC % 0.1 % (0.0-2.0); PLATELET COUNT 154 K/uL (130-400); RBC 2.88 Mil/uL (4.40-5.90); RED CELL DISTRIBUTION WIDTH 19.3 % (11.5-14.5); WHITE BLOOD COUNT 9.7 K/uL (4.8-10.8)
[2018-10-10 08:54] LABS: MEAN CELL VOLUME 95.4 fL (80.0-94.0)
[2018-10-10] MEDS: Pantoprazole 40 mg Susp UD NG SCH (09:13)
[2018-10-10] MEDS: MethylPREDNISolone 40 mg Vial IVP SCH ×2 (09:13→21:37)
[2018-10-10] MEDS: Enoxaparin 40 mg Syringe SC SCH (09:14)
[2018-10-10] MEDS: Multiple Vitamins Tab PO SCH (09:14)
[2018-10-10 09:29] LABS: ANISOCYTOSIS SLIGHT; HYPOCHROMIC SLIGHT; LYMPHOCYTE 8 % (20-40); MONOCYTE 5 % (0-10); NEUTROPHIL 87 % (50-75); PLATELET ESTIMATE NORMAL (NORMAL); POIKILOCYTOSIS SLIGHT; TOTAL CELLS COUNTED 100
[2018-10-10 09:47] LABS: ALB/GLOB RATIO 0.7 (1.0-2.1); ALBUMIN 2.3 g/dL (3.5-5.0)
[2018-10-10] MEDS: Micafungin 100 MG in Sodium Chloride 0.9% 100 ML IV SCH (13:47)
--- NOTE | 2018-10-10 16:32 | CP.PCM.PN ---
Subjective - Date & Time of Evaluation Date of Evaluation: 10/10/18 Time of Evaluation: 18:00 - Subjective Subjective: patient seen and examined Mild shortness of breath Status post thoracentesis and extubation Continue antibiotics Family meeting Objective - Vital Signs/Intake and Output Vital Signs (last 24 hours): Temp Pulse Resp BP Pulse Ox 97.9 F 84 12 158/55 H 99 10/10/18 12:00 10/10/18 16:00 10/10/18 16:00 10/10/18 16:00 10/10/18 16:00 Intake and Output: 10/10/18 10/10/18 06:59 18:59 Intake Total 545 280 Output Total 185 460 Balance 360 -180 - Medications Medications: Current Medications Acetaminophen (Tylenol 325mg Tab) 650 mg PO Q8 PRN PRN Reason: Pain, Mild (1-3) Albuterol Sulfate (Albuterol 0.042% Inhal [place] (1.25mg/3ml) Ud) 1.25 mg INH RQ6 [facility] Last Admin: 10/10/18 13:20 Dose: 1.25 mg Ascorbic Acid (Vitamin C 500 Mg Tab) 500 mg PO BID [facility] Last Admin: 10/10/18 09:13 Dose: 500 mg Aspirin (Aspirin Chewable) 81 mg PO DAILY [facility] Last Admin: 10/10/18 09:14 Dose: 81 mg Clopidogrel Bisulfate (Plavix) 75 mg PO DAILY [facility] Last Admin: 10/10/18 09:14 Dose: 75 mg Dextrose (Dextrose 50% Inj) 0 ml IV STAT PRN; Protocol PRN Reason: Hypoglycemia Protocol Dextrose (Glutose 15) 0 gm PO ONCE PRN; Protocol PRN Reason: Hypoglycemia Protocol Enoxaparin Sodium (Lovenox) 40 mg SC DAILY [facility] Last Admin: 10/10/18 09:14 Dose: 40 mg Glucagon (Glucagen Diagnostic Kit) 0 mg IM STAT PRN; Protocol PRN Reason: Hypoglycemia Protocol Dextrose (Dextrose 5% In Water 1000 Ml) 1,000 mls @ 0 mls/hr IV .Q0M PRN; Protocol PRN Reason: Hypoglycemia Protocol Micafungin Sodium 100 mg/ (Sodium Chloride) 100 mls @ 100 mls/hr IV Q24H [facility]; Protocol Last Admin: 10/10/18 13:47 Dose: 100 mls/hr Tigecycline 50 mg/ Sodium (Chloride) 100 mls @ 100 mls/hr IVPB Q12H [facility]; Protocol Last Admin: 10/10/18 16:04 Dose: 100 mls/hr Insulin Human Regular (Novolin R) 0 unit SC Q6 [facility]; Protocol Last Admin: 10/10/18 12:49 Dose: Not Given Methylprednisolone (Solu-Medrol) 20 mg IVP Q12 [facility] Last Admin: 10/10/18 09:13 Dose: 20 mg Metoprolol Tartrate (Lopressor) 25 mg PO BID [facility] Last Admin: 10/10/18 09:14 Dose: 25 mg Multivitamins (Hexavitamin) 1 tab PO DAILY [facility] Last Admin: 10/10/18 09:14 Dose: 1 tab Pantoprazole Sodium (Protonix Susp) 40 mg NG DAILY [facility] Last Admin: 10/10/18 09:13 Dose: 40 mg Zinc Sulfate (Zinc Sulfate 220 Mg Cap) 220 mg PO BID [facility] Last Admin: 10/10/18 09:13 Dose: 220 mg - Labs Labs: 10/10/18 08:42 10/10/18 08:42 PT 14.4 SECONDS (9.7-12.2) H 10/06/18 12:58 INR 1.3 10/06/18 12:58 APTT 35 SECONDS (21-34) H 10/06/18 12:58 - Head Exam Head Exam: ATRAUMATIC, NORMOCEPHALIC - ENT Exam ENT Exam: Mucous Membranes Moist - Respiratory Exam Respiratory Exam: Decreased Breath Sounds - Cardiovascular Exam Cardiovascular Exam: REGULAR RHYTHM Assessment and Plan (1) Acute respiratory failure Assessment & Plan: Status post extubation No respiratory distress Continue antibiotics Continue nebulizer treatment and steroids Status: Acute (2) Pleural effusion Status: Acute (3) COPD (chronic obstructive pulmonary disease) Status: Acute
--- NOTE | 2018-10-10 18:16 | CP.PCM.PN ---
Subjective - Date & Time of Evaluation Date of Evaluation: 10/10/18 Time of Evaluation: 12:15 - Subjective Subjective: clinically same Objective - Vital Signs/Intake and Output Vital Signs (last 24 hours): Temp Pulse Resp BP Pulse Ox 97.9 F 93 H 18 146/61 99 10/10/18 12:00 10/10/18 17:00 10/10/18 17:00 10/10/18 17:41 10/10/18 17:00 Intake and Output: 10/10/18 10/10/18 06:59 18:59 Intake Total 545 320 Output Total 185 460 Balance 360 -140 - Medications Medications: Current Medications Acetaminophen (Tylenol 325mg Tab) 650 mg PO Q8 PRN PRN Reason: Pain, Mild (1-3) Albuterol Sulfate (Albuterol 0.042% Inhal [place] (1.25mg/3ml) Ud) 1.25 mg INH RQ6 [facility] Last Admin: 10/10/18 13:20 Dose: 1.25 mg Ascorbic Acid (Vitamin C 500 Mg Tab) 500 mg PO BID [facility] Last Admin: 10/10/18 17:42 Dose: 500 mg Aspirin (Aspirin Chewable) 81 mg PO DAILY [facility] Last Admin: 10/10/18 09:14 Dose: 81 mg Clopidogrel Bisulfate (Plavix) 75 mg PO DAILY [facility] Last Admin: 10/10/18 09:14 Dose: 75 mg Dextrose (Dextrose 50% Inj) 0 ml IV STAT PRN; Protocol PRN Reason: Hypoglycemia Protocol Dextrose (Glutose 15) 0 gm PO ONCE PRN; Protocol PRN Reason: Hypoglycemia Protocol Enoxaparin Sodium (Lovenox) 40 mg SC DAILY [facility] Last Admin: 10/10/18 09:14 Dose: 40 mg Glucagon (Glucagen Diagnostic Kit) 0 mg IM STAT PRN; Protocol PRN Reason: Hypoglycemia Protocol Dextrose (Dextrose 5% In Water 1000 Ml) 1,000 mls @ 0 mls/hr IV .Q0M PRN; Protocol PRN Reason: Hypoglycemia Protocol Micafungin Sodium 100 mg/ (Sodium Chloride) 100 mls @ 100 mls/hr IV Q24H [facility]; Protocol Last Admin: 10/10/18 13:47 Dose: 100 mls/hr Tigecycline 50 mg/ Sodium (Chloride) 100 mls @ 100 mls/hr IVPB Q12H [facility]; Protocol Last Admin: 10/10/18 16:04 Dose: 100 mls/hr Insulin Human Regular (Novolin R) 0 unit SC Q6 [facility]; Protocol Last Admin: 10/10/18 12:49 Dose: Not Given Methylprednisolone (Solu-Medrol) 20 mg IVP Q12 [facility] Last Admin: 10/10/18 09:13 Dose: 20 mg Metoprolol Tartrate (Lopressor) 25 mg PO BID [facility] Last Admin: 10/10/18 17:41 Dose: 25 mg Multivitamins (Hexavitamin) 1 tab PO DAILY [facility] Last Admin: 10/10/18 09:14 Dose: 1 tab Pantoprazole Sodium (Protonix Susp) 40 mg NG DAILY [facility] Last Admin: 10/10/18 09:13 Dose: 40 mg Zinc Sulfate (Zinc Sulfate 220 Mg Cap) 220 mg PO BID [facility] Last Admin: 10/10/18 17:42 Dose: 220 mg - Labs Labs: 10/10/18 08:42 10/10/18 08:42 PT 14.4 SECONDS (9.7-12.2) H 10/06/18 12:58 INR 1.3 10/06/18 12:58 APTT 35 SECONDS (21-34) H 10/06/18 12:58 - Constitutional Appears: Well - Head Exam Head Exam: ATRAUMATIC, NORMAL INSPECTION, NORMOCEPHALIC - Eye Exam Eye Exam: EOMI, Normal appearance, PERRL Pupil Exam: NORMAL ACCOMODATION, PERRL - ENT Exam ENT Exam: Mucous Membranes Moist, Normal Exam - Neck Exam Neck Exam: Full ROM, Normal Inspection. absent: Lymphadenopathy - Respiratory Exam Respiratory Exam: Decreased Breath Sounds - Cardiovascular Exam Cardiovascular Exam: REGULAR RHYTHM, +S1, +S2 - GI/Abdominal Exam GI & Abdominal Exam: Soft, Diminished Bowel Sounds - Rectal Exam Rectal Exam: Deferred
--- NOTE | 2018-10-10 19:44 | PN ---
DATE: 10/10/2018 SUBJECTIVE: The patient is mildly short of breath. PHYSICAL EXAMINATION: VITAL SIGNS: Blood pressure 139/61, heart rate 84, temperature 97.9, respirations 12. HEENT: Pales conjunctivae. CHEST: Bilateral rhonchi and absent breath sounds over the bases. HEART: S1 and S2 regular. EXTREMITIES: Significantly contracted lower extremities. LABORATORY DATA: SMA-7: Sodium 150, potassium 4, chloride 103, CO2 of 18, glucose 133, BUN 77, creatinine 1.7, alkaline phosphatase 227. Hemoglobin and hematocrit 8.9 and 27.5, white count 9.7, platelet count 154,000. ASSESSMENT: 1. Status post respiratory failure. 2. Pneumonia with moderate left and small right pleural effusion. 3. Chronic obstructive lung disease. 4. Borderline troponin elevation. 5. Mild aortic insufficiency. 6. History of multiple cerebrovascular accident in the past. RECOMMENDATIONS: Continue aspirin 81 mg once a day, multivitamin one tablet once a day, Lopressor 25 mg twice a day, micafungin 100 mg intravenously daily, Plavix 75 mg once a day, 20 mg intravenously every 12 hours, tigecycline 50 mg intravenously daily, vitamin C 500 mg twice a day. Tomas Veras MD
[2018-10-10] MEDS ORDERED: Acetaminophen IV 1,000 MG in Premixed IV 1 EA IV PRN (21:43)
[2018-10-11] MEDS: (Novolin R) Insulin Human Regular 100 units/ml vial SC SCH ×4 (00:14→18:00)
[2018-10-11] MEDS: Albuterol 0.042% Inhal Sol (1.25 mg/3 mL) UD INH SCH ×4 (02:10→19:49)
[2018-10-11 06:21] LABS: BASO % 0.1 % (0.0-2.0); EOS % 0.1 % (0.0-4.0); HEMOGLOBIN 10.1 g/dL (12.0-18.0); LYMPH # 0.5 K/uL (1.0-4.3); LYMPH % 4.4 % (20.0-40.0); MEAN CELL VOLUME 103.6 fL (80.0-94.0); MEAN CORPUSCULAR HEMOGLOBIN 30.5 pg (27.0-31.0); MEAN CORPUSCULAR HGB CONC 29.4 g/dL (33.0-37.0); MEAN PLATELET VOLUME 11.4 fL (7.2-11.7); MONO # 0.4 K/uL (0.0-0.8); MONO % 3.9 % (0.0-10.0); NEUT # 10.3 K/uL (1.8-7.0); NEUT % 91.5 % (50.0-75.0); NRBC % 0.1 % (0.0-2.0); PLATELET COUNT 128 K/uL (130-400); WHITE BLOOD COUNT 11.2 K/uL (4.8-10.8)
[2018-10-11 07:03] LABS: ALB/GLOB RATIO 0.7 (1.0-2.1); ALBUMIN 2.3 g/dL (3.5-5.0)
[2018-10-11 08:31] LABS: ANISOCYTOSIS MODERATE; LYMPHOCYTE 2 % (20-40); MONOCYTE 3 % (0-10); NEUTROPHIL 95 % (50-75); PLATELET ESTIMATE SLIGHTLY DECREASED (NORMAL); POIKILOCYTOSIS SLIGHT; TOTAL CELLS COUNTED 100
[2018-10-11 08:32] LABS: ACANTHOCYTES SLIGHT; OVALOCYTES SLIGHT
[2018-10-11] MEDS: Enoxaparin 40 mg Syringe SC SCH (09:39)
[2018-10-11] MEDS: MethylPREDNISolone 40 mg Vial IVP SCH ×2 (09:39→22:08)
[2018-10-11] MEDS: Pantoprazole 40 mg Susp UD NG SCH (09:41)
[2018-10-11] MEDS: Multiple Vitamins Tab PO SCH (10:00)
[2018-10-11] MEDS: Micafungin 100 MG in Sodium Chloride 0.9% 100 ML IV SCH (14:00)
[2018-10-11 14:20] LABS: GLUCOSE PLEURAL FLUID 158 mg/dL; LDH PLEURAL FLUID 78 U/L; TOTAL PROTEIN PLEURAL FLUID <3.0 g/dL
--- NOTE | 2018-10-11 15:33 | CP.PCM.PN ---
Subjective - Date & Time of Evaluation Date of Evaluation: 10/11/18 Time of Evaluation: 12:30 - Subjective Subjective: clinically same Objective - Vital Signs/Intake and Output Vital Signs (last 24 hours): Temp Pulse Resp BP Pulse Ox 98.3 F 87 13 195/93 H 100 10/11/18 04:00 10/11/18 05:00 10/11/18 05:00 10/11/18 09:41 10/11/18 05:00 Intake and Output: 10/11/18 10/11/18 06:59 18:59 Intake Total 540 Balance 540 - Medications Medications: Current Medications Acetaminophen (Tylenol 325mg Tab) 650 mg PO Q8 PRN PRN Reason: Pain, Mild (1-3) Albuterol Sulfate (Albuterol 0.042% Inhal [place] (1.25mg/3ml) Ud) 1.25 mg INH RQ6 [facility] Last Admin: 10/11/18 13:31 Dose: 1.25 mg Ascorbic Acid (Vitamin C 500 Mg Tab) 500 mg PO BID [facility] Last Admin: 10/11/18 09:40 Dose: 500 mg Aspirin (Aspirin Chewable) 81 mg PO DAILY [facility] Last Admin: 10/11/18 09:40 Dose: 81 mg Clopidogrel Bisulfate (Plavix) 75 mg PO DAILY [facility] Last Admin: 10/11/18 09:40 Dose: 75 mg Dextrose (Dextrose 50% Inj) 0 ml IV STAT PRN; Protocol PRN Reason: Hypoglycemia Protocol Dextrose (Glutose 15) 0 gm PO ONCE PRN; Protocol PRN Reason: Hypoglycemia Protocol Glucagon (Glucagen Diagnostic Kit) 0 mg IM STAT PRN; Protocol PRN Reason: Hypoglycemia Protocol Tigecycline 50 mg/ Sodium (Chloride) 100 mls @ 100 mls/hr IVPB Q12H [facility]; Protocol Last Admin: 10/10/18 16:04 Dose: 100 mls/hr Insulin Human Regular (Novolin R) 0 unit SC Q6 [facility]; Protocol Last Admin: 10/11/18 00:14 Dose: Not Given Methylprednisolone (Solu-Medrol) 20 mg IVP Q12 [facility] Last Admin: 10/11/18 09:39 Dose: 20 mg Metoprolol Tartrate (Lopressor) 25 mg PO BID [facility] Last Admin: 10/11/18 09:41 Dose: 25 mg Multivitamins (Hexavitamin) 1 tab PO DAILY [facility] Last Admin: 10/10/18 09:14 Dose: 1 tab Pantoprazole Sodium (Protonix Susp) 40 mg NG DAILY [facility] Last Admin: 10/11/18 09:41 Dose: 40 mg Zinc Sulfate (Zinc Sulfate 220 Mg Cap) 220 mg PO BID [facility] Last Admin: 10/11/18 09:40 Dose: 220 mg - Labs Labs: 10/11/18 06:15 10/11/18 06:24 PT 14.4 SECONDS (9.7-12.2) H 10/06/18 12:58 INR 1.3 10/06/18 12:58 APTT 35 SECONDS (21-34) H 10/06/18 12:58 - Constitutional Appears: Well - Head Exam Head Exam: ATRAUMATIC, NORMAL INSPECTION, NORMOCEPHALIC - Eye Exam Eye Exam: EOMI, Normal appearance, PERRL Pupil Exam: NORMAL ACCOMODATION, PERRL - ENT Exam ENT Exam: Mucous Membranes Moist, Normal Exam - Neck Exam Neck Exam: Full ROM, Normal Inspection. absent: Lymphadenopathy - Respiratory Exam Respiratory Exam: Decreased Breath Sounds - Cardiovascular Exam Cardiovascular Exam: REGULAR RHYTHM, +S1, +S2 - GI/Abdominal Exam GI & Abdominal Exam: Soft, Diminished Bowel Sounds - Rectal Exam Rectal Exam: Deferred
--- NOTE | 2018-10-11 18:58 | PN ---
DATE: 10/11/2018 SUBJECTIVE: The patient feels comfortable. No reported ventricular tachycardia. PHYSICAL EXAMINATION: VITAL SIGNS: Blood pressure 195/93, heart rate 87, respirations 16, temperature 98.3. HEENT: Pale conjunctivae. CHEST: Diminished breath sounds over the bases. HEART: S1 and S2, regular. EXTREMITIES: Contracted lower extremities with bilateral iliac decubiti as well as pressure sores involving the lateral aspect of the left foot. LABORATORY DATA: Today's SMA-7; sodium 150, potassium 4.9, chloride 128, CO2 of 14, glucose 162, BUN 83, creatinine 1.8. Today's hemoglobin and hematocrit 10.1 and 34.2, white count 11.2, platelet count 128,000. Right and left hip ulcers are positive for darcie albicans and sacral decubitus is positive for darcie albicans beside vancomycin-resistant Enterococcus faecium. ASSESSMENT: 1. Status post respiratory failure. 2. Borderline troponin elevation. 3. Pneumonia with bilateral pleural effusion. 4. Bilateral iliac decubiti positive for darcie albicans and Enterococcus faecium infected sacral decubitus. 5. Mild aortic insufficiency. 6. History of multiple cerebrovascular accident. RECOMMENDATIONS: Continue current aspirin 81 mg once a day, Lopressor 25 mg twice a day, micafungin 100 mg intravenously daily, Plavix 75 mg once a day, Solu-Medrol 20 mg intravenously every 12 hours, tigecycline 50 mg intravenously every 12 hours. The patient will have a family meeting tomorrow when the to plan future long-term management. Tomas Veras MD
[2018-10-12] MEDS: (Novolin R) Insulin Human Regular 100 units/ml vial SC SCH ×4 (00:58→18:20)
[2018-10-12] MEDS: Albuterol 0.042% Inhal Sol (1.25 mg/3 mL) UD INH SCH ×4 (01:22→20:03)
[2018-10-12 07:23] LABS: BASO % 0.2 % (0.0-2.0); EOS % 0.1 % (0.0-4.0); LYMPH # 0.3 K/uL (1.0-4.3); LYMPH % 2.7 % (20.0-40.0); MEAN CORPUSCULAR HEMOGLOBIN 31.1 pg (27.0-31.0); MEAN CORPUSCULAR HGB CONC 32.1 g/dL (33.0-37.0); MEAN PLATELET VOLUME 11.4 fL (7.2-11.7); MONO # 0.2 K/uL (0.0-0.8); NEUT # 11.1 K/uL (1.8-7.0); NRBC % 0.2 % (0.0-2.0); PLATELET COUNT 140 K/uL (130-400); RED CELL DISTRIBUTION WIDTH 20.3 % (11.5-14.5); WHITE BLOOD COUNT 11.6 K/uL (4.8-10.8)
[2018-10-12 07:32] LABS: MEAN CELL VOLUME 96.7 fL (80.0-94.0)
[2018-10-12 08:06] LABS: ALB/GLOB RATIO 0.7 (1.0-2.1); ALBUMIN 2.3 g/dL (3.5-5.0); CALCIUM 8.1 mg/dl (8.6-10.4)
[2018-10-12 08:39] LABS: MONOCYTE 2 % (0-10); PLATELET ESTIMATE NORMAL (NORMAL); TOTAL CELLS COUNTED 100
[2018-10-12 08:40] LABS: ANISOCYTOSIS SLIGHT; BURR CELLS SLIGHT; HYPOCHROMIC SLIGHT; LARGE PLATELETS PRESENT; LYMPHOCYTE 2 % (20-40); NEUTROPHIL 96 % (50-75); POIKILOCYTOSIS SLIGHT; TARGET CELLS SLIGHT
[2018-10-12 08:41] LABS: TEARDROP CELLS SLIGHT
[2018-10-12] MEDS: MethylPREDNISolone 40 mg Vial IVP SCH ×2 (09:17→22:10)
[2018-10-12] MEDS: Multiple Vitamins Tab PO SCH (09:17)
[2018-10-12] MEDS: Pantoprazole 40 mg Susp UD NG SCH (09:18)
[2018-10-12] MEDS: Enoxaparin 40 mg Syringe SC SCH (12:42)
--- NOTE | 2018-10-12 13:47 | CP.PCM.PN ---
Subjective - Date & Time of Evaluation Date of Evaluation: 10/12/18 Time of Evaluation: 13:46 - Subjective Subjective: Podiatry Progress Note for Dr. Perdomo 87M seen for eschars of left leg. Patient is unable to communicate at this time. Per nursing, no acute overnight events Objective - Vital Signs/Intake and Output Vital Signs (last 24 hours): Temp Pulse Resp BP Pulse Ox 98.2 F 74 20 145/66 100 10/12/18 12:00 10/12/18 12:00 10/12/18 12:00 10/12/18 12:00 10/12/18 12:00 Intake and Output: 10/12/18 10/12/18 06:59 18:59 Intake Total 570 90 Output Total 660 140 Balance -90 -50 - Medications Medications: Current Medications Acetaminophen (Tylenol 325mg Tab) 650 mg PO Q8 PRN PRN Reason: Pain, Mild (1-3) Albuterol Sulfate (Albuterol 0.042% Inhal [place] (1.25mg/3ml) Ud) 1.25 mg INH RQ6 [facility] Last Admin: 10/12/18 13:15 Dose: 1.25 mg Ascorbic Acid (Vitamin C 500 Mg Tab) 500 mg PO BID [facility] Last Admin: 10/12/18 09:17 Dose: 500 mg Aspirin (Aspirin Chewable) 81 mg PO DAILY [facility] Last Admin: 10/12/18 09:17 Dose: 81 mg Clopidogrel Bisulfate (Plavix) 75 mg PO DAILY [facility] Last Admin: 10/12/18 09:17 Dose: 75 mg Dextrose (Dextrose 50% Inj) 0 ml IV STAT PRN; Protocol PRN Reason: Hypoglycemia Protocol Dextrose (Glutose 15) 0 gm PO ONCE PRN; Protocol PRN Reason: Hypoglycemia Protocol Enoxaparin Sodium (Lovenox) 40 mg SC DAILY [facility] Last Admin: 10/12/18 12:42 Dose: 40 mg Glucagon (Glucagen Diagnostic Kit) 0 mg IM STAT PRN; Protocol PRN Reason: Hypoglycemia Protocol Micafungin Sodium 100 mg/ (Sodium Chloride) 100 mls @ 100 mls/hr IV Q24H [facility]; Protocol Tigecycline 50 mg/ Dextrose 100 mls @ 100 mls/hr IVPB Q12H [facility]; Protocol Insulin Human Regular (Novolin R) 0 unit SC Q6 [facility]; Protocol Last Admin: 10/12/18 12:00 Dose: Not Given Methylprednisolone (Solu-Medrol) 20 mg IVP Q12 [facility] Last Admin: 10/12/18 09:17 Dose: 20 mg Metoprolol Tartrate (Lopressor) 25 mg PO BID [facility] Last Admin: 10/12/18 09:17 Dose: 25 mg Multivitamins (Hexavitamin) 1 tab PO DAILY [facility] Last Admin: 10/12/18 09:17 Dose: 1 tab Pantoprazole Sodium (Protonix Susp) 40 mg NG DAILY [facility] Last Admin: 10/12/18 09:18 Dose: 40 mg Zinc Sulfate (Zinc Sulfate 220 Mg Cap) 220 mg PO BID [facility] Last Admin: 10/12/18 09:18 Dose: 220 mg - Labs Labs: 10/12/18 07:10 10/12/18 07:10 PT 14.4 SECONDS (9.7-12.2) H 10/06/18 12:58 INR 1.3 10/06/18 12:58 APTT 35 SECONDS (21-34) H 10/06/18 12:58 - Constitutional Appears: Non-toxic, No Acute Distress - Extremities Exam Additional comments: LLE focused exam Patient lower extremities contracted VASC: DP and PT 1/4, CFT less than 3 seconds X 10, no edema, no varicosities, TG warm to warm NEURO: unable to assess DERM: two stable eschars noted to the lateral aspect of the left foot, no drainage, no malodor, no erythema, no edema, no probe to bone, no other open lesions, no clinical signs of infection ORTHO: unable to assess - Neurological Exam Neurological Exam: Awake - Psychiatric Exam Psychiatric exam: Normal Affect, Normal Mood Assessment and Plan - Assessment and Plan (Free Text) Assessment: 87M seen for eschars of left leg Plan: Patient seen and evaluated Plan discussed with Dr. Perdomo No signs of infection at this time No plan for intervention at this time Wounds left open to air Podiatry will continue to follow while patient in house Keep multipodus boots in place
[2018-10-12] MEDS: Micafungin 100 MG in Sodium Chloride 0.9% 100 ML IV SCH (14:51)
--- NOTE | 2018-10-12 16:27 | CP.PCM.PN ---
Subjective - Date & Time of Evaluation Date of Evaluation: 10/12/18 Time of Evaluation: 09:00 - Subjective Subjective: The patient seen and examined in no respiratory distress Afebrile Objective - Vital Signs/Intake and Output Vital Signs (last 24 hours): Temp Pulse Resp BP Pulse Ox 98.2 F 82 21 156/85 H 100 10/12/18 12:00 10/12/18 15:17 10/12/18 15:17 10/12/18 15:17 10/12/18 12:00 Intake and Output: 10/12/18 10/12/18 06:59 18:59 Intake Total 570 90 Output Total 660 140 Balance -90 -50 - Medications Medications: Current Medications Acetaminophen (Tylenol 325mg Tab) 650 mg PO Q8 PRN PRN Reason: Pain, Mild (1-3) Albuterol Sulfate (Albuterol 0.042% Inhal [place] (1.25mg/3ml) Ud) 1.25 mg INH RQ6 [facility] Last Admin: 10/12/18 13:15 Dose: 1.25 mg Ascorbic Acid (Vitamin C 500 Mg Tab) 500 mg PO BID [facility] Last Admin: 10/12/18 09:17 Dose: 500 mg Aspirin (Aspirin Chewable) 81 mg PO DAILY [facility] Last Admin: 10/12/18 09:17 Dose: 81 mg Clopidogrel Bisulfate (Plavix) 75 mg PO DAILY [facility] Last Admin: 10/12/18 09:17 Dose: 75 mg Dextrose (Dextrose 50% Inj) 0 ml IV STAT PRN; Protocol PRN Reason: Hypoglycemia Protocol Dextrose (Glutose 15) 0 gm PO ONCE PRN; Protocol PRN Reason: Hypoglycemia Protocol Enoxaparin Sodium (Lovenox) 40 mg SC DAILY [facility] Last Admin: 10/12/18 12:42 Dose: 40 mg Glucagon (Glucagen Diagnostic Kit) 0 mg IM STAT PRN; Protocol PRN Reason: Hypoglycemia Protocol Micafungin Sodium 100 mg/ (Sodium Chloride) 100 mls @ 100 mls/hr IV Q24H [facility]; Protocol Last Admin: 10/12/18 14:51 Dose: 100 mls/hr Tigecycline 50 mg/ Dextrose 100 mls @ 100 mls/hr IVPB Q12H [facility]; Protocol Insulin Human Regular (Novolin R) 0 unit SC Q6 [facility]; Protocol Last Admin: 10/12/18 12:00 Dose: Not Given Methylprednisolone (Solu-Medrol) 20 mg IVP Q12 [facility] Last Admin: 10/12/18 09:17 Dose: 20 mg Metoprolol Tartrate (Lopressor) 25 mg PO BID [facility] Last Admin: 10/12/18 09:17 Dose: 25 mg Multivitamins (Hexavitamin) 1 tab PO DAILY [facility] Last Admin: 10/12/18 09:17 Dose: 1 tab Pantoprazole Sodium (Protonix Susp) 40 mg NG DAILY [facility] Last Admin: 10/12/18 09:18 Dose: 40 mg Zinc Sulfate (Zinc Sulfate 220 Mg Cap) 220 mg PO BID [facility] Last Admin: 10/12/18 09:18 Dose: 220 mg - Labs Labs: 10/12/18 07:10 10/12/18 07:10 PT 14.4 SECONDS (9.7-12.2) H 10/06/18 12:58 INR 1.3 10/06/18 12:58 APTT 35 SECONDS (21-34) H 10/06/18 12:58 - Head Exam Head Exam: ATRAUMATIC, NORMOCEPHALIC - ENT Exam ENT Exam: Mucous Membranes Moist - Respiratory Exam Respiratory Exam: Decreased Breath Sounds - GI/Abdominal Exam GI & Abdominal Exam: Soft Assessment and Plan (1) Acute respiratory failure Status: Acute (2) Pleural effusion Assessment & Plan: status post thoracentesis Continue antibiotics Prognosis poor pending Family decision Status: Acute (3) COPD (chronic obstructive pulmonary disease) Status: Acute
[2018-10-12] MEDS: Tigecycline 50 MG in Dextrose 5% In Water 100 ML IVPB SCH (16:36)
[2018-10-12] MEDS ORDERED: Potassium Ch 20mEq in D5-1/2NS 1,000 ML IV SCH (18:15)
--- NOTE | 2018-10-12 18:51 | PN ---
DATE: 10/12/2018 SUBJECTIVE: The patient is lethargic, poorly responsive. Does not appear to be in respiratory distress. PHYSICAL EXAMINATION VITAL SIGNS: Blood pressure 145/66, heart rate 75, temperature 98.2, respirations 24. The patient is in sinus rhythm. HEENT: Pale conjunctivae. CHEST: Absent breath sounds at the bases. HEART: S1, S2 regular. EXTREMITIES: Significant contracted lower extremities with to the iliac ulcers. LABORATORY DATA: Today's hemoglobin and hematocrit are 9 and 28, white count 11.6, platelet count 140,000. SMA-7: Sodium 144, potassium 4.6, chloride 127, carbon dioxide 22, glucose 153, BUN 96, creatinine 1.8. ASSESSMENT: 1. Status post respiratory failure. 2. Dehydration and hypernatremia as well as prerenal azotemia. 3. Borderline troponin elevation. 4. Pneumonia with bilateral pleural effusion. 5. Bilateral iliac decubiti with Faith albicans fungal infection. 6. Sacral decubitus with Enterococcus faecium bacteria infection. 7. Mild aortic insufficiency. 8. History of multiple cerebrovascular accidents. RECOMMENDATIONS: Continue aspirin 81 mg once a day, multivitamin one tablet once a day, Lopressor 25 mg twice a day, Lovenox 40 mg subcutaneous once a day, micafungin 100 mg intravenously daily, Plavix 75 mg once a day, Solu-Medrol 20 mg intravenously twice a day, tigecycline 50 mg intravenously every 12 hours. Prognosis is very poor. Tomas Veras MD
--- NOTE | 2018-10-12 21:02 | CP.PCM.PN ---
Subjective - Date & Time of Evaluation Date of Evaluation: 10/12/18 Time of Evaluation: 10:45 - Subjective Subjective: clinically same Objective - Vital Signs/Intake and Output Vital Signs (last 24 hours): Temp Pulse Resp BP Pulse Ox 98.6 F 79 19 157/73 H 100 10/12/18 16:00 10/12/18 18:16 10/12/18 18:16 10/12/18 18:16 10/12/18 18:16 Intake and Output: 10/12/18 10/13/18 18:59 06:59 Intake Total 180 Output Total 540 Balance -360 - Medications Medications: Current Medications Acetaminophen (Tylenol 325mg Tab) 650 mg PO Q8 PRN PRN Reason: Pain, Mild (1-3) Albuterol Sulfate (Albuterol 0.042% Inhal [place] (1.25mg/3ml) Ud) 1.25 mg INH RQ6 [facility] Last Admin: 10/12/18 20:03 Dose: 1.25 mg Ascorbic Acid (Vitamin C 500 Mg Tab) 500 mg PO BID [facility] Last Admin: 10/12/18 17:10 Dose: 500 mg Aspirin (Aspirin Chewable) 81 mg PO DAILY [facility] Last Admin: 10/12/18 09:17 Dose: 81 mg Clopidogrel Bisulfate (Plavix) 75 mg PO DAILY [facility] Last Admin: 10/12/18 09:17 Dose: 75 mg Dextrose (Dextrose 50% Inj) 0 ml IV STAT PRN; Protocol PRN Reason: Hypoglycemia Protocol Dextrose (Glutose 15) 0 gm PO ONCE PRN; Protocol PRN Reason: Hypoglycemia Protocol Enoxaparin Sodium (Lovenox) 40 mg SC DAILY [facility] Last Admin: 10/12/18 12:42 Dose: 40 mg Glucagon (Glucagen Diagnostic Kit) 0 mg IM STAT PRN; Protocol PRN Reason: Hypoglycemia Protocol Micafungin Sodium 100 mg/ (Sodium Chloride) 100 mls @ 100 mls/hr IV Q24H [facility]; Protocol Last Admin: 10/12/18 14:51 Dose: 100 mls/hr Tigecycline 50 mg/ Dextrose 100 mls @ 100 mls/hr IVPB Q12H [facility]; Protocol Last Admin: 10/12/18 16:36 Dose: 100 mls/hr Insulin Human Regular (Novolin R) 0 unit SC Q6 [facility]; Protocol Last Admin: 11/15/18 18:20 Dose: 1 unit Methylprednisolone (Solu-Medrol) 20 mg IVP Q12 [facility] Last Admin: 10/12/18 09:17 Dose: 20 mg Metoprolol Tartrate (Lopressor) 25 mg PO BID [facility] Last Admin: 10/12/18 17:59 Dose: 25 mg Multivitamins (Hexavitamin) 1 tab PO DAILY [facility] Last Admin: 10/12/18 09:17 Dose: 1 tab Pantoprazole Sodium (Protonix Susp) 40 mg NG DAILY [facility] Last Admin: 10/12/18 09:18 Dose: 40 mg Zinc Sulfate (Zinc Sulfate 220 Mg Cap) 220 mg PO BID [facility] Last Admin: 10/12/18 17:10 Dose: 220 mg - Labs Labs: 10/12/18 07:10 10/12/18 07:10 PT 14.4 SECONDS (9.7-12.2) H 10/06/18 12:58 INR 1.3 10/06/18 12:58 APTT 35 SECONDS (21-34) H 10/06/18 12:58 - Constitutional Appears: Well - Head Exam Head Exam: ATRAUMATIC, NORMAL INSPECTION, NORMOCEPHALIC - Eye Exam Eye Exam: EOMI, Normal appearance, PERRL Pupil Exam: NORMAL ACCOMODATION, PERRL - ENT Exam ENT Exam: Mucous Membranes Moist, Normal Exam - Neck Exam Neck Exam: Full ROM, Normal Inspection. absent: Lymphadenopathy - Respiratory Exam Respiratory Exam: Decreased Breath Sounds - Cardiovascular Exam Cardiovascular Exam: REGULAR RHYTHM, +S1, +S2 - GI/Abdominal Exam GI & Abdominal Exam: Soft, Diminished Bowel Sounds - Rectal Exam Rectal Exam: Deferred
[2018-10-13] MEDS: (Novolin R) Insulin Human Regular 100 units/ml vial SC SCH ×4 (00:36→18:55)
[2018-10-13] MEDS: Albuterol 0.042% Inhal Sol (1.25 mg/3 mL) UD INH SCH ×3 (01:39→13:45)
[2018-10-13] MEDS: Tigecycline 50 MG in Dextrose 5% In Water 100 ML IVPB SCH ×2 (04:42→16:19)
[2018-10-13 07:18] LABS: HEMOGLOBIN 7.9 g/dL (12.0-18.0); LYMPH # 0.3 K/uL (1.0-4.3); MONO # 0.2 K/uL (0.0-0.8); NEUT % 95.1 % (50.0-75.0); RBC 2.52 Mil/uL (4.40-5.90)
[2018-10-13 07:29] LABS: BASO % 0.3 % (0.0-2.0); LYMPH % 2.9 % (20.0-40.0); MEAN CELL VOLUME 97.2 fL (80.0-94.0); MEAN CORPUSCULAR HEMOGLOBIN 31.4 pg (27.0-31.0); MEAN CORPUSCULAR HGB CONC 32.3 g/dL (33.0-37.0); MEAN PLATELET VOLUME 11.8 fL (7.2-11.7); MONO % 1.7 % (0.0-10.0); NRBC % 0.2 % (0.0-2.0); RED CELL DISTRIBUTION WIDTH 20.2 % (11.5-14.5); WHITE BLOOD COUNT 10.5 K/uL (4.8-10.8)
[2018-10-13 07:39] LABS: PLATELET COUNT 111 K/uL (130-400)
[2018-10-13 07:40] LABS: ALB/GLOB RATIO 0.7 (1.0-2.1); CALCIUM 7.7 mg/dl (8.6-10.4)
[2018-10-13 09:17] LABS: LYMPHOCYTE 2 % (20-40); MONOCYTE 1 % (0-10); MYELOCYTE 1 % (0-0); NEUTROPHIL 96 % (50-75); PLATELET ESTIMATE SLIGHTLY DECREASED (NORMAL); TOTAL CELLS COUNTED 100
[2018-10-13 09:18] LABS: ANISOCYTOSIS SLIGHT; HYPOCHROMIC SLIGHT; OVALOCYTES SLIGHT; POIKILOCYTOSIS SLIGHT; TOXIC GRANULATION PRESENT
[2018-10-13] MEDS: Multiple Vitamins Tab PO SCH (09:30)
[2018-10-13] MEDS: Pantoprazole 40 mg Susp UD NG SCH (09:31)
[2018-10-13] MEDS: Enoxaparin 40 mg Syringe SC SCH (09:31)
[2018-10-13] MEDS: MethylPREDNISolone 40 mg Vial IVP SCH ×2 (09:32→22:20)
--- NOTE | 2018-10-13 11:49 | CP.PCM.PN ---
Subjective - Date & Time of Evaluation Date of Evaluation: 10/13/18 Time of Evaluation: 08:00 - Subjective Subjective: The patient seen and examined No shortness of breath Lethargic Afebrile Objective - Vital Signs/Intake and Output Vital Signs (last 24 hours): Temp Pulse Resp BP Pulse Ox 97.8 F 83 13 161/54 H 99 10/13/18 08:00 10/13/18 10:00 10/13/18 10:00 10/13/18 09:31 10/13/18 10:00 Intake and Output: 10/13/18 10/13/18 06:59 18:59 Intake Total 1180 Output Total 750 Balance 430 - Medications Medications: Current Medications Acetaminophen (Tylenol 325mg Tab) 650 mg PO Q8 PRN PRN Reason: Pain, Mild (1-3) Albuterol Sulfate (Albuterol 0.042% Inhal [place] (1.25mg/3ml) Ud) 1.25 mg INH RQ6 [facility] Last Admin: 10/13/18 08:13 Dose: 1.25 mg Ascorbic Acid (Vitamin C 500 Mg Tab) 500 mg PO BID [facility] Last Admin: 10/13/18 09:30 Dose: 500 mg Aspirin (Aspirin Chewable) 81 mg PO DAILY [facility] Last Admin: 10/13/18 09:31 Dose: 81 mg Clopidogrel Bisulfate (Plavix) 75 mg PO DAILY [facility] Last Admin: 10/13/18 09:29 Dose: 75 mg Dextrose (Dextrose 50% Inj) 0 ml IV STAT PRN; Protocol PRN Reason: Hypoglycemia Protocol Dextrose (Glutose 15) 0 gm PO ONCE PRN; Protocol PRN Reason: Hypoglycemia Protocol Enoxaparin Sodium (Lovenox) 40 mg SC DAILY [facility] Last Admin: 10/13/18 09:31 Dose: 40 mg Glucagon (Glucagen Diagnostic Kit) 0 mg IM STAT PRN; Protocol PRN Reason: Hypoglycemia Protocol Micafungin Sodium 100 mg/ (Sodium Chloride) 100 mls @ 100 mls/hr IV Q24H [facility]; Protocol Last Admin: 10/12/18 14:51 Dose: 100 mls/hr Tigecycline 50 mg/ Dextrose 100 mls @ 100 mls/hr IVPB Q12H [facility]; Protocol Last Admin: 10/13/18 04:42 Dose: 100 mls/hr Insulin Human Regular (Novolin R) 0 unit SC Q6 [facility]; Protocol Last Admin: 10/13/18 06:30 Dose: Not Given Methylprednisolone (Solu-Medrol) 20 mg IVP Q12 [facility] Last Admin: 10/13/18 09:32 Dose: 20 mg Metoprolol Tartrate (Lopressor) 25 mg PO BID [facility] Last Admin: 10/13/18 09:31 Dose: 25 mg Multivitamins (Hexavitamin) 1 tab PO DAILY [facility] Last Admin: 10/13/18 09:30 Dose: 1 tab Pantoprazole Sodium (Protonix Susp) 40 mg NG DAILY [facility] Last Admin: 10/13/18 09:31 Dose: 40 mg Zinc Sulfate (Zinc Sulfate 220 Mg Cap) 220 mg PO BID [facility] Last Admin: 10/13/18 09:30 Dose: 220 mg - Labs Labs: 10/13/18 07:04 10/13/18 07:04 PT 14.4 SECONDS (9.7-12.2) H 10/06/18 12:58 INR 1.3 10/06/18 12:58 APTT 35 SECONDS (21-34) H 10/06/18 12:58 - Head Exam Head Exam: ATRAUMATIC, NORMOCEPHALIC - ENT Exam ENT Exam: Mucous Membranes Dry - Neck Exam Neck Exam: Normal Inspection - Respiratory Exam Respiratory Exam: Decreased Breath Sounds - Cardiovascular Exam Cardiovascular Exam: Irregular Rhythm - GI/Abdominal Exam GI & Abdominal Exam: Soft, Normal Bowel Sounds Assessment and Plan (1) Acute respiratory failure Assessment & Plan: status post extubation and no respirator stress Status post thoracentesis Prognosis poor Pending family meeting Continue antibiotic Status: Acute (2) Pleural effusion Status: Acute (3) COPD (chronic obstructive pulmonary disease) Status: Acute
--- NOTE | 2018-10-13 13:18 | PN ---
DATE: 10/13/2018 SUBJECTIVE: The patient is lethargic and nonverbal. No reported ventricular arrhythmia. He has been hemodynamically stable. The family has not met to decide placement options. PHYSICAL EXAMINATION: VITAL SIGNS: Blood pressure 161/54, heart rate 84, temperature 98.7, respirations 22. HEENT: Pale conjunctivae. CHEST: Absent breath sounds at the bases. HEART: S1 and S2 regular. EXTREMITIES: Significant contracture deformity with dressing applied to bilateral iliac ulcers. LABORATORY DATA: Today's hemoglobin and hematocrit are 7.9 and 24.5. White count 10.5, platelet count 111,000. Today's SMA-7; sodium 151, potassium 4.4, chloride 121, CO2 of 22, glucose 125, BUN 101, creatinine 1.5. ASSESSMENT AND PLAN: 1. Worsening dehydration and prerenal azotemia. 2. Borderline troponin elevation upon admission. 3. Pneumonia status post respiratory failure. 4. Bilateral iliac pressure ulcers, both are affected with Faith albicans. 5. Sacral decubitus with Enterococcus faecium bacteria infection. 6. Mild aortic insufficiency. 7. 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 RECOMMENDATIONS: Continue albuterol inhaler every 6 hours, continue aspirin 81 mg once a day, multivitamin one tablet once a day, Lopressor 25 mg twice a day, subcutaneous Lovenox can be withheld in view of thrombocytopenia, continue micafungin at 100 mg intravenously daily, continue Plavix; however, hold if platelet count starts to deteriorate, continue Solu-Medrol 20 mg intravenously every 12 hours, continue tigecycline 50 mg intravenously every 12 hours. Tomas Veras MD
[2018-10-13] MEDS: Micafungin 100 MG in Sodium Chloride 0.9% 100 ML IV SCH (14:13)
--- NOTE | 2018-10-13 15:20 | CP.PCM.PN ---
Subjective - Date & Time of Evaluation Date of Evaluation: 10/13/18 Time of Evaluation: 11:15 - Subjective Subjective: clinically same Objective - Vital Signs/Intake and Output Vital Signs (last 24 hours): Temp Pulse Resp BP Pulse Ox 98.1 F 64 19 161/54 H 100 10/13/18 12:00 10/13/18 12:00 10/13/18 12:00 10/13/18 09:31 10/13/18 12:00 Intake and Output: 10/13/18 10/13/18 06:59 18:59 Intake Total 1180 300 Output Total 750 Balance 430 300 - Medications Medications: Current Medications Acetaminophen (Tylenol 325mg Tab) 650 mg PO Q8 PRN PRN Reason: Pain, Mild (1-3) Ascorbic Acid (Vitamin C 500 Mg Tab) 500 mg PO BID [facility] Last Admin: 10/13/18 09:30 Dose: 500 mg Aspirin (Aspirin Chewable) 81 mg PO DAILY [facility] Last Admin: 10/13/18 09:31 Dose: 81 mg Clopidogrel Bisulfate (Plavix) 75 mg PO DAILY [facility] Last Admin: 10/13/18 09:29 Dose: 75 mg Dextrose (Dextrose 50% Inj) 0 ml IV STAT PRN; Protocol PRN Reason: Hypoglycemia Protocol Dextrose (Glutose 15) 0 gm PO ONCE PRN; Protocol PRN Reason: Hypoglycemia Protocol Enoxaparin Sodium (Lovenox) 40 mg SC DAILY [facility] Last Admin: 10/13/18 09:31 Dose: 40 mg Glucagon (Glucagen Diagnostic Kit) 0 mg IM STAT PRN; Protocol PRN Reason: Hypoglycemia Protocol Micafungin Sodium 100 mg/ (Sodium Chloride) 100 mls @ 100 mls/hr IV Q24H [facility]; Protocol Last Admin: 10/13/18 14:13 Dose: 100 mls/hr Tigecycline 50 mg/ Dextrose 100 mls @ 100 mls/hr IVPB Q12H [facility]; Protocol Last Admin: 10/13/18 04:42 Dose: 100 mls/hr Insulin Human Regular (Novolin R) 0 unit SC Q6 [facility]; Protocol Last Admin: 10/13/18 06:30 Dose: Not Given Methylprednisolone (Solu-Medrol) 20 mg IVP Q12 [facility] Last Admin: 10/13/18 09:32 Dose: 20 mg Metoprolol Tartrate (Lopressor) 25 mg PO BID [facility] Last Admin: 10/13/18 09:31 Dose: 25 mg Multivitamins (Hexavitamin) 1 tab PO DAILY [facility] Last Admin: 10/13/18 09:30 Dose: 1 tab Pantoprazole Sodium (Protonix Susp) 40 mg NG DAILY [facility] Last Admin: 10/13/18 09:31 Dose: 40 mg Zinc Sulfate (Zinc Sulfate 220 Mg Cap) 220 mg PO BID [facility] Last Admin: 10/13/18 09:30 Dose: 220 mg - Labs Labs: 10/13/18 07:04 10/13/18 07:04 PT 14.4 SECONDS (9.7-12.2) H 10/06/18 12:58 INR 1.3 10/06/18 12:58 APTT 35 SECONDS (21-34) H 10/06/18 12:58 - Constitutional Appears: Well - Head Exam Head Exam: ATRAUMATIC, NORMAL INSPECTION, NORMOCEPHALIC - Eye Exam Eye Exam: EOMI, Normal appearance, PERRL Pupil Exam: NORMAL ACCOMODATION, PERRL - ENT Exam ENT Exam: Mucous Membranes Moist, Normal Exam - Neck Exam Neck Exam: Full ROM, Normal Inspection. absent: Lymphadenopathy - Respiratory Exam Respiratory Exam: Decreased Breath Sounds - Cardiovascular Exam Cardiovascular Exam: REGULAR RHYTHM, +S1, +S2 - GI/Abdominal Exam GI & Abdominal Exam: Soft, Diminished Bowel Sounds - Rectal Exam Rectal Exam: Deferred
[2018-10-14] MEDS: (Novolin R) Insulin Human Regular 100 units/ml vial SC SCH ×4 (00:49→17:38)
[2018-10-14] MEDS: Tigecycline 50 MG in Dextrose 5% In Water 100 ML IVPB SCH ×2 (04:19→16:30)
[2018-10-14 06:54] LABS: ALB/GLOB RATIO 0.7 (1.0-2.1); ALBUMIN 2.1 g/dL (3.5-5.0); CALCIUM 7.7 mg/dl (8.6-10.4)
[2018-10-14 08:19] LABS: BASO # 0.1 K/uL (0.0-0.2); BASO % 0.9 % (0.0-2.0); EOS % 0.2 % (0.0-4.0); HEMOGLOBIN 9.5 g/dL (12.0-18.0); LYMPH # 0.4 K/uL (1.0-4.3); LYMPH % 2.9 % (20.0-40.0); MEAN CELL VOLUME 97.3 fL (80.0-94.0); MEAN CORPUSCULAR HEMOGLOBIN 30.8 pg (27.0-31.0); MEAN CORPUSCULAR HGB CONC 31.6 g/dL (33.0-37.0); MEAN PLATELET VOLUME 11.7 fL (7.2-11.7); MONO # 0.3 K/uL (0.0-0.8); MONO % 1.9 % (0.0-10.0); NEUT % 94.1 % (50.0-75.0); NRBC % 0.1 % (0.0-2.0); PLATELET COUNT 115 K/uL (130-400); RED CELL DISTRIBUTION WIDTH 20.1 % (11.5-14.5); WHITE BLOOD COUNT 13.8 K/uL (4.8-10.8)
[2018-10-14] MEDS: Enoxaparin 40 mg Syringe SC SCH (09:31)
[2018-10-14] MEDS: MethylPREDNISolone 40 mg Vial IVP SCH ×2 (09:32→21:55)
[2018-10-14] MEDS: Multiple Vitamins Tab PO SCH (09:32)
[2018-10-14] MEDS: Pantoprazole 40 mg Susp UD NG SCH (09:32)
[2018-10-14 09:42] LABS: LYMPHOCYTE 3 % (20-40); MONOCYTE 2 % (0-10); NEUTROPHIL 95 % (50-75); PLATELET ESTIMATE SLIGHTLY DECREASED (NORMAL); TOTAL CELLS COUNTED 100
[2018-10-14 09:43] LABS: ANISOCYTOSIS MODERATE; BURR CELLS SLIGHT; HYPOCHROMIC SLIGHT; OVALOCYTES SLIGHT; POIKILOCYTOSIS SLIGHT; POLYCHROMIC SLIGHT
[2018-10-14 09:44] LABS: LARGE PLATELETS PRESENT
--- NOTE | 2018-10-14 09:52 | CP.PCM.PN ---
Subjective - Date & Time of Evaluation Date of Evaluation: 10/14/18 Time of Evaluation: 09:50 - Subjective Subjective: Podiatry Progress Note for Dr. Perdomo 87M seen for eschars of left leg. Patient is unable to communicate at this time. Per nursing, no acute overnight events Objective - Vital Signs/Intake and Output Vital Signs (last 24 hours): Temp Pulse Resp BP Pulse Ox 97.9 F 86 18 166/75 H 95 10/14/18 09:01 10/14/18 09:01 10/14/18 09:01 10/14/18 09:01 10/14/18 09:01 Intake and Output: 10/14/18 10/14/18 06:59 18:59 Intake Total 640 Balance 640 - Medications Medications: Current Medications Acetaminophen (Tylenol 325mg Tab) 650 mg PO Q8 PRN PRN Reason: Pain, Mild (1-3) Ascorbic Acid (Vitamin C 500 Mg Tab) 500 mg PO BID [facility] Last Admin: 10/14/18 09:32 Dose: 500 mg Aspirin (Aspirin Chewable) 81 mg PO DAILY [facility] Last Admin: 10/13/18 09:31 Dose: 81 mg Clopidogrel Bisulfate (Plavix) 75 mg PO DAILY [facility] Last Admin: 10/14/18 09:32 Dose: 75 mg Dextrose (Dextrose 50% Inj) 0 ml IV STAT PRN; Protocol PRN Reason: Hypoglycemia Protocol Dextrose (Glutose 15) 0 gm PO ONCE PRN; Protocol PRN Reason: Hypoglycemia Protocol Enoxaparin Sodium (Lovenox) 40 mg SC DAILY [facility] Last Admin: 10/14/18 09:31 Dose: 40 mg Glucagon (Glucagen Diagnostic Kit) 0 mg IM STAT PRN; Protocol PRN Reason: Hypoglycemia Protocol Micafungin Sodium 100 mg/ (Sodium Chloride) 100 mls @ 100 mls/hr IV Q24H [facility]; Protocol Last Admin: 10/13/18 14:13 Dose: 100 mls/hr Tigecycline 50 mg/ Dextrose 100 mls @ 100 mls/hr IVPB Q12H [facility]; Protocol Last Admin: 10/14/18 04:19 Dose: 100 mls/hr Insulin Human Regular (Novolin R) 0 unit SC Q6 [facility]; Protocol Last Admin: 10/14/18 07:04 Dose: Not Given Methylprednisolone (Solu-Medrol) 20 mg IVP Q12 [facility] Last Admin: 10/14/18 09:32 Dose: 20 mg Metoprolol Tartrate (Lopressor) 25 mg PO BID [facility] Last Admin: 10/13/18 17:10 Dose: 25 mg Multivitamins (Hexavitamin) 1 tab PO DAILY [facility] Last Admin: 10/14/18 09:32 Dose: 1 tab Pantoprazole Sodium (Protonix Susp) 40 mg NG DAILY [facility] Last Admin: 10/14/18 09:32 Dose: 40 mg Zinc Sulfate (Zinc Sulfate 220 Mg Cap) 220 mg PO BID [facility] Last Admin: 10/14/18 09:32 Dose: 220 mg - Labs Labs: 10/14/18 08:11 10/14/18 06:19 PT 14.4 SECONDS (9.7-12.2) H 10/06/18 12:58 INR 1.3 10/06/18 12:58 APTT 35 SECONDS (21-34) H 10/06/18 12:58 - Constitutional Appears: Non-toxic, No Acute Distress - Extremities Exam Additional comments: LLE focused exam Patient lower extremities contracted VASC: DP and PT 1/4, CFT less than 3 seconds X 10, no edema, no varicosities, TG warm to warm NEURO: unable to assess DERM: two stable eschars noted to the lateral aspect of the left foot, no ty inage, no malodor, no erythema, no edema, no probe to bone, no other open lesions, no clinical signs of infection ORTHO: unable to assess - Neurological Exam Neurological Exam: Awake - Psychiatric Exam Psychiatric exam: Normal Affect, Normal Mood Assessment and Plan - Assessment and Plan (Free Text) Assessment: 87M seen for eschars of left leg Plan: Patient seen and evaluated Plan discussed with Dr. Perdomo No signs of infection at this time No plan for intervention at this time Wounds left open to air Podiatry will continue to follow while patient in house Keep multipodus boots in place
[2018-10-14] MEDS: Micafungin 100 MG in Sodium Chloride 0.9% 100 ML IV SCH (13:35)
--- NOTE | 2018-10-14 15:11 | CP.PCM.PN ---
Subjective - Date & Time of Evaluation Date of Evaluation: 10/14/18 Time of Evaluation: 09:00 - Subjective Subjective: clinically same Objective - Vital Signs/Intake and Output Vital Signs (last 24 hours): Temp Pulse Resp BP Pulse Ox 97.9 F 86 18 167/75 H 95 10/14/18 09:01 10/14/18 09:01 10/14/18 09:01 10/14/18 11:56 10/14/18 09:01 Intake and Output: 10/14/18 10/14/18 06:59 18:59 Intake Total 640 Balance 640 - Medications Medications: Current Medications Acetaminophen (Tylenol 325mg Tab) 650 mg PO Q8 PRN PRN Reason: Pain, Mild (1-3) Ascorbic Acid (Vitamin C 500 Mg Tab) 500 mg PO BID [facility] Last Admin: 10/14/18 09:32 Dose: 500 mg Aspirin (Aspirin Chewable) 81 mg PO DAILY [facility] Last Admin: 10/14/18 09:54 Dose: 81 mg Clopidogrel Bisulfate (Plavix) 75 mg PO DAILY [facility] Last Admin: 10/14/18 09:32 Dose: 75 mg Dextrose (Dextrose 50% Inj) 0 ml IV STAT PRN; Protocol PRN Reason: Hypoglycemia Protocol Dextrose (Glutose 15) 0 gm PO ONCE PRN; Protocol PRN Reason: Hypoglycemia Protocol Enoxaparin Sodium (Lovenox) 40 mg SC DAILY [facility] Last Admin: 10/14/18 09:31 Dose: 40 mg Glucagon (Glucagen Diagnostic Kit) 0 mg IM STAT PRN; Protocol PRN Reason: Hypoglycemia Protocol Micafungin Sodium 100 mg/ (Sodium Chloride) 100 mls @ 100 mls/hr IV Q24H [facility]; Protocol Last Admin: 10/14/18 13:35 Dose: 100 mls/hr Tigecycline 50 mg/ Dextrose 100 mls @ 100 mls/hr IVPB Q12H [facility]; Protocol Last Admin: 10/14/18 04:19 Dose: 100 mls/hr Insulin Human Regular (Novolin R) 0 unit SC Q6 [facility]; Protocol Last Admin: 10/14/18 11:30 Dose: 1 unit Methylprednisolone (Solu-Medrol) 20 mg IVP Q12 [facility] Last Admin: 10/14/18 09:32 Dose: 20 mg Metoprolol Tartrate (Lopressor) 25 mg PO BID [facility] Last Admin: 10/14/18 11:56 Dose: 25 mg Multivitamins (Hexavitamin) 1 tab PO DAILY [facility] Last Admin: 10/14/18 09:32 Dose: 1 tab Pantoprazole Sodium (Protonix Susp) 40 mg NG DAILY [facility] Last Admin: 10/14/18 09:32 Dose: 40 mg Zinc Sulfate (Zinc Sulfate 220 Mg Cap) 220 mg PO BID [facility] Last Admin: 10/14/18 09:32 Dose: 220 mg - Labs Labs: 10/14/18 08:11 10/14/18 06:19 PT 14.4 SECONDS (9.7-12.2) H 10/06/18 12:58 INR 1.3 10/06/18 12:58 APTT 35 SECONDS (21-34) H 10/06/18 12:58 - Constitutional Appears: Well - Head Exam Head Exam: ATRAUMATIC, NORMAL INSPECTION, NORMOCEPHALIC - Eye Exam Eye Exam: EOMI, Normal appearance, PERRL Pupil Exam: NORMAL ACCOMODATION, PERRL - ENT Exam ENT Exam: Mucous Membranes Moist, Normal Exam - Neck Exam Neck Exam: Full ROM, Normal Inspection. absent: Lymphadenopathy - Respiratory Exam Respiratory Exam: Decreased Breath Sounds - Cardiovascular Exam Cardiovascular Exam: REGULAR RHYTHM, +S1, +S2 - GI/Abdominal Exam GI & Abdominal Exam: Soft, Diminished Bowel Sounds - Rectal Exam Rectal Exam: Deferred
--- NOTE | 2018-10-14 16:28 | PN ---
DATE: 10/14/2018 SUBJECTIVE: The patient is lethargic and nonverbal and does not appear to be in respiratory distress. PHYSICAL EXAMINATION: VITAL SIGNS: Blood pressure 166/75, heart rate 86, temperature 97.9, and respirations 18. HEENT: Normocephalic. CHEST: Bilateral rhonchi. HEART: S1 and S2 regular. ABDOMEN: Soft. EXTREMITIES: No edema. LABORATORY DATA: Today's SMA-7; sodium 147, potassium 5.1, chloride 123, carbon dioxide 18, glucose 105, BUN 98, and creatinine 1.4. Today's hemoglobin and hematocrit 9.5 and 38.2, white count 13.8, and platelet count 115,000. ASSESSMENT: 1. Improving prerenal azotemia. 2. Borderline troponin elevation. 3. Status post respiratory failure. 4. Infected sacral and iliac decubiti. 5. Mild aortic insufficiency. 6. History of multiple cerebrovascular accidents. RECOMMENDATIONS: Continue aspirin 81 mg once a day, Lopressor 25 mg twice a day, Lovenox 40 mg twice a day, IV micafungin at 100 mg daily, Solu-Medrol 20 mg intravenously every 12 hours, tigecycline 50 mg intravenously every 12 hours. Tomas Veras MD
--- NOTE | 2018-10-14 18:02 | CP.PCM.PN ---
Subjective - Date & Time of Evaluation Date of Evaluation: 10/14/18 Time of Evaluation: 15:40 - Subjective Subjective: Patient seen and examined No change in patient condition Unable to communicate Afebrile Being treated for sepsis Objective - Vital Signs/Intake and Output Vital Signs (last 24 hours): Temp Pulse Resp BP Pulse Ox 97.6 F 80 20 159/75 H 100 10/14/18 15:00 10/14/18 15:00 10/14/18 15:00 10/14/18 15:00 10/14/18 15:00 Intake and Output: 10/14/18 10/14/18 06:59 18:59 Intake Total 640 Balance 640 - Medications Medications: Current Medications Acetaminophen (Tylenol 325mg Tab) 650 mg PO Q8 PRN PRN Reason: Pain, Mild (1-3) Ascorbic Acid (Vitamin C 500 Mg Tab) 500 mg PO BID [facility] Last Admin: 10/14/18 09:32 Dose: 500 mg Aspirin (Aspirin Chewable) 81 mg PO DAILY [facility] Last Admin: 10/14/18 09:54 Dose: 81 mg Clopidogrel Bisulfate (Plavix) 75 mg PO DAILY [facility] Last Admin: 10/14/18 09:32 Dose: 75 mg Dextrose (Dextrose 50% Inj) 0 ml IV STAT PRN; Protocol PRN Reason: Hypoglycemia Protocol Dextrose (Glutose 15) 0 gm PO ONCE PRN; Protocol PRN Reason: Hypoglycemia Protocol Enoxaparin Sodium (Lovenox) 40 mg SC DAILY [facility] Last Admin: 10/14/18 09:31 Dose: 40 mg Glucagon (Glucagen Diagnostic Kit) 0 mg IM STAT PRN; Protocol PRN Reason: Hypoglycemia Protocol Micafungin Sodium 100 mg/ (Sodium Chloride) 100 mls @ 100 mls/hr IV Q24H [facility]; Protocol Last Admin: 10/14/18 13:35 Dose: 100 mls/hr Tigecycline 50 mg/ Dextrose 100 mls @ 100 mls/hr IVPB Q12H [facility]; Protocol Last Admin: 10/14/18 04:19 Dose: 100 mls/hr Insulin Human Regular (Novolin R) 0 unit SC Q6 [facility]; Protocol Last Admin: 10/14/18 17:38 Dose: Not Given Methylprednisolone (Solu-Medrol) 20 mg IVP Q12 [facility] Last Admin: 10/14/18 09:32 Dose: 20 mg Metoprolol Tartrate (Lopressor) 25 mg PO BID [facility] Last Admin: 10/14/18 11:56 Dose: 25 mg Multivitamins (Hexavitamin) 1 tab PO DAILY [facility] Last Admin: 10/14/18 09:32 Dose: 1 tab Pantoprazole Sodium (Protonix Susp) 40 mg NG DAILY [facility] Last Admin: 10/14/18 09:32 Dose: 40 mg Zinc Sulfate (Zinc Sulfate 220 Mg Cap) 220 mg PO BID [facility] Last Admin: 10/14/18 09:32 Dose: 220 mg - Labs Labs: 10/14/18 08:11 10/14/18 06:19 PT 14.4 SECONDS (9.7-12.2) H 10/06/18 12:58 INR 1.3 10/06/18 12:58 APTT 35 SECONDS (21-34) H 10/06/18 12:58 - Head Exam Head Exam: ATRAUMATIC, NORMOCEPHALIC - ENT Exam ENT Exam: Mucous Membranes Moist - Neck Exam Neck Exam: Normal Inspection - Respiratory Exam Respiratory Exam: Decreased Breath Sounds - Cardiovascular Exam Cardiovascular Exam: Irregular Rhythm - GI/Abdominal Exam GI & Abdominal Exam: Soft, Normal Bowel Sounds Assessment and Plan (1) COPD (chronic obstructive pulmonary disease) Assessment & Plan: continue present treatment IV antibiotics Nebulizer Prognosis poor Status: Acute (2) Pleural effusion Status: Acute
[2018-10-15] MEDS: (Novolin R) Insulin Human Regular 100 units/ml vial SC SCH ×5 (00:17→23:52)
[2018-10-15] MEDS: Tigecycline 50 MG in Dextrose 5% In Water 100 ML IVPB SCH ×2 (03:18→17:02)
[2018-10-15 07:55] LABS: BASO % 0.3 % (0.0-2.0); HEMOGLOBIN 9.3 g/dL (12.0-18.0); LYMPH # 0.3 K/uL (1.0-4.3); MEAN CELL VOLUME 96.6 fL (80.0-94.0); MEAN CORPUSCULAR HEMOGLOBIN 31.4 pg (27.0-31.0); MEAN CORPUSCULAR HGB CONC 32.5 g/dL (33.0-37.0); MEAN PLATELET VOLUME 11.4 fL (7.2-11.7); MONO # 0.2 K/uL (0.0-0.8); MONO % 1.8 % (0.0-10.0); NEUT % 94.9 % (50.0-75.0); NRBC % 0.1 % (0.0-2.0); PLATELET COUNT 111 K/uL (130-400); RBC 2.95 Mil/uL (4.40-5.90); RED CELL DISTRIBUTION WIDTH 19.6 % (11.5-14.5); WHITE BLOOD COUNT 10.5 K/uL (4.8-10.8)
[2018-10-15 08:36] LABS: ALB/GLOB RATIO 0.7 (1.0-2.1); ALBUMIN 2.1 g/dL (3.5-5.0); CALCIUM 7.8 mg/dl (8.6-10.4)
[2018-10-15 09:23] LABS: BANDS 3 % (0-2); LYMPHOCYTE 3 % (20-40); MONOCYTE 1 % (0-10); NEUTROPHIL 93 % (50-75); PLATELET ESTIMATE SLIGHTLY DECREASED (NORMAL); TOTAL CELLS COUNTED 100
[2018-10-15 09:24] LABS: LARGE PLATELETS PRESENT; OVALOCYTES SLIGHT; POIKILOCYTOSIS SLIGHT; TOXIC GRANULATION PRESENT
[2018-10-15 09:25] LABS: ANISOCYTOSIS MODERATE; BURR CELLS SLIGHT; HYPOCHROMIC SLIGHT; SCHISTOCYTES SLIGHT
[2018-10-15] MEDS: MethylPREDNISolone 40 mg Vial IVP SCH ×2 (09:29→23:06)
[2018-10-15] MEDS: Enoxaparin 40 mg Syringe SC SCH (09:31)
[2018-10-15] MEDS: Multiple Vitamins Tab PO SCH (09:31)
[2018-10-15] MEDS: Pantoprazole 40 mg Susp UD NG SCH (09:31)
--- NOTE | 2018-10-15 12:42 | CP.PCM.PN ---
Subjective - Date & Time of Evaluation Date of Evaluation: 10/15/18 Time of Evaluation: 08:45 - Subjective Subjective: clinically same Objective - Vital Signs/Intake and Output Vital Signs (last 24 hours): Temp Pulse Resp BP Pulse Ox 97.5 F L 88 18 162/74 H 98 10/15/18 08:30 10/15/18 08:30 10/15/18 08:30 10/15/18 09:32 10/15/18 08:30 Intake and Output: 10/15/18 10/15/18 06:59 18:59 Intake Total 1200 Output Total 1000 Balance 200 - Medications Medications: Current Medications Acetaminophen (Tylenol 325mg Tab) 650 mg PO Q8 PRN PRN Reason: Pain, Mild (1-3) Ascorbic Acid (Vitamin C 500 Mg Tab) 500 mg PO BID [facility] Last Admin: 10/15/18 09:31 Dose: 500 mg Aspirin (Aspirin Chewable) 81 mg PO DAILY [facility] Last Admin: 10/15/18 09:31 Dose: 81 mg Clopidogrel Bisulfate (Plavix) 75 mg PO DAILY [facility] Last Admin: 10/15/18 09:31 Dose: 75 mg Dextrose (Dextrose 50% Inj) 0 ml IV STAT PRN; Protocol PRN Reason: Hypoglycemia Protocol Dextrose (Glutose 15) 0 gm PO ONCE PRN; Protocol PRN Reason: Hypoglycemia Protocol Enoxaparin Sodium (Lovenox) 40 mg SC DAILY [facility] Last Admin: 10/15/18 09:31 Dose: 40 mg Glucagon (Glucagen Diagnostic Kit) 0 mg IM STAT PRN; Protocol PRN Reason: Hypoglycemia Protocol Micafungin Sodium 100 mg/ (Sodium Chloride) 100 mls @ 100 mls/hr IV Q24H [facility]; Protocol Last Admin: 10/14/18 13:35 Dose: 100 mls/hr Tigecycline 50 mg/ Dextrose 100 mls @ 100 mls/hr IVPB Q12H [facility]; Protocol Last Admin: 10/15/18 03:18 Dose: 100 mls/hr Insulin Human Regular (Novolin R) 0 unit SC Q6 [facility]; Protocol Last Admin: 10/15/18 05:50 Dose: 2 units Methylprednisolone (Solu-Medrol) 20 mg IVP Q12 [facility] Last Admin: 10/15/18 09:29 Dose: 20 mg Metoprolol Tartrate (Lopressor) 25 mg PO BID [facility] Last Admin: 10/15/18 09:32 Dose: 25 mg Multivitamins (Hexavitamin) 1 tab PO DAILY [facility] Last Admin: 10/15/18 09:31 Dose: 1 tab Pantoprazole Sodium (Protonix Susp) 40 mg NG DAILY [facility] Last Admin: 10/15/18 09:31 Dose: 40 mg Zinc Sulfate (Zinc Sulfate 220 Mg Cap) 220 mg PO BID [facility] Last Admin: 10/14/18 18:29 Dose: 220 mg - Labs Labs: 10/15/18 07:46 10/15/18 07:46 PT 14.4 SECONDS (9.7-12.2) H 10/06/18 12:58 INR 1.3 10/06/18 12:58 APTT 35 SECONDS (21-34) H 10/06/18 12:58 - Constitutional Appears: Well - Head Exam Head Exam: ATRAUMATIC, NORMAL INSPECTION, NORMOCEPHALIC - Eye Exam Eye Exam: EOMI, Normal appearance, PERRL Pupil Exam: NORMAL ACCOMODATION, PERRL - ENT Exam ENT Exam: Mucous Membranes Moist, Normal Exam - Neck Exam Neck Exam: Full ROM, Normal Inspection. absent: Lymphadenopathy - Respiratory Exam Respiratory Exam: Decreased Breath Sounds - Cardiovascular Exam Cardiovascular Exam: REGULAR RHYTHM, +S1, +S2 - GI/Abdominal Exam GI & Abdominal Exam: Soft, Diminished Bowel Sounds - Rectal Exam Rectal Exam: Deferred
[2018-10-15] MEDS: Micafungin 100 MG in Sodium Chloride 0.9% 100 ML IV SCH (13:19)
--- NOTE | 2018-10-15 18:18 | PN ---
DATE: 10/15/2018 SUBJECTIVE: The patient is lethargic, does not appear to be in any respiratory distress. PHYSICAL EXAMINATION VITAL SIGNS: Blood pressure 160/74, heart rate 88, temperature 97.5, respirations 18. HEENT: Pale conjunctivae. CHEST: Diminished breath sounds over the bases. HEART: S1 and S2 regular. EXTREMITIES: Significant contracture deformity. LABORATORY DATA: Today's SMA-7: Sodium 148, potassium 4.8, chloride 118, CO2 of 23, glucose 156, BUN 103, and creatinine 1.5. Today's hemoglobin and hematocrit are 9.3 and 28.5, white count 10.5 and platelet count 111,000. ASSESSMENT: 1. Status post respiratory failure. 2. Worsening prerenal azotemia. 3. Borderline troponin elevation. 4. Infected sacral and iliac decubiti. 5. Mild aortic insufficiency. 6. History of multiple cerebrovascular accidents. RECOMMENDATIONS: Continue aspirin 81 mg once a day, multivitamin one tablet once a day, Lopressor 25 mg once a day, subcutaneous Lovenox mg daily. Continue IV micafungin. Continue oral Plavix 75 mg once a day, IV tigecycline 50 mg every 12 hours. Discontinue telemetry. Conference with the patient's family is still pending. Tomas Veras MD
[2018-10-16] MEDS: (Novolin R) Insulin Human Regular 100 units/ml vial SC SCH ×3 (05:28→18:07)
[2018-10-16] MEDS: Enoxaparin 40 mg Syringe SC SCH (09:16)
[2018-10-16] MEDS: Pantoprazole 40 mg Susp UD NG SCH (09:16)
[2018-10-16] MEDS: MethylPREDNISolone 40 mg Vial IVP SCH ×2 (09:17→22:43)
[2018-10-16] MEDS: Multiple Vitamins Tab PO SCH (09:17)
--- NOTE | 2018-10-16 13:47 | CP.PCM.CON ---
History of Present Illness - History of Present Illness History of Present Illness: Palliative consult requested by Doctor Bartolo Ko for goals of care discussion, 2nd to poor prognosis Patient is a 87 yo male, admitted from OR with abnormal labs and refusing food and meds. Patient is nonverbal at base line. On admission, patient was diagnosed with sepsis and started on Mycamine IV. Urine C&S positive yeast infection. Right hip pressure sore culture positive MRSA. CT chest significant for infiltrate, B/L effusion and atelectasis. S/P thoracentesis. NGT in for feedings and meds. Palliative care was called to assist with POLST and goals of care. PMH: dementia, HTN, right hip pressure sore, CVA with left sided weakness, BPH, CAD Soc. Hx: OR resident Fam. Hx: Unknown` Review of Systems - Review of Systems All systems: reviewed and no additional remarkable complaints except Review of Systems: ROS unobtainable from patient due to condition ( non verbal). ROS obtained from nursing. Per nursing patient was afebrile over night. Wound care on board. Past Patient History - Tetanus Immunizations Tetanus Immunization: Unknown - Past Medical History & Family History Past Medical History?: Yes Past Family History: Reviewed and not pertinent - Past Social History Smoking Status: Unknown If Ever Smoked Chewing Tobacco Use: No Cigar Use: No Alcohol: None Drugs: Denies Home Situation {Lives}: Skilled Nursing - CARDIAC Hx Hypercholesterolemia: Yes Hx Hypertension: Yes Hx Pacemaker: No - PULMONARY Hx Respiratory Disorders: No Other/Comment: Coronary Stent - NEUROLOGICAL Hx Dementia: Yes - HEENT Hx HEENT Problems: No - RENAL Hx Chronic Kidney Disease: No - ENDOCRINE/METABOLIC Hx Endocrine Disorders: No Other/Comment: Pt incontinent - HEMATOLOGICAL/ONCOLOGICAL Hx Blood Disorders: No Hx Blood Transfusions: No Hx Blood Transfusion Reaction: No Other/Comment: MRSA - INTEGUMENTARY Hx Dermatological Problems: Yes Other/Comment: Bilaterl HIP Decubiti. Unstageable sacral decubitus. Left lateral foot unstageable pressure ulcer - MUSCULOSKELETAL/RHEUMATOLOGICAL Hx Arthritis: Yes - GASTROINTESTINAL Hx Gastrointestinal Disorders: Yes Other/Comment: Incotinence - GENITOURINARY/GYNECOLOGICAL Hx Genitourinary Disorders: Yes Other/Comment: Hx of BPH - PSYCHIATRIC Hx Substance Use: No - SURGICAL HISTORY Hx Coronary Stent: Yes - ANESTHESIA Hx Anesthesia: Yes Hx Anesthesia Reactions: No Hx Malignant Hyperthermia: No Has any member of the family had a problem w/ anesthesia?: No Meds Allergies/Adverse Reactions: Allergies Allergy/AdvReac Type Severity Reaction Status Date / Time No Known Allergies Allergy Unverified 08/29/18 17:06 - Medications Medications: Current Medications Acetaminophen (Tylenol 325mg Tab) 650 mg PO Q8 PRN PRN Reason: Pain, Mild (1-3) Ascorbic Acid (Vitamin C 500 Mg Tab) 500 mg PO BID [facility] Last Admin: 10/16/18 09:16 Dose: 500 mg Aspirin (Aspirin Chewable) 81 mg PO DAILY [facility] Last Admin: 10/16/18 09:16 Dose: 81 mg Clopidogrel Bisulfate (Plavix) 75 mg PO DAILY [facility] Last Admin: 10/16/18 09:16 Dose: 75 mg Dextrose (Dextrose 50% Inj) 0 ml IV STAT PRN; Protocol PRN Reason: Hypoglycemia Protocol Dextrose (Glutose 15) 0 gm PO ONCE PRN; Protocol PRN Reason: Hypoglycemia Protocol Enoxaparin Sodium (Lovenox) 40 mg SC DAILY [facility] Last Admin: 10/16/18 09:16 Dose: 40 mg Glucagon (Glucagen Diagnostic Kit) 0 mg IM STAT PRN; Protocol PRN Reason: Hypoglycemia Protocol Micafungin Sodium 100 mg/ (Sodium Chloride) 100 mls @ 100 mls/hr IV Q24H [facility]; Protocol Last Admin: 10/15/18 13:19 Dose: 100 mls/hr Insulin Human Regular (Novolin R) 0 unit SC Q6 [facility]; Protocol Last Admin: 10/16/18 05:28 Dose: 1 unit Methylprednisolone (Solu-Medrol) 20 mg IVP Q12 [facility] Last Admin: 10/16/18 09:17 Dose: 20 mg Metoprolol Tartrate (Lopressor) 25 mg PO BID [facility] Last Admin: 10/16/18 09:31 Dose: 25 mg Multivitamins (Hexavitamin) 1 tab PO DAILY [facility] Last Admin: 10/16/18 09:17 Dose: 1 tab Pantoprazole Sodium (Protonix Susp) 40 mg NG DAILY [facility] Last Admin: 10/16/18 09:16 Dose: 40 mg Zinc Sulfate (Zinc Sulfate 220 Mg Cap) 220 mg PO BID [facility] Last Admin: 10/16/18 09:16 Dose: 220 mg Physical Exam - Constitutional Appears: Chronically Ill - Head Exam Head Exam: ATRAUMATIC, NORMAL INSPECTION, NORMOCEPHALIC - Eye Exam Eye Exam: EOMI, Normal appearance, PERRL Pupil Exam: NORMAL ACCOMODATION, PERRL - ENT Exam ENT Exam: Mucous Membranes Dry Additional comments: NGT in situ - Neck Exam Neck exam: Positive for: Normal Inspection - Respiratory Exam Respiratory Exam: Decreased Breath Sounds, NORMAL BREATHING PATTERN - Cardiovascular Exam Cardiovascular Exam: Tachycardia, +S1, +S2 - GI/Abdominal Exam GI & Abdominal Exam: Hypoactive Bowel Sounds - Rectal Exam Rectal Exam: Deferred - Exam Additional comments: Childress cath - Extremities Exam Additional comments: contracted, left sided weakness - Back Exam Additional comments: right hip large dressing for pressure sore - Neurological Exam Neurological exam: Alert, Altered, Motor Sensory Deficit - Psychiatric Exam Psychiatric exam: Flat Affect - Skin Skin Exam: Mottled, Normal Color Results - Vital Signs Recent Vital Signs: Last Vital Signs Temp 97.4 F L 10/16/18 07:00 Pulse 92 H 10/16/18 07:00 Resp 18 10/16/18 07:00 BP 130/62 10/16/18 09:31 Pulse Ox 98 10/16/18 07:00 - Labs Result Diagrams: 10/15/18 07:46 10/15/18 07:46 Labs: Laboratory Results - last 24 hr 10/15/18 10/15/18 10/15/18 11:49 17:28 21:50 POC Glucose (mg/dL) 166 H 164 H 142 H 10/15/18 10/16/18 23:51 05:15 POC Glucose (mg/dL) 122 H 190 H Assessment & Plan - Assessment and Plan (Free Text) Assessment: Palliative consult Full Code, there is no Advance directive on chart, PPS 10% I reviewed Medical records, all diagnostic studies, examined patient in the bed Patient is alert, makes aye contacts, does not fallow commends. NGT in place for feedings. Oral mucousa dry. Patient looks chronically ill and very weak, unable to reposition on his own. left sided weakness. Diminished breath sounds. No cough noted. Abdomen flat, active bowel sounds. Childress ay bed side, urine concentrated. Large dressing to right hip pressure sore. IV antibiotic on board. BP 130/68, HR 92, afebrile WBC 10.3, Hb 9.3, Plat 111, BUN 103 I called patient's daughter and awaiting call back to schedule family meeting. Impression * Chronically ill male , bed bound * NGT, at risk for aspiration * Left sided weakness * Right hip pressure sore * Aphasia, unable to advocate for him self * Compromised quality of life * VRE urine * At risk for malnutrition and further skin disorder * Patient's wishes for goal of end of life care are not known Suggestions * Meticulous oral care * Aspiration precautions * Air mattress, turn and reposition Q 2 hr * Anticipate pain level and act upon * Contact isolation * Family meeting pending with the daughter. Palliative care juan jose continue to fallow up with patient's daughter for further care planing.
[2018-10-16] MEDS: Micafungin 100 MG in Sodium Chloride 0.9% 100 ML IV SCH (14:29)
--- NOTE | 2018-10-16 17:36 | CP.PCM.PN ---
Subjective - Date & Time of Evaluation Date of Evaluation: 10/16/18 Time of Evaluation: 09:40 - Subjective Subjective: patient seen and examined Shortness of breath noted Noncommunicative Afebrile Objective - Vital Signs/Intake and Output Vital Signs (last 24 hours): Temp Pulse Resp BP Pulse Ox 97.9 F 87 20 154/77 H 98 10/16/18 15:30 10/16/18 15:30 10/16/18 15:30 10/16/18 15:30 10/16/18 15:30 Intake and Output: 10/16/18 10/16/18 06:59 18:59 Intake Total 1360 Output Total 1000 Balance 360 - Medications Medications: Current Medications Acetaminophen (Tylenol 325mg Tab) 650 mg PO Q8 PRN PRN Reason: Pain, Mild (1-3) Ascorbic Acid (Vitamin C 500 Mg Tab) 500 mg PO BID [facility] Last Admin: 10/16/18 09:16 Dose: 500 mg Aspirin (Aspirin Chewable) 81 mg PO DAILY [facility] Last Admin: 10/16/18 09:16 Dose: 81 mg Clopidogrel Bisulfate (Plavix) 75 mg PO DAILY [facility] Last Admin: 10/16/18 09:16 Dose: 75 mg Dextrose (Dextrose 50% Inj) 0 ml IV STAT PRN; Protocol PRN Reason: Hypoglycemia Protocol Dextrose (Glutose 15) 0 gm PO ONCE PRN; Protocol PRN Reason: Hypoglycemia Protocol Enoxaparin Sodium (Lovenox) 40 mg SC DAILY [facility] Last Admin: 10/16/18 09:16 Dose: 40 mg Glucagon (Glucagen Diagnostic Kit) 0 mg IM STAT PRN; Protocol PRN Reason: Hypoglycemia Protocol Micafungin Sodium 100 mg/ (Sodium Chloride) 100 mls @ 100 mls/hr IV Q24H [facility]; Protocol Last Admin: 10/16/18 14:29 Dose: 100 mls/hr Insulin Human Regular (Novolin R) 0 unit SC Q6 [facility]; Protocol Last Admin: 10/16/18 12:00 Dose: Not Given Methylprednisolone (Solu-Medrol) 20 mg IVP Q12 [facility] Last Admin: 10/16/18 09:17 Dose: 20 mg Metoprolol Tartrate (Lopressor) 25 mg PO BID [facility] Last Admin: 10/16/18 09:31 Dose: 25 mg Multivitamins (Hexavitamin) 1 tab PO DAILY [facility] Last Admin: 10/16/18 09:17 Dose: 1 tab Pantoprazole Sodium (Protonix Susp) 40 mg NG DAILY [facility] Last Admin: 10/16/18 09:16 Dose: 40 mg Zinc Sulfate (Zinc Sulfate 220 Mg Cap) 220 mg PO BID [facility] Last Admin: 10/16/18 09:16 Dose: 220 mg - Labs Labs: 10/15/18 07:46 10/15/18 07:46 PT 14.4 SECONDS (9.7-12.2) H 10/06/18 12:58 INR 1.3 10/06/18 12:58 APTT 35 SECONDS (21-34) H 10/06/18 12:58 - Head Exam Head Exam: ATRAUMATIC, NORMOCEPHALIC - ENT Exam ENT Exam: Mucous Membranes Moist - Neck Exam Neck Exam: Normal Inspection - Respiratory Exam Respiratory Exam: Decreased Breath Sounds - Cardiovascular Exam Cardiovascular Exam: REGULAR RHYTHM - GI/Abdominal Exam GI & Abdominal Exam: Soft, Normal Bowel Sounds Assessment and Plan (1) COPD (chronic obstructive pulmonary disease) Assessment & Plan: Continue nebulizer treatment Continue antibiotics Seen by palliative Prognosis poor Status: Acute (2) Pleural effusion Status: Acute
--- NOTE | 2018-10-16 18:34 | CP.PCM.PN ---
Subjective - Date & Time of Evaluation Date of Evaluation: 10/16/18 Time of Evaluation: 09:45 - Subjective Subjective: clinically same Objective - Vital Signs/Intake and Output Vital Signs (last 24 hours): Temp Pulse Resp BP Pulse Ox 97.9 F 87 20 154/77 H 98 10/16/18 15:30 10/16/18 15:30 10/16/18 15:30 10/16/18 18:07 10/16/18 15:30 Intake and Output: 10/16/18 10/16/18 06:59 18:59 Intake Total 1360 Output Total 1000 Balance 360 - Medications Medications: Current Medications Acetaminophen (Tylenol 325mg Tab) 650 mg PO Q8 PRN PRN Reason: Pain, Mild (1-3) Ascorbic Acid (Vitamin C 500 Mg Tab) 500 mg PO BID [facility] Last Admin: 10/16/18 18:07 Dose: 500 mg Aspirin (Aspirin Chewable) 81 mg PO DAILY [facility] Last Admin: 10/16/18 09:16 Dose: 81 mg Clopidogrel Bisulfate (Plavix) 75 mg PO DAILY [facility] Last Admin: 10/16/18 09:16 Dose: 75 mg Dextrose (Dextrose 50% Inj) 0 ml IV STAT PRN; Protocol PRN Reason: Hypoglycemia Protocol Dextrose (Glutose 15) 0 gm PO ONCE PRN; Protocol PRN Reason: Hypoglycemia Protocol Enoxaparin Sodium (Lovenox) 40 mg SC DAILY [facility] Last Admin: 10/16/18 09:16 Dose: 40 mg Glucagon (Glucagen Diagnostic Kit) 0 mg IM STAT PRN; Protocol PRN Reason: Hypoglycemia Protocol Micafungin Sodium 100 mg/ (Sodium Chloride) 100 mls @ 100 mls/hr IV Q24H [facility]; Protocol Last Admin: 10/16/18 14:29 Dose: 100 mls/hr Insulin Human Regular (Novolin R) 0 unit SC Q6 [facility]; Protocol Last Admin: 10/16/18 18:07 Dose: Not Given Methylprednisolone (Solu-Medrol) 20 mg IVP Q12 [facility] Last Admin: 10/16/18 09:17 Dose: 20 mg Metoprolol Tartrate (Lopressor) 25 mg PO BID [facility] Last Admin: 10/16/18 18:07 Dose: 25 mg Multivitamins (Hexavitamin) 1 tab PO DAILY [facility] Last Admin: 10/16/18 09:17 Dose: 1 tab Pantoprazole Sodium (Protonix Susp) 40 mg NG DAILY [facility] Last Admin: 10/16/18 09:16 Dose: 40 mg Zinc Sulfate (Zinc Sulfate 220 Mg Cap) 220 mg PO BID [facility] Last Admin: 10/16/18 18:07 Dose: 220 mg - Labs Labs: 10/15/18 07:46 10/15/18 07:46 PT 14.4 SECONDS (9.7-12.2) H 10/06/18 12:58 INR 1.3 10/06/18 12:58 APTT 35 SECONDS (21-34) H 10/06/18 12:58
--- NOTE | 2018-10-16 18:54 | PN ---
DATE: 10/16/2018 SUBJECTIVE: The patient is lethargic but awake today and does not appear to be in respiratory distress. PHYSICAL EXAMINATION VITAL SIGNS: Blood pressure , heart rate 92, temperature 97.4, respirations 18. HEENT: Pale conjunctivae. CHEST: Absent breath sounds over the bases. HEART: S1, S2 regular. EXTREMITIES: Contracted lower extremities with bilateral iliac ulceration. LABORATORY DATA: Today's blood sugar is 190. ASSESSMENT: 1. Status post respiratory failure. 2. Borderline troponin elevation on presentation. 3. Prerenal azotemia. 4. Infected sacral and iliac decubiti. 5. Mild aortic insufficiency. 6. History of multiple cerebrovascular accidents. 7. Anemia and mild thrombocytopenia. RECOMMENDATIONS: Continue aspirin 81 mg once a day, multivitamin one tablet daily, Lopressor 25 mg twice a day, Lovenox 40 mg subcutaneous once a day, IV micafungin 100 mg daily, Solu-Medrol 20 mg intravenously every 12 hours. Tomas Veras MD
[2018-10-17] MEDS: (Novolin R) Insulin Human Regular 100 units/ml vial SC SCH ×4 (00:08→18:40)
[2018-10-17] MEDS: Pantoprazole 40 mg Susp UD NG SCH (10:31)
[2018-10-17] MEDS: Enoxaparin 40 mg Syringe SC SCH (10:31)
[2018-10-17] MEDS: Multiple Vitamins Tab PO SCH (10:31)
[2018-10-17] MEDS: MethylPREDNISolone 40 mg Vial IVP SCH ×2 (10:31→21:41)
--- NOTE | 2018-10-17 11:42 | CP.PCM.PN ---
Subjective - Date & Time of Evaluation Date of Evaluation: 10/17/18 Time of Evaluation: 09:00 - Subjective Subjective: clinically same Objective - Vital Signs/Intake and Output Vital Signs (last 24 hours): Temp Pulse Resp BP Pulse Ox 97.9 F 70 20 158/78 H 97 10/17/18 04:00 10/17/18 04:00 10/17/18 04:00 10/17/18 10:30 10/17/18 04:00 Intake and Output: 10/17/18 10/17/18 06:59 18:59 Intake Total 880 Output Total 1000 Balance -120 - Medications Medications: Current Medications Acetaminophen (Tylenol 325mg Tab) 650 mg PO Q8 PRN PRN Reason: Pain, Mild (1-3) Ascorbic Acid (Vitamin C 500 Mg Tab) 500 mg PO BID [facility] Last Admin: 10/17/18 10:31 Dose: 500 mg Aspirin (Aspirin Chewable) 81 mg PO DAILY [facility] Last Admin: 10/17/18 10:30 Dose: 81 mg Clopidogrel Bisulfate (Plavix) 75 mg PO DAILY [facility] Last Admin: 10/17/18 10:31 Dose: 75 mg Dextrose (Dextrose 50% Inj) 0 ml IV STAT PRN; Protocol PRN Reason: Hypoglycemia Protocol Dextrose (Glutose 15) 0 gm PO ONCE PRN; Protocol PRN Reason: Hypoglycemia Protocol Enoxaparin Sodium (Lovenox) 40 mg SC DAILY [facility] Last Admin: 10/17/18 10:31 Dose: 40 mg Glucagon (Glucagen Diagnostic Kit) 0 mg IM STAT PRN; Protocol PRN Reason: Hypoglycemia Protocol Micafungin Sodium 100 mg/ (Sodium Chloride) 100 mls @ 100 mls/hr IV Q24H [facility]; Protocol Last Admin: 10/16/18 14:29 Dose: 100 mls/hr Insulin Human Regular (Novolin R) 0 unit SC Q6 [facility]; Protocol Last Admin: 10/17/18 06:43 Dose: 2 unit Methylprednisolone (Solu-Medrol) 20 mg IVP Q12 [facility] Last Admin: 10/17/18 10:31 Dose: 20 mg Metoprolol Tartrate (Lopressor) 25 mg PO BID [facility] Last Admin: 10/17/18 10:30 Dose: 25 mg Multivitamins (Hexavitamin) 1 tab PO DAILY [facility] Last Admin: 10/17/18 10:31 Dose: 1 tab Pantoprazole Sodium (Protonix Susp) 40 mg NG DAILY [facility] Last Admin: 10/17/18 10:31 Dose: 40 mg Zinc Sulfate (Zinc Sulfate 220 Mg Cap) 220 mg PO BID [facility] Last Admin: 10/17/18 10:30 Dose: 220 mg - Labs Labs: 10/15/18 07:46 10/15/18 07:46 PT 14.4 SECONDS (9.7-12.2) H 10/06/18 12:58 INR 1.3 10/06/18 12:58 APTT 35 SECONDS (21-34) H 10/06/18 12:58 - Constitutional Appears: Well - Head Exam Head Exam: ATRAUMATIC, NORMAL INSPECTION, NORMOCEPHALIC - Eye Exam Eye Exam: EOMI, Normal appearance, PERRL Pupil Exam: NORMAL ACCOMODATION, PERRL - ENT Exam ENT Exam: Mucous Membranes Moist, Normal Exam - Neck Exam Neck Exam: Full ROM, Normal Inspection. absent: Lymphadenopathy - Respiratory Exam Respiratory Exam: Decreased Breath Sounds - Cardiovascular Exam Cardiovascular Exam: REGULAR RHYTHM, +S1, +S2 - GI/Abdominal Exam GI & Abdominal Exam: Soft, Diminished Bowel Sounds - Rectal Exam Rectal Exam: Deferred
[2018-10-17] MEDS: Micafungin 100 MG in Sodium Chloride 0.9% 100 ML IV SCH (14:02)
--- NOTE | 2018-10-17 14:07 | CP.PCM.PN ---
Subjective - Date & Time of Evaluation Date of Evaluation: 10/17/18 Time of Evaluation: 14:05 - Subjective Subjective: Patient remains alert, very weak with NGT in for nutrition. Makes eye contacts. Nonverbal. Contracted. Requires max assistance with repositioning. Family , and daughter came in for family meeting. Objective - Vital Signs/Intake and Output Vital Signs (last 24 hours): Temp Pulse Resp BP Pulse Ox 97.2 F L 82 18 158/78 H 98 10/17/18 08:15 10/17/18 08:15 10/17/18 08:15 10/17/18 10:30 10/17/18 08:15 Intake and Output: 10/17/18 10/17/18 06:59 18:59 Intake Total 880 Output Total 1000 Balance -120 - Medications Medications: Current Medications Acetaminophen (Tylenol 325mg Tab) 650 mg PO Q8 PRN PRN Reason: Pain, Mild (1-3) Ascorbic Acid (Vitamin C 500 Mg Tab) 500 mg PO BID [facility] Last Admin: 10/17/18 10:31 Dose: 500 mg Aspirin (Aspirin Chewable) 81 mg PO DAILY [facility] Last Admin: 10/17/18 10:30 Dose: 81 mg Clopidogrel Bisulfate (Plavix) 75 mg PO DAILY [facility] Last Admin: 10/17/18 10:31 Dose: 75 mg Dextrose (Dextrose 50% Inj) 0 ml IV STAT PRN; Protocol PRN Reason: Hypoglycemia Protocol Dextrose (Glutose 15) 0 gm PO ONCE PRN; Protocol PRN Reason: Hypoglycemia Protocol Enoxaparin Sodium (Lovenox) 40 mg SC DAILY [facility] Last Admin: 10/17/18 10:31 Dose: 40 mg Glucagon (Glucagen Diagnostic Kit) 0 mg IM STAT PRN; Protocol PRN Reason: Hypoglycemia Protocol Insulin Human Regular (Novolin R) 0 unit SC Q6 [facility]; Protocol Last Admin: 10/17/18 13:05 Dose: 1 unit Methylprednisolone (Solu-Medrol) 20 mg IVP Q12 [facility] Last Admin: 10/17/18 10:31 Dose: 20 mg Metoprolol Tartrate (Lopressor) 25 mg PO BID [facility] Last Admin: 10/17/18 10:30 Dose: 25 mg Multivitamins (Hexavitamin) 1 tab PO DAILY [facility] Last Admin: 10/17/18 10:31 Dose: 1 tab Pantoprazole Sodium (Protonix Susp) 40 mg NG DAILY [facility] Last Admin: 10/17/18 10:31 Dose: 40 mg Zinc Sulfate (Zinc Sulfate 220 Mg Cap) 220 mg PO BID [facility] Last Admin: 10/17/18 10:30 Dose: 220 mg - Labs Labs: 10/15/18 07:46 10/15/18 07:46 PT 14.4 SECONDS (9.7-12.2) H 10/06/18 12:58 INR 1.3 10/06/18 12:58 APTT 35 SECONDS (21-34) H 10/06/18 12:58 - Constitutional Appears: No Acute Distress, Chronically Ill - Head Exam Head Exam: ATRAUMATIC, NORMAL INSPECTION, NORMOCEPHALIC - Eye Exam Eye Exam: EOMI, Normal appearance, PERRL Pupil Exam: NORMAL ACCOMODATION, PERRL - ENT Exam ENT Exam: Mucous Membranes Dry Additional comments: NGT in for nutrition - Respiratory Exam Respiratory Exam: Decreased Breath Sounds, NORMAL BREATHING PATTERN - Cardiovascular Exam Cardiovascular Exam: Tachycardia, +S1, +S2 - GI/Abdominal Exam GI & Abdominal Exam: Soft, Normal Bowel Sounds - Rectal Exam Rectal Exam: Deferred - Exam Exam: NORMAL INSPECTION - Extremities Exam Extremities Exam: Pedal Edema - Back Exam Back Exam: NORMAL INSPECTION - Neurological Exam Neurological Exam: Alert, Altered Neuro motor strength exam: Left Upper Extremity: 0, Right Upper Extremity: 0, Left Lower Extremity: 0, Right Lower Extremity: 0 - Psychiatric Exam Psychiatric exam: Flat Affect - Skin Skin Exam: Mottled, Normal Color Assessment and Plan - Assessment and Plan (Free Text) Assessment: Progress note Family meeting attended by Blanca and daughter Zeny. Translation in Mongolian provided. I reviewed patien's clinical presentation and elicited their understanding and expectations. The said that patient significantly declined since his stroke and has been on bed for the last 5 years with reoccurring sacral wound infection. The feels that patient can not get proper care at home and prefers he stays at the alf. Family does not like the current NH and is asking for relocation. I reassured them SW was to talk to them about it. Code status discussed. POLST introduced. Family was very clear that they would not want extraordinary measures including CPR, MV, and PEG, as those were patient's wishes. signed POLST asking for DNR/DNI. I provided family with Chuyita ying version of the POLST. This was shared with Mehdi the charge nurse. Impression * Chronically ill male with slow decline in condition * At risk for malnutrition due to dysphagia * At risk for worsening of pressure sore * Family is concerned with comfort and quality of life and is advocating ag ainst aggressive interventions * POLST signed Suggestion * Continue wound care and promote skin integrity * Would remove NGT and re evaluate swallowing * If patient fails the swallow eval, than Comfort care only should be discussed with family * Agree with DNR/DNI Palliative care will continue to fallow with patient and family. I feel that comfort care is appropriate level of care for this patient. Advance care planing 50 min
--- NOTE | 2018-10-17 15:59 | CP.PCM.PN ---
Subjective - Date & Time of Evaluation Date of Evaluation: 10/17/18 Time of Evaluation: 10:35 - Subjective Subjective: Patient seen and examined Does not follow command Eye contact No shortness of breath Afebrile Continue antibiotics Patient is DNR/DNI Nebulizer treatment Objective - Vital Signs/Intake and Output Vital Signs (last 24 hours): Temp Pulse Resp BP Pulse Ox 98.5 F 82 20 152/73 H 98 10/17/18 15:30 10/17/18 15:30 10/17/18 15:30 10/17/18 15:30 10/17/18 15:30 Intake and Output: 10/17/18 10/17/18 06:59 18:59 Intake Total 880 520 Output Total 1000 375 Balance -120 145 - Medications Medications: Current Medications Acetaminophen (Tylenol 325mg Tab) 650 mg PO Q8 PRN PRN Reason: Pain, Mild (1-3) Ascorbic Acid (Vitamin C 500 Mg Tab) 500 mg PO BID [facility] Last Admin: 10/17/18 10:31 Dose: 500 mg Aspirin (Aspirin Chewable) 81 mg PO DAILY [facility] Last Admin: 10/17/18 10:30 Dose: 81 mg Clopidogrel Bisulfate (Plavix) 75 mg PO DAILY [facility] Last Admin: 10/17/18 10:31 Dose: 75 mg Dextrose (Dextrose 50% Inj) 0 ml IV STAT PRN; Protocol PRN Reason: Hypoglycemia Protocol Dextrose (Glutose 15) 0 gm PO ONCE PRN; Protocol PRN Reason: Hypoglycemia Protocol Enoxaparin Sodium (Lovenox) 40 mg SC DAILY [facility] Last Admin: 10/17/18 10:31 Dose: 40 mg Glucagon (Glucagen Diagnostic Kit) 0 mg IM STAT PRN; Protocol PRN Reason: Hypoglycemia Protocol Insulin Human Regular (Novolin R) 0 unit SC Q6 [facility]; Protocol Last Admin: 10/17/18 13:05 Dose: 1 unit Methylprednisolone (Solu-Medrol) 20 mg IVP Q12 [facility] Last Admin: 10/17/18 10:31 Dose: 20 mg Metoprolol Tartrate (Lopressor) 25 mg PO BID [facility] Last Admin: 10/17/18 10:30 Dose: 25 mg Multivitamins (Hexavitamin) 1 tab PO DAILY [facility] Last Admin: 10/17/18 10:31 Dose: 1 tab Pantoprazole Sodium (Protonix Susp) 40 mg NG DAILY [facility] Last Admin: 10/17/18 10:31 Dose: 40 mg Zinc Sulfate (Zinc Sulfate 220 Mg Cap) 220 mg PO BID [facility] Last Admin: 10/17/18 10:30 Dose: 220 mg - Labs Labs: 10/15/18 07:46 10/15/18 07:46 PT 14.4 SECONDS (9.7-12.2) H 10/06/18 12:58 INR 1.3 10/06/18 12:58 APTT 35 SECONDS (21-34) H 10/06/18 12:58 Assessment and Plan (1) COPD (chronic obstructive pulmonary disease) Status: Acute (2) Pleural effusion Status: Acute
--- NOTE | 2018-10-17 18:17 | CP.PCM.PN ---
Subjective - Date & Time of Evaluation Date of Evaluation: 10/17/18 Time of Evaluation: 18:15 - Subjective Subjective: Podiatry Progress Note for Dr. Perdomo 87M seen for eschars of left foot. Patient is unable to communicate at this time. Per nursing, no acute overnight events Objective - Vital Signs/Intake and Output Vital Signs (last 24 hours): Temp Pulse Resp BP Pulse Ox 98.5 F 82 20 152/73 H 98 10/17/18 15:30 10/17/18 15:30 10/17/18 15:30 10/17/18 15:30 10/17/18 15:30 Intake and Output: 10/17/18 10/17/18 06:59 18:59 Intake Total 880 520 Output Total 1000 375 Balance -120 145 - Medications Medications: Current Medications Acetaminophen (Tylenol 325mg Tab) 650 mg PO Q8 PRN PRN Reason: Pain, Mild (1-3) Ascorbic Acid (Vitamin C 500 Mg Tab) 500 mg PO BID [facility] Last Admin: 10/17/18 10:31 Dose: 500 mg Aspirin (Aspirin Chewable) 81 mg PO DAILY [facility] Last Admin: 10/17/18 10:30 Dose: 81 mg Clopidogrel Bisulfate (Plavix) 75 mg PO DAILY [facility] Last Admin: 10/17/18 10:31 Dose: 75 mg Dextrose (Dextrose 50% Inj) 0 ml IV STAT PRN; Protocol PRN Reason: Hypoglycemia Protocol Dextrose (Glutose 15) 0 gm PO ONCE PRN; Protocol PRN Reason: Hypoglycemia Protocol Enoxaparin Sodium (Lovenox) 40 mg SC DAILY [facility] Last Admin: 10/17/18 10:31 Dose: 40 mg Glucagon (Glucagen Diagnostic Kit) 0 mg IM STAT PRN; Protocol PRN Reason: Hypoglycemia Protocol Insulin Human Regular (Novolin R) 0 unit SC Q6 [facility]; Protocol Last Admin: 10/17/18 13:05 Dose: 1 unit Methylprednisolone (Solu-Medrol) 20 mg IVP Q12 [facility] Last Admin: 10/17/18 10:31 Dose: 20 mg Metoprolol Tartrate (Lopressor) 25 mg PO BID [facility] Last Admin: 10/17/18 10:30 Dose: 25 mg Multivitamins (Hexavitamin) 1 tab PO DAILY [facility] Last Admin: 10/17/18 10:31 Dose: 1 tab Pantoprazole Sodium (Protonix Susp) 40 mg NG DAILY [facility] Last Admin: 10/17/18 10:31 Dose: 40 mg Zinc Sulfate (Zinc Sulfate 220 Mg Cap) 220 mg PO BID [facility] Last Admin: 10/17/18 10:30 Dose: 220 mg - Labs Labs: 10/15/18 07:46 10/15/18 07:46 PT 14.4 SECONDS (9.7-12.2) H 10/06/18 12:58 INR 1.3 10/06/18 12:58 APTT 35 SECONDS (21-34) H 10/06/18 12:58 - Constitutional Appears: Well, Non-toxic, No Acute Distress - Extremities Exam Additional comments: LLE focused exam Patient lower extremities contracted VASC: DP and PT 1/4, CFT less than 3 seconds X 10, no edema, no varicosities, TG warm to warm NEURO: unable to assess DERM: two stable eschars noted to the lateral aspect of the left foot, no drainage, no malodor, no erythema, no edema, no probe to bone, no other open lesions, no clinical signs of infection ORTHO: unable to assess - Neurological Exam Neurological Exam: Alert, Awake, Oriented x3 - Psychiatric Exam Psychiatric exam: Normal Affect, Normal Mood Assessment and Plan - Assessment and Plan (Free Text) Assessment: 87M seen for eschars of left foot Plan: Patient seen and evaluated Plan discussed with Dr. Perdomo No signs of infection at this time No plan for intervention at this time Wounds left open to air Wounds are stable Keep multipodus boots in place Podiatry will sign off at this time, please reconsult in future as needed
--- NOTE | 2018-10-17 18:21 | PN ---
DATE: 10/17/2018 SUBJECTIVE: The patient is lethargic. He is getting his medications via nasal gastric tube as well as feeding. PHYSICAL EXAMINATION: VITAL SIGNS: Blood pressure 158/78, heart rate 82, temperature 97.2, respirations 18. HEENT: Pale conjunctivae. CHEST: Bilateral rhonchi. HEART: S1, S2 regular. EXTREMITIES: Significant contracture deformity with bilateral iliac ulcers in the sacral and decubitus. ASSESSMENT: 1. Borderline troponin elevation, consider non-ST elevation myocardial infarction. 2. Status post respiratory failure. 3. Prerenal azotemia. 4. Anemia and mild thrombocytopenia. 5. 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 6. Infected iliac and sacral decubitus. RECOMMENDATIONS: Continue aspirin 81 mg once a day, Lopressor 25 mg twice a day, Lovenox at 40 mg once a day, micafungin 100 mg twice daily, Plavix 75 mg once a day, Solu-Medrol 20 mg intravenously twice a day. No family decision yet about future DNR plans or possible gastrostomy tube feeding. Tomas Veras MD
[2018-10-18 07:36] LABS: BASO # 0.1 K/uL (0.0-0.2); BASO % 0.4 % (0.0-2.0); HEMOGLOBIN 8.5 g/dL (12.0-18.0); LYMPH # 0.1 K/uL (1.0-4.3); LYMPH % 0.9 % (20.0-40.0); MEAN CORPUSCULAR HGB CONC 31.4 g/dL (33.0-37.0); MEAN PLATELET VOLUME 12.1 fL (7.2-11.7); MONO # 0.3 K/uL (0.0-0.8); MONO % 1.6 % (0.0-10.0); NEUT # 15.3 K/uL (1.8-7.0); NEUT % 97.1 % (50.0-75.0); NRBC % 0.1 % (0.0-2.0); RBC 2.73 Mil/uL (4.40-5.90); RED CELL DISTRIBUTION WIDTH 20.4 % (11.5-14.5)
[2018-10-18 07:42] LABS: MEAN CELL VOLUME 98.8 fL (80.0-94.0); PLATELET COUNT 90 K/uL (130-400); WHITE BLOOD COUNT 15.8 K/uL (4.8-10.8)
[2018-10-18 08:43] LABS: ALB/GLOB RATIO 0.8 (1.0-2.1); ALBUMIN 2.2 g/dL (3.5-5.0); ALT/SGPT 100 U/L (21-72); AST/SGOT 74 U/L (17-59); BLOOD UREA NITROGEN 117 mg/dL (9-20); CALCIUM 7.8 mg/dl (8.6-10.4); GFR NON-AFRICAN AMERICAN 52
[2018-10-18] MEDS: (Novolin R) Insulin Human Regular 100 units/ml vial SC SCH ×4 (08:52→18:34)
[2018-10-18 10:04] LABS: MONOCYTE 1 % (0-10); NEUTROPHIL 99 % (50-75); TOTAL CELLS COUNTED 100
[2018-10-18 10:05] LABS: ANISOCYTOSIS SLIGHT; HYPOCHROMIC SLIGHT; PLATELET ESTIMATE DECREASED (NORMAL)
[2018-10-18] MEDS: MethylPREDNISolone 40 mg Vial IVP SCH ×2 (10:51→21:11)
[2018-10-18] MEDS: Pantoprazole 40 mg Susp UD NG SCH (10:51)
[2018-10-18] MEDS: Multiple Vitamins Tab PO SCH (10:51)
[2018-10-18] MEDS: Enoxaparin 40 mg Syringe SC SCH (10:52)
[2018-10-18] MEDS: Sodium Chloride 0.9% 1,000 ML IV SCH (13:17)
[2018-10-18] MEDS: Enoxaparin 30 mg Syringe SC SCH (13:18)
--- NOTE | 2018-10-18 14:06 | CP.PCM.PN ---
Subjective - Date & Time of Evaluation Date of Evaluation: 10/18/18 Time of Evaluation: 09:45 - Subjective Subjective: clinically same Objective - Vital Signs/Intake and Output Vital Signs (last 24 hours): Temp Pulse Resp BP Pulse Ox 97.8 F 93 H 18 154/86 H 100 10/18/18 07:46 10/18/18 07:46 10/18/18 07:46 10/18/18 10:51 10/18/18 07:46 Intake and Output: 10/18/18 10/18/18 06:59 18:59 Intake Total 880 Output Total 1050 Balance -170 - Medications Medications: Current Medications Acetaminophen (Tylenol 325mg Tab) 650 mg PO Q8 PRN PRN Reason: Pain, Mild (1-3) Ascorbic Acid (Vitamin C 500 Mg Tab) 500 mg PO BID [facility] Last Admin: 10/18/18 10:51 Dose: 500 mg Aspirin (Aspirin Chewable) 81 mg PO DAILY [facility] Last Admin: 10/18/18 10:51 Dose: 81 mg Clopidogrel Bisulfate (Plavix) 75 mg PO DAILY [facility] Last Admin: 10/18/18 10:52 Dose: 75 mg Dextrose (Dextrose 50% Inj) 0 ml IV STAT PRN; Protocol PRN Reason: Hypoglycemia Protocol Dextrose (Glutose 15) 0 gm PO ONCE PRN; Protocol PRN Reason: Hypoglycemia Protocol Enoxaparin Sodium (Lovenox) 30 mg SC DAILY [facility] Last Admin: 10/18/18 13:18 Dose: Not Given Glucagon (Glucagen Diagnostic Kit) 0 mg IM STAT PRN; Protocol PRN Reason: Hypoglycemia Protocol Sodium Chloride (Sodium Chloride 0.9%) 1,000 mls @ 60 mls/hr IV .[id number] [facility] Last Admin: 10/18/18 13:17 Dose: 60 mls/hr Insulin Human Regular (Novolin R) 0 unit SC Q6 [facility]; Protocol Last Admin: 10/18/18 13:17 Dose: 2 unit Methylprednisolone (Solu-Medrol) 20 mg IVP Q12 [facility] Last Admin: 10/18/18 10:51 Dose: 20 mg Metoprolol Tartrate (Lopressor) 25 mg PO BID [facility] Last Admin: 10/18/18 10:51 Dose: 25 mg Multivitamins (Hexavitamin) 1 tab PO DAILY [facility] Last Admin: 11/21/18 10:51 Dose: 1 tab Pantoprazole Sodium (Protonix Susp) 40 mg NG DAILY [facility] Last Admin: 10/18/18 10:51 Dose: 40 mg Zinc Sulfate (Zinc Sulfate 220 Mg Cap) 220 mg PO BID [facility] Last Admin: 10/18/18 10:52 Dose: 220 mg - Labs Labs: 10/18/18 07:21 10/18/18 07:21 PT 14.4 SECONDS (9.7-12.2) H 10/06/18 12:58 INR 1.3 10/06/18 12:58 APTT 35 SECONDS (21-34) H 10/06/18 12:58 - Constitutional Appears: Well - Head Exam Head Exam: ATRAUMATIC, NORMAL INSPECTION, NORMOCEPHALIC - Eye Exam Eye Exam: EOMI, Normal appearance, PERRL Pupil Exam: NORMAL ACCOMODATION, PERRL - ENT Exam ENT Exam: Mucous Membranes Moist, Normal Exam - Neck Exam Neck Exam: Full ROM, Normal Inspection. absent: Lymphadenopathy - Respiratory Exam Respiratory Exam: Decreased Breath Sounds - Cardiovascular Exam Cardiovascular Exam: REGULAR RHYTHM, +S1, +S2 - GI/Abdominal Exam GI & Abdominal Exam: Soft, Diminished Bowel Sounds - Rectal Exam Rectal Exam: Deferred
--- NOTE | 2018-10-18 15:26 | PN ---
DATE: 10/18/2018 SUBJECTIVE: The patient is lethargic and does not appear to be in respiratory distress. PHYSICAL EXAMINATION: VITAL SIGNS: Blood pressure 154/86, heart rate 93, temperature 97.8, respirations 18. HEENT: Pale conjunctivae. CHEST: Absent breath sounds over the bases. HEART: S1 and S2 regular. EXTREMITIES: Significant contracture deformity and 1+ upper arm edema. LABORATORY DATA: Hemoglobin and hematocrit 8.5 and 27.0, white count 15.8, platelet count 90,000. SMA-7: Sodium 155, potassium 5.3, chloride 125, CO2 24, glucose 187, BUN 117, creatinine 1.3. ASSESSMENT: 1. Worsening prerenal azotemia. 2. Pneumonia and bilateral pleural effusion. 3. Borderline troponin elevation on presentation. 4. Infected iliac and sacral decubitus. PLAN: Continue aspirin 81 mg once a day, Lopressor 25 mg twice a day, Lovenox will be reduced to 30 mg once a day. Continue Plavix 35 mg once a day, Solu-Medrol 20 ml intravenously every 12 hours. Start normal saline at 60 mL an hour. prognosis is grave. Family sign do not resuscitate order. Tomas Veras MD
[2018-10-19] MEDS: (Novolin R) Insulin Human Regular 100 units/ml vial SC SCH ×4 (01:09→17:45)
[2018-10-19] MEDS: Sodium Chloride 0.9% 1,000 ML IV SCH ×4 (06:50→21:20)
[2018-10-19 06:57] LABS: BASO % 0.1 % (0.0-2.0); HEMOGLOBIN 8.7 g/dL (12.0-18.0); LYMPH # 0.2 K/uL (1.0-4.3); LYMPH % 1.2 % (20.0-40.0); MEAN CELL VOLUME 97.9 fL (80.0-94.0); MEAN CORPUSCULAR HEMOGLOBIN 31.8 pg (27.0-31.0); MEAN CORPUSCULAR HGB CONC 32.5 g/dL (33.0-37.0); MEAN PLATELET VOLUME 11.9 fL (7.2-11.7); MONO # 0.2 K/uL (0.0-0.8); MONO % 1.6 % (0.0-10.0); NEUT % 97.1 % (50.0-75.0); NRBC % 0.1 % (0.0-2.0); PLATELET COUNT 74 K/uL (130-400); RBC 2.74 Mil/uL (4.40-5.90); RED CELL DISTRIBUTION WIDTH 19.8 % (11.5-14.5); WHITE BLOOD COUNT 14.4 K/uL (4.8-10.8)
[2018-10-19] MEDS ORDERED: Phytonadione 10 mg/ml Inj (Adult) SC STA (07:08)
[2018-10-19 07:24] LABS: INR 1.1; PROTHROMBIN TIME 11.5 SECONDS (9.7-12.2)
[2018-10-19] MEDS: metroNIDAZOLE IV 500 mg/100 ml 500 MG/100 ML BAG IVPB SCH ×2 (07:52→14:47)
[2018-10-19 08:14] LABS: ALB/GLOB RATIO 0.7 (1.0-2.1); ALBUMIN 2.2 g/dL (3.5-5.0); ALT/SGPT 123 U/L (21-72); AST/SGOT 97 U/L (17-59); BLOOD UREA NITROGEN 114 mg/dL (9-20); CALCIUM 7.8 mg/dl (8.6-10.4); GFR NON-AFRICAN AMERICAN 58
[2018-10-19 09:34] LABS: ANISOCYTOSIS MODERATE; BANDS 4 % (0-2); LYMPHOCYTE 1 % (20-40); MONOCYTE 1 % (0-10); NEUTROPHIL 94 % (50-75); PLATELET ESTIMATE DECREASED (NORMAL); TOTAL CELLS COUNTED 100
[2018-10-19 09:35] LABS: HYPOCHROMIC SLIGHT; LARGE PLATELETS PRESENT; POLYCHROMIC SLIGHT; TOXIC GRANULATION PRESENT
[2018-10-19] MEDS: Enoxaparin 30 mg Syringe SC SCH (10:42)
[2018-10-19] MEDS: Pantoprazole 40 mg Susp UD NG SCH (10:43)
[2018-10-19] MEDS: Multiple Vitamins Tab PO SCH (10:43)
[2018-10-19] MEDS: MethylPREDNISolone 40 mg Vial IVP SCH ×2 (10:44→21:19)
--- NOTE | 2018-10-19 11:59 | PN ---
DATE: 10/19/2018 LOCATION: 555. SUBJECTIVE: This is an 87-year-old male seen and examined initially for GI consultation on 10/18/2018, reexamined again today, reported to be in a state of DNR and DNI as per record, on NG tube feeding. No reported active GI bleeding. No reported chest pain, palpitation, but slight period of mild shortness of breath. No active clinical neurological changes. The entire chart is reviewed including but not limited to most recent lab and radiology study results, current and the previous medication list, current and the previous medical events and today's lab result is still pending; however, the patient's most recent report showed white blood cells of 15.8, low hemoglobin 8.5, low hematocrit 27 with thrombocytopenia of 90 with electrolyte imbalance and abnormal liver function test, but low albumin and low total protein. Today's blood glucose level 194. PHYSICAL EXAMINATION: GENERAL: An 87-year-old male. VITAL SIGNS: Afebrile with pulse of 86, respiratory rate 20 to 22 with blood pressure of 140/62. HEENT: Showed pale, dry oral mucous membrane. Nonicteric sclerae. LUNGS: Few scattered crepitation. Decreased air entry at bases. HEART: Positive S1 and S2. ABDOMEN: Soft with mild generalized tenderness. No mass or organomegaly. No rebound tenderness or guarding. NG tube is in place. EXTREMITIES: With mild lower extremity edematous changes. No clubbing or cyanosis. NEUROLOGICAL: No reported new neurological deficits, sensory or motor. IMPRESSION: 1. Malnutrition with hypoalbuminemia. 2. The patient is a candidate for percutaneous endoscopic gastrostomy insertion upon receiving an official consent from legal guardian. 3. Pneumonia with bilateral pleural effusion. 4. Prerenal azotemia with excessive increase of BUN with dehydration, but normal creatinine. 5. Sacral and iliac decubiti with infection. 6. Electrolyte imbalance with hypernatremia and hypocalcemia. 7. Known history of coronary artery disease hypertension with hyperlipidemia with osteoarthritis and benign prostatic hypertrophy. 8. Mild coagulopathy. SUGGESTIONS: 1. Add Flagyl IV. 2. Vitamin K. 3. Scheduled the patient for PEG insertion at a.m. upon receiving consent from the legal guardian. Further recommendation to follow. Kushal Frye MD [facility] # [id number]
--- NOTE | 2018-10-19 16:25 | PN ---
DATE: 10/19/2018 SUBJECTIVE: The patient is lethargic. PHYSICAL EXAMINATION: VITAL SIGNS: Blood pressure 137/85, heart rate 107, temperature 98.7, respirations 18. HEENT: Pale conjunctivae. CHEST: Diminished breath sounds over the bases. HEART: S1 and S2 regular. EXTREMITIES: Significant contraction deformity. LABORATORY DATA: Hemoglobin and hematocrit 8.7 and 26.8, white count 14.4, platelet count 74,000. SMA-7: Sodium 155, potassium 5.2, chloride 122, CO2 of 28, glucose 197, BUN 114, creatinine 1.2. ASSESSMENT: 1. Dehydration, hyponatremia and prerenal azotemia. 2. Pneumonia, bilateral pleural effusion. 3. Infected iliac and sacral decubitus. 4. Borderline troponin on admission. 5. Worsening thrombocytopenia. RECOMMENDATIONS: 1. Continue aspirin 81 mg once a day. 2. IV Flagyl 500 mg every 8 hours. 3. Lopressor 25 mg twice a day. 4. Lovenox 30 mg subcutaneous once a day. 5. Solu-Medrol 20 mg intravenously every 12 hours. 6. Please resume normal saline at 60 mL an hour if there is no contraindication. Tomas Veras MD
--- NOTE | 2018-10-19 19:38 | CP.PCM.PN ---
Subjective - Date & Time of Evaluation Date of Evaluation: 10/19/18 Time of Evaluation: 09:00 - Subjective Subjective: clinically same Objective - Vital Signs/Intake and Output Vital Signs (last 24 hours): Temp Pulse Resp BP Pulse Ox 99.1 F 100 H 18 158/76 H 99 10/19/18 15:00 10/19/18 15:00 10/19/18 15:00 10/19/18 17:44 10/19/18 15:00 Intake and Output: 10/19/18 10/20/18 18:59 06:59 Intake Total 1260 Output Total 375 Balance 885 - Medications Medications: Current Medications Acetaminophen (Tylenol 325mg Tab) 650 mg PO Q8 PRN PRN Reason: Pain, Mild (1-3) Ascorbic Acid (Vitamin C 500 Mg Tab) 500 mg PO BID [facility] Last Admin: 10/19/18 17:44 Dose: 500 mg Aspirin (Aspirin Chewable) 81 mg PO DAILY [facility] Last Admin: 10/19/18 10:43 Dose: 81 mg Clopidogrel Bisulfate (Plavix) 75 mg PO DAILY [facility] Last Admin: 10/19/18 10:43 Dose: 75 mg Dextrose (Dextrose 50% Inj) 0 ml IV STAT PRN; Protocol PRN Reason: Hypoglycemia Protocol Dextrose (Glutose 15) 0 gm PO ONCE PRN; Protocol PRN Reason: Hypoglycemia Protocol Enoxaparin Sodium (Lovenox) 30 mg SC DAILY [facility] Last Admin: 10/19/18 10:42 Dose: 30 mg Glucagon (Glucagen Diagnostic Kit) 0 mg IM STAT PRN; Protocol PRN Reason: Hypoglycemia Protocol Metronidazole (Flagyl) 500 mg in 100 mls @ 100 mls/hr IVPB Q8H [facility]; Protocol Last Admin: 10/19/18 14:47 Dose: 100 mls/hr Sodium Chloride (Sodium Chloride 0.9%) 1,000 mls @ 80 mls/hr IV .[id number] [facility] Last Admin: 10/19/18 13:50 Dose: 80 mls/hr Insulin Human Regular (Novolin R) 0 unit SC Q6 [facility]; Protocol Last Admin: 10/19/18 17:45 Dose: 2 unit Methylprednisolone (Solu-Medrol) 20 mg IVP Q12 [facility] Last Admin: 10/19/18 10:44 Dose: 20 mg Metoprolol Tartrate (Lopressor) 25 mg PO BID [facility] Last Admin: 10/19/18 17:44 Dose: 25 mg Multivitamins (Hexavitamin) 1 tab PO DAILY [facility] Last Admin: 10/19/18 10:43 Dose: 1 tab Pantoprazole Sodium (Protonix Susp) 40 mg NG DAILY [facility] Last Admin: 10/19/18 10:43 Dose: 40 mg Phytonadione (Vitamin K Inj) 10 mg SC ONCE ONE Stop: 10/20/18 06:01 Zinc Sulfate (Zinc Sulfate 220 Mg Cap) 220 mg PO BID [facility] Last Admin: 10/19/18 17:44 Dose: 220 mg - Labs Labs: 10/19/18 06:42 10/19/18 06:42 PT 11.5 SECONDS (9.7-12.2) 10/19/18 06:42 INR 1.1 10/19/18 06:42 APTT 29 SECONDS (21-34) 10/19/18 06:42 - Constitutional Appears: Well - Head Exam Head Exam: ATRAUMATIC, NORMAL INSPECTION, NORMOCEPHALIC - Eye Exam Eye Exam: EOMI, Normal appearance, PERRL Pupil Exam: NORMAL ACCOMODATION, PERRL - ENT Exam ENT Exam: Mucous Membranes Moist, Normal Exam - Neck Exam Neck Exam: Full ROM, Normal Inspection. absent: Lymphadenopathy - Respiratory Exam Respiratory Exam: Decreased Breath Sounds - Cardiovascular Exam Cardiovascular Exam: REGULAR RHYTHM, +S1, +S2 - GI/Abdominal Exam GI & Abdominal Exam: Soft, Diminished Bowel Sounds - Rectal Exam Rectal Exam: Deferred
[2018-10-20] MEDS: metroNIDAZOLE IV 500 mg/100 ml 500 MG/100 ML BAG IVPB SCH ×4 (00:08→22:36)
[2018-10-20] MEDS: (Novolin R) Insulin Human Regular 100 units/ml vial SC SCH ×4 (00:13→17:22)
[2018-10-20] MEDS: Sodium Chloride 0.9% 1,000 ML IV SCH (05:21)
[2018-10-20] MEDS ORDERED: Phytonadione 10 mg/ml Inj (Adult) SC ONE (06:00)
[2018-10-20 08:18] LABS: MEAN CORPUSCULAR HEMOGLOBIN 30.8 pg (27.0-31.0); MEAN CORPUSCULAR HGB CONC 30.6 g/dL (33.0-37.0); MEAN PLATELET VOLUME 12.5 fL (7.2-11.7); RBC 2.28 Mil/uL (4.40-5.90); RED CELL DISTRIBUTION WIDTH 20.4 % (11.5-14.5); WHITE BLOOD COUNT 8.6 K/uL (4.8-10.8)
[2018-10-20 08:23] LABS: INR 1.1; PROTHROMBIN TIME 12.4 SECONDS (9.7-12.2)
[2018-10-20 08:25] LABS: MEAN CELL VOLUME 100.6 fL (80.0-94.0)
[2018-10-20 09:03] LABS: ALB/GLOB RATIO 0.7 (1.0-2.1); ALBUMIN 2.1 g/dL (3.5-5.0); ALT/SGPT 114 U/L (21-72); AST/SGOT 69 U/L (17-59); BLOOD UREA NITROGEN 109 mg/dL (9-20); CALCIUM 7.5 mg/dl (8.6-10.4); GFR NON-AFRICAN AMERICAN > 60
[2018-10-20] MEDS: Pantoprazole 40 mg Susp UD NG SCH (10:50)
[2018-10-20] MEDS: MethylPREDNISolone 40 mg Vial IVP SCH ×2 (10:50→22:43)
[2018-10-20] MEDS: Multiple Vitamins Tab PO SCH (10:50)
[2018-10-20] MEDS: Enoxaparin 30 mg Syringe SC SCH (10:52)
[2018-10-20] MEDS ORDERED: Sodium Chloride 0.45% 1,000 ML IV ONE (12:43)
--- NOTE | 2018-10-20 15:44 | PN ---
DATE: 10/20/2018 LOCATION: 555. SUBJECTIVE: This is an 87-year-old male seen and examined in rounds, rescheduled initially for PEG insertion today; however, due to the abnormal lab results and the lack of consent so far from the legal guardian. Case discussed at length with the anesthesia staff and decision was made to reschedule the PEG insertion until correcting the patient's underlying electrolyte imbalance and hopefully the low platelet count. No reported active bleeding so far. PHYSICAL EXAMINATION: GENERAL: An 87-year-old male in a status of DNR and DNI. VITAL SIGNS: Afebrile with pulse of 82, respiratory rate 18 to 20, blood pressure is 140/66. HEENT: Showed pale, dry oral mucous membrane. Nonicteric sclerae LUNGS: Few scattered crepitation. Decreased air entry at bases. HEART: Positive S1 and S2. ABDOMEN: With mild generalized tenderness. No mass or organomegaly. No rebound tenderness or guarding. EXTREMITIES: Without edema, clubbing or cyanosis. NEUROLOGICAL: No reported new neurological deficits, sensory or motor. LABORATORY DATA: Today's lab results showed hemoglobin is 7, hematocrit 22.9, with platelet count of 55. PT 12.4, sodium 158, BUN 109, creatinine 1.1, blood glucose level 149, calcium 7.5 with elevated AST and ALT, albumin 2.1, total protein 4.8. IMPRESSION: 1. Malnutrition with hypoalbuminemia, hypoproteinemia. 2. Electrolyte imbalance. 3. Prerenal azotemia. 4. Anemia. The patient will need blood transfusion. 5. Thrombocytopenia of unclear etiology. 6. Sacral and iliac decubiti with infection. 7. Known history of hypertension, coronary artery disease, hyperlipidemia with osteoarthritis as well as benign prostatic hypertrophy. 8. Mild coagulopathy. SUGGESTIONS: 1. Continue current management. 2. Antireflux measure. 3. IV rehydration with peripheral versus central hyperalimentation. 4. Correct any underlying electrolyte imbalance and thrombocytopenia with possible platelet transfusion. 5. The patient is to be scheduled for PEG insertion about receiving consent from the legal guardian and after correcting his electrolyte imbalance. 6. Further recommendation to follow. Kushal Frye MD
--- NOTE | 2018-10-20 16:47 | PN ---
DATE: 10/20/2018 SUBJECTIVE: The patient is lethargic. He is still getting his nasogastric tube feeding and medications via nasogastric tube. He is still on normal saline at 80 mL an hour. Plan is for gastrostomy feeding tube . PHYSICAL EXAMINATION: VITAL SIGNS: Blood pressure 147/68, heart rate 86, temperature 97.6, respirations 18. HEENT: Pale conjunctivae. CHEST: Absent breath sounds over the bases. HEART: S1, S2 regular. EXTREMITIES: Significant contracture deformity. LABORATORY DATA: Hemoglobin and hematocrit 7 and 22.9, white count 8.6, platelet count has dropped to 55,000. SMA-7: Sodium 158, potassium 4.4, chloride 125, CO2 of 28, glucose 127, BUN 109, creatinine 1.1. ASSESSMENT: 1. Worsening anemia and thrombocytopenia. 2. Elevated troponin on admission. 3. Pneumonia and bilateral pleural effusion. 4. Dehydration, hypernatremia and prerenal azotemia. 5. Infected sacral and iliac decubitus. RECOMMENDATIONS: 1. Discontinue aspirin. 2. Continue Lopressor 25 mg twice a day. 3. Discontinue Plavix in anticipation of gastrostomy feeding tube placement. 4. Continue Protonix 40 mg via nasogastric tube. 5. Solu-Medrol 20 mg intravenously every 12 hours. 6. Change intravenous fluids to half normal saline at 80 mL an hour. Tomas Veras MD
--- NOTE | 2018-10-20 17:21 | CP.PCM.PN ---
Subjective - Date & Time of Evaluation Date of Evaluation: 10/20/18 Time of Evaluation: 08:45 - Subjective Subjective: clinically same Objective - Vital Signs/Intake and Output Vital Signs (last 24 hours): Temp Pulse Resp BP Pulse Ox 98.0 F 92 H 20 113/51 L 97 10/20/18 15:00 10/20/18 15:00 10/20/18 15:00 10/20/18 15:00 10/20/18 15:00 Intake and Output: 10/20/18 10/20/18 06:59 18:59 Intake Total 1060 Output Total 450 425 Balance 610 -425 - Medications Medications: Current Medications Acetaminophen (Tylenol 325mg Tab) 650 mg PO Q8 PRN PRN Reason: Pain, Mild (1-3) Last Admin: 10/19/18 21:19 Dose: 650 mg Ascorbic Acid (Vitamin C 500 Mg Tab) 500 mg PO BID [facility] Last Admin: 10/20/18 10:52 Dose: 500 mg Dextrose (Dextrose 50% Inj) 0 ml IV STAT PRN; Protocol PRN Reason: Hypoglycemia Protocol Dextrose (Glutose 15) 0 gm PO ONCE PRN; Protocol PRN Reason: Hypoglycemia Protocol Enoxaparin Sodium (Lovenox) 30 mg SC DAILY [facility] Last Admin: 10/20/18 10:52 Dose: 30 mg Glucagon (Glucagen Diagnostic Kit) 0 mg IM STAT PRN; Protocol PRN Reason: Hypoglycemia Protocol Metronidazole (Flagyl) 500 mg in 100 mls @ 100 mls/hr IVPB Q8H [facility]; Protocol Last Admin: 10/20/18 14:24 Dose: 100 mls/hr Sodium Chloride (Sodium Chloride 0.45%) 1,000 mls @ 80 mls/hr IV .[id number] ONE Stop: 10/21/18 01:12 Last Admin: 10/20/18 13:00 Dose: 80 mls/hr Insulin Human Regular (Novolin R) 0 unit SC Q6 [facility]; Protocol Last Admin: 10/20/18 12:30 Dose: Not Given Methylprednisolone (Solu-Medrol) 20 mg IVP Q12 [facility] Last Admin: 10/20/18 10:50 Dose: 20 mg Metoprolol Tartrate (Lopressor) 25 mg PO BID [facility] Last Admin: 10/20/18 10:50 Dose: 25 mg Multivitamins (Hexavitamin) 1 tab PO DAILY [facility] Last Admin: 10/20/18 10:50 Dose: 1 tab Pantoprazole Sodium (Protonix Susp) 40 mg NG DAILY [facility] Last Admin: 10/20/18 10:50 Dose: 40 mg Zinc Sulfate (Zinc Sulfate 220 Mg Cap) 220 mg PO BID [facility] Last Admin: 10/20/18 10:50 Dose: 220 mg - Labs Labs: 10/20/18 08:08 10/20/18 07:59 PT 12.4 SECONDS (9.7-12.2) H 10/20/18 07:59 INR 1.1 10/20/18 07:59 APTT 32 SECONDS (21-34) 10/20/18 07:59 - Constitutional Appears: Well - Head Exam Head Exam: ATRAUMATIC, NORMAL INSPECTION, NORMOCEPHALIC - Eye Exam Eye Exam: EOMI, Normal appearance, PERRL Pupil Exam: NORMAL ACCOMODATION, PERRL - ENT Exam ENT Exam: Mucous Membranes Moist, Normal Exam - Neck Exam Neck Exam: Full ROM, Normal Inspection. absent: Lymphadenopathy - Respiratory Exam Respiratory Exam: Decreased Breath Sounds - Cardiovascular Exam Cardiovascular Exam: REGULAR RHYTHM, +S1, +S2 - GI/Abdominal Exam GI & Abdominal Exam: Soft, Diminished Bowel Sounds - Rectal Exam Rectal Exam: Deferred
--- NOTE | 2018-10-20 19:42 | CP.PCM.PN ---
Subjective - Date & Time of Evaluation Date of Evaluation: 10/20/18 Time of Evaluation: 16:30 - Subjective Subjective: patient seen and examined condition unchanged For transfusion of packed RBCs Continue antibiotics Nebulizer treatment Patient DNR/DNI Lasix posttransfusion Objective - Vital Signs/Intake and Output Vital Signs (last 24 hours): Temp Pulse Resp BP Pulse Ox 97.9 F 63 22 101/63 97 10/20/18 19:26 10/20/18 19:26 10/20/18 19:26 10/20/18 19:26 10/20/18 15:00 Intake and Output: 10/20/18 10/21/18 18:59 06:59 Intake Total 0 Output Total 425 Balance -425 0 - Medications Medications: Current Medications Acetaminophen (Tylenol 325mg Tab) 650 mg PO Q8 PRN PRN Reason: Pain, Mild (1-3) Last Admin: 10/19/18 21:19 Dose: 650 mg Ascorbic Acid (Vitamin C 500 Mg Tab) 500 mg PO BID [facility] Last Admin: 10/20/18 17:40 Dose: 500 mg Dextrose (Dextrose 50% Inj) 0 ml IV STAT PRN; Protocol PRN Reason: Hypoglycemia Protocol Dextrose (Glutose 15) 0 gm PO ONCE PRN; Protocol PRN Reason: Hypoglycemia Protocol Enoxaparin Sodium (Lovenox) 30 mg SC DAILY [facility] Last Admin: 10/20/18 10:52 Dose: 30 mg Glucagon (Glucagen Diagnostic Kit) 0 mg IM STAT PRN; Protocol PRN Reason: Hypoglycemia Protocol Metronidazole (Flagyl) 500 mg in 100 mls @ 100 mls/hr IVPB Q8H [facility]; Protocol Last Admin: 10/20/18 14:24 Dose: 100 mls/hr Sodium Chloride (Sodium Chloride 0.45%) 1,000 mls @ 80 mls/hr IV .[id number] ONE Stop: 10/21/18 01:12 Last Admin: 10/20/18 13:00 Dose: 80 mls/hr Insulin Human Regular (Novolin R) 0 unit SC Q6 [facility]; Protocol Last Admin: 10/20/18 17:22 Dose: Not Given Methylprednisolone (Solu-Medrol) 20 mg IVP Q12 [facility] Last Admin: 10/20/18 10:50 Dose: 20 mg Metoprolol Tartrate (Lopressor) 25 mg PO BID [facility] Last Admin: 10/20/18 17:40 Dose: 25 mg Multivitamins (Hexavitamin) 1 tab PO DAILY [facility] Last Admin: 10/20/18 10:50 Dose: 1 tab Pantoprazole Sodium (Protonix Susp) 40 mg NG DAILY [facility] Last Admin: 10/20/18 10:50 Dose: 40 mg Zinc Sulfate (Zinc Sulfate 220 Mg Cap) 220 mg PO BID [facility] Last Admin: 10/20/18 17:40 Dose: 220 mg - Labs Labs: 10/20/18 08:08 10/20/18 07:59 PT 12.4 SECONDS (9.7-12.2) H 10/20/18 07:59 INR 1.1 10/20/18 07:59 APTT 32 SECONDS (21-34) 10/20/18 07:59 Assessment and Plan (1) Acute respiratory failure Status: Acute (2) Pleural effusion Status: Acute (3) COPD (chronic obstructive pulmonary disease) Status: Acute
[2018-10-21] MEDS: (Novolin R) Insulin Human Regular 100 units/ml vial SC SCH ×4 (00:06→18:29)
--- NOTE | 2018-10-21 06:00 | CON ---
DATE: 10/18/[address] Kushal Frye to Dr. Fabiana Ko. I was called for GI consultation by the admitting medical team. The patient is seen and fully examined on 10/18/2018 as requested by the admitting medical staff. The entire chart is reviewed including but not limited to most recent lab and radiology study results, current and the previous medication list, current and the previous medical events, allergy to medication list as well as all the available current and the previous medical records. HISTORY OF PRESENT ILLNESS: This is an 87-year-old male with multiple complicated past medical history who was initially admitted from a [facility] due to lack of oral intake, refusing to eat, and refused medication for the last 3 to 4 days, for which the patient was admitted for potential PEG insertion. The patient is also reported to have hip decubitus for which IV antibiotics started through a PICC line. PAST MEDICAL HISTORY: Including but not limited to, 1. Hypertension 2. CVA. 3. Dementia. 4. Hyperlipidemia. 5. Osteoarthritis. 6. Coronary artery disease. 7. Benign prostatic hypertrophy. 8. Status post cardiac stent insertion. The patient had multiple procedures before including his spinal tapping. FAMILY HISTORY: Unknown. SOCIAL HISTORY: No reported recent history of cigarette smoking or alcohol intake. CURRENT MEDICATIONS: Post admission medication lists were reviewed. Most recent lab results showed hemoglobin of 8.5, hematocrit 23 with leukocytosis of 15.8 with thrombocytopenia of 90. Sodium elevated to 155 and potassium 5.3. The patient reported to have elevated BUN of 117 with creatinine 1.3 indicative of prerenal azotemia with increased blood glucose level to 187. Liver function tests slightly changes since admission. PHYSICAL EXAMINATION: GENERAL: An 87-year-old, a [place] speaking patient, now communicating well to any verbal stimuli through a anchorer. VITAL SIGNS: Blood pressure of 152/82, heart rate of 90 with respiratory rate of 20 to 22. The patient is afebrile. HEENT: Showed pale dry oral mucoid membrane. Nonicteric sclerae. LYMPH NODES: No lymphadenitis or lymphadenopathy. LUNGS: Few scattered crepitation with decreased air entry at bases. HEART: Positive S1 and S2 with increased rate. ABDOMEN: Soft with mild generalized tenderness. No mass or organomegaly. No rebound tenderness or guarding. Mildly distended. EXTREMITIES: Without significant clubbing, cyanosis, or edema. NEUROLOGIC: No reported new neurological deficits, sensory or motor. No new reported focal deficits. SKIN: The patient still has right hip decubitus ulceration. IMPRESSION: 1. Malnutrition with hypoalbuminemia. 2. Failure to thrive. 3. The patient is a candidate for PEG insertion. 4. Electrolyte imbalance secondary to above. 5. Dehydration with prerenal azotemia. 6. Multiple past medical history as mentioned above. SUGGESTIONS: 1. Agree with your plan. 2. Correct any underlying electrolyte imbalance as well as correct the patient's thrombocytopenia. 3. Central hyperalimentation. 4. Blood culture x2. 5. IV 500 mg every 8 hours. 6. Proton pump inhibitors. 7. The patient to be scheduled for PEG insertion after receiving a consent from the legal guardian and after correcting underlying electrolyte imbalance. Further recommendation to follow. Thank you for letting me participate in your patient's case management. Kushal Frye MD
[2018-10-21] MEDS: metroNIDAZOLE IV 500 mg/100 ml 500 MG/100 ML BAG IVPB SCH ×3 (06:17→23:15)
[2018-10-21] MEDS: MethylPREDNISolone 40 mg Vial IVP SCH (09:46)
[2018-10-21] MEDS: Pantoprazole 40 mg Susp UD NG SCH (09:47)
[2018-10-21] MEDS: Enoxaparin 30 mg Syringe SC SCH (09:49)
[2018-10-21] MEDS: Multiple Vitamins Tab PO SCH (09:50)
--- NOTE | 2018-10-21 10:04 | PN ---
DATE: 10/21/2018 LOCATION: 555 SUBJECTIVE: This is an 87-year-old male seen and examined early in rounds with the staff in the floor, appears to be somewhat awake and somewhat more alert without any reported active bleeding. The patient is status post blood transfusion. It has to be mentioned that the patient is still in a status of DNR and DNI as per record. He has very poor oral intake, refused oral intake and refused medication intake so far and none. The entire chart is reviewed including but not limited to the most recent lab and radiology study results, current and previous medication list, current and the previous medical events. Case discussed with the staff at length and today's lab result is still pending. The patient today showed blood glucose level of 167 and the stool for occult blood reported to be positive, with persistent electrolyte imbalance and increased BUN, but normal creatinine. PHYSICAL EXAMINATION: GENERAL: This is an 87-year-old male. VITAL SIGNS: Afebrile with pulse of 90, respiratory rate 20 to 22, blood pressure of 130/62. HEENT: Showed pale dry oral mucoid membrane. Nonicteric sclerae. LUNGS: Few scattered crepitation. Decreased air entry at bases. HEART: Positive S1 and S2. ABDOMEN: Soft with mild generalized tenderness. No mass or organomegaly. No rebound tenderness or guarding. EXTREMITIES: Without significant clubbing, cyanosis or edema. NEUROLOGIC: No reported new neurological deficits, sensory or motor. IMPRESSION: 1. Malnutrition with hypoalbuminemia, hypoproteinemia. 2. Failure to thrive. 3. The patient is a candidate for percutaneous endoscopic gastrostomy insertion. 4. Electrolyte imbalance with hypernatremia, hypercalcemia. 5. Prerenal azotemia with excessive increased BUN, but normal creatinine. 6. Anemia with guaiac-positive stools, a possibility of gastrointestinal blood loss was raised. 7. Known history of recently diagnosed sacral and iliac decubiti with infection, on antibiotics. Thrombocytopenia of unclear etiology that could be secondary to an infectious process however. 8. Past medical history including hyperlipidemia, hypertension, benign prostatic hypertrophy as well as coronary artery disease. SUGGESTIONS: 1. Continue current management. 2. Correct underlying electrolyte imbalance. 3. The patient is scheduled for PEG insertion on 10/23/2018 after correcting his electrolyte imbalance and obtaining a consent from the legal guardian and Dr. Frye. Kushal Frye MD
--- NOTE | 2018-10-21 12:05 | CP.PCM.PN ---
Subjective - Date & Time of Evaluation Date of Evaluation: 10/21/18 Time of Evaluation: 10:00 - Subjective Subjective: clinically same Objective - Vital Signs/Intake and Output Vital Signs (last 24 hours): Temp Pulse Resp BP Pulse Ox 98.3 F 116 H 18 146/81 96 10/21/18 07:35 10/21/18 07:35 10/21/18 07:35 10/21/18 09:50 10/21/18 07:35 Intake and Output: 10/21/18 10/21/18 06:59 18:59 Intake Total 1770 1120 Output Total 975 625 Balance 795 495 - Medications Medications: Current Medications Acetaminophen (Tylenol 325mg Tab) 650 mg PO Q8 PRN PRN Reason: Pain, Mild (1-3) Last Admin: 10/19/18 21:19 Dose: 650 mg Ascorbic Acid (Vitamin C 500 Mg Tab) 500 mg PO BID [facility] Last Admin: 10/21/18 09:50 Dose: 500 mg Enoxaparin Sodium (Lovenox) 30 mg SC DAILY [facility] Last Admin: 10/21/18 09:49 Dose: 30 mg Metronidazole (Flagyl) 500 mg in 100 mls @ 100 mls/hr IVPB Q8H [facility]; Protocol Last Admin: 10/21/18 06:17 Dose: 100 mls/hr Insulin Human Regular (Novolin R) 0 unit SC Q6 [facility]; Protocol Last Admin: 10/21/18 07:17 Dose: Not Given Methylprednisolone (Solu-Medrol) 20 mg IVP Q12 [facility] Last Admin: 10/21/18 09:46 Dose: 20 mg Metoprolol Tartrate (Lopressor) 25 mg PO BID [facility] Last Admin: 10/21/18 09:50 Dose: 25 mg Multivitamins (Hexavitamin) 1 tab PO DAILY [facility] Last Admin: 10/21/18 09:50 Dose: 1 tab Pantoprazole Sodium (Protonix Susp) 40 mg NG DAILY [facility] Last Admin: 10/21/18 09:47 Dose: 40 mg Zinc Sulfate (Zinc Sulfate 220 Mg Cap) 220 mg PO BID [facility] Last Admin: 10/21/18 09:50 Dose: 220 mg - Labs Labs: 10/20/18 08:08 10/20/18 07:59 PT 12.4 SECONDS (9.7-12.2) H 10/20/18 07:59 INR 1.1 10/20/18 07:59 APTT 32 SECONDS (21-34) 10/20/18 07:59 - Constitutional Appears: Well - Head Exam Head Exam: ATRAUMATIC, NORMAL INSPECTION, NORMOCEPHALIC - Eye Exam Eye Exam: EOMI, Normal appearance, PERRL Pupil Exam: NORMAL ACCOMODATION, PERRL - ENT Exam ENT Exam: Mucous Membranes Moist, Normal Exam - Neck Exam Neck Exam: Full ROM, Normal Inspection. absent: Lymphadenopathy - Respiratory Exam Respiratory Exam: Decreased Breath Sounds - Cardiovascular Exam Cardiovascular Exam: +S1, +S2 - GI/Abdominal Exam GI & Abdominal Exam: Soft, Diminished Bowel Sounds - Rectal Exam Rectal Exam: Deferred
[2018-10-21] MEDS ORDERED: Pantoprazole 80 MG in Sodium Chloride 0.9% 100 ML IVP ONE (16:24)
[2018-10-21 16:27] LABS: BASO % 0.2 % (0.0-2.0); HEMOGLOBIN 6.7 g/dL (12.0-18.0); LYMPH # 0.3 K/uL (1.0-4.3); LYMPH % 3.3 % (20.0-40.0); MEAN CELL VOLUME 101.1 fL (80.0-94.0); MEAN CORPUSCULAR HGB CONC 31.6 g/dL (33.0-37.0); MEAN PLATELET VOLUME 13.5 fL (7.2-11.7); MONO # 0.1 K/uL (0.0-0.8); MONO % 1.7 % (0.0-10.0); NEUT # 8.2 K/uL (1.8-7.0); NEUT % 94.8 % (50.0-75.0); NRBC % 0.3 % (0.0-2.0); PLATELET COUNT 59 K/uL (130-400); RBC 2.11 Mil/uL (4.40-5.90); RED CELL DISTRIBUTION WIDTH 20.8 % (11.5-14.5); WHITE BLOOD COUNT 8.6 K/uL (4.8-10.8)
[2018-10-21] MEDS ORDERED: Pantoprazole 80 MG in Sodium Chloride 0.9% 100 ML IVP SCH (16:30)
[2018-10-21 16:50] LABS: ALB/GLOB RATIO 0.8 (1.0-2.1); ALBUMIN 2.1 g/dL (3.5-5.0); ALT/SGPT 81 U/L (21-72); AST/SGOT 60 U/L (17-59); B-TYPE NATRIURETIC PEPTIDE 27300 pg/mL (0-900); BLOOD UREA NITROGEN 109 mg/dL (9-20); CALCIUM 7.5 mg/dl (8.6-10.4); GFR NON-AFRICAN AMERICAN 58
[2018-10-21 16:58] LABS: PROLACTIN 13.2 ng/mL (3.7-17.9)
[2018-10-21 17:00] LABS: ABG ALLEN TEST POS; ARTERIAL BLOOD GAS HCO3 27.7 mmol/L (21-28); ARTERIAL BLOOD GAS O2 SAT 99.2 % (95-98); ARTERIAL BLOOD GAS PCO2 33 mm/Hg (35-45); ARTERIAL BLOOD GAS PH 7.51 (7.35-7.45); ARTERIAL BLOOD GAS PO2 73 mm/Hg (80-100); ARTERIAL BLOOD GAS TCO2 27.3 mmol/L (22-28)
--- NOTE | 2018-10-21 17:18 | RAD ---
Date of service: 10/21/2018 HISTORY: SOB COMPARISON: 10/09/2018 FINDINGS: LUNGS: Linear scar/atelectasis adjacent to left hilum. PLEURA: Bilateral small to moderate pleural effusions. Opacity at both lung bases likely due to dependent pleural fluid. No pneumothorax. CARDIOVASCULAR: Normal heart size. Nasogastric tube extends to left side of abdomen. There is a catheter extending from the region of the superior vena cava caudally, a central venous line of uncertain origin. Normal cardiac size. No pulmonary vascular congestion. OSSEOUS STRUCTURES: No significant abnormalities. VISUALIZED UPPER ABDOMEN: Normal. OTHER FINDINGS: None. IMPRESSION: Bilateral moderate pleural effusion. Nasogastric tube. Central venous catheter inserted caudally.
[2018-10-21 17:22] LABS: ANISOCYTOSIS SLIGHT; BURR CELLS SLIGHT; HYPOCHROMIC MODERATE; LYMPHOCYTE 6 % (20-40); MONOCYTE 2 % (0-10); NEUTROPHIL 92 % (50-75); OVALOCYTES SLIGHT; PLATELET ESTIMATE MARKEDLY DECREASED (NORMAL); POLYCHROMIC SLIGHT; TARGET CELLS SLIGHT; TOTAL CELLS COUNTED 100
[2018-10-21 17:23] LABS: LARGE PLATELETS PRESENT
--- NOTE | 2018-10-21 17:44 | CP.PCM.CON ---
History of Present Illness - History of Present Illness History of Present Illness: cc: difficulty breathing HPI: 87M y/o male with pmx of pleural effusion, h/o CVA, hydrocephalus, and dementia has had multiple hospital admissions and prolonged hospital course. Patient was recently seen by palliative care 10/17/2018 and family expressed conservative treatment. Patient is nonverbal and cannot provide any history -During hospital course, patient has been getting IV diuretic and sodium increasing 2nd dehydratoin -Slowly BUN rising c/w upper Gi bleed with blood being digested -drop in hb/hct PMH: CVA, hydrocephalus S/P [employer] shunt, dementia, HTN, HLD, [place], dementia PSH: [employer] of [employer] shunt, coronary stent ALL: NKDA Review of Systems - Review of Systems Systems not reviewed;Unavailable: Altered Mental Status Past Patient History - Tetanus Immunizations Tetanus Immunization: Unknown - Past Medical History & Family History Past Medical History?: Yes Past Family History: Reviewed and not pertinent - Past Social History Smoking Status: Unknown If Ever Smoked Chewing Tobacco Use: No Cigar Use: No Alcohol: None Drugs: Denies Home Situation {Lives}: Residential - CARDIAC Hx Hypercholesterolemia: Yes Hx Hypertension: Yes Hx Pacemaker: No - PULMONARY Hx Respiratory Disorders: No Other/Comment: Coronary Stent - NEUROLOGICAL Hx Dementia: Yes - HEENT Hx HEENT Problems: No - RENAL Hx Chronic Kidney Disease: No - ENDOCRINE/METABOLIC Hx Endocrine Disorders: No Other/Comment: Pt incontinent - HEMATOLOGICAL/ONCOLOGICAL Hx Blood Disorders: No Hx Blood Transfusions: No Hx Blood Transfusion Reaction: No Other/Comment: MRSA - INTEGUMENTARY Hx Dermatological Problems: Yes Other/Comment: Bilaterl HIP Decubiti. Unstageable sacral decubitus. Left lateral foot unstageable pressure ulcer - MUSCULOSKELETAL/RHEUMATOLOGICAL Hx Arthritis: Yes - GASTROINTESTINAL Hx Gastrointestinal Disorders: Yes Other/Comment: Incotinence - GENITOURINARY/GYNECOLOGICAL Hx Genitourinary Disorders: Yes Other/Comment: Hx of BPH - PSYCHIATRIC Hx Substance Use: No - SURGICAL HISTORY Hx Coronary Stent: Yes - ANESTHESIA Hx Anesthesia: Yes Hx Anesthesia Reactions: No Hx Malignant Hyperthermia: No Has any member of the family had a problem w/ anesthesia?: No Meds Allergies/Adverse Reactions: Allergies Allergy/AdvReac Type Severity Reaction Status Date / Time No Known Allergies Allergy Unverified 08/29/18 17:06 - Medications Medications: Current Medications Acetaminophen (Tylenol 325mg Tab) 650 mg PO Q8 PRN PRN Reason: Pain, Mild (1-3) Last Admin: 10/19/18 21:19 Dose: 650 mg Metronidazole (Flagyl) 500 mg in 100 mls @ 100 mls/hr IVPB Q8H [facility]; Protocol Last Admin: 10/21/18 15:14 Dose: 100 mls/hr Pantoprazole Sodium 80 mg/ (Sodium Chloride) 100 mls @ 10 mls/hr IVP .Q10H [facility] Insulin Human Regular (Novolin R) 0 unit SC Q6 [facility]; Protocol Last Admin: 10/21/18 12:27 Dose: 1 unit Metoprolol Tartrate (Lopressor) 25 mg PO BID [facility] Last Admin: 10/21/18 09:50 Dose: 25 mg Multivitamins (Hexavitamin) 1 tab PO DAILY [facility] Last Admin: 10/21/18 09:50 Dose: 1 tab Pantoprazole Sodium (Protonix Susp) 40 mg NG DAILY [facility] Last Admin: 10/21/18 09:47 Dose: 40 mg Zinc Sulfate (Zinc Sulfate 220 Mg Cap) 220 mg PO BID [facility] Last Admin: 10/21/18 09:50 Dose: 220 mg Physical Exam - Eye Exam Pupil Exam: NORMAL ACCOMODATION - ENT Exam ENT Exam: Mucous Membranes Moist - Respiratory Exam Respiratory Exam: Clear to Auscultation Bilateral, NORMAL BREATHING PATTERN - Cardiovascular Exam Cardiovascular Exam: REGULAR RHYTHM, +S1, +S2 - Extremities Exam Additional comments: contracted Results - Vital Signs Recent Vital Signs: Last Vital Signs Temp 98.3 F 10/21/18 07:35 Pulse 116 H 10/21/18 07:35 Resp 18 10/21/18 07:35 BP 146/81 10/21/18 09:50 Pulse Ox 96 10/21/18 07:35 - Labs Result Diagrams: 10/21/18 16:24 10/21/18 16:24 Labs: Laboratory Results - last 24 hr 10/20/18 10/20/18 10/20/18 14:09 16:59 21:36 WBC RBC Hgb Hct MCV MCH MCHC RDW Plt Count MPV Neut % (Auto) Lymph % (Auto) Menard % (Auto) Eos % (Auto) Baso % (Auto) Neut # (Auto) Lymph # (Auto) Menard # (Auto) Eos # (Auto) Baso # (Auto) Neutrophils % (Manual) Lymphocytes % (Manual) Monocytes % (Manual) Platelet Estimate Large Platelets Polychromasia Hypochromasia (manual) Anisocytosis (manual) Macrocytosis (manual) Target Cells Ovalocytes Simms Cells Puncture Site pCO2 pO2 HCO3 ABG pH ABG Total CO2 ABG O2 Saturation ABG Base Excess Tima Test ABG Potassium A-a O2 Difference Respiratory Index Glucose Lactate Liter Flow FiO2 Crit Value Called To Crit Value Called By Crit Value Read Back Blood Gas Notified Time Sodium Potassium Chloride Carbon Dioxide Anion Gap BUN Creatinine Est GFR ( Amer) Est GFR (Non-Af Amer) POC Glucose (mg/dL) 170 H 143 H Random Glucose Lactic Acid Calcium Phosphorus Magnesium Total Bilirubin AST ALT Alkaline Phosphatase NT-Pro-B Natriuret Pep Total Protein Albumin Globulin Albumin/Globulin Ratio Prolactin Arterial Blood Potassium Stool Occult Blood Blood Type O POSITIVE Antibody Screen Negative 10/21/18 10/21/18 10/21/18 05:15 06:54 11:34 WBC RBC Hgb Hct MCV MCH MCHC RDW Plt Count MPV Neut % (Auto) Lymph % (Auto) Menard % (Auto) Eos % (Auto) Baso % (Auto) Neut # (Auto) Lymph # (Auto) Menard # (Auto) Eos # (Auto) Baso # (Auto) Neutrophils % (Manual) Lymphocytes % (Manual) Monocytes % (Manual) Platelet Estimate Large Platelets Polychromasia Hypochromasia (manual) Anisocytosis (manual) Macrocytosis (manual) Target Cells Ovalocytes Shila Cells Puncture Site pCO2 pO2 HCO3 ABG pH ABG Total CO2 ABG O2 Saturation ABG Base Excess Tima Test ABG Potassium A-a O2 Difference Respiratory Index Glucose Lactate Liter Flow FiO2 Crit Value Called To Crit Value Called By Crit Value Read Back Blood Gas Notified Time Sodium Potassium Chloride Carbon Dioxide Anion Gap BUN Creatinine Est GFR ( Amer) Est GFR (Non-Af Amer) POC Glucose (mg/dL) 167 H 194 H Random Glucose Lactic Acid Calcium Phosphorus Magnesium Total Bilirubin AST ALT Alkaline Phosphatase NT-Pro-B Natriuret Pep Total Protein Albumin Globulin Albumin/Globulin Ratio Prolactin Arterial Blood Potassium Stool Occult Blood Positive H Blood Type Antibody Screen 10/21/18 10/21/18 10/21/18 16:24 16:24 16:24 WBC 8.6 RBC 2.11 L Hgb 6.7 L Hct 21.3 L MCV 101.1 H MCH 32.0 H MCHC 31.6 L RDW 20.8 H Plt Count 59 L MPV 13.5 H Neut % (Auto) 94.8 H Lymph % (Auto) 3.3 L Menard % (Auto) 1.7 Eos % (Auto) 0.0 Baso % (Auto) 0.2 Neut # (Auto) 8.2 H Lymph # (Auto) 0.3 L Menard # (Auto) 0.1 Eos # (Auto) 0.0 Baso # (Auto) 0.0 Neutrophils % (Manual) 92 H Lymphocytes % (Manual) 6 L Monocytes % (Manual) 2 Platelet Estimate Markedly decreased L Large Platelets Present Polychromasia Slight Hypochromasia (manual) Moderate Anisocytosis (manual) Slight Macrocytosis (manual) Slight Target Cells Slight Ovalocytes Slight Shila Cells Slight Puncture Site pCO2 pO2 HCO3 ABG pH ABG Total CO2 ABG O2 Saturation ABG Base Excess Tima Test ABG Potassium A-a O2 Difference Respiratory Index Glucose Lactate Liter Flow FiO2 Crit Value Called To Crit Value Called By Crit Value Read Back Blood Gas Notified Time Sodium 157 H Potassium 4.9 Chloride 128 H Carbon Dioxide 24 Anion Gap 10 BUN 109 H* Creatinine 1.2 Est GFR ( Amer) > 60 Est GFR (Non-Af Amer) 58 POC Glucose (mg/dL) Random Glucose 211 H Lactic Acid 2.1 Calcium 7.5 L Phosphorus 4.1 Magnesium 2.9 H Total Bilirubin 0.7 AST 60 H ALT 81 H D Alkaline Phosphatase 158 H NT-Pro-B Natriuret Pep 96265 H Total Protein 4.7 L Albumin 2.1 L Globulin 2.6 Albumin/Globulin Ratio 0.8 L Prolactin 13.2 Arterial Blood Potassium Stool Occult Blood Blood Type Antibody Screen 10/21/18 10/21/18 16:55 17:16 WBC RBC Hgb Hct MCV MCH MCHC RDW Plt Count MPV Neut % (Auto) Lymph % (Auto) Menard % (Auto) Eos % (Auto) Baso % (Auto) Neut # (Auto) Lymph # (Auto) Menard # (Auto) Eos # (Auto) Baso # (Auto) Neutrophils % (Manual) Lymphocytes % (Manual) Monocytes % (Manual) Platelet Estimate Large Platelets Polychromasia Hypochromasia (manual) Anisocytosis (manual) Macrocytosis (manual) Target Cells Ovalocytes Simms Cells Puncture Site Rra pCO2 33 L pO2 73 L HCO3 27.7 ABG pH 7.51 H ABG Total CO2 27.3 ABG O2 Saturation 99.2 H ABG Base Excess 3.6 H Tima Test Pos ABG Potassium 4.0 A-a O2 Difference 142.0 Respiratory Index 1.9 Glucose 227 H Lactate 1.8 Liter Flow 4.0 FiO2 36.0 Crit Value Called To Dr lr Crit Value Called By [facility] Crit Value Read Back Y Blood Gas Notified Time 1700 Sodium 164.0 H* Potassium Chloride 134.0 H Carbon Dioxide Anion Gap BUN Creatinine Est GFR ( Amer) Est GFR (Non-Af Amer) POC Glucose (mg/dL) 255 H Random Glucose Lactic Acid Calcium Phosphorus Magnesium Total Bilirubin AST ALT Alkaline Phosphatase NT-Pro-B Natriuret Pep Total Protein Albumin Globulin Albumin/Globulin Ratio Prolactin Arterial Blood Potassium 4.0 Stool Occult Blood Blood Type Antibody Screen Assessment & Plan - Assessment and Plan (Free Text) Assessment: Acute blood loss anemia: suspect upper Gi bleed, stop NG tube feeds, start Protonix bolus and Protonix ggt, transfuse 3 units PRBC, avoid lovenox, antiplatelets and steroids obtain gi eval -Uremia: suspect 2nd Gi bleed: avoid nephrotoxic drugs, consider nephrology eval -Hypernatremia: 2nd lasix, lasix being given to rx for pleural effusoin; ho wever, circulating volume contraction resulting in contraction alkalosis -DVT ppx scds -PUD rx protonix -Patient's family requested conservative treatment at present. ICU will respect family wishes. Patient is currently DNR/DNI. Patient's mortality and morbidity high. -aspiration precautions Lactic normal -continue free water Please call ICU if patient's clinical status worsens. d/w Dr. Mason Lr - Date & Time Date: 10/21/18 Time: 17:50
--- NOTE | 2018-10-21 22:04 | PN ---
DATE: 10/21/2018 SUBJECTIVE: The patient is currently tachypneic and is undergoing ICU evaluation. PHYSICAL EXAMINATION: VITAL SIGNS: Blood pressure 154/81, heart rate 116, temperature 98.3, and respirations 18. HEENT: Pale conjunctivae. CHEST: Absent breath sounds over the bases with diffuse bilateral rhonchi. HEART: S1 and S2 regular. EXTREMITIES: Significant contracture deformity. LABORATORY DATA: Today's SMA-7: Sodium 157, potassium 4.9, chloride 128, CO2 24, glucose 211, BUN 109, creatinine 1.2. Today's hemoglobin and hematocrit are 6.7 and 21.3. White count 8.6, platelet count 59,000. Chest x-ray revealed significant bilateral pleural effusion, more on the right compared to the left with diffuse bilateral lung haziness. ASSESSMENT: 1. Bilateral pneumonia and bilateral pleural effusion. 2. Prerenal azotemia. 3. Worsening anemia and worsening thrombocytopenia. 4. Dehydration and hypernatremia. 5. Uncontrolled diabetes mellitus. RECOMMENDATIONS: Discontinue IV fluid. Continue IV Flagyl 500 mg every 8 hours, Lopressor 25 mg twice a day, Protonix 80 mg intravenous infusion at 8 mg per hour, besides 40 mg of Protonix via nasogastric tube. Overall, prognosis is grave. The patient was typed and crossmatched for possible packed RBC transfusion. Tomas Veras MD
[2018-10-22] MEDS: (Novolin R) Insulin Human Regular 100 units/ml vial SC SCH ×4 (01:30→18:22)
[2018-10-22] MEDS: metroNIDAZOLE IV 500 mg/100 ml 500 MG/100 ML BAG IVPB SCH ×2 (07:21→14:20)
[2018-10-22] MEDS: Pantoprazole 80 MG in Sodium Chloride 0.9% 100 ML IVPB SCH ×2 (07:22→15:34)
--- NOTE | 2018-10-22 08:09 | PN ---
DATE: 10/22/2018 LOCATION: 551. SUBJECTIVE: This is an 87-year-old male, seen and examined in rounds early today with the staff in the floor with reported upper GI blood loss through an inserted NG tube for feeding purposes. The patient is nonverbal with reported blood transfusion during as the latest hemoglobin reported to be 6.7, hematocrit 21.3 with platelet count of 59, and abnormal ABGs as well as abnormal liver function test with albumin 2.1, total protein 4.7. Today's blood glucose level 166. The patient is still in a status of DNR and DNI. Most recent chest x-ray done yesterday showed bilateral moderate pleural effusion with mild congestion. PHYSICAL EXAMINATION: GENERAL: An 87-year-old male. VITAL SIGNS: Afebrile with pulse of 92, respiratory rate 20-22, blood pressure of 124/74. HEENT: Showed pale, dry oral mucous membrane. Nonicteric sclerae. NG tube is in place with much less reported fresh blood through it. It is only against gravity. No suction as I ordered the staff due to the patient's severe thrombocytopenia. LUNGS: Scattered crepitation. Decreased air entry at bases. HEART: Positive S1 and S2. ABDOMEN: Soft with mild generalized tenderness. No mass or organomegaly. No rebound tenderness or guarding. EXTREMITIES: Without significant edema, clubbing, or cyanosis. NEUROLOGIC: No reported new neurological deficits, sensory or motor. IMPRESSION: 1. Malnutrition. 2. Failure to thrive. 3. Hypoalbuminemia, hypoproteinemia. 4. Gastrointestinal bleeding, upper, most likely secondary to suction gastritis due to the patient's severe thrombocytopenia. 5. Multiple past medical history, including, but not limited to cerebrovascular accident, pleural effusion, hydrocephalus, dementia as well as history of prerenal azotemia, sacral and iliac decubitus by recent history with infection, with history of hypertension, hyperlipidemia, benign prostatic hypertrophy with coronary artery disease. 7. Thrombocytopenia secondary to infectious process, most likely with severe electrolyte imbalance and hypernatremia. SUGGESTION: 1. Agree with your plan. 2. Blood transfusion to keep hemoglobin 10 g percent. 3. Platelet transfusion. 4. Nephrology followup and correct underlying coagulopathy as well as electrolyte imbalance and thrombocytopenia. 5. The patient for potential upper endoscopy and/or PEG insertion at a.m. awaiting legal consent from the legal guardian. Kushal Frye MD
[2018-10-22] MEDS: Multiple Vitamins Tab PO SCH (09:09)
--- NOTE | 2018-10-22 13:04 | CP.PCM.PN ---
Subjective - Date & Time of Evaluation Date of Evaluation: 10/22/18 Time of Evaluation: 13:03 - Subjective Subjective: Pulmonary Follow up, Covering Dr Moses The patient was Seen/interviewed and examined by me at the bedside, Medical records reviewed and Management issues were discussed and formulated with the house staff. Events reviewed Objective - Vital Signs/Intake and Output Vital Signs (last 24 hours): Temp Pulse Resp BP Pulse Ox 98.0 F 94 H 20 120/71 93 L 10/22/18 08:40 10/22/18 08:40 10/22/18 08:40 10/22/18 08:40 10/21/18 23:30 Intake and Output: 10/22/18 10/22/18 06:59 18:59 Intake Total 325 279 Balance 325 279 - Medications Medications: Current Medications Acetaminophen (Tylenol 325mg Tab) 650 mg PO Q8 PRN PRN Reason: Pain, Mild (1-3) Last Admin: 10/19/18 21:19 Dose: 650 mg Metronidazole (Flagyl) 500 mg in 100 mls @ 100 mls/hr IVPB Q8H [facility]; Protocol Last Admin: 10/22/18 07:21 Dose: Not Given Pantoprazole Sodium 80 mg/ (Sodium Chloride) 100 mls @ 10 mls/hr IVPB .Q10H [facility] Last Admin: 10/22/18 07:22 Dose: Not Given Insulin Human Regular (Novolin R) 0 unit SC Q6 [facility]; Protocol Last Admin: 10/22/18 12:13 Dose: Not Given Metoprolol Tartrate (Lopressor) 25 mg PO BID [facility] Last Admin: 10/22/18 09:09 Dose: Not Given Multivitamins (Hexavitamin) 1 tab PO DAILY [facility] Last Admin: 10/22/18 09:09 Dose: Not Given Zinc Sulfate (Zinc Sulfate 220 Mg Cap) 220 mg PO BID [facility] Last Admin: 10/22/18 09:09 Dose: Not Given - Labs Labs: 10/21/18 16:24 10/21/18 16:24 PT 12.4 SECONDS (9.7-12.2) H 10/20/18 07:59 INR 1.1 10/20/18 07:59 APTT 32 SECONDS (21-34) 10/20/18 07:59
[2018-10-22 13:50] LABS: BARBITURATES, UR NEGATIVE (NEGATIVE); BENZODIAZEPINES, UR NEGATIVE (NEGATIVE); OPIATES, UR NEGATIVE (NEGATIVE); PHENCYCLIDINE, UR NEGATIVE (NEGATIVE)
[2018-10-22 13:52] LABS: MEAN CORPUSCULAR HEMOGLOBIN 30.6 pg (27.0-31.0); MEAN CORPUSCULAR HGB CONC 32.7 g/dL (33.0-37.0); MEAN PLATELET VOLUME 12.9 fL (7.2-11.7); RBC 3.37 Mil/uL (4.40-5.90); RED CELL DISTRIBUTION WIDTH 20.1 % (11.5-14.5); WHITE BLOOD COUNT 12.8 K/uL (4.8-10.8)
[2018-10-22 13:57] LABS: HEMOGLOBIN 10.3 g/dL (12.0-18.0); MEAN CELL VOLUME 93.8 fL (80.0-94.0)
--- NOTE | 2018-10-22 14:32 | PN ---
DATE: 10/22/2018 SUBJECTIVE: The patient is lethargic. He is getting packed RBC transfusion. He is mildly short of breath. PHYSICAL EXAMINATION: VITAL SIGNS: Blood pressure 120/71, heart rate 94, temperature 98, and respirations 20. HEENT: Pale conjunctivae. CHEST: Bibasilar rhonchi. HEART: S1 and S2 regular. EXTREMITIES: Significant contracture deformity. LABORATORY DATA: Today's blood sugar 216 and 166. Official chest x-ray report he has bilateral mild pleural effusion. ASSESSMENT: 1. Worsening anemia. 2. Bilateral pneumonia and bilateral pleural effusion. 3. Prerenal azotemia. 4. Dehydration and hyponatremia. PLAN: Continue current packed RBC transfusion. Continue IV Flagyl and IV Protonix drip. The patient is a poor candidate for any surgical intervention including gastrostomy feeding tube placement and overall prognosis is grave. Tomas Veras MD
[2018-10-22 14:37] LABS: ALB/GLOB RATIO 0.8 (1.0-2.1); ALBUMIN 2.1 g/dL (3.5-5.0); CALCIUM 7.9 mg/dl (8.6-10.4)
--- NOTE | 2018-10-22 17:25 | CP.PCM.PN ---
Subjective - Date & Time of Evaluation Date of Evaluation: 10/22/18 Time of Evaluation: 08:45 - Subjective Subjective: clinically same Objective - Vital Signs/Intake and Output Vital Signs (last 24 hours): Temp Pulse Resp BP Pulse Ox 97.3 F L 100 H 22 169/77 H 99 10/22/18 15:11 10/22/18 15:11 10/22/18 15:11 10/22/18 15:11 10/22/18 15:11 Intake and Output: 10/22/18 10/22/18 06:59 18:59 Intake Total 325 279 Balance 325 279 - Medications Medications: Current Medications Acetaminophen (Tylenol 325mg Tab) 650 mg PO Q8 PRN PRN Reason: Pain, Mild (1-3) Last Admin: 10/19/18 21:19 Dose: 650 mg Metronidazole (Flagyl) 500 mg in 100 mls @ 100 mls/hr IVPB Q8H [facility]; Protocol Last Admin: 10/22/18 14:20 Dose: 100 mls/hr Pantoprazole Sodium 80 mg/ (Sodium Chloride) 100 mls @ 10 mls/hr IVPB .Q10H [facility] Last Admin: 10/22/18 15:34 Dose: Not Given Insulin Human Regular (Novolin R) 0 unit SC Q6 [facility]; Protocol Last Admin: 10/22/18 12:13 Dose: Not Given Metoprolol Tartrate (Lopressor) 25 mg PO BID [facility] Last Admin: 10/22/18 09:09 Dose: Not Given Multivitamins (Hexavitamin) 1 tab PO DAILY [facility] Last Admin: 10/22/18 09:09 Dose: Not Given Zinc Sulfate (Zinc Sulfate 220 Mg Cap) 220 mg PO BID [facility] Last Admin: 10/22/18 09:09 Dose: Not Given - Labs Labs: 10/22/18 13:16 10/22/18 14:06 PT 12.4 SECONDS (9.7-12.2) H 10/20/18 07:59 INR 1.1 10/20/18 07:59 APTT 32 SECONDS (21-34) 10/20/18 07:59 - Constitutional Appears: Well - Head Exam Head Exam: ATRAUMATIC, NORMAL INSPECTION, NORMOCEPHALIC - Eye Exam Eye Exam: EOMI, Normal appearance, PERRL Pupil Exam: NORMAL ACCOMODATION, PERRL - ENT Exam ENT Exam: Mucous Membranes Moist, Normal Exam - Neck Exam Neck Exam: Full ROM, Normal Inspection. absent: Lymphadenopathy - Respiratory Exam Respiratory Exam: Decreased Breath Sounds - Cardiovascular Exam Cardiovascular Exam: REGULAR RHYTHM, +S1, +S2 - GI/Abdominal Exam GI & Abdominal Exam: Soft, Diminished Bowel Sounds - Rectal Exam Rectal Exam: Deferred
[2018-10-23] MEDS: (Novolin R) Insulin Human Regular 100 units/ml vial SC SCH ×2 (00:37→07:10)
[2018-10-23] MEDS: metroNIDAZOLE IV 500 mg/100 ml 500 MG/100 ML BAG IVPB SCH ×2 (08:12)
[2018-10-23 08:14] VITALS: BP 144/81; PULSE 110; RESP 28; TEMP 97.6; O2SAT 97
[2018-10-23] MEDS: Multiple Vitamins Tab PO SCH (09:24)
--- NOTE | 2018-10-23 09:45 | CP.PCM.PRO ---
Pronouncement of Note - Clinical Findings Physical Exam: No Response Verbal/Painful Stimuli, Absent Peripheral Puls es{Carotid & Femoral}, Absent Heart & Breath Sounds, No Pupillary Light Reflex, No Corneal Reflex, Pupils Fixed & Dilated, Absence of Vital Signs - Pronouncement Time Time of Pronouncement of : 09:42 - Notifications Pronouncement Notifications: Family Notified, [place] Notified - [place] [id number]
--- NOTE | 2018-10-23 16:45 | CP.PCM.PN ---
Subjective - Date & Time of Evaluation Date of Evaluation: 10/23/18 Time of Evaluation: 09:00 - Subjective Subjective: pt spoke family at length pt without pulse no bp pupils fixed and dilated famiy aware dw resident Objective - Vital Signs/Intake and Output Vital Signs (last 24 hours): Temp Pulse Resp BP Pulse Ox 97.6 F 110 H 28 H 144/81 97 10/23/18 07:14 10/23/18 07:14 10/23/18 07:14 10/23/18 07:14 10/23/18 07:14 Intake and Output: 10/23/18 10/23/18 06:59 18:59 Output Total 300 Balance -300 - Labs Labs: 10/22/18 13:16 10/22/18 14:06 PT 12.4 SECONDS (9.7-12.2) H 10/20/18 07:59 INR 1.1 10/20/18 07:59 APTT 32 SECONDS (21-34) 10/20/18 07:59
== END 2018-10-23 14:52 | DRG 871 ==
LOC: C.ER 16:19 → C.9E 20:28 → C.6T 21:45 → C.9I 10-05 20:27 → C.6T 10-14 06:35 → C.5S 10-17 08:22
PROVIDERS: ADMIT Internal Medicine Nephrology; ATTEND Internal Medicine Nephrology
PROC: 0BH17EZ Insertion of Endotracheal Airway into Trachea, Via Natural or Artificial Opening (ICD-10-PCS; principal; 2018-10-06)
PROC: 5A1945Z Respiratory Ventilation, 24-96 Consecutive Hours (ICD-10-PCS; 2018-10-06)
PROC: 0W993ZZ Drainage of Right Pleural Cavity, Percutaneous Approach (ICD-10-PCS; 2018-10-06)
DX: A41.9 Sepsis, unspecified organism (principal); L89.213 Pressure ulcer of right hip, stage 3; J69.0 Pneumonitis due to inhalation of food and vomit; J96.01 Acute respiratory failure with hypoxia; E46 Unspecified protein-calorie malnutrition; E87.0 Hyperosmolality and hypernatremia; E87.1 Hypo-osmolality and hyponatremia; Z68.1 Body mass index [BMI] 19.9 or less, adult; B37.9 Candidiasis, unspecified; D69.59 Other secondary thrombocytopenia; E11.51 Type 2 diabetes mellitus with diabetic peripheral angiopathy without gangrene; E11.65 Type 2 diabetes mellitus with hyperglycemia; E78.5 Hyperlipidemia, unspecified; E83.52 Hypercalcemia; E86.0 Dehydration; F03.90 Unspecified dementia, unspecified severity, without behavioral disturbance, psychotic disturbance, mood disturbance, and anxiety; I11.0 Hypertensive heart disease with heart failure; I25.10 Atherosclerotic heart disease of native coronary artery without angina pectoris; I35.1 Nonrheumatic aortic (valve) insufficiency; I50.9 Heart failure, unspecified; N40.0 Benign prostatic hyperplasia without lower urinary tract symptoms; R62.7 Adult failure to thrive; Z51.5 Encounter for palliative care; Z66 Do not resuscitate; Z74.01 Bed confinement status; Z87.891 Personal history of nicotine dependence; D64.9 Anemia, unspecified